=== PATIENT | female | born 1945 | race Caucasian/White ===

== ENCOUNTER 2025-05-06 12:52 | Inpatient (IN) | payer OTHER, SELFPAY ==
--- OUTSIDE RECORDS SUMMARY | 2003-12-10 04:15 | XMS_ITS | Continuity of Care Document ---
Author Organization [facility] Address [id number] [place] [address] [place] [address] Phone Care Team Providers Care Sap Sd Analyst Name Role Phone Solis OD, Daren Unavailable Unavailable Advance Directives Directive Yes / No Effective Date File Name No Information Encounters Encounter Description Practice Location Reason(s) For Visit Diagnoses Date Provider Providers Copied on Encounter [facility], [address], [place], [place], [id number], [place] tel:[phone] SEC [facility] No Information Puma-0 9-200 4 Solis OD Daren. [address] [facility] , [address], [place], [address], [place]. tel:[phone] Referring Provider: Hema Zavala, [address], [place], [address]. tel:[phone] Family History Family Member Type Diagnosis Age At Onset No Information Payers Payer name Insurance type Covered libertarian ID Authoriza tion(s) Medicaid [facility] [id number] Social History Type Description Quantity Date Captured Comments Sex Female Smoking Status No Information Chief Complaint And Reason For Visit No Information Reason For Referral Reason For Referral No Information History Of Present Illness Encounter Date Complaint History Of Prese nt Illness No Information Functional Status Date Functional Assessmen t No Information Instructions Date Instruction Additional Infor mation No Information Assessments Type Assessment Date No Information Patient Care Teams Name Effective Dates (start - stop) Status Members No Information
--- OUTSIDE RECORDS SUMMARY | 2025-03-29 18:00 | XMS_ITS | Continuity of Care Document ---
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 Share Billing SUBSEQUENT HOSPITAL CARE Advance Directives Directive Yes / No Effective Date File Name No Information Encounters Encounter Description Practice Location Reason(s) For Visit Diagnoses Date Provider Providers Copied on Encounter SUBSEQUENT HOSPITAL CARE [facility], [address] [place], [place], [id number] , tel: [phone] [facility] Inpt Obstructive sleep apnea (adult) (pediatric)Other chest painBradycardia, unspecifiedObesity, unspecifiedLocalized edemaAcute respiratory failure with hypoxiaEssential (primary) hypertensionAbnormal electrocardiogram [ECG] [EKG]Shortness of breathOther forms of dyspnea 5 Lory Rodríguez. [address] , [address], [place], [place], [id number], [place]. tel:[phone] Referring Provider: Rob Dozier, [address] [place] [address], [address]. tel:[phone] SUBSEQUENT HOSPITAL CARE [facility], [address] [place] [address], [id number] , tel: [phone] [facility] Inpt Obstructive sleep apnea (adult) (pediatric)Acute respiratory failure with hypoxiaEssential (primary) hypertensionShortnes s of breathLocalized edemaBradycardia, unspecifiedObesity, unspecified Sep-2 5 Kalvaitis Saulius. [address] [place], [place], [id number], . tel:[phone] Referring Provider: [place], [address]. tel:[phone] SUBSEQUENT [facility]PITAL CARE [facility] , [address] [place] [address], [id number] , tel: [phone] [facility] Inpt Obstructive sleep apnea (adult) (pediatric)Other chest painBradycardia, unspecifiedObesity, unspecifiedLocalized edemaAcute respiratory failure with hypoxiaEssential (primary) hypertensionAbnormal electrocardiogram [ECG] [EKG]Shortness of breathOther forms of dyspnea Sep-2 5 Ramadan Joao. [address] [place], [place], [id number], . tel:[phone] Referring Provider: [place], [address]. tel:[phone] SUBSEQU[facility]PITAL CARE [facility] , [address] [place] [address], [id number] , tel: [phone] [facility] Inpt Bradycardia, unspecifiedObesity, unspecifiedAcute respiratory failure with hypoxiaEssential (primary) hypertensionShortnes s of breathObstructive sleep apnea (adult) (pediatric) Sep-2 5 Ildefonso Ramos. [address] [place], [place], [id number], . tel:[phone] Referring Provider: [place], [address]. tel:[phone] INITIAL INPATIENT CONSULT [facility], [address] [place] [address], [id number] , tel: [phone] [facility] Inpt Essential (primary) hypertensionAbnormal electrocardiogram [ECG] [EKG]Shortness of breathBradycardia, unspecifiedOther forms of dyspnea Sep-2 5 Zaman Toniya. [address] [place], [place], [id number], . tel:[phone] Referring Provider: [place], [address]. tel:[phone] [facility] , [address] [place] [address], [id number] , tel:[phone] [facility] Inpt Obstructive sleep apnea (adult) (pediatric)Other chest painBradycardia, unspecifiedObesity, unspecifiedLocalized edemaAcute respiratory failure with hypoxia Sep-2 5 Paul Okeefe. [facility] [address] [place], [place], [id number], . tel:[phone] Referring Provider: [place], [address]. tel:[phone] [facility]ARE [facility] , [address] [place] [address], [id number] , tel:[phone] [facility] Inpt Obstructive sleep apnea (adult) (pediatric)Other chest painBradycardia, unspecifiedObesity, unspecifiedLocalized edemaAcute respiratory failure with hypoxiaEssential (primary) hypertensionAbnormal electrocardiogram [ECG] [EKG]Shortness of breathOther forms of dyspnea Sep-2 5 Saheta Sanjaya. [facility] [place], [place], [id number], . tel:[phone] Referring Provider: [place], [address]. tel:[phone] Family History Family Member Type Diagnosis Age At Onset No Information Payers Payer name Insurance type Covered constitution party ID Romelia lezama(s) [employer] [id number] Social History Type Description Quantity Date Captured [...]
--- OUTSIDE RECORDS SUMMARY | 2025-05-05 11:30 | XMS_ITS | Encounter Summary ---
Author Organization [facility] Address [address] [place] [address] Phone Care Team Providers Care Refractory Specialist Name Role Phone Rob Dozier MD Primary Care Provider [phone] Reason for Referral * Cardiology (Routine) - Authorized Specialty Diagnoses / Procedures Referred By Contac t Referred To Contact Diagnoses Abnormal ECG Procedures MCT Mobile Cardiac Telemetry Event Monitor Marie Blanchard MD [address] [facility] [address] [place] [address] Phone: tel: fax: [facility] Referral ID Status Reason Start Date Expiration Date V isits Requested Visits Authorized [id number] Authorized 05/05/2025 06/04/2026 1 1 S ACCOUNT COORDINATOR * Cardiology (Routine) - Pending Review Specialty Diagnoses / Procedures Referred By Contac t Referred To Contact Diagnoses Heart failure, unspecified HF chronicity, unspecified heart failure type (HCC) Procedures Transthoracic Echo (TTE) Complete W Doppler/CF Marie Blanchard MD [address] [facility] [address] [place] [address] Phone: tel: fax: [facility] Referral ID Status Reason Start Date Expiration Date V isits Requested Visits Authorized [id number] Pending Review 05/05/2025 06/04/2026 1 1 S ACCOUNT COORDINATOR Encounter Details Date Type Department Care Team (Late st Contact Info) Description 05/05/2025 11:30 AM SALES ACCOUNT COORDINATOR Office Visit [facility] Medicine Cardiology [address] [facility] Medical [address] Building [address] [place] [address] Marie Blanchard MD [address] [facility] [address] [place] [address] Heart failure, unspecified HF chronicity, unspecified heart failure type (HCC) (Primary Dx); Chronic hypoxic respiratory failure (HCC); Essential (primary) hypertension; 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 Never 04/18/2024 Q2: How many drinks containi ng alcohol do you have on a typical day when you are drinking? Patient does not drink Q3: How often do you have si x or more drinks on one occasion? Never 04/18/2024 Comments Unknown Sex and Gender Information Value Date Recorded Sex Assigned at Not on file Legal Sex Female 10:47 AM SALES ACCOUNT COORDINATOR Gender Identity Not on file Sexual Orientation Not on file documented as of this encounter Last Filed Vital Signs Vital Sign Reading Time Taken Comments Blood Pressure 108/56 05/05/2025 11:58 AM SALES ACCOUNT COORDINATOR Pulse 45 05/05/2025 11:58 AM SALES ACCOUNT COORDINATOR Temperature - - Respiratory Rate - - Oxygen Saturation 93% 05/05/2025 11:58 AM SALES ACCOUNT COORDINATOR Inhaled Oxygen Concentration - - Weight - - Height 160 cm (5' 3) 05/05/2025 11:58 AM SALES ACCOUNT COORDINATOR Body Mass Index - - documented in this encounter Patient Instructions * Patient Instructions* Marie Blanchard MD - 05/05/2025 11:30 AM SALES ACCOUNT COORDINATOR It was a pleasure seeing you in clinic today! Please contact us via [email or web address] or by phone with any questions or concerns. If imaging has been ordered and not yet scheduled, please call [facility] Cardiac Diagnostic Lab at [phone] to schedule your appointment. CONTACT: Clinic Clinic Clinic Visit Summary: You were seen for establishing care due to history of heart failure. We will: - Increase your furosemide to 40mg daily.. Make sure you eat foods rich in potassium because furosemide lowers your potassium level - Get labs - Please maintain a LOW SALT diet - Get a heart monitor for 2 WEEKS, then send this back with the mailing label - After your heart monitor comes off, you'll return for an echocardiogram S ACCOUNT COORDINATOR S ACCOUNT COORDINATOR S ACCOUNT COORDINATOR documented in this encounter Ordered Prescriptions Prescription Sig Dispense Quantity Refills Last Filled Start Date End Date furosemide (LASIX) 40 mg tablet Take 1 tablet (40 mg total) by mouth daily 90 tablet 3 05/05/2025 05/05/2026 documented in this encounter Plan of Treatment Pending Results Name Type Priority Associated Diagnoses Date /Time Lipoprotein a (LPa) Lab Routine Primary hypertension 05/05/2025 1:08 PM SALES ACCOUNT COORDINATOR Scheduled Orders Name Type Priority Associated Diagnoses Orde r Schedule Transthoracic Echo (TTE) Complete W Doppler/CF Echocardiography Routine Heart failure, unspecified HF chronicity, unspecified heart failure type (HCC) Expected: 05/05/2025, Expires: 08/05/2026 MCT Mobile Cardiac Telemetry Event Monitor Cardiac Services Routine Abnormal ECG Expected: 05/05/2025, Expires: 05/05/2026 Lipoprotein a (LPa) Lab Routine Primary hypertension Expected: 05/05/2025, Expires: 05/05/2026 documented as of this encounter Procedures Procedure Name Priority Date/Time Associated Diagnosis Comments ECG 12-LEAD Routine 05/05/2025 12:00 PM SALES ACCOUNT COORDINATOR Heart failure, unspecified HF chronicity, unspecified heart failure type (HCC) documented in this encounter Results * (ABNORMAL) Iron profile w/ IBC (05/05/2025 1:08 PM SALES ACCOUNT COORDINATOR) Iron 21(L) 35 - 145 mcg/dL Comment:Testing performed by : [facility], [address] [place] [address] [place]., [address] TIBC 305 250 - 400 mcg/dL TONY MOOREERIN Comment:Testing performed by : [facility], [address] [place] [address]., [id number] Transferrin saturation 7(L) 20 - 50 % TONY JENSEN Comment:Testing performed by : [facility], [address] [place] [address]., [id number] Blood 05/05/2025 1:08 PM SALES ACCOUNT COORDINATOR 05/05/2025 6:29 PM SALES ACCOUNT COORDINATOR Marie Blanchard MD LAB BLOOD ORDERABLES Final Result Performing Organization Address City/[facility]/ZIP Co de Phone Number [facility] [address] [facility]. [facility] [place] [address] * Ferritin (05/05/2025 1:08 PM SALES ACCOUNT COORDINATOR) Pathologist [facility] Ferritin 42 13 - 150 ng/mL Comment:Testing performed by : [facility], [address] [place] [address]., [id number] Blood 05/05/2025 1:08 PM SALES ACCOUNT COORDINATOR 05/05/2025 6:29 PM SALES ACCOUNT COORDINATOR us Marie Blanchard MD LAB BLOOD ORDERABLES Final Result Performing Organization Address City/[facility]/ZIP Co de Phone Number [facility] [address] [facility]. [facility] [place] [address] * (ABNORMAL) CBC with auto differential (05/05/2025 1:08 PM SALES ACCOUNT COORDINATOR) WBC 4.99 3.80 - 9.90 K/cumm Hgb 10.4(L) 11.9 - 15.5 g/dL [facility] Hct 36.5 35.6 - 45.5 % TONY MOOREERIN Plt 232 150 - 400 K/cumm TONY [facility] MPV 9.3 9.1 - 12.3 fL TONY [facility] RBC 3.63(L) 3.90 - 5.20 M/cumm CERNER [facility] MCV 100.6(H) 81.3 - 96.4 fL [facility] MCH 28.7 27.1 - 33.3 pg CERNER [facility] MCHC 28.5(L) 32.3 - 35.7 g/dL CERNER [facility] RDW CV 17.6(H) 11.1 - 14.9 % [facility] RDW SD 65.2(H) 35.7 - 48.1 fL [facility] B[facility] NRBC abs 0.00 0.00 - 0.01 K/cumm [facility] BJ[facility] Blood 05/05/2025 1:08 PM SALES ACCOUNT COORDINATOR 05/05/2025 2:36 PM SALES ACCOUNT COORDINATOR Marie Blanchard MD LAB BLOOD ORDERABLES Final Result Performing Organization Address [facility] Co de Phone Number [facility] [address] [employer] [place], [place] [id number] * (ABNORMAL) Thyroid Function Sterling (05/05/2025 1:08 PM SALES ACCOUNT COORDINATOR) TSH 6.00(H) 0.30 - 4.20 mcIUnit/mL Blood 05/05/2025 1:08 PM SALES ACCOUNT COORDINATOR 05/05/2025 2:36 PM SALES ACCOUNT COORDINATOR Marie Blanchard MD LAB BLOOD ORDERABLES Edite d Result - Final Performing Organization Address [facility] Co de Phone Number [facility] [address] [employer] [place], [place] [phone] * (ABNORMAL) Pro B-type natriuretic peptide (05/05/2025 1:08 PM SALES ACCOUNT COORDINATOR) NT-proBNP 1,939(H) <=450 pg/mL Comment: Interpretive Comments: A. Dyspnea in Acute Care Setting All Ages: < 300 pg/ml, acute heart failure unlikely. < 50 yrs: 300 - 450 pg/ml, further investigation warranted. > 450 pg/ml, acute heart failure likely. 50 - 74 yrs: 300 - 900 pg/ml, further investigation warranted. > 900 pg/ml, acute heart failure likely . > or = 75 yrs: 450 - 1800 pg/ml, further investigation warranted. > 1800 pg/ml, acute heart failure likely. B. Non-acute Setting < 75 yrs < 125 pg/ml, rules out heart failure. > or = 125 pg/ml, further investigation warranted. > or = 75 yrs < 450 pg/ml, rules out heart failure. > or = 450 pg/ml, further investigation warranted. - Knowledge of each individual patient's NT-proBNP range may be more useful than using similar cut-points for every patient. Please note that marked elevations in NT-proBNP levels may be observed in state other than Left Ventricular Congestive Failure, including: acute coronary syndromes, right heart strain/failure (including pulmonary embolism and cor pulmonale), critical illness, renal failure, as well as advanced age. - References: 1. Emily RUBIN et.al. Eur Heart J. 2006:27:330-337. 2. Luigi RW, Ely BOLANOS. J. AM Tj Cardiol: Cardiovasc Imag. 2009;2: 216- 225. Interpretive Data Last Revised Date: 2018. Blood 05/05/2025 1:08 PM SALES ACCOUNT COORDINATOR 05/05/2025 2:36 PM SALES ACCOUNT COORDINATOR Marie Blanchard MD LAB BLOOD ORDERABLES Edite d Result - Final [facility] [address] [facility]. [place] [address] * Hemoglobin A1c (05/05/2025 1:08 PM SALES ACCOUNT COORDINATOR) Hgb A1C 5.2 4.0 - 5.6 % Estimated Average Glucose 103 mg/dL TONY JENSEN Comment: The ADA recommends reporting an estimated Average Glucose (eAG) with all Hemoglobin A1c results using the equation derived from a study of 507 normal and diabetic adults. Minority populations were underrepresented and children were not included. (Diabetes Care 31:6538-5188, 2008). The eAG is not equivalent to a fasting glucose. Blood 05/05/2025 1:08 PM SALES ACCOUNT COORDINATOR 05/05/2025 2:36 PM SALES ACCOUNT COORDINATOR Marie Blanchard MD LAB BLOOD ORDERABLES Final Result TONY JENSEN [address] [facility]. [place] [address] * (ABNORMAL) Basic metabolic panel (05/05/2025 1:08 PM SALES ACCOUNT COORDINATOR) [facility] Sodium 143 135 - 145 mmol/L Potassium, pl 4.9 3.3 - 4.9 mmol/L CERNER [facility] Chloride 103 97 - 110 mmol/L C[facility] CO2 36(H) 22 - 32 mmol/L [facility] Anion gap 4 2 - 15 mmol/L [facility] BUN 19 6 - 25 mg/dL C[facility] Creatinine 1.50(H) 0.60 - 1.10 mg/dL C[facility] Glucose 95 70 - 199 mg/dL [facility] Comment: Interpretive Data Fasting glucose >/= 126 mg/dl is diagnostic for diabetes. Fasting is defined as no caloric intake for at least 8 hours. Fasting glucose between 100 mg/dl to 125 mg/dl is diagnostic of prediabetes. In a patient with classic symptoms of hyperglycemia or hyperglycemic crisis, a random glucose >/= 200 mg/dl is diagnostic for diabetes. In the absence of unequivocal hyperglycemia, results should be confirmed by repeat testing. The classification and Diagnosis of Diabetes Diabetes Care 2021; 46: S19-S40. Current interpretive data was last revised 2022. Calcium 9.4 8.5 - 10.3 mg/dL CERNER W Blood 05/05/2025 1:08 PM SALES ACCOUNT COORDINATOR 05/05/2025 2:36 PM SALES ACCOUNT COORDINATOR Marie Blanchard MD LAB BLOOD ORDERABLES Edite d Result - Final Performing Organization Address [facility]/ZIP Co de Phone Number TONY GANDHICH [address] [facility] Department [place] [address] * (ABNORMAL) Apolipoprotein B, serum (05/05/2025 1:08 PM SALES ACCOUNT COORDINATOR) Apolipoprotein B 46(L) mg/dL [facility] Comment: REFERENCE VALUE Desirable: <90 Above Desirable: 90-99 Borderline high: 100-119 High: 120-139 Very high: > or = 140 Test Performed by: [facility] - [address] [address] Market Development Manager: Lissy Lees Ph.D.; CLIA# [id number] Blood 05/05/2025 1:08 PM SALES ACCOUNT COORDINATOR 05/05/2025 2:36 PM SALES ACCOUNT COORDINATOR us Marie Blanchard MD LAB BLOOD ORDERABLES Final Result Performing Organization Address City/State/ZIP Co mo Phone Number TONY JENSEN [address] [facility] Department [place] [address] [facility] * Lipid panel (05/05/2025 1:08 PM SALES ACCOUNT COORDINATOR) Cholesterol 102 30 - 199 mg/dL Comment: Interpretive Data Ages < or = 19 years Acceptable: <170 mg/dL Borderline high: 170-199 mg/dL High: >or= 200 mg/dL Ages > or = 20 years Desirable: <200 mg/dL Borderline high: 200-239 mg/dL High: >or= 240 mg/dL Literature References: 1. Expert Panel on Integrated Guidelines for Cardiovascular Health and Risk Reduction in Children and Adolescents. Pediatrics 2011;128:S213 2. NCEP Expert Panel. Circulation 2004;110:227 Current Interpretive Data was last revised on 2018. Triglycerides 46 <=149 mg/dL TONY JENSEN Comment: Interpretive Data Ages < or = 9 years Acceptable: <75 mg/dL Borderline high: 75-99 mg/dL High: >or= 100 mg/dL Ages 10 to 20 years Acceptable: <90 mg/dL Borderline high: 90-129 mg/dL High: >or= 130 mg/dL Ages > or = 20 years Desirable: <150 mg/dL Borderline high: 150-199 mg/dL High: 200-499 mg/dL Very high: >or= 499 mg/dL Literature References: 1. Expert Panel on Integrated Guidelines for Cardiovascular Health and Risk Reduction in Children and Adolescents. Pediatrics 2011;128:S213 2. NCEP Expert Panel. Circulation 2004;110:227 Current Interpretive Data was last revised on 2018. HDL 43 >=40 mg/dL TONY JENSEN Comment: Interpretive Data Ages < or = 19 years Acceptable: >45 mg/dL Borderline low: 40-45 mg/dL Low: <40 mg/dL Ages > or = 20 years Desirable: >or= 60 mg/dL Low: <40 mg/dL Literature References: 1. Expert Panel on Integrated Guidelines for Cardiovascular Health and Risk Reduction in Children and Adolescents. Pediatrics 2011;128:S213 2. NCEP Expert Panel. Circulation 2004;110:227 Current Interpretive Data was last revised on 2018. LDL, calculated 47 <=129 mg/dL TONY JENSEN Comment: Interpretive Data Ages < or = 19 years Acceptable: <110 mg/dL Borderline high: 110-129 mg/dL High: >or= 130 mg/dL Ages > or = 20 years Optimal: <100 mg/dL Near optimal: 100-129 mg/dL Borderline high: 130-159 mg/dL High: >160 mg/dL Calculated using the Aaron LDL-C estimating equation. This equation was implemented on 2024. Prior to this date LDL-C was estimated using the Friedewald equation. Literature References: 1. Expert Panel on Integrated Guidelines for Cardiovascular Health and Risk Reduction in Children and Adolescents. Pediatrics 2011;128:S213 2. NCEP Expert Panel. Circulation 2004;110:227 3. Aaron Booker al. LEYDI Cardiol. 2020 October 31;5(5):540-548. doi: 10.1001/jamacardio.2020.0013 Current Interpretive Data was last revised on 2024. Non-HDL Cholesterol 59 mg/dL TONY JENSEN Comment: Interpretive Data Ages < or = 19 years Acceptable: <120 mg/dL Borderline high: 120-144 mg/dL High: >145 mg/dL Ages > or = 20 years When triglycerides are >200 mg/dL, Non-HDL cholesterol is a secondary target of therapy with treatment goals that are 30 mg/dL greater than the LDL cholesterol target. Literature References: 1. Expert Panel on Integrated Guidelines for Cardiovascular Health and Risk Reduction in Children and Adolescents. Pediatrics 2011;128:S213 2. NCEP Expert Panel. Circulation 2004;110:227 Current Interpretive Data was last revised on 2018. Chol/HDL ratio 2 TONY MOOREWCH Blood 05/05/2025 1:08 PM SALES ACCOUNT COORDINATOR 05/05/2025 2:36 PM SALES ACCOUNT COORDINATOR Marie Blanchard MD LAB BLOOD ORDERABLES Edite d Result - Final TONY GANDHICH [address] [facility]. 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 doxycycline 100 mg tablet 01/13/2025 ferrous sulfate 325 mg (65 mg of elemental iron) tablet Take 1 tablet (325 mg total) by mouth daily 10/08/2024 psyllium, aspartame, SF (Daily Fiber, psyllium-aspart,) 3.4 gram packet Take 1 packet by mouth 2 (two) times a day 04/14/2025 traZODone (DESYREL) 150 mg tablet 05/02/2025 oxyBUTYnin (DITROPAN) 5 mg tablet 05/02/2025 busPIRone (BUSPAR) 10 mg tablet 05/02/2025 ALPRAZolam (XANAX) 0.5 mg tablet 04/07/2025 meloxicam (MOBIC) 7.5 mg tablet 03/28/2025 added in this encounter Care Teams Refractory Specialist Relationship Specialty Start Date End Date Rob Dozier MD [address] [place] [address] PCP - General Internal Medicine 08/07/23 documented as of this encounter
--- OUTSIDE RECORDS SUMMARY | 2025-05-05 13:15 | XMS_ITS | Encounter Summary ---
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) Social History Tobacco Use Types Packs/Day Years Used Date Smoking Tobacco: Former Cigarettes Comments:Quit in her 30s AUDIT-C Answer Date [...] on file Legal Sex Female 10:47 AM CONTROL ENGINEER Gender Identity Not on file Sexual Orientation Not on file documented as of this encounter Plan of Treatment Pending Results Name Type Priority Associated Diagnoses Date /Time Lipoprotein a (LPa) Lab Routine Primary hypertension 05/05/2025 1:08 PM CONTROL ENGINEER documented as of this encounter Procedures Procedure Name Priority Date/Time Associated Diagnosis Comments EGFR Routine 05/05/2025 1:08 PM CONTROL ENGINEER Primary hypertension DIFFERENTIAL AUTO Routine 05/05/2025 1:0 8 PM CONTROL ENGINEER Primary hypertension PRO B-TYPE NATRIURETIC PEPTIDE Routine 05/05/2025 1:08 PM CONTROL ENGINEER Heart failure, unspecified HF chronicity, unspecified heart failure type (HCC) Primary hypertension THYROID FUNCTION CASCADE Routine 05/05/2025 1:08 PM CONTROL ENGINEER Primary hypertension IRON PROFILE W/ IBC Routine 05/05/2025 1 :08 PM CONTROL ENGINEER Heart failure, unspecified HF chronicity, unspecified heart failure type (HCC) Chronic kidney disease, unspecified CKD stage APOLIPOPROTEIN B Routine 05/05/2025 1:08 PM CONTROL ENGINEER Primary hypertension CBC WITH AUTO DIFFERENTIAL Routine 05/05/2025 1:08 PM CONTROL ENGINEER Primary hypertension T4, FREE Routine 05/05/2025 1:08 PM CONTROL ENGINEER Primary hypertension HEMOGLOBIN A1C Routine 05/05/2025 1:08 PM CONTROL ENGINEER 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 73 m2 Comment: Interpretive Data Reference Interval Normal >/= 90 mL/min/1.73m2 Mildly decreased* 60 - 89 mL/min/1.73m2 Mildly to moderately decreased 45 - 59 mL/min/1.73m2 Moderately to severely decreased 30 - 44 mL/min/1.73m2 Severely decreased 15 - 29 mL/min/1.73m2 Kidney Failure < 15 mL/min/1.73m2 *Relative to young adult level Estimated glomerular filtration rate is determined by the 2020 CKD-EPI equation recommended by the National Kidney Foundation (A Unifying Approach to GFR Estimation: Recommendations of the NKF-ASK Task Force on Reassessing the Inclusion of Race in Diagnosing Kidney Disease, JASN 2020). The CKD-EPI equation should not be used for patients with unstable renal function and has not been validated in children and those over 70. Current interpretive data was last reviewed 2021. Blood 05/05/2025 1:08 PM CONTROL ENGINEER 05/05/2025 2:36 PM CONTROL ENGINEER Marie Blanchard MD LAB BLOOD ORDERABLES Final Result Performing Organization Address City/[facility]/ZIP Co de Phone Number [facility] [address] [employer] [place], [place] [phone] * T4, free (05/05/2025 1:08 PM CONTROL ENGINEER) Free T4 1.14 0.90 - 1.70 ng/dL Blood 05/05/2025 1:08 PM CONTROL ENGINEER 05/05/2025 2:36 PM CONTROL ENGINEER Narrative TONY JENSEN - 05/05/2025 7:05 PM CONTROL ENGINEER This test was reflexed from a TSH result. Marie Blanchard MD LAB BLOOD ORDERABLES Edite d Result - Final Performing Organization Address [facility] Co de Phone Number TONY MOORECH [address] [facility] [employer] [place] [address] * Differential, auto (05/05/2025 1:08 PM CONTROL ENGINEER) Neutrophil abs 2.37 1.50 - 6.50 K/cumm Imm gran abs 0.01 0.00 - 0.10 K/cumm TONY JENSEN Lymphocyte abs 1.69 0.80 - 3.30 K/cumm TONY JENSEN Monocyte abs 0.56 0.20 - 0.80 K/cumm TONY MOOREWCH Eosinophil abs 0.33 0.00 - 0.50 K/cumm TONY JENSEN Basophil abs 0.03 0.00 - 0.10 K/cumm TONY JENSEN Neutrophil pct 47.5 % TONY JENSEN Comment: Interpretive Data Percent cell count reference ranges are not reported, since discordance with absolute values may lead to misinterpretation of CBC data. Current Interpretive Data was last revised on 2017. Imm gran pct 0.2 % TONY JENSEN Comment: Interpretive Data Percent cell count reference ranges are not reported, since discordance with absolute values may lead to misinterpretation of CBC data. Current Interpretive Data was last revised on 2017. Lymphocyte pct 33.9 % TONY JENSEN Comment: Interpretive Data Percent cell count reference ranges are not reported, since discordance with absolute values may lead to misinterpretation of CBC data. Current Interpretive Data was last revised on 2017. Monocyte pct 11.2 % TONY JENSEN Comment: Interpretive Data Percent cell count reference ranges are not reported, since discordance with absolute values may lead to misinterpretation of CBC data. Current Interpretive Data was last revised on 2017. Eosinophil pct 6.6 % TONY JENSEN Comment: Interpretive Data Percent cell count reference ranges are not reported, since discordance with absolute values may lead to misinterpretation of CBC data. Current Interpretive Data was last revised on 2017. Basophil pct 0.6 % [facility] Comment: Interpretive Data Percent cell count reference ranges are not reported, since discordance with absolute values may lead to misinterpretation of CBC data. Current Interpretive Data was last revised on 2017. Blood 05/05/2025 1:08 PM CONTROL ENGINEER 05/05/2025 2:36 PM CONTROL ENGINEER us Marie Blanchard MD LAB BLOOD ORDERABLES Final Result TONY JENSEN [id number] [facility]. [place] [address] * Lipid panel (05/05/2025 1:08 PM CONTROL ENGINEER) Cholesterol 102 30 - 199 mg/dL Comment: [...] mg/dL High: >160 mg/dL Calculated using the Walker LDL-C estimating equation. This equation was implemented on 2024. Prior to this date LDL-C was estimated using the Friedewald equation. Literature References: 1. Expert Panel on Integrated Guidelines for Cardiovascular Health and Risk Reduction in Children and Adolescents. Pediatrics 2011;128:S213 2. NCEP Expert Panel. Circulation 2004;110:227 3. Aaron Moreland et al. LEYDI Cardiol. 2019October 31;5(5):540-548. doi: 10.1001/jamacardio.2020.0013 Current Interpretive Data was [...] revised on 2018. Chol/HDL ratio 2 TONY JENSEN Blood 05/05/2025 1:08 PM CONTROL ENGINEER 05/05/2025 2:36 PM CONTROL ENGINEER us Marie Blanchard MD LAB BLOOD ORDERABLES Edite d Result - Final TONY TERESACH [address] [facility]. [place] [address] * (ABNORMAL) Apolipoprotein B, serum (05/05/2025 1:08 PM CONTROL ENGINEER) [facility] Apolipoprotein B 46(L) mg/dL [place] [facility] Comment: REFERENCE VALUE Desirable: <90 Above Desirable: 90-99 Borderline high: 100-119 High: 120-139 Very high: > or = 140 Test Performed by: [facility] [place] [address] Film Rental Clerk: Lissy Lees Ph.D.; CLIA# [id number] Blood 05/05/2025 1:08 PM CONTROL ENGINEER 05/05/2025 2:36 PM CONTROL ENGINEER Marie Blanchard MD LAB BLOOD ORDERABLES Final Result [facility] [address] [facility]. [place] [address] [place] [facility] * (ABNORMAL) Basic metabolic panel (05/05/2025 1:08 PM CONTROL ENGINEER) Sodium 143 135 - 145 mmol/L Potassium, pl 4.9 3.3 - 4.9 mmol/L [facility] Chloride 103 97 - 110 mmol/L [facility] CO2 36(H) 22 - 32 mmol/L [facility] Anion gap 4 2 - 15 mmol/L [facility] BUN 19 6 - 25 mg/dL [facility] Creatinine 1.50(H) 0.60 - 1.10 mg/dL [facility] Glucose 95 70 - 199 mg/dL [facility] Comment: Interpretive Data Fasting glucose >/= 126 [...] Calcium 9.4 8.5 - 10.3 mg/dL [facility] Blood 05/05/2025 1:08 PM CONTROL ENGINEER 05/05/2025 2:36 PM CONTROL ENGINEER Marie Blanchard MD LAB BLOOD ORDERABLES Edite d Result - Final Performing Organization Address [facility] Co de Phone Number [facility] [address] [facility] [place] [address] * Hemoglobin A1c (05/05/2025 1:08 PM CONTROL ENGINEER) Hgb A1C 5.2 4.0 - 5.6 % Estimated Average Glucose 103 mg/dL TONY JENESN Comment: The ADA recommends reporting an estimated Average Glucose (eAG) with all Hemoglobin A1c results using the equation derived from a study of 507 normal and diabetic adults. Minority populations were underrepresented and children were not included. (Diabetes Care 31:2507-3417, 2008). The eAG is not equivalent to a fasting glucose. Blood 05/05/2025 1:08 PM CONTROL ENGINEER 05/05/2025 2:36 PM CONTROL ENGINEER Marie Blanchard MD LAB BLOOD ORDERABLES Final Result Performing Organization Address [facility] de Phone Number TONY MOORECH [address] [employer]. [facility] [employer] [place] [address] * (ABNORMAL) Pro B-type natriuretic peptide (05/05/2025 1:08 PM CONTROL ENGINEER) NT-proBNP 1,939(H) <=450 pg/mL Comment: Interpretive Comments: [...] et.al. Eur Heart J. 2006:27:330-337. 2. Luigi MARSH, Ely BOLANOS. J. AM Tj Cardiol: Cardiovasc Imag. 2009;2: 216- 225. Interpretive Data Last Revised Date: 2018. Blood 05/05/2025 1:08 PM CONTROL ENGINEER 05/05/2025 2:36 PM CONTROL ENGINEER Marie Blanchard MD LAB BLOOD ORDERABLES Edite d Result - Final Performing Organization Address [facility] Co de Phone Number [facility] [address] [employer] [place], [place] [phone] * (ABNORMAL) Thyroid Function [place] (05/05/2025 1:08 PM CONTROL ENGINEER) TSH 6.00(H) 0.30 - 4.20 mcIUnit/mL Blood 05/05/2025 1:08 PM CONTROL ENGINEER 05/05/2025 2:36 PM CONTROL ENGINEER Marie Blanchard MD LAB BLOOD ORDERABLES Edite d Result - Final Performing Organization Address [facility] Co de Phone Number TONY MOORECH [address] [address] [employer] [place], [place] [phone] * (ABNORMAL) CBC with auto differential (05/05/2025 1:08 PM CONTROL ENGINEER) WBC 4.99 3.80 - 9.90 K/cumm Hgb 10.4(L) 11.9 - 15.5 g/dL TONY GANDHI Hct 36.5 35.6 - 45.5 % [facility] Plt 232 150 - 400 K/cumm TONY MOOREW MPV 9.3 9.1 - 12.3 fL TONY MOOREW RBC 3.63(L) 3.90 - 5.20 M/cumm TONY MOOREW MCV 100.6(H) 81.3 - 96.4 fL TONY MOOERW MCH 28.7 27.1 - 33.3 pg TONY MOOREW MCHC 28.5(L) 32.3 - 35.7 g/dL TONY BJW RDW CV 17.6(H) 11.1 - 14.9 % TONY MOOREWCH RDW SD 65.2(H) 35.7 - 48.1 fL TONY MOOREW NRBC abs 0.00 0.00 - 0.01 K/cumm TONY MOOREW Blood 05/05/2025 1:08 PM CONTROL ENGINEER 05/05/2025 2:36 PM CONTROL ENGINEER Marie Blanchard MD LAB BLOOD ORDERABLES Final Result Performing Organization Address City/[facility]/ZIP Co de Phone Number [facility] [address] [place] [address] * Ferritin (05/05/2025 1:08 PM CONTROL ENGINEER) [facility] Ferritin 42 13 - 150 ng/mL Comment:Testing performed by : [facility], [facility] [facility], [place]., [address] Blood 05/05/2025 1:08 PM CONTROL ENGINEER 05/05/2025 6:29 PM CONTROL ENGINEER Marie Blanchard MD LAB BLOOD ORDERABLES Final Result [facility] [address] [facility] [employer] [place] [address] * (ABNORMAL) Iron profile w/ IBC (05/05/2025 1:08 PM CONTROL ENGINEER) [facility] Iron 21(L) 35 - 145 mcg/dL Comment:Testing performed by : [facility], [address] [place] [address]., [id number] TIBC 305 250 - 400 mcg/dL TONY JENSEN Comment:Testing performed by : [facility], [address] [place] [address]., [address] Transferrin saturation 7(L) 20 - 50 % TONY JENSEN Comment:Testing performed by : [facility], [address] [place] [address]., [id number] Blood 05/05/2025 1:08 PM CONTROL ENGINEER 05/05/2025 6:29 PM CONTROL ENGINEER Marie Blanchard MD LAB BLOOD ORDERABLES Final Result TONY GANDHICH [address] [facility] Department [place] [address] documented in this encounter Visit Diagnoses Diagnosis Heart failure, unspecified HF chronicity, unspecified heart failure type (HCC) Chronic kidney disease, unspecified CKD stage Primary hypertension Unspecified essential hypertension 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
[2025-05-06] VITALS (23 sets, daily range): BP systolic 111–176; BP diastolic 30–79; PULSE 40–66; RESP 15–31; TEMP 36.4–36.7; O2SAT 85–100; BMI 34.0
--- NOTE | ~2025-05-06 | XR_ITS ---
XR chest 1V portable 05/06/2025 13:46 Indication: Shortness of breath Procedure: AP portable chest Comparison: Comparison to multiple prior studies sequentially, with oldest reviewed study dated 06/11/2015. Findings: Cardiomegaly. Abnormal development of bilateral perihilar and basilar airspace disease. Small pleural effusions. No pneumothorax. No acute osseous abnormality. There is dextroscoliosis of the thoracic spine. Impression: 1: Interval development of bilateral perihilar and bibasilar airspace disease, most likely edema. Reviewed, dictated and finalized at location [facility] Impression: 1: Interval development of bilateral perihilar and bibasilar airspace disease, most likely edema.
--- NOTE | 2025-05-06 12:57 | ECG_ITS ---
Test Date: 2025-05-06 12:57:55 Measurements Intervals [place] Rate: 54 P: 42 MI: 190 QRS: 18 QRSD: 157 T: -30 QT: 464 QTc: 440 Interpretive Statements [address]US BRAD[address]ARD[address] ST DEPRESSION, CONSIDER ISCHEMIA, ANT-LAT LEADS INTRAVENTRICULAR CONDUCTION DELAY [130+ ms QRS DURATION] No previous ECG available for comparison Electronically Signed On 05-06-2025 21:22:29 SAND CUTTER OPERATOR by Cecil Gutiérrez M.D.
[2025-05-06] MEDS: IPRATROPIUM 0.5 MG/ALBUTEROL SULFATE 2.5 MG (BASE) AMPUL.NEB 3 ML INHALATION ×2 (13:12→20:27)
--- NOTE | 2025-05-06 13:12 | ED.SOB ---
HPI - SOB/Dyspnea General Chief Complaint: Shortness of Breath/Dyspnea Stated Complaint: low oxygen Time Seen by Provider: 05/06/25 12:56 Source: EMS Mode of arrival: EMS Limitations: altered mental status History of Present Illness HPI Narrative: This is a 79-year-old female with history of COPD, CHF, hypertension, anxiety who presents the ED for shortness of breath. Per EMS report, patient began to have shortness of breath at senior care and was found to be satting in the 60s on 4 L non-rebreather prompting EMS to be notified. Per senior care, patient is baseline A/O x3 but is only ALT is 1 for her today. History otherwise limited at this time due to patient's altered mental status. Related Data Home Medications ?Medication ?Instructions ?Recorded ?Confirmed ?Last Taken ?Type alprazolam 0.5 mg tablet 0.5 mg PO 09/25/24 10/28/24 Unknown History atorvastatin 40 mg tablet 40 mg PO 09/25/24 10/28/24 Unknown History buspirone 10 mg tablet 10 mg PO 09/25/24 10/28/24 Unknown History fluoxetine 20 mg tablet 20 mg PO 09/25/24 10/28/24 Unknown History fluticasone 250 mcg-salmeterol 50 1 inh inhalation 09/25/24 10/28/24 Unknown History mcg/dose blistr powdr for inhalation (Advair Diskus) levothyroxine 175 mcg tablet 175 mcg PO 09/25/24 10/28/24 Unknown History oxybutynin chloride 5 mg mg PO 09/25/24 10/28/24 Unknown History tablet,extended release 24 hr pantoprazole 40 mg tablet,delayed mg PO 09/25/24 10/28/24 Unknown History release prednisone 20 mg tablet 10 mg PO 09/25/24 10/28/24 Unknown History sumatriptan succinate 50 mg tablet 50 mg PO ONCE 09/25/24 10/28/24 Unknown History trazodone 50 mg tablet mg PO 09/25/24 10/28/24 Unknown History montelukast 10 mg tablet 10 mg PO DAILY 10/28/24 10/28/24 Unknown History (Singulair) oxycodone 5 mg/5 mL oral solution 5 mg PO Q6H PRN 10/28/24 10/28/24 Unknown History Allergies Allergy/AdvReac Type Severity Reaction Status Date / Time No Known Allergies Allergy Verified 05/06/25 17:58 Review of Systems Review of Systems: ROS unobtainable: Yes unobtainable due to mental status [facility] Past Medical History Medical History Hypertension COPD (chronic obstructive pulmonary disease) Diabetes Sleep apnea Insomnia Hyperlipidemia Anxiety Anemia Major depressive disorder Hypothyroid Heart failure GERD (gastroesophageal reflux disease) End stage renal disease Surgical History Surgical History History of carpal tunnel release Social History Social History Smoking packs per day: 0.5 Smoking cigarettes per day: 10.0 Smoking status: Former smoker Alcohol intake: never Substance use: never Substance use type: does not use Lack of Transportation: No Lack of Food: Never True Current Housing: I Have Housing Concerned About Future Housing: No Difficulty Paying Gas/Electric Bills: No Difficulty Paying for Meds: No Currently Unemployed: No Education: Grade School Difficulty w/ Childcare or Family Care: No Spiritual care concerns: No Exam Narrative: APPEARANCE: Mild distress, nontoxic, resting in bed EYES: EOMI HEENT: Normocephalic, atraumatic, OMM RESPIRATORY: No respiratory distress Clear to auscultation bilaterally with no rhonchi wheezing or rales. CARDIOVASCULAR: Bradycardic with regular rhythm without murmurs rubs or gallops. ABDOMINAL: Soft, nontender, nondistended, no rebound or guarding MUSCULOSKELETAl: Moves all extremities. No clubbing, cyanosis or edema. NEURO: Awake and alert and oriented x1. Following commands, speech normal, no focal deficits SKIN:: Warm, dry. No rashes lesions or abrasions PSYCHIATRIC: Tearful Course Vital Signs Vital signs: Vital Signs Temperature 97.6 F 05/06/25 12:52 Pulse Rate 49 L 05/06/25 12:52 Respiratory Rate 17 05/06/25 12:52 Blood Pressure 173/79 H 05/06/25 12:52 Pulse Oximetry 93 05/06/25 12:52 Oxygen Delivery Nasal Cannula 05/06/25 12:52 Oxygen Flow Rate 4 05/06/25 12:52 Temperature 97.6 F 05/06/25 12:52 Pulse Rate 43 L 05/06/25 18:00 Respiratory Rate 18 05/06/25 17:42 Blood Pressure 124/30 L 05/06/25 17:00 Pulse Oximetry 96 05/06/25 17:42 Oxygen Delivery BiPAP 05/06/25 17:42 Oxygen Flow Rate 6 05/06/25 15:35 Fraction of Inspired Oxygen 30 05/06/25 17:42 MDM - SOB/Dyspnea MDM Narrative Medical decision making narrative: 79-year-old female Presenting for altered mental status and shortness of breath. On initial evaluation patient was in no acute distress afebrile, hemodynamic stable. Differentials include but are not limited to: ACS, CHF Exacerbation, COPD exacerbation, PE, PNA, PTX, bronchitis, viral syndrome Notable exam findings: A/O x1. Diminished breath sounds throughout. No respiratory distress. Bradycardic in the 40s. Notable lab findings: Mildly anemic at 10.7. Creatinine elevated at 1.57. BNP elevated at 2190. UA not consistent with a UTI. COVID/flu/RSV negative. ABG possibly a mixed sample, pCO2 elevated at 68. Notable imaging findings: Chest x-ray showed pulmonary edema Patient was trialed on nasal cannula and a DuoNeb but had fluctuating O2 sats from the 80s to 90s. Repeat ABG continue to show pH of 7.28 with pCO2 now 72. Patient did have improvement of mental status but with the increasing pCO2, patient was placed on BiPAP. Suspect patient is a combination COPD exacerbation at with CHF exacerbation. She was started on Rocephin and doxycycline and given 125 mg Solu-Medrol. She was given 40 mg Lasix. Patient will require admission for acute hypercarbic and hypoxemic respiratory failure the case was discussed hospitalist who will admit the patient. CRITICAL CARE Indication: Acute hypercarbic and hypoxemic respiratory failure Time type: intermittent I provided a total of 35 minutes of critical care excluding separately billable procedures. This includes time w/ EMS, initial bedside evaluation, reviewing old records, review of testing done while under my care, discussion w/ the family, nurses, it infrastructure consultant and guiding the patient?s care while in the emergency department. Approximate time distribution: 10 minutes ? Initial evaluation, d/w involved parties, attempting to gather old records. 10 minutes ? Documenting medical record 5 minutes ? Review of results (EKGs, labs, imaging) 5 minutes ? Serial repeat bedside evaluation 5 minutes ? Discussing case with multiple providers Medical Records Attestation: I reviewed the patient's medical records. Lab Data Attestation: I reviewed the patient's lab results. 05/06/25 13:32 05/06/25 13:32 Labs: Lab Results 05/06/25 05/06/25 Range/Units 13:32 15:00 WBC 5.9 (4.5-10.0) K/mm3 RBC 3.75 L (4.2-5.4) M/mm3 Hgb 10.7 L (12.0-15.0) g/dL Hct 38.8 (37.0-47.0) % MCV 103.5 H (80-100) fl MCH 28.5 (26-34) pg MCHC 27.6 L (32-36) g/dl RDW 17.7 H (11.5-14.5) % Plt Count 249 (150-375) k/mm3 MPV 9.2 (7.4-10.4) fl Immature Gran % (Auto) 0.2 (0-0.5) % Neut % (Auto) 49.7 (45.5-73.1) % Lymph % (Auto) 33.4 (18.3-44.2) % [place] % (Auto) 9.2 H (2.6-8.5) % Eos % (Auto) 6.8 H (0-4.4) % Baso % (Auto) 0.7 (0.2-1.2) % Lymph # (Auto) 1.96 (0.9-3.2) K/mm3 [place] # (Auto) 0.5 (0.1-0.6) K/mm3 Eos # (Auto) 0.4 H (0-0.3) K/mm3 Baso # (Auto) 0.0 (0.0-0.1) K/mm3 Abs Immat Gran (auto) 0.01 (0.00-0.031) K/mm3 Absolute Neuts (auto) 2.9 (1.3-6.7) K/mm3 Absolute Nucleated RBC 0.000 (0.0-0.012) K/mm3 Band Neutrophils % Not Reportable Nucleated RBC % 0.0 (0.0-0.2) % Platelet Estimate Adequate (Adequate) Schistocytes None seen PT 13.8 (11.1-14.7) Seconds INR 1.0 Sodium 143 (137-145) mmol/L Potassium 4.7 (3.4-5.0) mmol/L Chloride 103 (98-107) mmol/L Carbon Dioxide 36 H (22-30) mmol/L Anion Gap 4 (4-12) mmol/L BUN 20 H (7-17) mg/dL Creatinine 1.57 H (0.7-1.0) mg/dL Estim Creat Clear Calc 28 ml/min Estimated GFR 32 L (59 - ) Glucose 78 (65-110) mg/dL Calcium 8.3 L (8.4-10.2) mg/dL Total Bilirubin 0.6 (0.2-1.3) mg/dL AST 36 (14-36) U/L ALT 14 (6-35) U/L Alkaline Phosphatase 137 H (38-126) U/L Troponin I 0.013 (0.000-0.034) ng/mL NT-Pro-B Natriuret Pep 2190 H (19.9-100) pg/mL Total Protein 7.2 (6.3-8.2) g/dL Albumin 3.6 (3.5-5.1) g/dL Urine Color Yellow (Yellow) Urine Appearance Clear (Clear) Urine pH 7.5 (5.0-9.0) Ur Specific [place] 1.018 (1.001-1.035) Urine Protein 1+ H (Negative) mg/dL Urine Glucose (UA) Negative (Negative) mg/dL Urine Ketones Negative (Negative) mg/dL Ur Blood (Man) Negative (Negative) Urine Nitrate Negative (Negative) Urine Bilirubin Negative (Negative) Urine Urobilinogen 1.0 (<2.0) mg/dL Add Ur Microanalysis Reviewed Leukocyte Esterase Rfl 1+ H (Negative) MARION/UL Urine RBC 0-2 (0-2) /hpf Urine WBC 6-10 H (0-3) /hpf Ur Squamous Epith Cells None seen (Few) /hpf Urine Bacteria None seen /hpf Urine Casts 3-5 Influenza A (RT-PCR) Negative (Negative) Influenza B (RT-PCR) Negative (Negative) RSV (RT-PCR) Negative (Negative) SARS-CoV-2 RNA (RT-PCR) Negative (Negative) ABG Data ABG results: 05/06/25 13:24 Puncture Site Right brachial ABG pH 7.296 L* ABG pCO2 68.6 H* ABG pO2 49.5 L* ABG PO2/FiO2 Ratio 1.13 ABG HCO3 32.7 H ABG O2 Saturation 79.5 L* ABG O2 Content 12.6 L ABG Base Excess 4.6 A-a Gradient 186.0 Oxyhemoglobin 80.8 L* Total Hemoglobin 11.1 L O2 Delivery Device Nasal cannula O2 Liters/Min 6.0 FiO2 44 Imaging Data Attestation: I personally reviewed and interpreted this imaging study as follows: My impression: Chest x-ray: Normal cardiac silhouette, no consolidations, pulmonary vascular congestion with left pleural effusion Radiologist's impression: Impressions Chest X-Ray 05/06/25 13:47 Impression: 1: Interval development of bilateral perihilar and bibasilar airspace disease, most likely edema. ECG Data EKG #1: Attestation: I personally reviewed and interpreted this ECG as follows: ECG completion date: 05/06/25 ECG completion time: 12:57 Interpretation: Sinus bradycardia, normal axis, intraventricular conduction delay, no acute ST or T-wave changes Discharge Plan Discharge Clinical Impression: Acute on chronic respiratory failure with hypoxia and hypercapnia CHF (congestive heart failure) Qualifiers: Heart failure type: unspecified Heart failure chronicity: acute on chronic Qualified Code(s): I50.9 - Heart failure, unspecified COPD (chronic obstructive pulmonary disease) Qualifiers: COPD type: COPD with acute exacerbation Qualified Code(s): J44.1 - Chronic obstructive pulmonary disease with (acute) exacerbation Patient Disposition: Still a Patient Condition: Guarded Prognosis
--- NOTE | 2025-05-06 13:13 | PCRCNOTE ---
Had to wait for R.N. to draw blood before attempting ABG
[2025-05-06 13:35] LABS: Alveolar/Arterial O2 Gradient 186.0 mmHg; Fractional Inspired Oxygen 44 %; HCO3 ABG 32.7 mEq/l (22.0-26.0); Oxygen Content ABG 12.6 %vol (16.0-22.0); PO2 FiO2 Ratio Arterial Blood 1.13 %
[2025-05-06 13:40] LABS: PCO2 ABG 68.6 mmHg (35.0-45.0)
[2025-05-06 13:41] LABS: PO2 ABG 49.5 mmHg (80.0-100.0)
[2025-05-06 13:42] LABS: Oxygen Saturation ABG 79.5 % (95.0-100.0)
[2025-05-06 13:43] LABS: Liters per Minute 6.0 LPM; Site Drawn RIGHT BRACHIAL
[2025-05-06 13:43] LABS: Hematocrit 38.8 % (37.0-47.0); Hemoglobin 10.7 g/dL (12.0-15.0); Immature Granulocyte Percent A 0.2 % (0-0.5); Lymphocytes Absolute Auto 1.96 K/mm3 (0.9-3.2); Mean Corpuscular HGB Conc 27.6 g/dl (32-36); Mean Corpuscular Hemoglobin 28.5 pg (26-34); Mean Corpuscular Volume 103.5 fl (80-100); Nucleated Red Blood Cells Absolute Auto 0.000 K/mm3 (0.0-0.012); Nucleated Red Blood Cells Perc 0.0 % (0.0-0.2); Platelet Count Result 249 k/mm3 (150-375); Red Blood Count 3.75 M/mm3 (4.2-5.4); White Blood Count 5.9 K/mm3 (4.5-10.0)
--- NOTE | 2025-05-06 13:50 | PCRTNOTE ---
DR. ALLEN DOES NOT WANT PT. ON BIPAP; DOING BETTER AFTER TX.
[2025-05-06 13:57] LABS: INR 1.0; Prothrombin Time 13.8 Seconds (11.1-14.7)
--- NOTE | 2025-05-06 14:06 | PCRCNOTE ---
0732 Dr. Olmedo does not want Bipap at this time; states Pt. is doing better after the breathing treatment.
[2025-05-06 14:08] LABS: Alanine Aminotransferase 14 U/L (6-35); Albumin Level 3.6 g/dL (3.5-5.1); Alkaline Phosphatase 137 U/L (38-126); Anion Gap 4 mmol/L (4-12); Aspartate Amino Transferase 36 U/L (14-36); Bilirubin,Total 0.6 mg/dL (0.2-1.3); Blood Urea Nitrogen 20 mg/dL (7-17); Calcium 8.3 mg/dL (8.4-10.2); Carbon Dioxide 36 mmol/L (22-30); Chloride 103 mmol/L (98-107); Estimated CRCL calculation 28 ml/min; Estimated Glomerular Filt Rate 32; Glucose 78 mg/dL (65-110); Potassium 4.7 mmol/L (3.4-5.0); Schistocytes None Seen; Sodium 143 mmol/L (137-145); Total Protein 7.2 g/dL (6.3-8.2)
[2025-05-06 14:17] LABS: Troponin I 0.013 ng/mL (0.000-0.034)
[2025-05-06 14:20] LABS: Influenza A QL RT-PCR Negative (Negative); Influenza B QL RT-PCR Negative (Negative); RSV RNA, RT-PCR Negative (Negative); SARS-CoV-2 RNA PCR Negative (Negative)
[2025-05-06] MEDS: cefTRIAXone 1 GM in SODIUM CHLORIDE 0.9% IV 50 ML 100 ML IVPB (15:02)
--- NOTE | 2025-05-06 15:04 | P.HP_ITS ---
H&P: HPI History of Present Illness Date/Time: 05/06/25 15:04 Chief Complaint: Hypoxia Narrative: 79 y/o F with PMH of COPD, CHF, hypertension, and anxiety presents here with hypoxia. The patient presented here on 05/06 from [facility] via EMS for further evaluation of hypoxia. HPI largely obtained through chart review, EMS report, and ED provider report as the patient is a poor historian and was initially altered. Per EMS, the facility reported the patient was noted to be hypoxic this morning. Upon their arrival the patient had an O2 saturation in the 90s on a non-rebreather going at 4L. She has a baseline O2 requirement of 2L. She arrived to the emergency department at 64% on 2L. At baseline the patient is A&O x3, arrived A&O x1. Shortly after arrival she received a DuoNeb and drastically improved in mentation, currently A&O x3. The patient denies any recent worsening shortness of breath. She does report she has had a dry intermittent cough which is chronic for her. Also reporting some mild rhinorrhea as secondary to the nasal cannula. She otherwise denies fever, chills, nausea, vomiting, or chest pain. She does report diarrhea, however this has been chronic for her and she is unsure how long this has been present. She also reports new bilateral lower extremity edema, but she is unsure of onset. Initial VS at presentation: 97.6? F, HR 49, RR 17, 173/79, and 93% on 4L NC. Now on BiPAP. ED workup showed: No leukocytosis, hemoglobin 10.7, initial ABG significant for a pH of 7.296 and a CO2 of 68.6 (felt to possibly be a mixed specimen as her O2 sat was 79.5%, however on the monitor was 100%) repeat ABG however was similar therefore she was started on BiPAP, creatinine 1.57 and GFR 32 (no previous available for comparison), calcium 8.3 with a normal albumin, initial troponin 0.013, BNP 2190. UA showed mild indicators of infection with 1+ leuk esterase and 6-10 WBC with no epithelial cells or bacteria. CXR showed interval development of bilateral perihilar and bibasilar airspace disease, most likely edema. EKG showed sinus bradycardia, rate 54, with IVC delay. Review of Systems Review of Systems: All systems reviewed & are unremarkable except as noted in HPI and below (Somewhat limited as the patient is a poor historian) [facility] Past Medical History Medical History Hypertension COPD (chronic obstructive pulmonary disease) Diabetes Sleep apnea Insomnia Hyperlipidemia Anxiety Anemia Major depressive disorder Hypothyroid Heart failure GERD (gastroesophageal reflux disease) End stage renal disease Surgical History Surgical History History of carpal tunnel release Social History Social History Smoking packs per day: 0.5 Smoking cigarettes per day: 10.0 Smoking status: Former smoker Alcohol intake: never Substance use: never Substance use type: does not use Lack of Transportation: No Lack of Food: Never True Current Housing: I Have Housing Concerned About Future Housing: No Difficulty Paying Gas/Electric Bills: No Difficulty Paying for Meds: No Currently Unemployed: No Education: Grade School Difficulty w/ Childcare or Family Care: No Spiritual care concerns: No Meds Home Medications and Allergies Home Medications ?Medication ?Instructions ?Recorded ?Confirmed ?Type alprazolam 0.5 mg tablet 0.5 mg PO 09/25/24 10/28/24 History atorvastatin 40 mg tablet 40 mg PO 09/25/24 10/28/24 H istory buspirone 10 mg tablet 10 mg PO 09/25/24 10/28/24 H istory clobetasol 0.05 % topical ointment 1 applic topical QH S #30 grams 09/25/24 10/28/24 Rx fluoxetine 20 mg tablet 20 mg PO 09/25/24 10/28/24 H istory fluticasone 250 mcg-salmeterol 50 1 inh inhalation 10/28/24 History mcg/dose blistr powdr for inhalation (Advair Diskus) levothyroxine 175 mcg tablet 175 mcg PO 09/25/2410/28 History oxybutynin chloride 5 mg mg PO 09/25/24 10/28/24 Hist ory tablet,extended release 24 hr pantoprazole 40 mg tablet,delayed mg PO 09/25/2410/28 History release prednisone 20 mg tablet 10 mg PO 09/25/24 10/28/24 H istory sumatriptan succinate 50 mg tablet 50 mg PO ONCE 09/2510/28/24 History trazodone 50 mg tablet mg PO 09/25/24 10/28/24 Hist ory montelukast 10 mg tablet 10 mg PO DAILY 10/28/2410/02 History (Singulair) oxycodone 5 mg/5 mL oral solution 5 mg PO Q6H PRN 10/0210/28/24 History Allergies Allergy/AdvReac Type Severity Reaction Status Date / Time No Known Allergies Allergy Verified 05/06/25 17:58 Vital Signs Vital Signs - 24 hr 05/06/25 12:52 05/06/25 13:28 05/06/25 13:37 Temperature 97.6 F Pulse Rate 49 L 52 L Respiratory Rate 17 20 Blood Pressure 173/79 H Pulse Oximetry 93 91 Oxygen Delivery Nasal Cannula Nasal Cannula Oxygen Flow Rate 4 4 05/06/25 13:38 05/06/25 13:39 05/06/25 13:39 Temperature Pulse Rate 56 L 56 L 59 L Respiratory Rate 18 17 Blood Pressure 170/66 H Pulse Oximetry 97 Oxygen Delivery Oxygen Flow Rate Exam Const: Other: Emotionally distressed, , female, nontoxic appearance, elderly HENMT: Face/Nose/Sinus: Normal nares present Mouth: Yes moist mucous membranes Eyes: General: appearance normal, both eyes and all related structures Sclera: sclerae normal Pupils: Equal, round and reactive pupils present EOM: EOMs intact bilaterally Resp: Effort & Inspection: normal respiratory effort Other: Diminished bilaterally in all lung malone, more significantly at the bases. Cardio: Rate: regular rate Rhythm: regular rhythm Other: + murmur GI: Other: Abdomen soft, nondistended, nontender. Normoactive bowel sounds in all quadrants. Skin: General skin exam: no rashes or lesions noted Other: Erythema, skin thickening, and woody appearance to the bilateral lower extremities consistent with chronic edema. Dressing to anterior light, CDI. Neuro: Speech: normal speech Motor exam (neuro): 5/5 motor strength present throughout Sensory Exam: normal sensation Other: A&O to self, place, situation. Unable to provide year. Extrem: Other: Bilateral lower extremities tight with skin thickening consistent with chronic edema, estimated to be 2+ and currently nonpitting it due to skin thickening. Tightness extends to mid thigh bilaterally. Bilateral lower extremity symmetric. Psych: Other: Labile H&P: Results Labs Labs: Short CBC 05/06/25 Range/Units 13:32 WBC 5.9 (4.5-10.0) K/mm3 Hgb 10.7 L (12.0-15.0) g/dL Hct 38.8 (37.0-47.0) % Plt Count 249 (150-375) k/mm3 BMP 05/06/25 13:32 Sodium 143 Potassium 4.7 Chloride 103 Carbon Dioxide 36 H BUN 20 H Creatinine 1.57 H Glucose 78 Calcium 8.3 L Cardiac Enzymes 05/06/25 Range/Units 13:32 Troponin I 0.013 (0.000-0.034) ng/mL Liver Function 05/06/25 Range/Units 13:32 Total Bilirubin 0.6 (0.2-1.3) mg/dL AST 36 (14-36) U/L ALT 14 (6-35) U/L Alkaline Phosphatase 137 H (38-126) U/L Albumin 3.6 (3.5-5.1) g/dL Assessment and Plan Assessment and plan (1) Acute on chronic respiratory failure with hypoxia and hypercapnia: Code(s): J96.21 - Acute and chronic respiratory failure with hypoxia; J96.22 - Acute and chronic respiratory failure with hypercapnia Status: Acute Assessment and Plan: Patient presented from a local nursing/rehab center for further evaluation of hypoxia on 05/06. Initial ABG significant for a pH of 7.296 and a CO2 of 60.6, repeat similar and subsequently started on BiPAP. ABG was significantly poorly tolerated, will repeat in 6 hours versus 1 hour due to poor toleration. Patient was also initially altered, A&O x1 with a baseline of A&O x3. Per niece she is mentally challenged at baseline but typically knows the year, month, president. Mentation improved with DuoNeb, back to baseline. CXR concerning for pulmonary edema. Will treat as mixed picture due to CHF exacerbation and COPD exacerbation, see respective sections. (2) CO2 narcosis: Code(s): R06.89 - Other abnormalities of breathing Status: Acute Assessment and Plan: Patient arrived A&O x1, at baseline A&O x3. CO2 elevated on ABG x2, 68.6 and 72. Subsequently started on BiPAP. Will recheck ABG in 6 hours due to poor toleration of initial ABGs. Per patient's niece, the patient is mentally challenged at baseline but typically knows the month, year, and president. Does have a soft signs of UTI on UA, see below. Started on broad-spectrum antibiotics however due to concern for COPD exacerbation. - monitor mentation (3) CHF (congestive heart failure): Qualifiers: Heart failure chronicity: acute on chronic Heart failure type: unspecified Qualified Code(s): I50.9 - Heart failure, unspecified Code(s): I50.9 - Heart failure, unspecified Status: Acute Assessment and Plan: Patient has reported history of CHF. Review chart, no previous echo on file. CXR concerning for pulmonary edema and patient additionally has peripheral edema on exam. - check echo - start Lasix 40 mg IVP daily - monitor I&Os and daily weights - trend renal function (4) COPD (chronic obstructive pulmonary disease): Qualifiers: COPD type: COPD with acute exacerbation Qualified Code(s): J44.1 - Chronic obstructive pulmonary disease with (acute) exacerbation Code(s): J44.9 - Chronic obstructive pulmonary disease, unspecified Status: Acute Assessment and Plan: Hypercapnia and hypoxia noted upon admission on 05/06. Initially altered and A&O x1 with a baseline of A&O x3 upon arrival. Back to baseline mentation with RojeliooNeflaco. Will treat as COPD exacerbation. - started on broad-spectrum antibiotics on 05/06, continued inpatient - prednisone 40 mg p.o. daily x5 days - [facility] - initial ABG showing hypercapnia, started on BiPAP with plan to repeat ABG in 6 hours due to poor toleration of ABG (5) Hypocalcemia: Code(s): E83.51 - Hypocalcemia Status: Acute Assessment and Plan: Initial calcium 8.3 in the setting of a normal albumin level. Given calcium gluconate 1G IVPB. Recheck in AM. (6) UTI (urinary tract infection): Qualifiers: Hematuria presence: without hematuria Urinary tract infection type: acute cystitis Qualified Code(s): N30.00 - Acute cystitis without hematuria Code(s): N39.0 - Urinary tract infection, site not specified Status: Suspected Assessment and Plan: UA showing soft markers for UTI including 1+ leuk esterase and 6-10 WBC with no epithelial cells. Patient did arrive altered, however this resolved with a DuoNeb. Was started on broad-spectrum antibiotics including ceftriaxone and azithromycin for COPD exacerbation, would cover for UTI. Follow urine culture. (7) Hypertension: Qualifiers: Hypertension type: primary hypertension Qualified Code(s): I10 - Essential (primary) hypertension Code(s): I10 - Essential (primary) hypertension Status: Acute Assessment and Plan: - chronic, currently 124/30, stable - continue home medications once obtained from NH - monitor Plan Unable to complete medication reconciliation as the patient does not know her medications. Nursing staff reached out to the patient's NH, they report they are doing paper charting and will be unable to send the medication list this evening, may be available tomorrow. Will review if made available this evening. Diet: Heart healthy GI Prophylaxis: N/a DVT Prophylaxis: Lovenox SQ IV fluids: None, diuresing Lines/Tubes: Peripheral IV Code Status: Full code Quality VTE Prophylaxis VTE prophylaxis: pharmacologic ordered Hospitalist [facility] Advance Care Plan I have confirmed that the patient's Advanced Care Plan is present, code status is documented, or surrogate decision maker is listed in patient medical record.: Yes Medication Reconciliation I have utilized all available resources to obtain, update and review the patients current medications (includes all prescriptions, OTC, herbals, cannabis, and nutritional supplements).: Yes
[2025-05-06 15:14] LABS: NT Pro B Type Natriuretic Pept 2190 pg/mL (19.9-100)
[2025-05-06 15:22] LABS: Alveolar/Arterial O2 Gradient 172.4 mmHg; Fractional Inspired Oxygen 44 %; HCO3 ABG 33.8 mEq/l (22.0-26.0); Oxygen Content ABG 13.4 %vol (16.0-22.0); PO2 ABG 59.2 mmHg (80.0-100.0); PO2 FiO2 Ratio Arterial Blood 1.35 %
[2025-05-06 15:25] LABS: Oxygen Saturation ABG 86.5 % (95.0-100.0); PCO2 ABG 72.0 mmHg (35.0-45.0)
[2025-05-06 15:26] LABS: Liters per Minute 6.0 LPM; Modified Allen's Test Pass; Site Drawn LEFT RADIAL
--- NOTE | 2025-05-06 15:26 | PC.NURSE ---
pt niece called at this time, she helps take care of her. niece reports pt is mentally challenged. pt normally knows what month/year/president Arianna Pollard
--- NOTE | 2025-05-06 15:36 | PC.NURSE ---
spoke to pt facility with an update at this time. spoke to Sary
[2025-05-06] MEDS: FUROSEMIDE INJ 40 MG/4 ML VIAL IV PUSH (15:43)
[2025-05-06] MEDS: DOXYCYCLINE IV 100 MG in SODIUM CHLORIDE 0.9% IV 100 ML IVPB (15:43)
[2025-05-06 15:48] LABS: Add Urine Microscopic? YES; Appearance Urine Clear (Clear); Glucose Urine UA Negative (Negative); Leukocyte Esterase Ur 1+ LEU/UL (Negative); Need Manual Microscopic Reviewed; Nitrate Urine Negative (Negative); Specific Grav Ur 1.018 (1.001-1.035)
--- OUTSIDE RECORDS SUMMARY | 2025-05-06 16:00 | XMS_ITS | Encounter Summary ---
Author Organization [facility] Address [address] [facility] [place] [address] Care Team Providers Care Hspt Tutor Name Role Phone Rob Dozier MD Primary Care Provider + [phone] Reason for Visit * Reason Onset Date Comments Appointment 12/13/2024 Encounter Details Date Type Department Care Team (Late st Contact Info) Description 12/13/2024 Telephone [facility] - Centralized Scheduling [address] [place] [address] Ana Luisa Frazier MD [address] [place] [address] Appointment Social History Tobacco Use Types Packs/Day Years Used Date Smoking Tobacco: Former Cigarettes Smokeless Tobacco: Never Alcohol Use Standard Drinks/Week Comments No 0 (1 standard drink = 0.6 oz pur e alcohol) AUDIT-C Answer Date Recorded Q1: How often do you have a drink containing alcohol? Never 07/11/2024 Q2: How many drinks containi ng alcohol do you have on a typical day when you are drinking? Patient does not drink Q3: How often do you have si x or more drinks on one occasion? Never 07/11/2024 Overall Financial Resource Strain (CARDIA) Answe r Date Recorded How hard is it for you to pa y for the very basics like food, housing, medical care, and heating? Not hard at all 07/11/2024 [facility] [place] of Occupat ional Health - Occupational Stress Questionnaire Answer Date Recorded Do you feel stress - tense, restless, nervous, or anxious, or unable to sleep at night because your mind is troubled all the time - these days? Not at all 07/11/2024 Hunger Vital Sign Answer Date Recorded Within the past 12 months, y ou worried that your food would run out before you got the money to buy more. Never true 07/11/19 25 Within the past 12 months, t he food you bought just didn't last and you didn't have money to get more. Never true 07/11/2024 PRAPARE - Transportation Answer Date Re corded In the past 12 months, has l ack of transportation kept you from medical appointments or from getting medications? No 03/2025 In the past 12 months, has l ack of transportation kept you from meetings, work, or from getting things needed for daily living? No 07/11/2024 Housing Stability Vital Sign Answer Abhinav e Recorded In the last 12 months, was t here a time when you were not able to pay the mortgage or rent on time? Yes 07/11/2024 In the past 12 months, how m any times have you moved where you were living? 0 07/11/2024 At any time in the past 12 m [facility], were you homeless or living in a senior care (including now)? No 07/11/2024 Comments Unknown Sex and Gender Information Value Date Recorded Sex Assigned at Not on file Legal Sex Female 6:00 PM STORE LEADER Gender Identity Not on file Sexual Orientation Not on file documented as of this encounter Functional Status * Is person deaf or have serious hearing difficulty? Answer Date of Assessment Author No 08/06/2024 4:10 PM Ginna Howard RN * Is person blind or have serious difficulty seeing? Answer Date of Assessment Author No 08/06/2024 4:10 PM Lawanda Howard RN * Does person have serious difficulty walking/climbing stairs? Answer Date of Assessment Author Yes 08/06/2024 4:10 PM Lawanda Howard RN * Does person have difficulty dressing/bathing? Answer Date of Assessment Author Yes 08/06/2024 4:10 PM Lawanda Howard RN * Does person have difficulty doing errands alone? Answer Date of Assessment Author Yes 08/06/2024 4:10 PM Lawanda Howard RN documented as of this encounter Mental Status * Does person have difficulty concentrating/remembering/making decisions? Answer Entry Date Author Yes 08/06/2024 4:10 PM STORE LEADER Lawanda Jacome, AMRIT documented in this encounter Miscellaneous Notes * Telephone Encounter - Freddy Aragon - 12/17/2024 2:27 PM CDT Spoke to katt nurse and she is relaying that she is having a flare up. She missed her appointment today and will be seen again on 12/26/2024. Freddy Aragon * Telephone Encounter - Galilea Beyer - 12/17/2024 1:03 PM CDT Sarthak, Nurse with nursing facility returning phone call from clinic and requesting a call back * Telephone Encounter - Angi Koehler - 12/13/2024 10:27 AM CDT Nursing Facility called about an appt that was given on Monday at 830, I don't see the 830 slot anymore. They were wanting to still come in that day n [phone] documented in this encounter Plan of Treatment Upcoming Encounters Date Type Department Care Team (Late st Contact Info) Description 05/20/2025 11:20 AM STORE LEADER Office Visit [facility] - Dermatology [address] [place] [phone] Rogelio Shaikh MD [address] [place] [phone] 06/24/2025 11:10 AM STORE LEADER Office Visit [facility] - Dermatology [address] [place] [phone] Rogelio Shaikh MD [address] [place] [phone] 07/29/2025 11:10 AM STORE LEADER Office Visit [facility] - Dermatology [address] [place] [address] [place] [address] Rogelio Shaikh MD [address] [facility] [place] [address] 10/13/2025 10:30 AM CDT Office Visit [facility] - GI [address] [facility] [place] [phone] Chapo Sagastume MD [address] [place] [address] documented as of this encounter Goals Goal Patient Goal Type Associated Problems Recent Progress Patient-Stated? Author Medication Management General On track( 025 9:44 AM CDT) Chano Schreiber, RN Note: Expected end date: ongoing Interventions: Take all medications as prescribed Let your doctor know right away about any changes in your medications Make sure to request a refill of your medication at least one week prior to your last dose documented as of this encounter Visit Diagnoses Not on filedocumented in this encounter Care Teams Hspt Tutor Relationship Specialty Start Date End Date Rob Dozier MD [address] [place] [phone] PCP - General Internal Medicine 11/26/24 documented as of this encounter
--- OUTSIDE RECORDS SUMMARY | 2025-05-06 16:00 | XMS_ITS | Encounter Summary ---
Author Organization [facility] Address [address] [facility] [place] [address] Care Team Providers Care Circular Clerk Name Role Phone Rob Dozier MD Primary Care Provider + [phone] Reason for Visit * Reason Onset Date Comments Returned Call 12/10/2024 Encounter Details Date Type Department Care Team (Late st Contact Info) Description 12/10/2024 Telephone [facility] Dermatology [address] [facility] [place] [address] Rogelio Shaikh MD [address] [facility] [place] [address] Returned Call Social History Tobacco Use Types Packs/Day Years [...] and heating? Not hard at all 07/11/2024 [facility] [place] of Occupat ional Health - Occupational Stress [...] any time in the past 12 m [facility], were you homeless or living in a nursing home (including now)? No 07/11/2024 Comments Unknown Sex and Gender Information Value Date Recorded Sex Assigned at Not on file Legal Sex Female 6:00 PM CHARTERED WEALTH MANAGER Gender Identity Not on file Sexual Orientation Not on file documented as of this encounter Functional Status * Is person deaf or have serious hearing difficulty? Answer Date of Assessment Author No 08/06/2024 4:10 PM Lawanda Howard RN * Is person blind or [...] Entry Date Author Yes 08/06/2024 4:10 PM CHARTERED WEALTH MANAGER Lawanda Jacome RN documented in this encounter Miscellaneous Notes * Telephone Encounter - Pili Garg - 12/10/2024 10:23 AM CDT Office is returning a missed call for the pt. documented in this encounter Plan of Treatment Upcoming Encounters Date Type Department Care Team (Late st Contact Info) Description 05/20/2025 11:20 AM CHARTERED WEALTH MANAGER Office Visit [facility] - Dermatology [address] [place] [phone] Rogelio Shaikh MD [address] [place] [phone] 06/24/2025 11:10 AM CHARTERED WEALTH MANAGER Office Visit [facility] - Dermatology [address] [place] [phone] Rogelio Shaikh MD [address] [place] [phone] 07/29/2025 11:10 AM CHARTERED WEALTH MANAGER Office Visit [facility] - Dermatology [address] [place] [phone] Rogelio Shaikh MD [address] [place] [phone] 10/13/2025 10:30 AM CDT Office Visit [facility] - GI [address] [place] [phone] Chapo Sagastume MD [address] [place] [phone] documented as of this encounter Goals Goal Patient Goal Type Associated Problems Recent Progress Patient-Stated? Author Medication Management General On track( 025 9:44 AM CDT) Chano Schreiber RN Note: Expected end date: ongoing Interventions: Take all medications as prescribed Let your doctor know right away about any changes in your medications Make sure to request a refill of your medication at least one week prior to your last dose documented as of this encounter Visit Diagnoses Not on filedocumented in this encounter Care Teams Circular Clerk Relationship Specialty Start Date End Date Rob Dozier MD [address] [place] [address] PCP - General Internal Medicine 11/26/24 documented as of this encounter
--- OUTSIDE RECORDS SUMMARY | 2025-05-06 16:00 | XMS_ITS | Encounter Summary ---
Author Organization [facility] Address [address] [facility] [place] [address] Care Team Providers Care Homeopathic Doctor Name Role Phone Jose Whaley DO Primary Care Provider Rob Dozier MD Primary Care Provider + [phone] Reason for Visit * Reason Onset Date Comments Nurse Only 07/19/2024 Encounter Details Date Type Department Care Team (Late st Contact Info) Description 07/19/2024 Telephone [facility] - Dermatology [address] [facility], [place] [address] Ana Luisa Muro MD [address] [facility] [place] [place] [address] Nurse Only Social History Tobacco Use Types Packs/Day Years [...] and heating? Not hard at all 07/11/2024 [facility] [place] of Occupat ional Health - Occupational Stress [...] any time in the past 12 m [facility], were you homeless or living in a fpc (including now)? No 07/11/2024 Comments Unknown Sex and Gender Information Value Date Recorded Sex Assigned at Not on file Legal Sex Female 6:00 PM JARAD Gender Identity Not on file Sexual Orientation Not on file documented as of this encounter Functional Status * Is person deaf or have serious hearing difficulty? Answer Date of Assessment Author No 07/11/2024 6:00 PM Herman Holland RN * Is person blind or have serious difficulty seeing? Answer Date of Assessment Author No 07/11/2024 6:00 PM Herman Holland, RN * Does person have serious difficulty walking/climbing stairs? Answer Date of Assessment Author Yes 07/11/2024 6:00 PM Herman Holland RN * Does person have difficulty dressing/bathing? Answer Date of Assessment Author Yes 07/11/2024 6:00 PM Herman Holland, RN * Does person have difficulty doing errands alone? Answer Date of Assessment Author Yes 07/11/2024 6:00 PM Herman Holland RN documented as of this encounter Mental Status * Does person have difficulty concentrating/remembering/making decisions? Answer Entry Date Author Yes 07/11/2024 6:00 PM PHP ARCHITECT Herman Marquez RN documented in this encounter Miscellaneous Notes * Telephone Encounter - Freddy Aragon - 07/22/2024 3:29 PM CST Spoke to nurse berumen pt was diagnosed with pyoderma gangrenosum. And needed clarification on howmuch time the ulcer should be in contact with air. ARCHITECT * Telephone Encounter - Steven Soto - 07/22/2024 1:48 PM CST Nurse Sary called this afternoon wanting to get a clarification for wound care instructions that she was receiving in the hospital that patient was to continue at the snf. Her direct phone number is [phone]. Please advise ARCHITECT * Telephone Encounter - Mario Suarez - 07/19/2024 11:42 AM CST Nurse berumen is calling to get a clarification for after wound care. She would like to speak to anurse over at [facility]. Her direct phone number is [phone]. ARCHITECT documented in this encounter Plan of Treatment Upcoming Encounters Date Type Department Care Team (Late st Contact Info) Description 05/20/2025 11:20 AM PHP ARCHITECT Office Visit [facility] - Dermatology [address] [place] [phone] Rogelio Shaikh MD [address] [place] [phone] 06/24/2025 11:10 AM PHP ARCHITECT Office Visit [facility] - Dermatology [address] [place] [phone] Rogelio Shaikh MD [address] [place] [phone] 07/29/2025 11:10 AM PHP ARCHITECT Office Visit [facility] - Dermatology [address] [place] [phone] Rogelio Shaikh MD [address] [place] [address] 10/13/2025 10:30 AM CDT Office Visit [facility] - GI [address] [place] [phone] Chapo Sagastume MD [address] [place] [phone] documented as of this encounter Visit Diagnoses Not on filedocumented in this encounter Additional Health Concerns Infection Onset Date Last Indicated Resolved Time CDIFF Under Investigation 08/12/2024 08/12/2024 3:49 PM PHP ARCHITECT documented as of this encounter Care Teams Homeopathic Doctor Relationship Specialty [place] [address] [facility] [address] [place] [phone] PCP - General 10/09/15 11/25/24 Rob Dozier MD [address] [place] [phone] PCP - General Internal Medicine 11/26/24 documented as of this encounter
--- OUTSIDE RECORDS SUMMARY | 2025-05-06 16:00 | XMS_ITS | Encounter Summary ---
Author Organization [facility] Address [address] [facility] [place] [address] Care Team Providers Care Concrete Rubber Name Role Phone Rob Dozier MD Primary Care Provider + [phone] Reason for Visit * Reason Onset Date Comments Question 12/06/2024 Encounter Details Date Type Department Care Team (Late st Contact Info) Description 12/06/2024 Telephone [facility] - Centralized Scheduling [address] [place] [address] Rogelio Shaikh MD [address] [place] [phone] Question Social History Tobacco Use Types Packs/Day Years [...] and heating? Not hard at all 07/11/2024 [facility] [place] of Occupat ional Health - Occupational Stress [...] any time in the past 12 m [facility], were you homeless or living in a half-way (including now)? No 07/11/2024 Comments Unknown Sex and Gender Information Value Date Recorded Sex Assigned at Not on file Legal Sex Female 6:00 PM NEUROLOGY TECHNOLOGIST Gender Identity Not on file Sexual Orientation [...] Assessment Author Yes 08/06/2024 4:10 PM Lawanda Howadr RN documented as of this encounter Mental Status * Does person have difficulty concentrating/remembering/making decisions? Answer Entry Date Author Yes 08/06/2024 4:10 PM NEUROLOGY TECHNOLOGIST Lawanda Jacome RN documented in this encounter Miscellaneous Notes * Telephone Encounter - Senait Sampson - 12/06/2024 12:42 PM CDT Patient is developing a lump on her leg at current ulcer site. The nurse at the facility is needingtreatment orders for the wound documented in this encounter Plan of Treatment Upcoming Encounters Date Type Department Care Team (Late st Contact Info) Description 05/20/2025 11:20 AM NEUROLOGY TECHNOLOGIST Office Visit [facility] - Dermatology [address] [place] [phone] Rogelio Shaikh MD [address] [place] [phone] 06/24/2025 11:10 AM NEUROLOGY TECHNOLOGIST Office Visit [facility] - Dermatology [address] [place] [phone] Rogelio Shaikh MD [address] [place] [phone] 07/29/2025 11:10 AM NEUROLOGY TECHNOLOGIST Office Visit [facility] - Dermatology [address] [place] [phone] Rogelio Shaikh MD [address] [place] [phone] 10/13/2025 10:30 AM CDT Office Visit [facility] - GI [address] [place] [phone] Chapo Sagastume MD [address] [place] [phone] documented as of this encounter Goals Goal Patient Goal Type Associated Problems Recent Progress Patient-Stated? Author Medication Management General On track( 025 9:44 AM CDT) Chano Schreiber, AMRIT Note: Expected end date: ongoing Interventions: Take all medications as prescribed Let your doctor know right away about any changes in your medications Make sure to request a refill of your medication at least one week prior to your last dose documented as of this encounter Visit Diagnoses Not on filedocumented in this encounter Care Teams Concrete Rubber Relationship Specialty Start Date End Date Rob Dozier MD [address] [place] [phone] PCP - General Internal Medicine 11/26/24 documented as of this encounter
--- OUTSIDE RECORDS SUMMARY | 2025-05-06 16:00 | XMS_ITS | Encounter Summary ---
Author Organization [facility] Address [address] [place] [address] Phone Care Team Providers Care Print And Pattern Designer Name Role Phone Rob Dozier MD Primary Care Provider [phone] Encounter Details Date Type Department Care Team (Late st Contact Info) Description 04/30/2025 Telephone [facility] Medicine Cardiology [address] [facility] Advanced Medicine 8th [place] [address] [place] [address] Neva Lima Social History Tobacco Use Types Packs/Day Years Used Date Smoking Tobacco: Never AUDIT-C Answer Date Recorded Q1: How often [...] on file Legal Sex Female 10:47 AM OUTBOUND SALES REPRESENTATIVE Gender Identity Not on file Sexual Orientation Not on file documented as of this encounter Miscellaneous Notes * Telephone Encounter - Alva Victoria - 04/30/2025 12:05 PM CDT Requested records from PCP/Referring MD and [facility] * Telephone Encounter - Neva Lima - 04/30/2025 10:22 AM CDT CARDIOLOGY NEW PATIENT RECORDS REVIEW Insurance Information Insurance Library Insurance Provider: Jay Member ID: Group number: Diagnosis and Referring Provider Information (Check for Referrals in Epic) Cardiac Diagnosis: CHF Exacerbation Referring Provider: dr. Rob de anda Referring Provider Specialty: Referring Provider Phone: Current/Former Director Of Staff Development (if different from referring provider): Current/Former Director Of Staff Development Phone: Questions to Determine Placement for Specialty Clinics Cardiology-Oncology (For new amyloidosis referrals, complete RRS and send to [facility] POOL and send an encounter to the [facility] to make them aware.) Are you actively undergoing cancer treatments including radiation, chemotherapy, or immunotherapy or is this planned in the future?: no When: Where: Congenital Is this a heart condition that has existed since : no Maternal- Cardiology (Females Only) Are you or had a baby in the past year: no Sports Medicine Do you regularly exercise or play sports: no Are the symptoms or concerns associated with acviity: no Hypertension (If yes, must be referred by MD) Are you a hemodialysis or peritoneal dialysis patient: no Referring provider: Cardiology History Questions Have you been hospitalized for cardiac issues: no When: Where: Have you had an echo: no When: Where: Have you had a stress test: no When: Where: Have you had an EKG: no When: Where: Have you had a holter monitor: no When: Where: Have you had cardiac imaging(CT or MRI): no Testing/imaging: When: Where: Have you had any procedures (cath, CABG, cardioversion, or ablation): no When: Where: Have you had a sleep study done: no When: Where: Do you have an implantable cardiac device: no Type: Pie Crimping Machine Operator: When: Where: Appointment Details Date:05/05/25 Time:11:30 am Location: [facility] Provider: SHAUN documented in this encounter Plan of Treatment Not on file documented as of this encounter Visit Diagnoses Not on filedocumented in this encounter Care Teams Print And Pattern Designer Relationship Specialty Start Date End Date Rob Dozier MD [address] [place] [address] PCP - General Internal Medicine 08/07/23 documented as of this encounter
--- OUTSIDE RECORDS SUMMARY | 2025-05-06 16:00 | XMS_ITS | Encounter Summary ---
Author Organization [facility] Address [address] [facility] [place] [address] Care Team Providers Care Aeronautical Products Sales Engineer Name Role Phone Rob Dozier MD Primary Care Provider + [phone] Reason for Visit * Reason Onset Date Comments Med Question 11/26/2024 Encounter Details Date Type Department Care Team (Late st Contact Info) Description 11/26/2024 Telephone [facility] Dermatology [address] [facility], [place] [address] Ana Luisa Muro MD [address] [facility] [place] [phone] Med Question Social History Tobacco Use Types Packs/Day [...] and heating? Not hard at all 07/11/2024 [facility] [place] of Occupat ional Health - Occupational Stress [...] any time in the past 12 m [facility], were you homeless or living in a residential (including now)? No 07/11/2024 Comments Unknown Sex and Gender Information Value Date Recorded Sex Assigned at Not on file Legal Sex Female 6:00 PM TOOLROOM CLERK Gender Identity Not on file Sexual Orientation [...] Entry Date Author Yes 08/06/2024 4:10 PM TOOLROOM CLERK Lawanda Jacome RN documented in this encounter Miscellaneous Notes * Telephone Encounter - Yung Sparks - 11/26/2024 1:16 PM CDT Alanna from living facility called in regards to a note that was sent in with pt for today 11/26/24 visit inquiring about notes and wound clinic requesting a call to discus and or update. Please assist and advise. documented in this encounter Plan of Treatment Upcoming Encounters Date Type Department Care Team (Late st Contact Info) Description 05/20/2025 11:20 AM TOOLROOM CLERK Office Visit [facility] - Dermatology [address] [place] [phone] Rogelio Shaikh MD [address] [place] [phone] 06/24/2025 11:10 AM TOOLROOM CLERK Office Visit [facility] - Dermatology [address] [place] [phone] Rogelio Shaikh MD [address] [place] [phone] 07/29/2025 11:10 AM TOOLROOM CLERK Office Visit [facility] - Dermatology [address] [place] [phone] Rogelio Shaikh MD [address] [place] [phone] 10/13/2025 10:30 AM CDT Office Visit [facility] - GI [address] [place] [phone] Chapo Sagastume MD [address] [place] [phone] documented as of this encounter Goals Goal Patient Goal Type Associated Problems Recent Progress Patient-Stated? Author Medication Management General On track(10/13/2 025 9:44 AM CDT) Chano Schreiber, RN Note: Expected end date: ongoing Interventions: Take all medications as prescribed Let your doctor know right away about any changes in your medications Make sure to request a refill of your medication at least one week prior to your last dose documented as of this encounter Visit Diagnoses Not on filedocumented in this encounter Care Teams Aeronautical Products Sales Engineer Relationship Specialty Start Date End Date Rob Dozier MD [address] [place] [phone] PCP - General Internal Medicine 11/26/24 documented as of this encounter
--- OUTSIDE RECORDS SUMMARY | 2025-05-06 16:00 | XMS_ITS | Clinical Summary ---
Author Organization [facility] Address [address] [place] [address] Care Team Providers Care Cytotechnologist Supervisor Name Role Phone Rob Dozier MD Primary Care Provider + [phone] Source Comments [facility],non-owned Affiliates and Associated Physician Practices is amultiple site organization consisting of ambulatory clinics and hospital sitesin [place], [place], [place] and [place]. This disclosure is being madepursuant to the Care Everywhere program and may not contain all information available regarding this patient. Last updated 18.[employer] [facility] Allergies No known active allergies Medications * Be aware that medications may not be up to date on this document. Alwaysverify current medications with the patient. levothyroxine (SYNTHROID) 175 MCG tablet Take 1 (one) tablet by mouth daily before breakfast Active furosemide (LASIX) 20 MG tabletIndications:H eart Failure Take 1 (one) tablet by mouth 2 times daily Reasons: Cardiac Failure Active atorvastatin (LIPITOR) 40 MG tablet Take 1 (one) tablet by mouth at bedtime Active montelukast (SINGULAIR) 10 MG tablet Take 1 (one) tablet by mouth at bedtime Active fluticasone-salmete rol (ADVAIR DISKUS) 250-50 MCG/DOSE inhaler Inhale 1 (one) puff by mouth 2 times daily Active aspirin EC (Ecotrin) 81 MG tablet Take 1 (one) tablet by mouth once daily 023 Active busPIRone (Buspar) 10 MG tabletIndications:A nxiety Disorder Take 1 (one) tablet by mouth 3 times daily Reasons: Anxiety Disorder 023 Active FLUoxetine (PROzac) 20 MG capsule Take 2 (two) capsules by mouth once daily 023 Active oxyBUTYnin (Ditropan) 5 MG tablet Take 1 (one) tablet by mouth once daily 023 Active topiramate (Topamax) 50 MG tablet Take 1 (one) tablet by mouth once daily 023 Active calcium carbonate (Tums) 500 MG chew tablet Take 2 (two) tablets by mouth daily with breakfast 025 Active pantoprazole EC (Protonix) 40 MG tablet Take 1 (one) tablet by mouth once daily 025 Active vitamin D3 (Cholecalciferol) 25 MCG (1000 UNITS) tablet Take 1 (one) tablet by mouth once daily 025 Active Pramoxine HCl (TUCKS HEMORRHOIDAL RE) Insert into the rectum as needed Active ALPRAZolam (Xanax) 0.5 MG tablet 025 Active silver sulfADIAZINE (Silvadene) 1 % creamIndications:Py oderma gangrenosa (HCC) Apply to affected area 2 times daily 400 g 11 025 Active ferrous sulfate EC 325 (65 Fe) MG tabletIndications:I jake Deficiency Anemia Take 1 (one) tablet by mouth once daily for 90 days Reasons: Anemia From Inadequate Iron in the Body 90 tablet 025 Active clobetasol (Temovate) 0.05 % cream Apply to affected area 2 times daily Active hydrOXYzine HCl (Atarax) 25 MG tablet Take 1 (one) tablet by mouth 4 times daily as needed for Itching Active risankizumab-rzaa (Skyrizi) 360 MG/2.4ML SOCTIndications:Hook Tender hn's disease with other complication, unspecified gastrointestinal tract location (HCC) Inject 2.4 mL subcutaneously Every 8 Weeks 2.4 mL 3 025 Active meloxicam (Mobic) 7.5 MG tablet Take 1 (one) tablet by mouth once daily Active FLUoxetine (PROzac) 40 MG capsule Take 1 (one) capsule by mouth once daily 025 Active vitamin D, ergocalciferol, (Drisdol) 1.25 MG (24630 UT) capsule Take 1 (one) capsule by mouth every 30 days Active albuterol-ipratropi um (Duo-Neb) 0.5-2.5 (3) MG/3ML nebulizer solution Inhale 3 mL by mouth every 6 hours as needed Active acetaminophen CR (Tylenol Arthritis Pain) 650 MG tablet Take 1 (one) tablet by mouth every 8 hours as needed for Pain Active naloxone HCl (Narcan) 4 MG/0.1ML nasal spray [place] 1 (one) spray into the nose as needed for Overdose Active insulin lispro (HumaLOG;ADMelog) 100 UNIT/ML pen Inject subcutaneously 3 times daily before meals Active Klayesta 381519 UNIT/GM powder Apply to affected area once daily Active NIFEdipine CR osmotic 24hr (Procardia-XL) 30 MG tablet Take 1 (one) tablet by mouth once daily Active traZODone (Desyrel) 150 MG tablet Take 1 (one) tablet by mouth at bedtime Active fluticasone propionate (Flonase) 50 MCG/ACT nasal spray [place] 2 (two) sprays into each nostril once daily Active AneCream 4 % cream Active psyllium (Metamucil) 58.6 % powder Take 1 (one) packet by mouth 2 times daily Active traZODone (Desyrel) 50 MG tablet Take 0.5 (one-half) tablet by mouth at bedtime 2024 Disconti nued(Lis t Clean-Up ) SUMAtriptan (Imitrex) 50 MG tablet Take 1 (one) tablet by mouth daily as needed - may repeat one time for Migraine Maximum daily dose: 200mg/24 hours 2024 Disconti nued(Tx Complete ) acetaminophen (Tylenol) 325 MG tablet Take 2 (two) tablets by mouth every 6 hours Maximum allowable Acetaminophen amount = 4 Grams (4000 mg) / 24 hours. 2024 Disconti nued(Tx Complete ) Magic Mouthwash Swish and spit 5 mL 4 times daily as needed for Mouth Pain or Sore Throat Combine: aluminum-magnesiu m(200-200/5ml):di phenhydramine(12. 5mg/5ml):viscous lidocaine in a 1:1:1 ratio 2024 Disconti nued(Tx Complete ) folic acid (Folvite) 1 MG tablet Take 1 (one) tablet by mouth once daily 2024 Disconti nued(Tx Complete ) loperamide (Imodium) 2 MG capsule Take 1 (one) capsule by mouth 4 times daily as needed for Diarrhea 2024 Disconti nued(Tx Complete ) Melatonin 10 MG Take 3 (three) mg by mouth nightly as needed 2024 Disconti nued(Tx Complete ) insulin aspart (NovoLOG) pen Inject 0 (zero) Units to 6 (six) Units subcutaneously 3 times daily before meals Low Dose: Correction Insulin Bedside glucose should be done within 30-60 minutes of correction insulin administration. BG (mg/dL) Corrective Action LESS than 70 follow Hypoglycemic guidelines, 70-180 NO Correction insulin, 181-220 GIVE 2 units of insulin, 221-260 GIVE 3 units of insulin, 261-300 GIVE 4 units of insulin, 301-350 GIVE 5 units of insulin, Greater than 350 GIVE 6 units of insulin and notify physician. 2024 Disconti nued(Lis t Clean-Up ) oxyCODONE, immediate release, (Roxicodone) 5 MG tabletIndications:P yoderma gangrenosa (HCC) Take 1 (one) tablet by mouth every 4 hours as needed 60 tablet 2024 Disconti nued(Tx Complete ) metroNIDAZOLE (Flagyl) 500 MG tablet Take 1 (one) tablet by mouth 2 times daily For 7 days 2024 Disconti nued(Tx Complete ) loratadine (Claritin) 10 MG tablet Take 1 (one) tablet by mouth once daily 2024 Disconti nued(Tx Complete ) dicyclomine (Bentyl) 10 MG capsuleIndications: Crohn's disease with other complication, unspecified gastrointestinal tract location (HCC),Lower abdominal pain Take 1 (one) capsule by mouth 4 times daily 120 capsule 04/14/ 2025 Disconti nued(Tx Complete ) lidocaine (Lidoderm) 5 % patch 025 2024 Disconti nued(Tx Complete ) Hospital, Clinic, or Other Facility Administered Medication Ordered Dose Route Frequency Start Date End Date Status triamcinolone acetonide (Kenalog) injection 10 mgIndications:Pyoder ma gangrenosa (HCC) 10 mg INTRA-LESION ONCE 04/22/2025 04/22/2025 End ed Active Problems Problem Noted Date Diagnosed Date Crohn's colitis, unspecified complication 2024 CKD (chronic kidney disease) stage 3, GFR 30-59 ml/min 08/06/2024 CHF (congestive heart failure) 08/06/2024 Hypothyroidism 08/06/2024 Dementia 08/06/2024 Ulcerative pancolitis 08/06/2024 Overview (08/08/2024): 08/06/24 colonoscopy for chronic diarrhea and recent diagnosis of pyoderma gangrenosum demonstrated jacobs-colitis and polyps, biopsies: jacobs-colitis with mild ileitis, rectal sparing Anemia 07/23/2024 Pyoderma gangrenosa 07/16/2024 Oral aphthous ulcer 07/11/2024 Wound infection 07/11/2024 Cellulitis of left lower extremity 07/11/2024 Rash and other nonspecific skin eruption 025 Intertrigo 03/21/2023 Other seborrheic dermatitis 03/21/2023 Venous stasis dermatitis of both lower extremiti es 03/21/2023 Skin tag 03/21/2023 Generalized osteoarthritis 10/21/2022 MDD (major depressive disord er), recurrent, in partial remission 10/21/2022 Overactive bladder 10/21/2022 Allergic rhinitis 10/21/2022 Overview (08/22/2024): Last Assessment & Plan: Condition: stable Follow up in: three months Patient reports seasonal allergies. Patient is unsure of what the triggers are but reports they well managed. Patient reports medication compliance and reports less symptoms with medications. Patient advised to keep all scheduled appointments. TRISHA (generalized anxiety disorder) 04/08/2022 Migraine without aura and wi thout status migrainosus, not intractable 04/08/2022 Sleep apnea 07/15/2015 Hyperlipidemia 06/09/2015 Essential (primary) hypertension 06/09/2015 Body mass index (BMI) of 40.0-44.9 in adult 01/2015 Overview (10/02/2017): BMI 43 Resolved Problems Problem Noted Date Diagnosed Date Resolved Date Anal fissure 07/11/2024 08/06/2024 Leukocytosis, unspecified type 07/11/2024 08/06/2024 Hypoglycemia 07/11/2024 08/06/2024 Hyperkalemia 02/04/2020 08/06/2024 Altered mental status 02/04/20202024 Umbilical hernia without obs truction or gangrene 07/20/2015 08/06/2024 Alkalosis 07/15/2015 08/06/2024 Infection and inflammatory r eaction due to other internal prosthetic devices, implants and grafts, subsequent encounter 06/23/2015 025 Calculus of gallbladder with acute cholecystitis without obstruction 06/09/20152024 Overview (10/02/2017): Patient [facility] to 05/19/[facility] to [facility]. Had significant leukocytosis 30,000. The patient had a cholecystostomy tube placed. Treatment with linazolid and ciprofloxacin. She is now referred for interval laparoscopic cholecystectomy with IOC. Encounters Date Type Department Care Team Description 04/22/2025 11:20 AM CDT Office Visit [facility] - Dermatology [address] [place] [phone] Rogelio Shaikh MD Pyoderma gangrenosa (HCC) (Primary Dx) 04/22/2025 Travel 04/14/2025 10:00 AM CDT Office Visit [facility] - GI [address] [place] [address] [phone] Chapo Sagastume MD Crohn's disease of small and large intestines with complication (HCC) (Primary Dx) 04/14/2025 Travel 03/31/2025 Telephone [facility] - GI [address] [place] [phone] Chano Yeung, AMRIT Appointment 02/18/2025 11:20 AM CDT Office Visit [facility] - Dermatology [address] [place] [phone] Rogelio Shaikh MD Pyoderma gangrenosa (HCC) (Primary Dx); Venous stasis dermatitis of both lower extremities 02/18/2025 Travel 02/06/2025 2:00 PM CDT Office Visit [facility] - Dermatology [address] [place] [phone] Darrion Meadows MD Pyoderma gangrenosa (HCC) (Primary Dx) from Last 3 Months Immunizations Immunization Administration Dates Next Due COVID PFIZER 12+YR 30MCG/0.3mL 05/11/2023 COVID PFIZER BIVALENT 12Y+ 30mcg/0.3ML Covid Pfizer primary monoval ent 12+ yr 0.3mL Purple cap 06/28/2021,07/21/2020,06/30/2020 INFLUENZA VACCINE, QUADR. (A FLURIA, FLUZONE QUADRIVALENT; 6MO+) (IIV4) 05/03/2013 PNEUMOCOCCAL PPV VACCINE 05/03/2013 Family History Medical History Relation Name Comments Heart Disease Father Cancer Mother of unknown abd cancer in her 60's Relation Name Status Comments Father Mother Social History Tobacco Use Types Packs/Day Years Used Date Smoking Tobacco: Former Cigarettes Smokeless Tobacco: Never Tobacco Cessation:Counseling Given: Not Answered Alcohol Use Standard Drinks/Week Comments No 0 [...] and heating? Not hard at all 07/11/2024 PHQ-2 Answer Date Recorded Patient Health Questionnaire-2 Score 0 02/18/2025 [facility] - Occupational Stress Questionnaire Answer Date Recorded [...] any time in the past 12 m [facility], were you homeless or living in a senior care (including now)? No 07/11/2024 Comments Unknown Sex and Gender Information Value Date Recorded Sex Assigned at Not on file Legal Sex Female 6:00 PM CORDWOOD CUTTER HELPER Gender Identity Not on file Sexual Orientation Not on file Last Filed Vital Signs Vital Sign Reading Time Taken Comments Blood Pressure 110/46 04/14/2025 9:51 AM CDT Pulse 48 04/14/2025 9:51 AM CDT Temperature 36.3 C (97.4 F) 04/14/2025 9:51 AM CDT Respiratory Rate 18 01/07/2025 12:0 0 PM CDT Oxygen Saturation 93% 04/14/2025 9:51 AM CDT 3 L 02 via NC Inhaled Oxygen Concentration - - Weight 79.8 kg (176 lb) 01/07/2025 12:0 0 PM CDT Height 160 cm (5' 3) 04/14/2025 9:51 AM CDT Body Mass Index 31.18 11/28/2024 12:30 PM CDT Plan of Treatment Upcoming Encounters Date Type Department Care Team (Late st Contact Info) Description 05/20/2025 11:20 AM CORDWOOD CUTTER HELPER Office Visit [facility] - Dermatology [address] [place] [phone] Rogelio Shaikh MD [address] [place] [phone] 06/24/2025 11:10 AM CORDWOOD CUTTER HELPER Office Visit [facility] - Dermatology [address] [place] [phone] Rogelio Shaikh MD [address] [place] [phone] 07/29/2025 11:10 AM CORDWOOD CUTTER HELPER Office Visit [facility] - Dermatology [address] [place] [phone] Rogelio Shaikh MD [address] [place] [phone] 10/13/2025 10:30 AM CDT Office Visit [facility] - GI [address] [place] [phone] Chapo Sagastume MD [address] [place] [phone] Health Maintenance Due Date Last Done Comments BONE DENSITY TESTING 1945 DTAP/TDAP/TD VACCINES (1 - Tdap) 1964 ZOSTER VACCINE (1 of 2) 1964 PNEUMOCOCCAL VACCINE 50+ (2 of 2 - PCV) 05/03/2014 05/03/2013 Respiratory Syncytial Virus (RSV) Vaccine Pt: or over 60 yrs (1 - 1-dose 75+ series) 2020 COVID-19 VACCINE ( season) 2025 05/11/2023, 06/30/2022, 06/28/2021, Additional history exists INFLUENZA VACCINE (#1) 2025 05/03/2013 DEPRESSION SCREENING Completed 02/18/2025 HEPATITIS B VACCINE Aged Out No longe r eligible based on patient's age to complete this topic HIB VACCINE Aged Out No longer eligi ble based on patient's age to complete this topic HPV VACCINE Aged Out No longer eligi ble based on patient's age to complete this topic MENINGOCOCCAL (Group B) VACCINE SHARED DECISION-MAKING Aged Out No longer eligible based on patient's age to complete this topic MENINGOCOCCAL GROUPS A/C/Y/W VACCINE Aged Out No longer eligible based on patient's age to complete this topic Goals Goal Patient Goal Type Associated Problems [...] one week prior to your last dose Procedures Procedure Name Priority Date/Time Associated Diagnosis Comments AL INTRALESIONAL INJECTION(S) 7 OR LESS Routine 04/22/2025 11:44 AM CDT Pyoderma gangrenosa (HCC) AL INTRALESIONAL INJECTION(S) 7 OR LESS Routine 02/18/2025 11:58 AM CDT Pyoderma gangrenosa (HCC) AL INTRALESIONAL INJECTION(S) 7 OR LESS Routine 02/06/2025 3:29 PM CDT Pyoderma gangrenosa (HCC) from Last 3 Months Results * AL INTRALESIONAL INJECTION(S) 7 OR LESS (04/22/2025 11:44 AM CDT) Narrative Vasquez Osorio MD - 04/22/2025 11:44 AM CDT Vasquez Osorio MD 04/22/2025 1:11 PM The side effects of intralesional triamcinolone were discussed with patient, including petechiae and purpura, local lipoatrophy, striae and pigment change. 0.8 mL of Triamcinolone 10 mg/mL was injected in to 2 PG lesions with a 1 cc syringe and a 30 gauge needle. Rogelio Shaikh MD 04/22/2025 PGY-4 Dermatology Resident Vasquez Osorio MD PROCEDURE/MINOR SURGICAL ORDERA BLES Final Result * AL INTRALESIONAL INJECTION(S) 7 OR LESS (02/18/2025 11:58 AM CDT) Narrative Vasquez Osorio MD - 02/18/2025 11:58 AM CDT Vasquez Osorio MD 02/18/2025 12:04 PM The side effects of intralesional triamcinolone were discussed with patient, including petechiae and purpura, local lipoatrophy, striae and pigment change. 0.8 mL of Triamcinolone 10 mg/mL was injected in to 2 erosions/ulcers with a 1 cc syringe and a 30 gauge needle. Rogelio Shaikh MD 02/18/2025 PGY-4 Dermatology Resident Vasquez Osorio MD PROCEDURE/MINOR SURGICAL ORDERA BLES Final Result * AL INTRALESIONAL INJECTION(S) 7 OR LESS (02/06/2025 3:29 PM CDT) Narrative Vasquez Osorio MD - 02/06/2025 3:29 PM CDT Vasquez Osorio MD 02/06/2025 4:15 PM Side effects of intralesional steroid injection were reviewed with the patient, including petechiae and purpura, local lipoatrophy, striae and pigment change. Verbal consent obtained to proceed. Using a 30G needle, a total of 1 cc of Kenalog 10 mg/cc was administered along edge of pyoderma gangrenosum ulcer. Patient tolerated the procedure well without complications. Triamcinolone 10 mg/ml [facility] [id number] used. Darrion Meadows MD PGY-2 Dermatology Vasquez Osorio MD PROCEDURE/MINOR SURGICAL ORDERA BLES Final Result from Last 3 Months Insurance [facility] Advance Directives * Full Code (Latest Code Status on File) Date Activated Date Inactivated Comments 07/11/2024 3:24 AM 07/18/2024 7:51 PM * Full Code Date Activated Date Inactivated Comments 02/04/2020 6:50 AM 02/06/2020 9:24 PM Care Teams Cytotechnologist Supervisor Relationship Specialty Start Date End Date Rob Dozier MD [address] [place] [phone] PCP - General Internal Medicine 11/26/24
--- OUTSIDE RECORDS SUMMARY | 2025-05-06 16:00 | XMS_ITS | Encounter Summary ---
Author Organization [facility] Health Address [address] [place] [address] Care Team Providers Care Supervisor Keymodule Assembly Name Role Phone Jose Whaley DO Primary Care Provider Rob Dozier MD Primary Care Provider + [phone] Encounter Details Date Type Department Care Team (Late st Contact Info) Description 08/21/2024 Telephone [facility] - Dermatology [address] [place] [phone] Vasquez Lewis MD [address] [phone] Social History Tobacco Use Types Packs/Day Years [...] and heating? Not hard at all 07/11/2024 [facility] - Occupational Stress [...] were you homeless or living in a alf (including now)? No 07/11/2024 Comments Unknown Sex and Gender Information Value Date Recorded Sex Assigned at Not on file Legal Sex Female 6:00 PM SPIN TABLE OPERATOR Gender Identity Not on file Sexual Orientation [...] Entry Date Author Yes 08/06/2024 4:10 PM SPIN TABLE OPERATOR Lawanda Jacome RN documented in this encounter Miscellaneous Notes * Telephone Encounter - Eliseo Quach - 08/21/2024 10:39 AM CST error TABLE OPERATOR documented in this encounter Plan of Treatment Upcoming Encounters Date Type Department Care Team (Late st Contact Info) Description 05/20/2025 11:20 AM SPIN TABLE OPERATOR Office Visit [facility] - Dermatology [address] [place] [phone] Rogelio Shaikh MD [address] [place] [phone] 06/24/2025 11:10 AM SPIN TABLE OPERATOR Office Visit [facility] - Dermatology [address] [place] [phone] Rogelio Shakih MD [address] [place] [phone] 07/29/2025 11:10 AM SPIN TABLE OPERATOR Office Visit [facility] - Dermatology [address] [place] [phone] Rogelio Shaikh MD [address] [place] [phone] 10/13/2025 10:30 AM CDT Office Visit [facility] GI [address] [place] [phone] Chapo Sagastume MD [address] [place] [phone] documented as of this encounter Goals Goal [...] on filedocumented in this encounter Care Teams Supervisor Keymodule Assembly Relationship Specialty [place] [id number] [address] [phone] PCP - General 10/09/15 11/25/24 Rob Dozier MD [address] [place] [phone] PCP - General Internal Medicine 11/26/24 documented as of this encounter
--- OUTSIDE RECORDS SUMMARY | 2025-05-06 16:00 | XMS_ITS | Clinical Summary ---
Author Organization [facility] Address [address] [facility] Medical Office [facility] [address] [place] [address] Care Team Providers [employer] Name Role Phone Rob Dozier MD Primary Care Provider [phone]- [phone] Allergies No known active allergies Medications aspirin 81 mg enteric coated tablet Take 1 tablet (81 mg total) by mouth daily 3 Active atorvastatin (LIPITOR) 40 mg tablet Take 1 tablet (40 mg total) by mouth nightly 3 Active busPIRone (BUSPAR) 5 mg tablet 4 Active fluticasone propion-salmeter oL (ADVAIR DISKUS) 250-50 mcg/dose diskus inhaler Inhale 1 puff 2 (two) times a day Active oxyBUTYnin XL (DITROPAN-XL) 5 mg 24 hr tablet 4 Active traMADoL (ULTRAM) 50 mg tablet Take 1 tablet (50 mg total) by mouth 2 (two) times a day 3 Active fluticasone propionate (FLONASE) 50 mcg/actuation nasal spray Administer 1 spray into each nostril daily 1 each 3 4 Active levothyroxine (SYNTHROID) 175 mcg tablet 4 Active montelukast (SINGULAIR) 10 mg tablet 4 Active topiramate (TOPAMAX) 50 mg tablet 1 tablet (50 mg total) [address] (PROTONIX) 40 mg EC tablet Take 1 tablet (40 mg total) by mouth daily 5 Active folic acid (FOLVITE) 1 mg tablet Take 1 tablet (1 mg total) by mouth daily 5 Active predniSONE (DELTASONE) 20 mg tablet Take 4 tablets (80 mg) by mouth daily 5 Active FLUoxetine (PROzac) 20 mg capsule Take 1 capsule (20 mg total) by mouth daily 5 Active traZODone (DESYREL) 50 mg tablet Take 1 tablet (50 mg total) by mouth nightly Take 25 mg nightly 5 Active betamethasone dipropionate (DIPROSONE) 0.05 % ointment Apply topically 2 (two) times a day 5 Active cholecalciferol 25 mcg (1,000 unit) tablet Take 1 tablet (1,000 Units total) by mouth daily 5 Active silver sulfadiazine (SILVADENE, SSD) 1 % cream Apply topically 2 (two) times a day 5 Active SUMAtriptan (IMITREX) 50 mg tablet Take 1 tablet (50 mg total) by mouth as needed 5 Active meloxicam (MOBIC) 7.5 mg tablet 5 Active ALPRAZolam (XANAX) 0.5 mg tablet 5 Active busPIRone (BUSPAR) 10 mg tablet 5 Active oxyBUTYnin (DITROPAN) 5 mg tablet 5 Active traZODone (DESYREL) 150 mg tablet 5 Active psyllium, aspartame, SF (Daily Fiber, psyllium-aspart, ) 3.4 gram packet Take 1 packet by mouth 2 (two) times a day 5 Active ferrous sulfate 325 mg (65 mg of elemental iron) tablet Take 1 tablet (325 mg total) by mouth daily 5 Active doxycycline 100 mg tablet 5 Active furosemide (LASIX) 40 mg tablet Take 1 tablet (40 mg total) by mouth daily 90 tablet 3 5 026 Active furosemide (LASIX) 20 mg tablet Take 1 tablet (20 mg total) by mouth daily 025 Discontin ued(Reord er) Active Problems Problem Noted Date Diagnosed Date Diarrhea 07/23/2024 Assessment & Plan (07/24/2024 1:59 PM INSURANCE FOLLOW UP REPRESENTATIVE): Chronic, intermittent diarrhea. Up to 3 loose BM per day. Ongoing for the last 8-9 months. Patient has not obtained stool studies as ordered last visit. Reports colonoscopy 2 years ago, report is unavailable to review. Recent admission admission at [facility] for oral ulcers and LLE wound. Leg wound biopsy consistent with pyoderma gangrenosum. Per discharge summary, she has outpatient dermatology follow up arranged at [facility] in August, for which they will assess TNF inhibitor therapy. She is also to follow up with rheumatology for vasculitis work up in the setting of PG. Concern for possible IBD, given PG diagnosis. She does have a 17 lb weight loss since her last visit here in April, however she attributes this to decreased oral intake due to her oral ulcers. Plan: - Patient to obtain stool studies as ordered last visit- C diff, stool culture, GI PCR. Will also obtain fecal calprotectin- note that ESR and CRP are elevated on recent labs. - Patient will benefit from Colonoscopy to assess for IBD/further work up her diarrhea. Discussed with collaborating MD, Dr. Lockhart. As patient has follow up at [facility] for further management of PG/initiation of TNF therapy, feel it is best for her to follow up with [facility] for further care. Our office will send an urgent referral for her to be seen as soon as possible. Patient's niece was made aware. Will also attempt to obtain prior Colonoscopy report from [facility] - In the meantime, recommend trial of Align Probiotic and Metamucil BID. - Called patient's niece and discussed above recommendations and plan. Niece again states she is not the patient's POA, and patient does not have a POA currently. - Patient advised to keep her follow ups with Dermatology and Rheumatology Anemia 07/23/2024 Assessment & Plan (07/23/2024 4:55 PM INSURANCE FOLLOW UP REPRESENTATIVE): Review of recent admission labs show Hgb 8-9s. Unclear what her baseline Hgb is, not able to see any past labs. Recent iron panel obtained during her admission consistent with anemia of chronic disease (normal serum iron, low TIBC, normal ferritin). B12 not low, folate only very mildly low. She denies any s/sx of GI bleeding. Patient will benefit from endoscopic procedure to further assess for IBD, as above. Pyoderma gangrenosa 07/16/2024 Hyperlipidemia associated with type 2 diabetes m zheng 10/21/2022 Overview (07/30/2024): Last Assessment & Plan: Condition: asymptomatic Discussed glucose control targets. Member advised on life styles changes aimed to decrease cholesterol levels, including diet, exercise, medication compliance. Educated on: Lifestyle changes, Nutrition, Foot care, Medication compliance and Smoking cessation Follow up in: three months with PCP Heart failure 10/21/2022 Overview (07/30/2024): Last Assessment & Plan: Condition: asymptomatic Follow up in: three months Hypertensive heart disease with heart failure Overview (07/30/2024): Last Assessment & Plan: Condition: stable Education: Regular follow up with PCP, target blood pressure, monitoring blood pressure twice a day, taking medications as prescibed and lifestyle modification: DASH diet, Reduce stress/anxiety, Weight management, Activity as tolerated or advised by PCP and Avoid alcohol and nicotine Pharmacy and Therapeutics: Member has filled prescribed medications: Yes: Taking as prescribed Member has working BP cuff: Member's BP is monitored daily at her facility. Follow up in: three months Hypothyroidism 10/21/2022 Overview (07/30/2024): Last Assessment & Plan: Condition: asymptomatic Follow up in: three months Continue with thyroid medication as prescribed Take medication at the same time every day Do not stop taking medication abruptly MDD (major depressive disord er), recurrent, in partial remission 10/21/2022 Overview (07/30/2024): Last Assessment & Plan: Condition: stable Last mental health visit 08/23/2022 Medications: Taking medications as prescribed If taking medications, do not stop treatment without consulting healthcare provider. If symptoms worsen or do not improve/stabilize, notify health care provider right away. If thoughts of harming self or others notify health care provider immediately &/or seek urgent/emergent care including calling Suicide Hotline (290 or ) or 491. Follow up in one month with Psychologist/Counselor/SupportGroup/Psychiatrist TRISHA (generalized anxiety disorder) 04/08/2022 Overview (07/30/2024): Last Assessment & Plan: Condition: stable Follow up in: if symptoms worsen or fail to improve Essential (primary) hypertension 06/09/2015 Encounters Date Type Department Care Team Description 05/05/2025 1:15 PM INSURANCE FOLLOW UP REPRESENTATIVE Lab [facility] [address] [place] [address] Heart failure, unspecified HF chronicity, unspecified heart failure type (HCC); Chronic kidney disease, unspecified CKD stage; Primary hypertension; 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) 05/05/2025 11:30 AM INSURANCE FOLLOW UP REPRESENTATIVE Office Visit [facility] [address] [place] [address] Marie Blanchard MD Heart failure, unspecified HF chronicity, unspecified heart failure type (HCC) (Primary Dx); Chronic hypoxic respiratory failure (HCC); Essential (primary) hypertension; 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); Chronic kidney disease, unspecified CKD stage; Lymphedema; Abnormal ECG; Primary hypertension 05/01/2025 Documentation [facility] Medicine Scheduling [address] [place] [address] Rayna Vega IM DOC 04/30/2025 Telephone [facility] [address] [facility] 8[address] [place] [address] [place] [id number] Neva Lima from Last 3 Months Surgical History Surgery Date Site/Laterality Comments GALLBLADDER DRAINAGE 05/20/2015 N/A Medical History Medical History Date Comments Hyperlipidemia Anemia GERD (gastroesophageal reflux disease) Depression Anxiety Diarrhea Family History Medical History Relation Name Comments Heart attack Father Cancer Mother Relation Name Status Comments Brother 1 Alive Brother 2 Father Mother Social History Tobacco Use Types [...] on file Legal Sex Female 10:47 AM INSURANCE FOLLOW UP REPRESENTATIVE Gender Identity Not on file Sexual Orientation Not on file Last Filed Vital Signs Vital Sign Reading Time Taken Comments Blood Pressure 108/56 05/05/2025 11:58 AM INSURANCE FOLLOW UP REPRESENTATIVE Pulse 45 05/05/2025 11:58 AM INSURANCE FOLLOW UP REPRESENTATIVE Temperature 36.2 C (97.2 F) 01/15/2024 10:08 AM CDT Respiratory Rate - - Oxygen Saturation 93% 05/05/2025 11:58 AM INSURANCE FOLLOW UP REPRESENTATIVE Inhaled Oxygen Concentration - - Weight 75.3 kg (166 lb) 10/03/2024 3:27 PM CDT Height 160 cm (5' 3) 05/05/2025 11:58 AM INSURANCE FOLLOW UP REPRESENTATIVE Body Mass Index 29.41 10/03/2024 3:27 PM CDT Plan of Treatment Health Maintenance Due Date Last Done Comments Albumin Creatinine Ratio, Urine 1945 Depression Screening 1945 Fall Risk Assessment 1945 Hepatitis C Screening 1945 Osteoporosis Screening-Bone Density Scan 1945 Dilated Eye Exam 1945 Foot Exam 1945 DTaP/Tdap/Td Vaccine (1 - Tdap) 1956 Hepatitis B Screening 12/01/1963 Pneumococcal vaccine 65+ (1 of 2 - PCV) 1964 05/03/2013 Zoster Vaccine (1 of 2) 1964 Well Visit 65+ 2010 Covid-19 Vaccine (6 - 2024-2 6 season) 2025 05/11/2023, 06/30/2022, 06/28/2021, Additional history exists Influenza Vaccine (#1) 2025 05/21/2015, 2012 Hemoglobin A1C 11/02/2025 05/05/2025, 07/12/2024 Lipid Panel 05/05/2026 05/05/2025 eGFR 05/05/2026 05/05/2025 Procedures Procedure Name Priority Date/Time Associated Diagnosis Comments EGFR Routine 05/05/2025 1:08 PM INSURANCE FOLLOW UP REPRESENTATIVE Primary hypertension T4, FREE Routine 05/05/2025 1:08 PM INSURANCE FOLLOW UP REPRESENTATIVE Primary hypertension DIFFERENTIAL AUTO Routine 05/05/2025 1:0 8 PM INSURANCE FOLLOW UP REPRESENTATIVE Primary hypertension LIPID PANEL Routine 05/05/2025 1:08 PM INSURANCE FOLLOW UP REPRESENTATIVE Primary hypertension APOLIPOPROTEIN B Routine 05/05/2025 1:08 PM INSURANCE FOLLOW UP REPRESENTATIVE Primary hypertension BASIC METABOLIC PANEL Routine 05/05/2025 1:08 PM INSURANCE FOLLOW UP REPRESENTATIVE Primary hypertension HEMOGLOBIN A1C Routine 05/05/2025 1:08 PM INSURANCE FOLLOW UP REPRESENTATIVE 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) PRO B-TYPE NATRIURETIC PEPTIDE Routine 05/05/2025 1:08 PM INSURANCE FOLLOW UP REPRESENTATIVE Heart failure, unspecified HF chronicity, unspecified heart failure type (HCC) Primary hypertension THYROID FUNCTION CASCADE Routine 05/05/2025 1:08 PM INSURANCE FOLLOW UP REPRESENTATIVE Primary hypertension CBC WITH AUTO DIFFERENTIAL Routine 05/05/2025 1:08 PM INSURANCE FOLLOW UP REPRESENTATIVE Primary hypertension FERRITIN Routine 05/05/2025 1:08 PM INSURANCE FOLLOW UP REPRESENTATIVE Heart failure, unspecified HF chronicity, unspecified heart failure type (HCC) Chronic kidney disease, unspecified CKD stage IRON PROFILE W/ IBC Routine 05/05/2025 1 :08 PM INSURANCE FOLLOW UP REPRESENTATIVE Heart failure, unspecified HF chronicity, unspecified heart failure type (HCC) Chronic kidney disease, unspecified CKD stage ECG 12-LEAD Routine 05/05/2025 12:00 PM INSURANCE FOLLOW UP REPRESENTATIVE Heart failure, unspecified HF chronicity, unspecified heart failure type (HCC) from Last 3 Months Results * (ABNORMAL) eGFR (05/05/2025 1:08 PM INSURANCE FOLLOW UP REPRESENTATIVE) eGFR 35(L) >=60 mL/min/1. 73 m2 Comment: [...] of Race in Diagnosing Kidney Disease, JASN 202). The CKD-EPI equation should not be used for patients with unstable renal function and has not been validated in children and those over 70. Current interpretive data was last reviewed 2021. Blood 05/05/2025 1:08 PM INSURANCE FOLLOW UP REPRESENTATIVE 05/05/2025 2:36 PM INSURANCE FOLLOW UP REPRESENTATIVE us Marie Blanchard MD LAB BLOOD ORDERABLES Final Result [facility] [address] [facility]. Department [place] [address] * Differential, auto (05/05/2025 1:08 PM INSURANCE FOLLOW UP REPRESENTATIVE) Pathologist [facility] Neutrophil abs 2.37 1.50 - 6.50 K/cumm Imm gran abs 0.01 0.00 - 0.10 K/cumm [facility] Lymphocyte abs 1.69 0.80 - 3.30 K/cumm [facility] Monocyte abs 0.56 0.20 - 0.80 K/cumm [facility] Eosinophil abs 0.33 0.00 - 0.50 K/cumm [facility] Basophil abs 0.03 0.00 - 0.10 K/cumm [facility] Neutrophil pct 47.5 % [facility] Comment: Interpretive Data Percent cell count reference [...] on 2017. Basophil pct 0.6 % [facility] Comment: Interpretive Data Percent cell count reference ranges are not reported, since discordance with absolute values may lead to misinterpretation of CBC data. Current Interpretive Data was last revised on 2017. Blood 05/05/2025 1:08 PM INSURANCE FOLLOW UP REPRESENTATIVE 05/05/2025 2:36 PM INSURANCE FOLLOW UP REPRESENTATIVE us Marie Blanchard MD LAB BLOOD ORDERABLES Final Result [facility] [address] [facility] Department [place] [address] * (ABNORMAL) Pro B-type natriuretic peptide (05/05/2025 1:08 PM INSURANCE FOLLOW UP REPRESENTATIVE) NT-proBNP 1,939(H) <=450 pg/mL Comment: Interpretive Comments: [...] Revised Date: 2018. Blood 05/05/2025 1:08 PM INSURANCE FOLLOW UP REPRESENTATIVE 05/05/2025 2:36 PM INSURANCE FOLLOW UP REPRESENTATIVE Marie Blanchard MD LAB BLOOD ORDERABLES Edite d Result - Final Performing Organization Address [facility] Co de Phone Number [facility] [address] [employer] [address] [place], [place] [id number] * (ABNORMAL) Thyroid Function [place] (05/05/2025 1:08 PM INSURANCE FOLLOW UP REPRESENTATIVE) TSH 6.00(H) 0.30 - 4.20 mcIUnit/mL Blood 05/05/2025 1:08 PM INSURANCE FOLLOW UP REPRESENTATIVE 05/05/2025 2:36 PM INSURANCE FOLLOW UP REPRESENTATIVE Marie Blanchard MD LAB BLOOD ORDERABLES Edite d Result - Final Performing Organization Address [facility]/ZIP Co de Phone Number [facility] [phone] [employer] [place] [address] * (ABNORMAL) Iron profile w/ IBC (05/05/2025 1:08 PM INSURANCE FOLLOW UP REPRESENTATIVE) Pathologist [facility] Iron 21(L) 35 - 145 mcg/dL Comment:Testing performed by : [facility], [address] [place] [address]., [address] TIBC 305 250 - 400 mcg/dL [facility] Comment:Testing performed by : [facility], [address] [place] [address]., [address] Transferrin saturation 7(L) 20 - 50 % [facility] Comment:Testing performed by : [facility], [address] [place] [address]., [id number] Blood 05/05/2025 1:08 PM INSURANCE FOLLOW UP REPRESENTATIVE 05/05/2025 6:29 PM INSURANCE FOLLOW UP REPRESENTATIVE Marie Blanchard MD LAB BLOOD ORDERABLES Final Result Performing Organization Address [facility] de Phone Number [facility] [address] [facility] Department [place] [address] * (ABNORMAL) Apolipoprotein B, serum (05/05/2025 1:08 PM INSURANCE FOLLOW UP REPRESENTATIVE) [facility] Apolipoprotein B 46(L) mg/dL [facility] Comment: REFERENCE VALUE Desirable: <90 Above Desirable: 90-99 Borderline high: 100-119 High: 120-139 Very high: > or = 140 Test Performed by: [address] [address] [employer] Developer: Lissy Lees Ph.D.; CLIA# [id number] Blood 05/05/2025 1:08 PM INSURANCE FOLLOW UP REPRESENTATIVE 05/05/2025 2:36 PM INSURANCE FOLLOW UP REPRESENTATIVE Marie Blanchard MD LAB BLOOD ORDERABLES Final Result [facility] [address] [facility] Department [place] [address] [facility] * (ABNORMAL) CBC with auto differential (05/05/2025 1:08 PM INSURANCE FOLLOW UP REPRESENTATIVE) [facility] WBC 4.99 3.80 - 9.90 K/cumm Hgb 10.4(L) 11.9 - 15.5 g/dL [facility] Hct 36.5 35.6 - 45.5 % [facility] Plt 232 150 - 400 K/cumm [facility] MPV 9.3 9.1 - 12.3 fL [facility] RBC 3.63(L) 3.90 - 5.20 M/cumm [facility] MCV 100.6(H) 81.3 - 96.4 fL [facility] MCH 28.7 27.1 - 33.3 pg [facility] MCHC 28.5(L) 32.3 - 35.7 g/dL [facility] RDW CV 17.6(H) 11.1 - 14.9 % [facility] RDW SD 65.2(H) 35.7 - 48.1 fL [facility] NRBC abs 0.00 0.00 - 0.01 K/cumm [facility] Blood 05/05/2025 1:08 PM INSURANCE FOLLOW UP REPRESENTATIVE 05/05/2025 2:36 PM INSURANCE FOLLOW UP REPRESENTATIVE Marie Blanchard MD LAB BLOOD ORDERABLES Final Result [facility] [address] [address] [facility]. Department [place] [address] * T4, free (05/05/2025 1:08 PM INSURANCE FOLLOW UP REPRESENTATIVE) Pathologist [facility] Free T4 1.14 0.90 - 1.70 ng/dL Blood 05/05/2025 1:08 PM INSURANCE FOLLOW UP REPRESENTATIVE 05/05/2025 2:36 PM INSURANCE FOLLOW UP REPRESENTATIVE Narrative [facility] - 05/05/2025 7:05 PM INSURANCE FOLLOW UP REPRESENTATIVE This test was reflexed from a TSH result. Marie Blanchard MD LAB BLOOD ORDERABLES Edite d Result - Final Performing Organization Address [facility] Co de Phone Number [facility] [address] [facility]. [facility] [place] [address] * Hemoglobin A1c (05/05/2025 1:08 PM INSURANCE FOLLOW UP REPRESENTATIVE) [facility] Hgb A1C 5.2 4.0 - 5.6 % Estimated Average Glucose 103 mg/dL [facility] Comment: The ADA recommends reporting an estimated Average Glucose (eAG) with all Hemoglobin A1c results using the equation derived from a study of 507 normal and diabetic adults. Minority populations were underrepresented and children were not included. (Diabetes Care 31:2051-2349, 2008). The eAG is not equivalent to a fasting glucose. Blood 05/05/2025 1:08 PM INSURANCE FOLLOW UP REPRESENTATIVE 05/05/2025 2:36 PM INSURANCE FOLLOW UP REPRESENTATIVE Marie Blanchard MD LAB BLOOD ORDERABLES Final Result Performing Organization Address [facility] Co de Phone Number [facility] [address] [facility]. [facility] [place] [address] * Ferritin (05/05/2025 1:08 PM INSURANCE FOLLOW UP REPRESENTATIVE) [facility] Ferritin 42 13 - 150 ng/mL Comment:Testing performed by : [facility], [facility] [facility], [place]., [address] Blood 05/05/2025 1:08 PM INSURANCE FOLLOW UP REPRESENTATIVE 05/05/2025 6:29 PM INSURANCE FOLLOW UP REPRESENTATIVE Marie Blanchard MD LAB BLOOD ORDERABLES Final Result Performing Organization Address [facility] Co de Phone Number [facility] [address] [facility]. [facility] [place] [address] * Lipid panel (05/05/2025 1:08 PM INSURANCE FOLLOW UP REPRESENTATIVE) Cholesterol 102 30 - 199 mg/dL Comment: [...] 3. Aaron Moreland et al. LEYDI Cardiol. 2020 October 31;5(5):540-548. doi: [...] 2 [facility] Blood 05/05/2025 1:08 PM INSURANCE FOLLOW UP REPRESENTATIVE 05/05/2025 2:36 PM INSURANCE FOLLOW UP REPRESENTATIVE Marie Blanchard MD LAB BLOOD ORDERABLES Edite d Result - Final [facility] [address] [facility]. Department [place] [address] * (ABNORMAL) Basic metabolic panel (05/05/2025 1:08 PM INSURANCE FOLLOW UP REPRESENTATIVE) Sodium 143 135 - 145 mmol/L Potassium, pl 4.9 3.3 - 4.9 mmol/L [facility] Chloride 103 97 - 110 mmol/L [facility] CO2 36(H) 22 - 32 mmol/L [facility] Anion gap 4 2 - 15 mmol/L [facility] BUN 19 6 - 25 mg/dL [facility] Creatinine 1.50(H) 0.60 - 1.10 mg/dL [facility] Glucose 95 70 - 199 mg/dL [facility] Comment: Interpretive Data Fasting glucose >/= 126 [...] classification and Diagnosis of Diabetes Diabetes Care 202; 46: S19-S40. Current interpretive data was last revised 2022. Calcium 9.4 8.5 - 10.3 mg/dL [facility] Blood 05/05/2025 1:08 PM INSURANCE FOLLOW UP REPRESENTATIVE 05/05/2025 2:36 PM INSURANCE FOLLOW UP REPRESENTATIVE us Marie Blanchard MD LAB BLOOD ORDERABLES Edite d Result - Final [facility] [address] [facility] Department [place] [address] * ECG 12 lead (05/05/2025 12:00 PM INSURANCE FOLLOW UP REPRESENTATIVE) Marie Blanchard MD ECG ORDERABLES Final Resu lt from Last 3 Months Insurance [facility] Care Teams Guard [employer] Relationship Specialty Start Date End Date Rob Dozier MD [address] [place] [address] PCP - General Internal Medicine 08/07/23
--- OUTSIDE RECORDS SUMMARY | 2025-05-06 16:00 | XMS_ITS | Encounter Summary ---
Author Organization [facility] Address [address] [place] [address] Care Team Providers Care Medical Payment Poster Name Role Phone Rob Dozier MD Primary Care Provider + [phone] Reason for Visit * Reason Onset Date Comments Question 12/10/2024 Encounter Details Date Type Department Care Team (Late st Contact Info) Description 12/10/2024 Telephone [facility] - Centralized Scheduling [address] [place] [address] Rogelio Shaikh MD [address] [place] [address] Question Social History Tobacco Use Types Packs/Day [...] and heating? Not hard at all 07/11/2024 [facility] [place] [facility] - Occupational Stress [...] were you homeless or living in a mcc (including now)? No 07/11/2024 Comments Unknown Sex and Gender Information Value Date Recorded Sex Assigned at Not on file Legal Sex Female 6:00 PM API ARCHITECT Gender Identity Not on file Sexual Orientation [...] Entry Date Author Yes 08/06/2024 4:10 PM API ARCHITECT Lawanda Jacome RN documented in this encounter Miscellaneous Notes * Telephone Encounter - Mena Garcia - 01/22/2025 8:16 AM CDT Nurse from [facility] is requesting to speak with a nurse regarding pt appointment being canceled. CB# [phone] * Telephone Encounter - Senait Sampson - 12/10/2024 2:15 PM CDT Patient is having an outbreak of blisters on her lower extremities. Left calve is red and swollen, please call with instructions. documented in this encounter Plan of Treatment Upcoming Encounters Date Type Department Care Team (Late st Contact Info) Description 05/20/2025 11:20 AM API ARCHITECT Office Visit [facility] - Dermatology [address] [place] [phone] Rogelio Shaikh MD [address] [place] [phone] 06/24/2025 11:10 AM API ARCHITECT Office Visit [facility] - Dermatology [address] [place] [phone] Rogelio Shaikh MD [address] [place] [phone] 07/29/2025 11:10 AM API ARCHITECT Office Visit [facility] - Dermatology [address] [place] [phone] Rogelio Shaikh MD [address] [place] [phone] 10/13/2025 10:30 AM CDT Office Visit [facility] - GI [address] [place] [phone] Chapo Sagastume MD [address] [place] [phone] documented as of this encounter Goals Goal [...] on filedocumented in this encounter Care Teams Medical Payment Poster Relationship Specialty Start Date End Date Rob Dozier MD [address] [place] [phone] PCP - General Internal Medicine 11/26/24 documented as of this encounter
--- NOTE | 2025-05-06 17:56 | ADMGEN ---
This patient, Katt Garg, was admitted to IMU Room 202-01. Patient/family oriented to hospital policies and general routines including ID bracelet, bed and alarms, visiting hours, pain management, procedures, bathroom and other care routines, personal items, smoking policy, room service/diet, and visiting hours. Information on how to activate the Rapid Response Team has been discussed. Patient/Family are encouraged to report perceived risks to care and to ask questions if they do not understand what they are told or what they should do.
[2025-05-06] MEDS: CALCIUM GLUC 1,000 MG/NS 50 ML 1,000 MG/50 ML BAG 100 MG IVPB (18:10)
[2025-05-06 21:58] LABS: Alveolar/Arterial O2 Gradient 94.7 mmHg; Fractional Inspired Oxygen 30 %; HCO3 ABG 36.3 mEq/l (22.0-26.0); Oxygen Content ABG 7.9 %vol (16.0-22.0); PO2 FiO2 Ratio Arterial Blood 1.12 %
[2025-05-06 22:15] LABS: PCO2 ABG 72.9 mmHg (35.0-45.0)
[2025-05-06 22:16] LABS: PO2 ABG 33.5 mmHg (80.0-100.0)
[2025-05-06 22:17] LABS: Oxygen Saturation ABG 56.7 % (95.0-100.0)
[2025-05-06 22:18] LABS: Modified Allen's Test Pass; Site Drawn LEFT RADIAL
[2025-05-07] VITALS (26 sets, daily range): BP systolic 117–143; BP diastolic 46–53; PULSE 45–72; RESP 18–35; TEMP 36.6–37.3; O2SAT 94–100
--- NOTE | 2025-05-07 00:39 | PC.NURSE ---
Called skilled nursing to request med req. Received chart and put meds into chart based on skilled nursing MAR. Provider notified.
[2025-05-07] MEDS: IPRATROPIUM 0.5 MG/ALBUTEROL SULFATE 2.5 MG (BASE) AMPUL.NEB 3 ML INHALATION ×4 (01:45→20:09)
[2025-05-07 04:43] LABS: Hematocrit 34.1 % (37.0-47.0); Hemoglobin 9.6 g/dL (12.0-15.0); Immature Granulocyte Percent A 0.6 % (0-0.5); Lymphocytes Absolute Auto 0.94 K/mm3 (0.9-3.2); Mean Corpuscular HGB Conc 28.2 g/dl (32-36); Mean Corpuscular Hemoglobin 28.7 pg (26-34); Mean Corpuscular Volume 102.1 fl (80-100); Nucleated Red Blood Cells Absolute Auto 0.000 K/mm3 (0.0-0.012); Nucleated Red Blood Cells Perc 0.0 % (0.0-0.2); Platelet Count Result 215 k/mm3 (150-375); Red Blood Count 3.34 M/mm3 (4.2-5.4); White Blood Count 3.4 K/mm3 (4.5-10.0)
[2025-05-07 05:04] LABS: Alanine Aminotransferase 14 U/L (6-35); Albumin Level 3.3 g/dL (3.5-5.1); Alkaline Phosphatase 125 U/L (38-126); Anion Gap 5 mmol/L (4-12); Aspartate Amino Transferase 29 U/L (14-36); Bilirubin,Total 0.4 mg/dL (0.2-1.3); Blood Urea Nitrogen 21 mg/dL (7-17); Calcium 8.4 mg/dL (8.4-10.2); Carbon Dioxide 33 mmol/L (22-30); Chloride 102 mmol/L (98-107); Estimated CRCL calculation 28 ml/min; Estimated Glomerular Filt Rate 33; Glucose 101 mg/dL (65-110); Potassium 4.7 mmol/L (3.4-5.0); Sodium 140 mmol/L (137-145); Total Protein 6.7 g/dL (6.3-8.2)
[2025-05-07 05:30] LABS: Alveolar/Arterial O2 Gradient 84.3 mmHg; Fractional Inspired Oxygen 30 %; HCO3 ABG 34.4 mEq/l (22.0-26.0); Oxygen Content ABG 13.9 %vol (16.0-22.0); Oxygen Saturation ABG 90.9 % (95.0-100.0); PCO2 ABG 57.8 mmHg (35.0-45.0); PO2 ABG 61.7 mmHg (80.0-100.0); PO2 FiO2 Ratio Arterial Blood 2.06 %
[2025-05-07 05:32] LABS: Anisocytosis Occasional; Schistocytes None Seen
[2025-05-07 05:49] LABS: Modified Allen's Test Pass; Site Drawn RIGHT RADIAL
--- NOTE | 2025-05-07 08:11 | P.PNIM_ITS ---
Progress Note: A&P Assessment and Plan (1) CO2 narcosis: Code(s): R06.89 - Other abnormalities of breathing Status: Acute (2) COPD (chronic obstructive pulmonary disease): Qualifiers: COPD type: COPD with acute exacerbation Qualified Code(s): J44.1 - Chronic obstructive pulmonary disease with (acute) exacerbation Code(s): J44.9 - Chronic obstructive pulmonary disease, unspecified Status: Acute (3) Acute on chronic respiratory failure with hypoxia and hypercapnia: Code(s): J96.21 - Acute and chronic respiratory failure with hypoxia; J96.22 - Acute and chronic respiratory failure with hypercapnia Status: Acute (4) UTI (urinary tract infection): Qualifiers: Urinary tract infection type: acute cystitis Hematuria presence: without hematuria Qualified Code(s): N30.00 - Acute cystitis without hematuria Code(s): N39.0 - Urinary tract infection, site not specified Status: Suspected (5) Hypocalcemia: Code(s): E83.51 - Hypocalcemia Status: Acute (6) CHF (congestive heart failure): Qualifiers: Heart failure type: unspecified Heart failure chronicity: acute on chronic Qualified Code(s): I50.9 - Heart failure, unspecified Code(s): I50.9 - Heart failure, unspecified Status: Acute (7) Hypertension: Qualifiers: Hypertension type: primary hypertension Qualified Code(s): I10 - Essential (primary) hypertension Code(s): I10 - Essential (primary) hypertension Status: Acute Plan H&P per Shanti Cuba APRN on 05/06/2025 79 y/o F with PMH of COPD, CHF, hypertension, and anxiety presents here with hypoxia. (also has diabetes with current long-term use of insulin, hypothyroidism, seizure disorder, insomnia, GERD, intellectual disability) The patient presented here on 05/06 from [facility] via EMS for further evaluation of hypoxia. HPI largely obtained through chart review, EMS report, and ED provider report as the patient is a poor historian and was initially altered. Per EMS, the facility reported the patient was noted to be hypoxic this morning. Upon their arrival the patient had an O2 saturation in the 90s on a non-rebreather going at 4L. She has a baseline O2 requirement of 2L. She arrived to the emergency department at 64% on 2L. At baseline the patient is A&O x3, arrived A&O x1. Shortly after arrival she received a DuoNeb and drastically improved in mentation, currently A&O x3. The patient denies any recent worsening shortness of breath. She does report she has had a dry intermittent cough which is chronic for her. Also reporting some mild rhinorrhea as secondary to the nasal cannula. She otherwise denies fever, chills, nausea, vomiting, or chest pain. She does report diarrhea, however this has been chronic for her and she is unsure how long this has been present. She also reports new bilateral lower extremity edema, but she is unsure of onset. Initial VS at presentation: 97.6? F, HR 49, RR 17, 173/79, and 93% on 4L NC. Now on BiPAP. ED workup showed: No leukocytosis, hemoglobin 10.7, initial ABG significant for a pH of 7.296 and a CO2 of 68.6 (felt to possibly be a mixed specimen as her O2 sat was 79.5%, however on the monitor was 100%) repeat ABG however was similar therefore she was started on BiPAP, creatinine 1.57 and GFR 32 (no previous available for comparison), calcium 8.3 with a normal albumin, initial troponin 0.013, BNP 2190. UA showed mild indicators of infection with 1+ leuk esterase and 6-10 WBC with no epithelial cells or bacteria. CXR showed interval development of bilateral perihilar and bibasilar airspace disease, most likely edema. EKG showed sinus bradycardia, rate 54, with IVC delay. ----- Acute on chronic respiratory failure with hypoxia and hypercapnia -baseline requires 2 L nasal cannula -on 05/07/2025 ABG demonstrating pH 7.392, pCO2 57.8. With this improvement, will trial on nasal cannula. Continue telemetry with continuous pulse oximetry -BiPAP p.r.n. COPD exacerbation -continue prednisone 40 mg p.o. daily, azithromycin 500 mg IV q.day. Continue scheduled DuoNebs q.6 hours Acute CHF exacerbation -continue furosemide 40 mg IV q.day CKD -as reported per care home charting. Unknown baseline. Serum creatinine stable, continue to monitor Abnormal urinalysis -urinalysis on admission demonstrating leukocyte esterase 1+, WBC 6-10, no bacteria. Patient not complaining of symptoms. Currently on ceftriaxone and azithromycin. Follow-up urine culture and blood cultures Diabetes with current long-term use of insulin -blood sugars reviewed on 05/07/2025, currently low normal, will continue with low-dose insulin sliding scale and hold off on NEWS ANCHOR insulin. Continue Accu-Cheks a.c. HS Hypocalcemia -8.3 on admission, received calcium gluconate. Hypertension -at goal. Hold NEWS ANCHOR nifedipine ----- Presents from [facility]. Patient wishes to be full code Lovenox prophylaxis Continue NEWS ANCHOR Protonix Diabetic diet, heart healthy diet. Ambulate with assistance Saline lock IV Daily weights, intake/output according Stable in IMU Robins catheter in place Greater than 50 minutes spent on [id number] time, care coordination, chart review and medical decision making Subjective Date/time seen: 05/07/25 08:11 Interval history: This morning patient is adamantly requesting to take the BiPAP off. She has no complaints including shortness of breath or chest pain. Review of Systems Review of Systems: All systems reviewed & are unremarkable except as noted in HPI and below (Subjective) Exam Const: General: comfortable and no acute distress Other: A&O x3 Eyes: Pupils: Equal, round and reactive pupils present Neck: Neck: supple Resp: Effort & Inspection: normal respiratory effort Auscultation: clear to auscultation bilaterally Cardio: Rate: regular rate Rhythm: regular rhythm Heart sounds: Murmur heart sound present GI: Inspection: non-distended GI Palp: Yes Soft to palpation and No Tenderness to palpation present (GI) Auscultation: normal bowel sounds Neuro: Motor exam (neuro): 5/5 motor strength present throughout Extrem: Other: Erythema and lipodermatosclerosis of chronic venous stasis. No purulence. Wrinkled skin folds, no edema. Objective Data Vital Signs Vital Signs: Vital Signs - 24 hr 05/06/25 12:52 05/06/25 13:28 05/06/25 13:37 Temperature 97.6 F Pulse Rate 49 L 52 L Respiratory Rate 17 20 Blood Pressure 173/79 H Pulse Oximetry 93 91 Oxygen Delivery Nasal Cannula Nasal Cannula Oxygen Flow Rate 4 4 Fraction of Inspired Oxygen 05/06/25 13:37 05/06/25 13:38 05/06/25 13:39 Temperature Pulse Rate 56 L 56 L Respiratory Rate 18 Blood Pressure 170/66 H Pulse Oximetry 91 97 Oxygen Delivery Nasal Cannula Oxygen Flow Rate 4 Fraction of Inspired Oxygen 05/06/25 13:39 05/06/25 13:47 05/06/25 14:52 Temperature Pulse Rate 59 L 66 59 L Respiratory Rate 17 19 21 H Blood Pressure 176/65 H 115/76 Pulse Oximetry 98 85 L Oxygen Delivery Oxygen Flow Rate Fraction of Inspired Oxygen 05/06/25 15:01 05/06/25 15:35 05/06/25 15:44 Temperature Pulse Rate 57 L 48 L Respiratory Rate 19 17 Blood Pressure 123/34 L Pulse Oximetry 91 94 94 Oxygen Delivery Nasal Cannula BiPAP Oxygen Flow Rate 6 Fraction of Inspired Oxygen 05/06/25 15:48 05/06/25 16:15 05/06/25 16:30 Temperature Pulse Rate 54 L 47 L Respiratory Rate 18 15 Blood Pressure 111/35 L 124/39 L Pulse Oximetry 98 94 Oxygen Delivery BiPAP Oxygen Flow Rate Fraction of Inspired Oxygen 05/06/25 16:45 05/06/25 17:00 05/06/25 17:30 Temperature Pulse Rate 51 L 52 L 55 L Respiratory Rate 17 17 31 H Blood Pressure 117/32 L 124/30 L Pulse Oximetry 95 98 99 Oxygen Delivery BiPAP Oxygen Flow Rate Fraction of Inspired Oxygen 05/06/25 17:42 05/06/25 18:00 05/06/25 20:00 Temperature 98.1 F Pulse Rate 40 L 43 L 43 L Respiratory Rate 18 25 H Blood Pressure 138/60 Pulse Oximetry 96 96 Oxygen Delivery BiPAP Oxygen Flow Rate Fraction of Inspired Oxygen 30 05/06/25 20:00 05/06/25 20:28 05/06/25 20:28 Temperature Pulse Rate 40 L 42 L 42 L Respiratory Rate 16 18 Blood Pressure Pulse Oximetry 95 95 Oxygen Delivery BiPAP BiPAP Oxygen Flow Rate Fraction of Inspired Oxygen 30 05/06/25 20:28 05/06/25 22:00 05/06/25 23:41 Temperature 97.9 F Pulse Rate 42 L 59 L 50 L Respiratory Rate 18 25 H Blood Pressure 130/33 L Pulse Oximetry 100 Oxygen Delivery Oxygen Flow Rate Fraction of Inspired Oxygen 05/06/25 23:55 05/07/25 00:00 05/07/25 01:52 Temperature Pulse Rate 56 L 45 L 52 L Respiratory Rate 23 H 18 Blood Pressure Pulse Oximetry 99 98 Oxygen Delivery BiPAP BiPAP Oxygen Flow Rate Fraction of Inspired Oxygen 05/07/25 01:52 05/07/25 01:52 05/07/25 02:00 Temperature Pulse Rate 52 L 52 L 46 L Respiratory Rate 18 18 Blood Pressure Pulse Oximetry 98 Oxygen Delivery BiPAP Oxygen Flow Rate Fraction of Inspired Oxygen 40 05/07/25 03:35 05/07/25 04:00 05/07/25 04:00 Temperature 98.0 F Pulse Rate 50 L 60 57 L Respiratory Rate 23 H 25 H Blood Pressure 143/47 H Pulse Oximetry 100 98 Oxygen Delivery BiPAP Oxygen Flow Rate Fraction of Inspired Oxygen 05/07/25 06:00 05/07/25 07:47 05/07/25 07:49 Temperature Pulse Rate 55 L 53 L 51 L Respiratory Rate 19 Blood Pressure Pulse Oximetry 99 Oxygen Delivery BiPAP Oxygen Flow Rate Fraction of Inspired Oxygen 40 05/07/25 07:50 05/07/25 07:58 05/07/25 08:00 Temperature Pulse Rate 51 L 60 52 L Respiratory Rate 26 H 19 Blood Pressure Pulse Oximetry 100 94 Oxygen Delivery BiPAP Nasal Cannula Oxygen Flow Rate 5 Fraction of Inspired Oxygen 40 05/07/25 08:09 Temperature 98 F Pulse Rate 51 L Respiratory Rate 35 H Blood Pressure 117/48 L Pulse Oximetry 100 Oxygen Delivery Oxygen Flow Rate Fraction of Inspired Oxygen Intake/Output Intake/Output: Intake & Output 05/04/25 05/05/25 05/06/25 05/07/25 22:59 23:59 23:59 23:59 Intake Total 200 480 Output Total 850 550 Balance -650 -70 Meds/Results Medications: Active Medications Generic Name Dose Route Start Last Admin Trade Name Freq PRN Reason Stop Dose Admin Albuterol/Ipratropium 3 ml 05/06/25 20:00 05/07/25 07:47 Ipratropium 0.5 Mg/Albuterol Sulfate 2.5 Mg (Base) Ampul.Neb 3 Ml INHALATION 3 ml Q6HRT MARK Administration Artificial Tears 1 drop 05/07/25 08:08 Artificial Tears Ophth Soln 15 Ml Bottle EACH EYE QID PRN Dry Eye(s) Enoxaparin Sodium 40 mg 05/07/25 09:00 Enoxaparin 40 Mg/0.4 Ml Syringe SUB-Q DAILY MARK Furosemide 40 mg 05/07/25 09:00 Furosemide Inj 40 Mg/4 Ml Vial IV PUSH DAILY [facility] Ceftriaxone Sodium 1 gm/ 50 mls @ 100 mls/hr 05/07/25 15:00 Sodium Chloride IVPB Q24H [facility] Azithromycin 500 mg/ Sodium 250 mls @ 250 mls/hr 05/07/25 18:00 Chloride IVPB 05/11/25 18:59 Q24H [facility] Perflutren Lipid Microsphere 0 ml 05/06/25 17:21 Perflutren Lipid Microspheres 1.5 Ml Vial Diluted To 10 Ml Total Volume IV PUSH 05/09/25 17:22 ONCE PRN adequate visualization Protocol Prednisone 40 mg 05/07/25 08:00 Prednisone 20 Mg Tablet PO 05/11/25 08:01 DAILY@0800 [facility] Radiology Results: ITS Impressions Chest X-Ray 05/06/25 13:47 Impression: 1: Interval development of bilateral perihilar and bibasilar airspace disease, most likely edema. Labs Labs: Laboratory Results - last 24 hr 05/06/25 05/06/25 05/06/25 13:24 13:32 15:00 WBC 5.9 RBC 3.75 L Hgb 10.7 L Hct 38.8 MCV 103.5 H MCH 28.5 MCHC 27.6 L RDW 17.7 H Plt Count 249 MPV 9.2 Immature Gran % (Auto) 0.2 Neut % (Auto) 49.7 Lymph % (Auto) 33.4 [place] % (Auto) 9.2 H Eos % (Auto) 6.8 H Baso % (Auto) 0.7 Lymph # (Auto) 1.96 [place] # (Auto) 0.5 Eos # (Auto) 0.4 H Baso # (Auto) 0.0 Abs Immat Gran (auto) 0.01 Absolute Neuts (auto) 2.9 Absolute Nucleated RBC 0.000 Band Neutrophils % Not Reportable Nucleated RBC % 0.0 Platelet Estimate Adequate Anisocytosis Schistocytes None seen PT 13.8 INR 1.0 Puncture Site Right brachial ABG pH 7.296 L* ABG pCO2 68.6 H* ABG pO2 49.5 L* ABG PO2/FiO2 Ratio 1.13 ABG HCO3 32.7 H ABG O2 Saturation 79.5 L* ABG O2 Content 12.6 L ABG Base Excess 4.6 A-a Gradient 186.0 Oxyhemoglobin 80.8 L* Total Hemoglobin 11.1 L O2 Delivery Device Nasal cannula O2 Liters/Min 6.0 FiO2 44 Expiratory Pressure Inspiratory Pressure Sodium 143 Potassium 4.7 Chloride 103 Carbon Dioxide 36 H Anion Gap 4 BUN 20 H Creatinine 1.57 H Estim Creat Clear Calc 28 Estimated GFR 32 L Glucose 78 Calcium 8.3 L Total Bilirubin 0.6 AST 36 ALT 14 Alkaline Phosphatase 137 H Troponin I 0.013 NT-Pro-B Natriuret Pep 2190 H Total Protein 7.2 Albumin 3.6 Urine Color Yellow Urine Appearance Clear Urine pH 7.5 Ur Specific [place] 1.018 Urine Protein 1+ H Urine Glucose (UA) Negative Urine Ketones Negative Ur Blood (Man) Negative Urine Nitrate Negative Urine Bilirubin Negative Urine Urobilinogen 1.0 Add Ur Microanalysis Reviewed Leukocyte Esterase Rfl 1+ H Urine RBC 0-2 Urine WBC 6-10 H Ur Squamous Epith Cells None seen Urine Bacteria None seen Urine Casts 3-5 Influenza A (RT-PCR) Negative Influenza B (RT-PCR) Negative RSV (RT-PCR) Negative SARS-CoV-2 RNA (RT-PCR) Negative 05/06/25 05/06/25 05/07/25 15:19 21:35 03:59 WBC 3.4 L RBC 3.34 L Hgb 9.6 L Hct 34.1 L MCV 102.1 H MCH 28.7 MCHC 28.2 L RDW 17.4 H Plt Count 215 MPV 9.2 Immature Gran % (Auto) 0.6 H Neut % (Auto) 64.0 Lymph % (Auto) 27.3 [place] % (Auto) 7.8 Eos % (Auto) 0.0 Baso % (Auto) 0.3 Lymph # (Auto) 0.94 [place] # (Auto) 0.3 Eos # (Auto) 0.0 Baso # (Auto) 0.0 Abs Immat Gran (auto) 0.02 Absolute Neuts (auto) 2.2 Absolute Nucleated RBC 0.000 Band Neutrophils % Not Reportable Nucleated RBC % 0.0 Platelet Estimate Adequate Anisocytosis Occasional Schistocytes None seen PT INR Puncture Site Left radial Left radial ABG pH 7.289 L* 7.315 L ABG pCO2 72.0 H* 72.9 H* ABG pO2 59.2 L 33.5 L* ABG PO2/FiO2 Ratio 1.35 1.12 ABG HCO3 33.8 H 36.3 H ABG O2 Saturation 86.5 L* 56.7 L* ABG O2 Content 13.4 L 7.9 L ABG Base Excess 5.4 7.9 A-a Gradient 172.4 94.7 Oxyhemoglobin 86.7 L* 49.2 L* Total Hemoglobin 11.0 L 11.4 L O2 Delivery Device Nasal cannula Bipap O2 Liters/Min 6.0 Not Reportable FiO2 44 30 Expiratory Pressure 8 Inspiratory Pressure 14 Sodium 140 Potassium 4.7 Chloride 102 Carbon Dioxide 33 H Anion Gap 5 BUN 21 H Creatinine 1.53 H Estim Creat Clear Calc 28 Estimated GFR 33 L Glucose 101 Calcium 8.4 Total Bilirubin 0.4 AST 29 ALT 14 Alkaline Phosphatase 125 Troponin I NT-Pro-B Natriuret Pep Total Protein 6.7 Albumin 3.3 L Urine Color Urine Appearance Urine pH Ur Specific [place] Urine Protein Urine Glucose (UA) Urine Ketones Ur Blood (Man) Urine Nitrate Urine Bilirubin Urine Urobilinogen Add Ur Microanalysis Leukocyte Esterase Rfl Urine RBC Urine WBC Ur Squamous Epith Cells Urine Bacteria Urine Casts Influenza A (RT-PCR) Influenza B (RT-PCR) RSV (RT-PCR) SARS-CoV-2 RNA (RT-PCR) 05/07/25 05:13 WBC RBC Hgb Hct MCV MCH MCHC RDW Plt Count MPV Immature Gran % (Auto) Neut % (Auto) Lymph % (Auto) [place] % (Auto) Eos % (Auto) Baso % (Auto) Lymph # (Auto) [place] # (Auto) Eos # (Auto) Baso # (Auto) Abs Immat Gran (auto) Absolute Neuts (auto) Absolute Nucleated RBC Band Neutrophils % Nucleated RBC % Platelet Estimate Anisocytosis Schistocytes PT INR Puncture Site Right radial ABG pH 7.392 ABG pCO2 57.8 H ABG pO2 61.7 L ABG PO2/FiO2 Ratio 2.06 ABG HCO3 34.4 H ABG O2 Saturation 90.9 L ABG O2 Content 13.9 L ABG Base Excess 7.9 A-a Gradient 84.3 Oxyhemoglobin 90.3 Total Hemoglobin 10.9 L O2 Delivery Device Bipap O2 Liters/Min Not Reportable FiO2 30 Expiratory Pressure 8 Inspiratory Pressure 16 Sodium Potassium Chloride Carbon Dioxide Anion Gap BUN Creatinine Estim Creat Clear Calc Estimated GFR Glucose Calcium Total Bilirubin AST ALT Alkaline Phosphatase Troponin I NT-Pro-B Natriuret Pep Total Protein Albumin Urine Color Urine Appearance Urine pH Ur Specific [place] Urine Protein Urine Glucose (UA) Urine Ketones Ur Blood (Man) Urine Nitrate Urine Bilirubin Urine Urobilinogen Add Ur Microanalysis Leukocyte Esterase Rfl Urine RBC Urine WBC Ur Squamous Epith Cells Urine Bacteria Urine Casts Influenza A (RT-PCR) Influenza B (RT-PCR) RSV (RT-PCR) SARS-CoV-2 RNA (RT-PCR) Hospitalist MIPS Advance Care Plan I have confirmed that the patient's Advanced Care Plan is present, code status is documented, or surrogate decision maker is listed in patient medical record.: Yes Medication Reconciliation I have utilized all available resources to obtain, update and review the patients current medications (includes all prescriptions, OTC, herbals, cannabis, and nutritional supplements).: Yes
[2025-05-07] MEDS: FLUTICASONE PROPIONATE 0.05% NA SPR 16 GM BTL (*BKC) 1 SPRAY NASAL (09:28)
[2025-05-07] MEDS: ASPIRIN 81 MG CHEWABLE TABLET PO (09:29)
[2025-05-07] MEDS: TOPIRAMATE 25 MG TABLET 50 MG PO (09:29)
[2025-05-07] MEDS: ENOXAPARIN 40 MG/0.4 ML SYRINGE SUB-Q (09:30)
[2025-05-07] MEDS: FUROSEMIDE INJ 40 MG/4 ML VIAL IV PUSH (09:31)
[2025-05-07] MEDS: CALCIUM CARBONATE (TUMS) 500 MG (200 MG ELEMENTAL) 400 MG PO (09:31)
[2025-05-07] MEDS: ALPRAZolam (*CRX) 0.5 MG TABLET PO ×2 (09:32→17:02)
[2025-05-07] MEDS: PANTOPRAZOLE 40 MG TABLET PO ×2 (09:32→20:53)
[2025-05-07] MEDS: CHOLECALCIFEROL (VITAMIN D3) 25 MCG (1,000 UNITS) TABLET PO (09:32)
[2025-05-07] MEDS: ARTIFICIAL TEARS OPHTH SOLN 15 ML BOTTLE 1 DROP EACH EYE ×2 (09:33→16:05)
[2025-05-07] MEDS: FERROUS SULFATE 325 MG TABLET PO (09:33)
[2025-05-07] MEDS: MONTELUKAST SODIUM 10 MG TABLET PO (17:02)
[2025-05-07] MEDS: cefTRIAXone 1 GM in SODIUM CHLORIDE 0.9% IV 50 ML 100 ML IVPB (17:04)
[2025-05-07] MEDS: AZITHROMYCIN IV 500 MG in SODIUM CHLORIDE 0.9% IV 250 ML IVPB (17:34)
--- NOTE | 2025-05-07 18:26 | PC.NURSE ---
On 05/07/25, the student, [Kevin avendano ], provided care and completed [facility] documentation on this patient. I have reviewed the student's documentation and agree with the findings.
--- NOTE | 2025-05-07 18:35 | PC.NURSE ---
On 05/07/25, the student, [ Kevin Menard], provided care and completed [facility] documentation on this patient. I have reviewed the student's documentation and agree with the findings.
[2025-05-07] MEDS: ATORVASTATIN 40 MG TABLET PO (20:53)
[2025-05-08] VITALS (20 sets, daily range): BP systolic 117–151; BP diastolic 53–94; PULSE 46–76; RESP 16–25; TEMP 36.5–37.2; O2SAT 94–99
[2025-05-08] MEDS: IPRATROPIUM 0.5 MG/ALBUTEROL SULFATE 2.5 MG (BASE) AMPUL.NEB 3 ML INHALATION ×2 (02:08→08:41)
[2025-05-08 04:16] LABS: Hematocrit 31.3 % (37.0-47.0); Hemoglobin 9.0 g/dL (12.0-15.0); Immature Granulocyte Percent A 0.2 % (0-0.5); Lymphocytes Absolute Auto 2.00 K/mm3 (0.9-3.2); Mean Corpuscular HGB Conc 28.8 g/dl (32-36); Mean Corpuscular Hemoglobin 28.8 pg (26-34); Mean Corpuscular Volume 100.0 fl (80-100); Nucleated Red Blood Cells Absolute Auto 0.000 K/mm3 (0.0-0.012); Nucleated Red Blood Cells Perc 0.0 % (0.0-0.2); Platelet Count Result 212 k/mm3 (150-375); Red Blood Count 3.13 M/mm3 (4.2-5.4); White Blood Count 4.9 K/mm3 (4.5-10.0)
[2025-05-08 04:35] LABS: Anion Gap 3 mmol/L (4-12); Blood Urea Nitrogen 26 mg/dL (7-17); Calcium 8.1 mg/dL (8.4-10.2); Carbon Dioxide 35 mmol/L (22-30); Chloride 101 mmol/L (98-107); Estimated CRCL calculation 29 ml/min; Estimated Glomerular Filt Rate 33; Glucose 79 mg/dL (65-110); Magnesium 2.4 mg/dL (1.6-2.3); Potassium 4.0 mmol/L (3.4-5.0); Sodium 139 mmol/L (137-145)
[2025-05-08 04:39] LABS: Hypochromasia 2+; Schistocytes None Seen
[2025-05-08] MEDS: LEVOTHYROXINE SODIUM 100 MCG, LEVOTHYROXINE SODIUM 75 MCG 175 MCG PO (06:16)
[2025-05-08] MEDS: TOPIRAMATE 25 MG TABLET 50 MG PO (08:26)
[2025-05-08] MEDS: ASPIRIN 81 MG CHEWABLE TABLET PO (08:26)
[2025-05-08] MEDS: CALCIUM CARBONATE (TUMS) 500 MG (200 MG ELEMENTAL) 400 MG PO (08:27)
[2025-05-08] MEDS: ENOXAPARIN 40 MG/0.4 ML SYRINGE SUB-Q (08:27)
[2025-05-08] MEDS: FUROSEMIDE INJ 40 MG/4 ML VIAL IV PUSH (08:27)
[2025-05-08] MEDS: CHOLECALCIFEROL (VITAMIN D3) 25 MCG (1,000 UNITS) TABLET PO (08:28)
[2025-05-08] MEDS: ALPRAZolam (*CRX) 0.5 MG TABLET PO ×2 (08:28→16:38)
[2025-05-08] MEDS: PANTOPRAZOLE 40 MG TABLET PO ×2 (08:28→20:42)
[2025-05-08] MEDS: FLUTICASONE PROPIONATE 0.05% NA SPR 16 GM BTL (*BKC) 1 SPRAY NASAL (08:29)
[2025-05-08] MEDS: FERROUS SULFATE 325 MG TABLET PO (08:29)
[2025-05-08] MEDS: ARTIFICIAL TEARS OPHTH SOLN 15 ML BOTTLE 1 DROP EACH EYE (08:30)
--- NOTE | 2025-05-08 09:36 | P.PNIM_ITS ---
Progress Note: A&P Assessment and Plan (1) CO2 narcosis: Code(s): R06.89 - Other abnormalities of breathing Status: Acute (2) COPD (chronic obstructive pulmonary disease): Qualifiers: COPD type: COPD with acute exacerbation Qualified Code(s): J44.1 - Chronic obstructive pulmonary disease with (acute) exacerbation Code(s): J44.9 - Chronic obstructive pulmonary disease, unspecified Status: Acute (3) Acute on chronic respiratory failure with hypoxia and hypercapnia: Code(s): J96.21 - Acute and chronic respiratory failure with hypoxia; J96.22 - Acute and chronic respiratory failure with hypercapnia Status: Acute (4) UTI (urinary tract infection): Qualifiers: Urinary tract infection type: acute cystitis Hematuria presence: without hematuria Qualified Code(s): N30.00 - Acute cystitis without hematuria Code(s): N39.0 - Urinary tract infection, site not specified Status: Suspected (5) Hypocalcemia: Code(s): E83.51 - Hypocalcemia Status: Acute (6) CHF (congestive heart failure): Qualifiers: Heart failure type: unspecified Heart failure chronicity: acute on chronic Qualified Code(s): I50.9 - Heart failure, unspecified Code(s): I50.9 - Heart failure, unspecified Status: Acute (7) Hypertension: Qualifiers: Hypertension type: primary hypertension Qualified Code(s): I10 - Essential (primary) hypertension Code(s): I10 - Essential (primary) hypertension Status: Acute Plan H&P per Shanti Cuba APRN on 05/06/2025 79 y/o F with PMH of COPD, CHF, hypertension, and anxiety presents here with hypoxia. (also has diabetes with current long-term use of insulin, hypothyroidism, seizure disorder, insomnia, GERD, intellectual disability) The patient presented here on 05/06 from [facility] via EMS for further evaluation of hypoxia. HPI largely obtained through chart review, EMS report, and ED provider report as the patient is a poor historian and was initially altered. Per EMS, the facility reported the patient was noted to be hypoxic this morning. Upon their arrival the patient had an O2 saturation in the 90s on a non-rebreather going at 4L. She has a baseline O2 requirement of 2L. She arrived to the emergency department at 64% on 2L. At baseline the patient is A&O x3, arrived A&O x1. Shortly after arrival she received a DuoNeb and drastically improved in mentation, currently A&O x3. The patient denies any recent worsening shortness of breath. She does report she has had a dry intermittent cough which is chronic for her. Also reporting some mild rhinorrhea as secondary to the nasal cannula. She otherwise denies fever, chills, nausea, vomiting, or chest pain. She does report diarrhea, however this has been chronic for her and she is unsure how long this has been present. She also reports new bilateral lower extremity edema, but she is unsure of onset. Initial VS at presentation: 97.6? F, HR 49, RR 17, 173/79, and 93% on 4L NC. Now on BiPAP. ED workup showed: No leukocytosis, hemoglobin 10.7, initial ABG significant for a pH of 7.296 and a CO2 of 68.6 (felt to possibly be a mixed specimen as her O2 sat was 79.5%, however on the monitor was 100%) repeat ABG however was similar therefore she was started on BiPAP, creatinine 1.57 and GFR 32 (no previous available for comparison), calcium 8.3 with a normal albumin, initial troponin 0.013, BNP 2190. UA showed mild indicators of infection with 1+ leuk esterase and 6-10 WBC with no epithelial cells or bacteria. CXR showed interval development of bilateral perihilar and bibasilar airspace disease, most likely edema. EKG showed sinus bradycardia, rate 54, with IVC delay. ----- Acute on chronic respiratory failure with hypoxia and hypercapnia -baseline requires 2 L nasal cannula -on 05/07/2025 ABG demonstrating pH 7.392, pCO2 57.8. With this improvement, she was transition to nasal cannula. Doing well on her usual 2 L. -BiPAP p.r.n. COPD exacerbation -continue prednisone 40 mg p.o. daily, azithromycin 500 mg IV q.day. resume home controller inhaler Advair. Resume [employer] fluticasone intranasal spray, montelukast. Change DuoNebs from q.6 hours scheduled to p.r.n.. Acute CHF exacerbation -resolved. Change furosemide from 40 mg IV q.day to 20 mg p.o. b.i.d.\ -pending echocardiogram. Adjust heart failure meds based on results. CKD -as reported per [facility] charting. Unknown baseline. Serum creatinine stable, continue to monitor Abnormal urinalysis -urinalysis on admission demonstrating leukocyte esterase 1+, WBC 6-10, no bacteria. Patient not complaining of symptoms. Currently on ceftriaxone and azithromycin. Pending urine and blood cultures. Diabetes with current long-term use of insulin -blood sugars reviewed on 05/07/2025, currently low normal, will continue with low-dose insulin sliding scale and hold off on [employer] insulin. Continue Accu-Cheks a.c. HS Hypocalcemia -8.3 on admission, received calcium gluconate. Hypertension -at goal. Hold [employer] nifedipine ----- Presents from [facility]. Patient wishes to be full code Lovenox prophylaxis Continue [employer] Protonix Diabetic diet, heart healthy diet. Ambulate with assistance Saline lock IV Daily weights, intake/output according Transfer to medical floor. Remove Robins catheter on 05/08/2025. Restart PT oxybutynin chloride 5 mg p.o. q.day. Time Spent With Patient Time with patient: Greater than 35 minutes Subjective Date/time seen: 05/08/25 09:36 Interval history: No major acute overnight events. Patient has no complaints, she believes her cough is improved then she no longer has sputum production. She is just concerned that her lower extremities look dry/white. Review of Systems Review of Systems: All systems reviewed & are unremarkable except as noted in HPI and below (Subjective) Exam Const: General: comfortable and no acute distress Other: A&O x3 Eyes: Pupils: Equal, round and reactive pupils present Neck: Neck: supple Resp: Effort & Inspection: normal respiratory effort Other: Scant bibasilar crackles Cardio: Rate: regular rate Rhythm: regular rhythm Heart sounds: Murmur heart sound present GI: Inspection: non-distended GI Palp: Yes Soft to palpation and No Tenderness to palpation present (GI) Auscultation: normal bowel sounds Neuro: Motor exam (neuro): 5/5 motor strength present throughout Extrem: Other: Erythema and lipodermatosclerosis of chronic venous stasis. No purulence. Wrinkled skin folds, no edema. Objective Data Vital Signs Vital Signs: Vital Signs - 24 hr 05/07/25 10:00 05/07/25 11:05 05/07/25 12:00 Temperature Pulse Rate 71 61 58 L Respiratory Rate 25 H 28 H Blood Pressure Pulse Oximetry 95 97 Oxygen Delivery BiPAP High Flow Nasal Cannula Oxygen Flow Rate 5 Fraction of Inspired Oxygen 05/07/25 12:00 05/07/25 12:00 05/07/25 13:00 Temperature 98.9 F Pulse Rate 58 L 71 65 Respiratory Rate 28 H 28 H Blood Pressure 123/47 L Pulse Oximetry 97 98 Oxygen Delivery BiPAP Oxygen Flow Rate Fraction of Inspired Oxygen 05/07/25 14:00 05/07/25 14:08 05/07/25 16:00 Temperature 98.7 F Pulse Rate 66 62 60 Respiratory Rate 23 H 24 H Blood Pressure 131/46 L Pulse Oximetry 99 Oxygen Delivery Oxygen Flow Rate Fraction of Inspired Oxygen 05/07/25 16:00 05/07/25 16:00 05/07/25 18:00 Temperature Pulse Rate 60 72 71 Respiratory Rate 24 H Blood Pressure Pulse Oximetry 99 Oxygen Delivery High Flow Nasal Cannula Oxygen Flow Rate 5 Fraction of Inspired Oxygen 05/07/25 20:00 05/07/25 20:00 05/07/25 20:10 Temperature 99.1 F Pulse Rate 61 59 L 55 L Respiratory Rate 20 20 Blood Pressure 139/52 L Pulse Oximetry 96 94 Oxygen Delivery BiPAP Oxygen Flow Rate Fraction of Inspired Oxygen 05/07/25 20:10 05/07/25 20:15 05/07/25 20:17 Temperature Pulse Rate 55 L 55 L 52 L Respiratory Rate 20 20 23 H Blood Pressure Pulse Oximetry 94 Oxygen Delivery BiPAP Oxygen Flow Rate Fraction of Inspired Oxygen 30 05/07/25 22:00 05/07/25 23:44 05/08/25 00:00 Temperature 99.1 F Pulse Rate 53 L 49 L 47 L Respiratory Rate 24 H Blood Pressure 136/53 L Pulse Oximetry 98 Oxygen Delivery Oxygen Flow Rate Fraction of Inspired Oxygen 05/08/25 00:45 05/08/25 02:00 05/08/25 02:08 Temperature Pulse Rate 47 L 46 L 52 L Respiratory Rate 16 25 H Blood Pressure Pulse Oximetry 97 Oxygen Delivery BiPAP Oxygen Flow Rate Fraction of Inspired Oxygen 05/08/25 02:12 05/08/25 03:49 05/08/25 04:00 Temperature 98.9 F Pulse Rate 48 L 57 L 47 L Respiratory Rate 19 22 H Blood Pressure 151/61 H Pulse Oximetry 99 Oxygen Delivery Oxygen Flow Rate Fraction of Inspired Oxygen 05/08/25 06:00 05/08/25 06:11 05/08/25 06:13 Temperature Pulse Rate 47 L 49 L Respiratory Rate 25 H Blood Pressure Pulse Oximetry 97 97 Oxygen Delivery BiPAP BiPAP Oxygen Flow Rate Fraction of Inspired Oxygen 30 05/08/25 07:50 05/08/25 08:42 05/08/25 08:53 Temperature 98.4 F Pulse Rate 59 L 59 L Respiratory Rate 20 20 Blood Pressure 117/94 H Pulse Oximetry 98 94 Oxygen Delivery Nasal Cannula Oxygen Flow Rate 3 Fraction of Inspired Oxygen 05/08/25 08:54 Temperature Pulse Rate 56 L Respiratory Rate 20 Blood Pressure Pulse Oximetry Oxygen Delivery Oxygen Flow Rate Fraction of Inspired Oxygen Intake/Output Intake/Output: Intake & Output 05/05/25 05/06/25 05/07/25 05/08/25 23:59 23:59 23:59 23:59 Intake Total 200 1930 390 Output Total 850 1900 350 Balance -650 30 40 Meds/Results Medications: Active Medications Generic Name Dose Route Start Last Admin Trade Name Freq PRN Reason Stop Dose Admin Albuterol/Ipratropium 3 ml 05/06/25 20:00 05/08/25 08:41 Ipratropium 0.5 Mg/Albuterol Sulfate 2.5 Mg (Base) Ampul.Neb 3 Ml INHALATION 3 ml Q6HRT MARK Administration Alprazolam 0.5 mg 05/07/25 09:00 05/08/25 08:28 Alprazolam (*Crx) 0.5 Mg Tablet PO 0.5 mg BID MARK Administration Artificial Tears 1 drop 05/07/25 08:08 05/08/25 08:30 Artificial Tears Ophth Soln 15 Ml Bottle EACH EYE 1 drop QID PRN Administration Dry Eye(s) Aspirin 81 mg 05/07/25 09:00 05/08/25 08:26 Aspirin 81 Mg Chewable Tablet PO 81 mg DAILY MARK Administration Atorvastatin Calcium 40 mg 05/07/25 21:00 05/07/25 20:53 Atorvastatin 40 Mg Tablet PO 40 mg HS MARK Administration Buspirone HCl 10 mg 05/07/25 09:00 05/08/25 08:29 Buspirone Hcl 10 Mg Tablet PO 10 mg TID MARK Administration Calcium Carbonate 400 mg 05/07/25 09:00 05/08/25 08:27 Calcium Carbonate (Tums) 500 Mg (200 Mg Elemental) PO 400 mg DAILY MARK Administration Clobetasol Propionate 1 applic 05/07/25 21:00 05/07/25 20:54 Clobetasol Propionate 0.05% Cream 15 Gm TOPICAL Not Given QHS MARK Clobetasol Propionate 1 applic 05/08/25 21:00 Clobetasol Propionate 0.05% Cream 15 Gm TOPICAL HS AMRK Dextrose 12.5 gm 05/07/25 08:26 Dextrose 50% 25 Gm/50 Ml Syringe IV PUSH PRN PRN Hypoglycemia Protocol Enoxaparin Sodium 40 mg 05/07/25 09:00 05/08/25 08:27 Enoxaparin 40 Mg/0.4 Ml Syringe SUB-Q 40 mg DAILY MARK Administration Ferrous Sulfate 325 mg 05/07/25 09:00 05/08/25 08:29 Ferrous Sulfate 325 Mg Tablet PO 325 mg DAILY MARK Administration Fluoxetine HCl 40 mg 05/07/25 09:00 05/08/25 08:28 Fluoxetine Hcl 20 Mg Capsule PO 40 mg DAILY MARK Administration Fluticasone Propionate 1 spray 05/07/25 09:00 05/08/25 08:29 Fluticasone Propionate 0.05% Na Spr 16 Gm Btl (*Bkc) NASAL 1 spray DAILY MARK Administration Furosemide 20 mg 05/09/25 09:00 Furosemide 20 Mg Tablet PO BID MAKR Glucose 15 gm 05/07/25 08:26 Glucose Oral Gel 15 Gm Of Glucse In 37.5 Gm Tube PO PRN PRN Hypoglycemia Protocol Ceftriaxone Sodium 1 gm/ 50 mls @ 100 mls/hr 05/07/25 15:00 05/07/25 17:47 Sodium Chloride IVPB Infused Q24H MARK Infusion Azithromycin 500 mg/ Sodium 250 mls @ 250 mls/hr 05/07/25 18:00 05/07/25 18:51 Chloride IVPB 05/11/25 18:59 Infused Q24H MARK Infusion Dextrose 1,000 mls @ 100 mls/hr 05/07/25 08:26 Dextrose 5% 1,000 Ml IVPB PRN PRN Hypoglycemia Protocol Insulin Aspart 2 - 5 units 05/07/25 08:00 05/08/25 08:26 Insulin Aspart (*Bkc) 100 Units/Ml SUB-Q Not Given TIDWM [facility] Protocol Insulin Aspart 1 - 2 units 05/07/25 21:00 05/07/25 20:51 Insulin Aspart (*Bkc) 100 Units/Ml SUB-Q Not Given HS [facility] Protocol Levothyroxine Sodium 100 mcg/ 175 mcg 05/08/25 06:30 05/08/25 06:16 Levothyroxine Sodium 75 mcg PO 175 mcg DAILY@0630 MARK Administration Montelukast Sodium 10 mg 05/07/25 17:00 05/07/25 17:02 Montelukast Sodium 10 Mg Tablet PO 10 mg DAILY@1700 [facility] Administration Non-Formulary Medication 1 inhalation 05/09/25 09:00 Fluticasone Propion-Salmeterol [Advair Diskus] INHALATION 06/08/25 08:59 DAILY [facility] Oxybutynin Chloride 5 mg 05/09/25 09:00 Oxybutynin Chloride Xl 5 Mg Tab.Er.24 PO DAILY [facility] Pantoprazole Sodium 40 mg 05/07/25 09:00 05/08/25 08:28 Pantoprazole 40 Mg Tablet PO 40 mg Q12H MARK Administration Perflutren Lipid Microsphere 0 ml 05/06/25 17:21 Perflutren Lipid Microspheres 1.5 Ml Vial Diluted To 10 Ml Total Volume IV PUSH 05/09/25 17:22 ONCE PRN adequate visualization Protocol Prednisone 40 mg 05/07/25 08:00 05/08/25 08:28 Prednisone 20 Mg Tablet PO 05/11/25 08:01 40 mg DAILY@0800 MARK Administration Topiramate 50 mg 05/07/25 09:00 05/08/25 08:26 Topiramate 25 Mg Tablet PO 50 mg DAILY MARK Administration Vitamin D 25 mcg 05/07/25 09:00 05/08/25 08:28 Cholecalciferol (Vitamin D3) 25 Mcg (1,000 Units) Tablet PO 25 mcg DAILY MARK Administration Radiology Results: ITS Impressions Chest X-Ray 05/06/25 13:47 Impression: 1: Interval development of bilateral perihilar and bibasilar airspace disease, most likely edema. Labs Labs: Laboratory Results - last 24 hr 05/07/25 05/07/25 05/07/25 11:14 17:03 19:52 WBC RBC Hgb Hct MCV MCH MCHC RDW Plt Count MPV Immature Gran % (Auto) Neut % (Auto) Lymph % (Auto) [place] % (Auto) Eos % (Auto) Baso % (Auto) Lymph # (Auto) [place] # (Auto) Eos # (Auto) Baso # (Auto) Abs Immat Gran (auto) Absolute Neuts (auto) Absolute Nucleated RBC Band Neutrophils % Nucleated RBC % Platelet Estimate Hypochromasia Schistocytes Sodium Potassium Chloride Carbon Dioxide Anion Gap BUN Creatinine Estim Creat Clear Calc Estimated GFR Glucose POC Capillary Glucose 94 178 H 194 H Calcium Magnesium 05/08/25 05/08/25 03:57 07:27 WBC 4.9 RBC 3.13 L Hgb 9.0 L Hct 31.3 L MCV 100.0 MCH 28.8 MCHC 28.8 L RDW 17.6 H Plt Count 212 MPV 9.3 Immature Gran % (Auto) 0.2 Neut % (Auto) 45.0 L Lymph % (Auto) 41.1 [place] % (Auto) 13.1 H Eos % (Auto) 0.2 Baso % (Auto) 0.4 Lymph # (Auto) 2.00 [place] # (Auto) 0.6 Eos # (Auto) 0.0 Baso # (Auto) 0.0 Abs Immat Gran (auto) 0.01 Absolute Neuts (auto) 2.2 Absolute Nucleated RBC 0.000 Band Neutrophils % Not Reportable Nucleated RBC % 0.0 Platelet Estimate Adequate Hypochromasia 2+ Schistocytes None seen Sodium 139 Potassium 4.0 Chloride 101 Carbon Dioxide 35 H Anion Gap 3 L BUN 26 H Creatinine 1.51 H Estim Creat Clear Calc 29 Estimated GFR 33 L Glucose 79 POC Capillary Glucose 83 Calcium 8.1 L Magnesium 2.4 H Hospitalist MIPS Advance Care Plan I have confirmed that the patient's Advanced Care Plan is present, code status is documented, or surrogate decision maker is listed in patient medical record.: Yes Medication Reconciliation I have utilized all available resources to obtain, update and review the patients current medications (includes all prescriptions, OTC, herbals, cannabis, and nutritional supplements).: Yes
--- NOTE | 2025-05-08 11:08 | PC.NURSE ---
On 05/08/25, the student, [Kevin Menard ], provided care and completed [facility] documentation on this patient. I have reviewed the student's documentation and agree with the findings.
[2025-05-08] MEDS: oxyBUTYnin CHLORIDE XL 5 MG TAB.ER.24 PO (11:39)
[2025-05-08] MEDS: EUCERIN CREAM 120 GM JAR 1 APPLIC TOPICAL (11:40)
--- NOTE | 2025-05-08 11:48 | PC.NURSE ---
This patient, Katt Garg, was transferred to [[facility] ] on 05/08/25 at 1148. Personal belongings sent with patient. Report given to [AMRIT Parks @ [id number] ]. Appropriate documentation sent with patient.
--- NOTE | 2025-05-08 15:00 | PCRCNOTE ---
Past scheduled time for patients BID inhaler. See next scheduled tx at 1999.
[2025-05-08] MEDS: cefTRIAXone 1 GM in SODIUM CHLORIDE 0.9% IV 50 ML 100 ML IVPB (16:54)
[2025-05-08] MEDS: INSULIN ASPART (*BKC) 100 UNITS/ML SUB-Q (16:57)
[2025-05-08] MEDS: MONTELUKAST SODIUM 10 MG TABLET PO (18:17)
[2025-05-08] MEDS: AZITHROMYCIN IV 500 MG in SODIUM CHLORIDE 0.9% IV 250 ML IVPB (18:18)
[2025-05-08] MEDS: FLUTICASONE/SALMETEROL 115-21 MCG INHALER 1 PUFF 2 PUFF INHALATION (20:27)
[2025-05-08] MEDS: CLOBETASOL PROPIONATE 0.05% CREAM 15 GM 1 APPLIC TOPICAL (20:42)
[2025-05-08] MEDS: ATORVASTATIN 40 MG TABLET PO (20:42)
[2025-05-09] VITALS (8 sets, daily range): BP systolic 139–172; BP diastolic 60–75; PULSE 53–58; RESP 16–26; TEMP 36.3–37.3; O2SAT 94–100
[2025-05-09] MEDS: LEVOTHYROXINE SODIUM 100 MCG, LEVOTHYROXINE SODIUM 75 MCG 175 MCG PO (06:30)
[2025-05-09 06:35] LABS: Hematocrit 33.8 % (37.0-47.0); Hemoglobin 9.7 g/dL (12.0-15.0); Immature Granulocyte Percent A 0.2 % (0-0.5); Lymphocytes Absolute Auto 2.29 K/mm3 (0.9-3.2); Mean Corpuscular HGB Conc 28.7 g/dl (32-36); Mean Corpuscular Hemoglobin 28.7 pg (26-34); Mean Corpuscular Volume 100.0 fl (80-100); Nucleated Red Blood Cells Absolute Auto 0.000 K/mm3 (0.0-0.012); Nucleated Red Blood Cells Perc 0.0 % (0.0-0.2); Platelet Count Result 225 k/mm3 (150-375); Red Blood Count 3.38 M/mm3 (4.2-5.4); White Blood Count 6.3 K/mm3 (4.5-10.0)
[2025-05-09 06:58] LABS: Anion Gap 0 mmol/L (4-12); Blood Urea Nitrogen 23 mg/dL (7-17); Calcium 8.3 mg/dL (8.4-10.2); Carbon Dioxide 37 mmol/L (22-30); Chloride 101 mmol/L (98-107); Estimated CRCL calculation 33 ml/min; Estimated Glomerular Filt Rate 40; Glucose 81 mg/dL (65-110); Magnesium 2.4 mg/dL (1.6-2.3); Potassium 4.2 mmol/L (3.4-5.0); Sodium 138 mmol/L (137-145)
[2025-05-09 07:20] LABS: Anisocytosis 1+
[2025-05-09 07:22] LABS: Hypochromasia 1+; Schistocytes None Seen
[2025-05-09] MEDS: FLUTICASONE/SALMETEROL 115-21 MCG INHALER 1 PUFF 2 PUFF INHALATION ×2 (08:22→20:57)
[2025-05-09] MEDS: EUCERIN CREAM 120 GM JAR 1 APPLIC TOPICAL (08:45)
[2025-05-09] MEDS: ASPIRIN 81 MG CHEWABLE TABLET PO (09:13)
[2025-05-09] MEDS: ALPRAZolam (*CRX) 0.5 MG TABLET PO ×2 (09:14→16:35)
[2025-05-09] MEDS: TOPIRAMATE 25 MG TABLET 50 MG PO (09:14)
[2025-05-09] MEDS: oxyBUTYnin CHLORIDE XL 5 MG TAB.ER.24 PO (09:14)
[2025-05-09] MEDS: FERROUS SULFATE 325 MG TABLET PO (09:14)
[2025-05-09] MEDS: CALCIUM CARBONATE (TUMS) 500 MG (200 MG ELEMENTAL) 400 MG PO (09:14)
[2025-05-09] MEDS: FLUTICASONE PROPIONATE 0.05% NA SPR 16 GM BTL (*BKC) 1 SPRAY NASAL (09:15)
[2025-05-09] MEDS: ENOXAPARIN 40 MG/0.4 ML SYRINGE SUB-Q (09:15)
[2025-05-09] MEDS: CHOLECALCIFEROL (VITAMIN D3) 25 MCG (1,000 UNITS) TABLET PO (09:15)
[2025-05-09] MEDS: ARTIFICIAL TEARS OPHTH SOLN 15 ML BOTTLE 1 DROP EACH EYE (09:15)
[2025-05-09] MEDS: FUROSEMIDE 20 MG TABLET PO ×2 (09:15→16:35)
[2025-05-09] MEDS: PANTOPRAZOLE 40 MG TABLET PO ×2 (09:15→21:24)
--- NOTE | 2025-05-09 14:20 | P.PNIM_ITS ---
Progress Note: A&P Assessment and Plan (1) CO2 narcosis: Code(s): R06.89 - Other abnormalities of breathing Status: Acute (2) COPD (chronic obstructive pulmonary disease): Qualifiers: COPD type: COPD with acute exacerbation Qualified Code(s): J44.1 - Chronic obstructive pulmonary disease with (acute) exacerbation Code(s): J44.9 - Chronic obstructive pulmonary disease, unspecified Status: Acute (3) Acute on chronic respiratory failure with hypoxia and hypercapnia: Code(s): J96.21 - Acute and chronic respiratory failure with hypoxia; J96.22 - Acute and chronic respiratory failure with hypercapnia Status: Acute (4) UTI (urinary tract infection): Qualifiers: Urinary tract infection type: acute cystitis Hematuria presence: without hematuria Qualified Code(s): N30.00 - Acute cystitis without hematuria Code(s): N39.0 - Urinary tract infection, site not specified Status: Suspected (5) Hypocalcemia: Code(s): E83.51 - Hypocalcemia Status: Acute (6) CHF (congestive heart failure): Qualifiers: Heart failure type: unspecified Heart failure chronicity: acute on chronic Qualified Code(s): I50.9 - Heart failure, unspecified Code(s): I50.9 - Heart failure, unspecified Status: Acute (7) Hypertension: Qualifiers: Hypertension type: primary hypertension Qualified Code(s): I10 - Essential (primary) hypertension Code(s): I10 - Essential (primary) hypertension Status: Acute Plan H&P per Shanti Cuba APRN on 05/06/2025 79 y/o F with PMH of COPD, CHF, hypertension, and anxiety presents here with hypoxia. (also has diabetes with current long-term use of insulin, hypothyroidism, seizure disorder, insomnia, GERD, intellectual disability) The patient presented here on 05/[address] [facility] via EMS for further evaluation of hypoxia. HPI largely obtained through chart review, EMS report, and ED provider report as the patient is a poor historian and was initially altered. Per EMS, the facility reported the patient was noted to be hypoxic this morning. Upon their arrival the patient had an O2 saturation in the 90s on a non-rebreather going at 4L. She has a baseline O2 requirement of 2L. She arrived to the emergency department at 64% on 2L. At baseline the patient is A&O x3, arrived A&O x1. Shortly after arrival she received a DuoNeb and drastically improved in mentation, currently A&O x3. The patient denies any recent worsening shortness of breath. She does report she has had a dry intermittent cough which is chronic for her. Also reporting some mild rhinorrhea as secondary to the nasal cannula. She otherwise denies fever, chills, nausea, vomiting, or chest pain. She does report diarrhea, however this has been chronic for her and she is unsure how long this has been present. She also reports new bilateral lower extremity edema, but she is unsure of onset. Initial VS at presentation: 97.6? F, HR 49, RR 17, 173/79, and 93% on 4L NC. Now on BiPAP. ED workup showed: No leukocytosis, hemoglobin 10.7, initial ABG significant for a pH of 7.296 and a CO2 of 68.6 (felt to possibly be a mixed specimen as her O2 sat was 79.5%, however on the monitor was 100%) repeat ABG however was similar therefore she was started on BiPAP, creatinine 1.57 and GFR 32 (no previous available for comparison), calcium 8.3 with a normal albumin, initial troponin 0.013, BNP 2190. UA showed mild indicators of infection with 1+ leuk esterase and 6-10 WBC with no epithelial cells or bacteria. CXR showed interval development of bilateral perihilar and bibasilar airspace disease, most likely edema. EKG showed sinus bradycardia, rate 54, with IVC delay. ----- Acute on chronic respiratory failure with hypoxia and hypercapnia -baseline requires 2 L nasal cannula -on 05/07/2025 ABG demonstrating pH 7.392, pCO2 57.8. With this improvement, she was transition to nasal cannula. Doing well on her usual 2 L. -BiPAP p.r.n. COPD exacerbation -continue prednisone 40 mg p.o. daily, azithromycin 500 mg IV q.day. resume home controller inhaler Advair. Resume AGRONOMY ADVISOR fluticasone intranasal spray, montelukast. DuoNebs changed from q.6 hours scheduled to p.r.n.. Acute CHF exacerbation -resolved. Changed furosemide from 40 mg IV q.day to 20 mg p.o. b.i.d. -pending echocardiogram. Adjust heart failure meds based on results. CKD -as reported per intermediate charting. Unknown baseline. Serum creatinine stable, continue to monitor Abnormal urinalysis -urinalysis on admission demonstrating leukocyte esterase 1+, WBC 6-10, no bacteria. Patient not complaining of symptoms. Currently on ceftriaxone and azithromycin. Pending urine and blood cultures. Diabetes with current long-term use of insulin -blood sugars reviewed on 05/09/2025, currently low normal, will continue with low-dose insulin sliding scale and hold off on AGRONOMY ADVISOR insulin. Continue Accu-Cheks a.c. HS Hypocalcemia -8.3 on admission, received calcium gluconate. Hypertension -elevated on 05/09/2025, resume AGRONOMY ADVISOR nifedipine ----- Presents from [facility]. Patient wishes to be full code Lovenox prophylaxis Continue AGRONOMY ADVISOR Protonix Diabetic diet, heart healthy diet. Ambulate with assistance Saline lock IV Daily weights, intake/output according Stable on medical floor AGRONOMY ADVISOR oxybutynin chloride 5 mg p.o. q.day resumed Time Spent With Patient Time with patient: Greater than 35 minutes Subjective Date/time seen: 05/09/25 14:20 Interval history: No major acute overnight events. Patient denies shortness of breath, chest pain, fever. Review of Systems Review of Systems: All systems reviewed & are unremarkable except as noted in HPI and below (Subjective) Exam Const: General: comfortable and no acute distress Other: A&O x3 Eyes: Pupils: Equal, round and reactive pupils present Neck: Neck: supple Resp: Effort & Inspection: normal respiratory effort Other: Scant bibasilar crackles Cardio: Rate: regular rate Rhythm: regular rhythm Heart sounds: Murmur heart sound present GI: Inspection: non-distended GI Palp: Yes Soft to palpation and No Tenderness to palpation present (GI) Auscultation: normal bowel sounds Neuro: Motor exam (neuro): 5/5 motor strength present throughout Extrem: Other: Erythema and lipodermatosclerosis of chronic venous stasis. No purulence. Wrinkled skin folds, no edema. Objective Data Vital Signs Vital Signs: Vital Signs - 24 hr 05/08/25 18:15 05/08/25 20:00 05/08/25 21:30 Temperature 98.5 F 97.7 F Pulse Rate 76 58 L Respiratory Rate 18 20 Blood Pressure 130/63 137/53 L Pulse Oximetry 94 95 97 Oxygen Delivery Nasal Cannula Oxygen Flow Rate 3 05/08/25 22:18 05/09/25 00:00 05/09/25 04:17 Temperature 97.5 F L Pulse Rate 51 L 57 L 58 L Respiratory Rate 19 20 26 H Blood Pressure 162/63 H Pulse Oximetry 98 97 96 Oxygen Delivery BiPAP BiPAP Oxygen Flow Rate 05/09/25 06:07 05/09/25 08:22 Temperature 97.3 F L Pulse Rate 57 L Respiratory Rate 20 Blood Pressure 172/60 H Pulse Oximetry 100 94 Oxygen Delivery Nasal Cannula Oxygen Flow Rate 3 Intake/Output Intake/Output: Intake & Output 05/06/25 05/07/25 05/08/25 05/09/25 23:59 23:59 23:59 23:59 Intake Total 200 1930 1160 468 Output Total 850 1900 1650 100 Balance -650 30 -490 368 Meds/Results Medications: Active Medications Generic Name Dose Route Start Last Admin Trade Name Freq PRN Reason Stop Dose Admin Albuterol/Ipratropium 3 ml 05/08/25 09:39 Ipratropium 0.5 Mg/Albuterol Sulfate 2.5 Mg (Base) Ampul.Neb 3 Ml INHALATION Q6HRT PRN shortness of breath Alprazolam 0.5 mg 05/07/25 09:00 05/09/25 09:14 Alprazolam (*Crx) 0.5 Mg Tablet PO 0.5 mg BID MARK Administration Artificial Tears 1 drop 05/07/25 08:08 05/09/25 09:15 Artificial Tears Ophth Soln 15 Ml Bottle EACH EYE 1 drop QID PRN Administration Dry Eye(s) Aspirin 81 mg 05/07/25 09:00 05/09/25 09:13 Aspirin 81 Mg Chewable Tablet PO 81 mg DAILY MARK Administration Atorvastatin Calcium 40 mg 05/07/25 21:00 05/08/25 20:42 Atorvastatin 40 Mg Tablet PO 40 mg HS MARK Administration Buspirone HCl 10 mg 05/07/25 09:00 05/09/25 12:23 Buspirone Hcl 10 Mg Tablet PO 10 mg TID MARK Administration Calcium Carbonate 400 mg 05/07/25 09:00 05/09/25 09:14 Calcium Carbonate (Tums) 500 Mg (200 Mg Elemental) PO 400 mg DAILY MARK Administration Clobetasol Propionate 1 applic 05/07/25 21:00 05/08/25 20:42 Clobetasol Propionate 0.05% Cream 15 Gm TOPICAL 1 applic QHS MARK Administration Dextrose 12.5 gm 05/07/25 08:26 Dextrose 50% 25 Gm/50 Ml Syringe IV PUSH PRN PRN Hypoglycemia Protocol Enoxaparin Sodium 40 mg 05/07/25 09:00 05/09/25 09:15 Enoxaparin 40 Mg/0.4 Ml Syringe SUB-Q 40 mg DAILY MARK Administration Ferrous Sulfate 325 mg 05/07/25 09:00 05/09/25 09:14 Ferrous Sulfate 325 Mg Tablet PO 325 mg DAILY MARK Administration Fluoxetine HCl 40 mg 05/07/25 09:00 05/09/25 09:14 Fluoxetine Hcl 20 Mg Capsule PO 40 mg DAILY MARK Administration Fluticasone Propionate 1 spray 05/07/25 09:00 05/09/25 09:15 Fluticasone Propionate 0.05% Na Spr 16 Gm Btl (*Bkc) NASAL 1 spray DAILY MARK Administration Furosemide 20 mg 05/09/25 09:00 05/09/25 09:15 Furosemide 20 Mg Tablet PO 20 mg BID MARK Administration Glucose 15 gm 05/07/25 08:26 Glucose Oral Gel 15 Gm Of Glucse In 37.5 Gm Tube PO PRN PRN Hypoglycemia Protocol Ceftriaxone Sodium 1 gm/ 50 mls @ 100 mls/hr 05/07/25 15:00 05/08/25 17:24 Sodium Chloride IVPB Infused Q24H MARK Infusion Azithromycin 500 mg/ Sodium 250 mls @ 250 mls/hr 05/07/25 18:00 05/08/25 18:18 Chloride IVPB 05/11/25 18:59 250 mls/hr Q24H MARK Administration Dextrose 1,000 mls @ 100 mls/hr 05/07/25 08:26 Dextrose 5% 1,000 Ml IVPB PRN PRN Hypoglycemia Protocol Insulin Aspart 2 - 5 units 05/07/25 08:00 05/08/25 16:57 Insulin Aspart (*Bkc) 100 Units/Ml SUB-Q 2 units TIDWM MARK Administration Protocol Insulin Aspart 1 - 2 units 05/07/25 21:00 05/08/25 21:57 Insulin Aspart (*Bkc) 100 Units/Ml SUB-Q Not Given HS MARK Protocol Levothyroxine Sodium 100 mcg/ 175 mcg 05/08/25 06:30 05/09/25 06:30 Levothyroxine Sodium 75 mcg PO 175 mcg DAILY@0630 MARK Administration Montelukast Sodium 10 mg 05/07/25 17:00 05/08/25 18:17 Montelukast Sodium 10 Mg Tablet PO 10 mg DAILY@1700 MARK Administration Multi-Ingred Cream/Lotion/Oil/Oint 1 applic 05/08/25 09:40 05/08/25 11:40 Eucerin Cream 120 Gm Jar TOPICAL 1 applic DAILY MARK Administration Oxybutynin Chloride 5 mg 05/08/25 09:40 05/09/25 09:14 Oxybutynin Chloride Xl 5 Mg Tab.Er.24 PO 5 mg DAILY MARK Administration Pantoprazole Sodium 40 mg 05/07/25 09:00 05/09/25 09:15 Pantoprazole 40 Mg Tablet PO 40 mg Q12H MARK Administration Perflutren Lipid Microsphere 0 ml 05/06/25 17:21 Perflutren Lipid Microspheres 1.5 Ml Vial Diluted To 10 Ml Total Volume IV PUSH 05/09/25 17:22 ONCE PRN adequate visualization Protocol Prednisone 40 mg 05/07/25 08:00 05/09/25 09:13 Prednisone 20 Mg Tablet PO 05/11/25 08:01 40 mg DAILY@0800 MARK Administration Fluticasone/Salmeterol 2 puff 05/08/25 09:40 05/09/25 08:22 Fluticasone/Salmeterol 115-21 Mcg Inhaler 1 Puff INHALATION 2 puff Q12HRT MARK Administration Topiramate 50 mg 05/07/25 09:00 05/09/25 09:14 Topiramate 25 Mg Tablet PO 50 mg DAILY MARK Administration Vitamin D 25 mcg 05/07/25 09:00 05/09/25 09:15 Cholecalciferol (Vitamin D3) 25 Mcg (1,000 Units) Tablet PO 25 mcg DAILY MARK Administration Radiology Results: ITS Impressions Chest X-Ray 05/06/25 13:47 Impression: 1: Interval development of bilateral perihilar and bibasilar airspace disease, most likely edema. Labs Labs: Laboratory Results - last 24 hr 05/08/25 05/08/25 05/09/25 16:28 21:05 06:17 WBC 6.3 RBC 3.38 L Hgb 9.7 L Hct 33.8 L MCV 100.0 MCH 28.7 MCHC 28.7 L RDW 17.2 H Plt Count 225 MPV 9.0 Immature Gran % (Auto) 0.2 Neut % (Auto) 50.0 Lymph % (Auto) 36.3 [place] % (Auto) 12.9 H Eos % (Auto) 0.3 Baso % (Auto) 0.3 Lymph # (Auto) 2.29 [place] # (Auto) 0.8 H Eos # (Auto) 0.0 Baso # (Auto) 0.0 Abs Immat Gran (auto) 0.01 Absolute Neuts (auto) 3.2 Absolute Nucleated RBC 0.000 Band Neutrophils % Not Reportable Nucleated RBC % 0.0 Platelet Estimate Adequate Hypochromasia 1+ Anisocytosis 1+ Schistocytes None seen Sodium 138 Potassium 4.2 Chloride 101 Carbon Dioxide 37 H Anion Gap 0 L BUN 23 H Creatinine 1.30 H Estim Creat Clear Calc 33 Estimated GFR 40 L Glucose 81 POC Capillary Glucose 221 H 127 H Calcium 8.3 L Magnesium 2.4 H 05/09/25 05/09/25 07:43 11:36 WBC RBC Hgb Hct MCV MCH MCHC RDW Plt Count MPV Immature Gran % (Auto) Neut % (Auto) Lymph % (Auto) [place] % (Auto) Eos % (Auto) Baso % (Auto) Lymph # (Auto) [place] # (Auto) Eos # (Auto) Baso # (Auto) Abs Immat Gran (auto) Absolute Neuts (auto) Absolute Nucleated RBC Band Neutrophils % Nucleated RBC % Platelet Estimate Hypochromasia Anisocytosis Schistocytes Sodium Potassium Chloride Carbon Dioxide Anion Gap BUN Creatinine Estim Creat Clear Calc Estimated GFR Glucose POC Capillary Glucose 86 146 H Calcium Magnesium
[2025-05-09] MEDS: cefTRIAXone 1 GM in SODIUM CHLORIDE 0.9% IV 50 ML 100 ML IVPB (15:17)
[2025-05-09] MEDS: MONTELUKAST SODIUM 10 MG TABLET PO (16:35)
[2025-05-09] MEDS: AZITHROMYCIN IV 500 MG in SODIUM CHLORIDE 0.9% IV 250 ML IVPB (16:36)
[2025-05-09] MEDS: ATORVASTATIN 40 MG TABLET PO (21:24)
[2025-05-09] MEDS: CLOBETASOL PROPIONATE 0.05% CREAM 15 GM 1 APPLIC TOPICAL (21:24)
[2025-05-10] VITALS (8 sets, daily range): BP systolic 161–165; BP diastolic 56–68; PULSE 56–62; RESP 14–20; TEMP 36.4–36.9; O2SAT 93–98
[2025-05-10] MEDS: LEVOTHYROXINE SODIUM 100 MCG, LEVOTHYROXINE SODIUM 75 MCG 175 MCG PO (05:36)
--- NOTE | 2025-05-10 06:44 | PC.NURSE ---
Pt complains of upper bilateral leg pain, MD made aware, order given.
[2025-05-10] MEDS: ACETAMINOPHEN 325 MG TABLET 650 MG PO ×2 (07:05→12:08)
[2025-05-10] MEDS: FLUTICASONE/SALMETEROL 115-21 MCG INHALER 1 PUFF 2 PUFF INHALATION ×2 (07:22→20:01)
[2025-05-10] MEDS: TOPIRAMATE 25 MG TABLET 50 MG PO (08:34)
[2025-05-10] MEDS: FERROUS SULFATE 325 MG TABLET PO (08:35)
[2025-05-10] MEDS: CHOLECALCIFEROL (VITAMIN D3) 25 MCG (1,000 UNITS) TABLET PO (08:35)
[2025-05-10] MEDS: CALCIUM CARBONATE (TUMS) 500 MG (200 MG ELEMENTAL) 400 MG PO (08:35)
[2025-05-10] MEDS: FUROSEMIDE 20 MG TABLET PO ×2 (08:35→17:14)
[2025-05-10] MEDS: ASPIRIN 81 MG CHEWABLE TABLET PO (08:35)
[2025-05-10] MEDS: PANTOPRAZOLE 40 MG TABLET PO ×2 (08:36→20:49)
[2025-05-10] MEDS: ALPRAZolam (*CRX) 0.5 MG TABLET PO ×2 (08:36→17:14)
[2025-05-10] MEDS: oxyBUTYnin CHLORIDE XL 5 MG TAB.ER.24 PO (08:36)
[2025-05-10] MEDS: ENOXAPARIN 40 MG/0.4 ML SYRINGE SUB-Q (08:36)
[2025-05-10] MEDS: FLUTICASONE PROPIONATE 0.05% NA SPR 16 GM BTL (*BKC) 1 SPRAY NASAL (08:38)
[2025-05-10] MEDS: EUCERIN CREAM 120 GM JAR 1 APPLIC TOPICAL (09:02)
[2025-05-10] MEDS: cefTRIAXone 1 GM in SODIUM CHLORIDE 0.9% IV 50 ML 100 ML IVPB (15:18)
--- NOTE | 2025-05-10 17:08 | P.PNIM_ITS ---
Progress Note: A&P Assessment and Plan (1) CO2 narcosis: Code(s): R06.89 - Other abnormalities of breathing Status: Acute (2) COPD (chronic obstructive pulmonary disease): Qualifiers: COPD type: COPD with acute exacerbation Qualified Code(s): J44.1 - Chronic obstructive pulmonary disease with (acute) exacerbation Code(s): J44.9 - Chronic obstructive pulmonary disease, unspecified Status: Acute (3) Acute on chronic respiratory failure with hypoxia and hypercapnia: Code(s): J96.21 - Acute and chronic respiratory failure with hypoxia; J96.22 - Acute and chronic respiratory failure with hypercapnia Status: Acute (4) UTI (urinary tract infection): Qualifiers: Urinary tract infection type: acute cystitis Hematuria presence: without hematuria Qualified Code(s): N30.00 - Acute cystitis without hematuria Code(s): N39.0 - Urinary tract infection, site not specified Status: Suspected (5) Hypocalcemia: Code(s): E83.51 - Hypocalcemia Status: Acute (6) CHF (congestive heart failure): Qualifiers: Heart failure type: unspecified Heart failure chronicity: acute on chronic Qualified Code(s): I50.9 - Heart failure, unspecified Code(s): I50.9 - Heart failure, unspecified Status: Acute (7) Hypertension: Qualifiers: Hypertension type: primary hypertension Qualified Code(s): I10 - Essential (primary) hypertension Code(s): I10 - Essential (primary) hypertension Status: Acute Plan H&P per Shanti Cuba APRN on 05/06/2025 79 y/o F with PMH of COPD, CHF, hypertension, and anxiety presents here with hypoxia. (also has diabetes with current long-term use of insulin, hypothyroidism, seizure disorder, insomnia, GERD, intellectual disability) The patient presented here on 05/06 from [facility] via EMS for further evaluation of hypoxia. HPI largely obtained through chart review, EMS report, and ED provider report as the patient is a poor historian and was initially altered. Per EMS, the facility reported the patient was noted to be hypoxic this morning. Upon their arrival the patient had an O2 saturation in the 90s on a non-rebreather going at 4L. She has a baseline O2 requirement of 2L. She arrived to the emergency department at 64% on 2L. At baseline the patient is A&O x3, arrived A&O x1. Shortly after arrival she received a DuoNeb and drastically improved in mentation, currently A&O x3. The patient denies any recent worsening shortness of breath. She does report she has had a dry intermittent cough which is chronic for her. Also reporting some mild rhinorrhea as secondary to the nasal cannula. She otherwise denies fever, chills, nausea, vomiting, or chest pain. She does report diarrhea, however this has been chronic for her and she is unsure how long this has been present. She also reports new bilateral lower extremity edema, but she is unsure of onset. Initial VS at presentation: 97.6? F, HR 49, RR 17, 173/79, and 93% on 4L NC. Now on BiPAP. ED workup showed: No leukocytosis, hemoglobin 10.7, initial ABG significant for a pH of 7.296 and a CO2 of 68.6 (felt to possibly be a mixed specimen as her O2 sat was 79.5%, however on the monitor was 100%) repeat ABG however was similar therefore she was started on BiPAP, creatinine 1.57 and GFR 32 (no previous available for comparison), calcium 8.3 with a normal albumin, initial troponin 0.013, BNP 2190. UA showed mild indicators of infection with 1+ leuk esterase and 6-10 WBC with no epithelial cells or bacteria. CXR showed interval development of bilateral perihilar and bibasilar airspace disease, most likely edema. EKG showed sinus bradycardia, rate 54, with IVC delay. ----- Acute on chronic respiratory failure with hypoxia and hypercapnia -baseline requires 2 L nasal cannula -on 05/07/2025 ABG demonstrating pH 7.392, pCO2 57.8. With this improvement, she was transition to nasal cannula. Doing well on her usual 2 L. -BiPAP p.r.n. COPD exacerbation -continue prednisone 40 mg p.o. daily, azithromycin 500 mg IV q.day. resume home controller inhaler Advair. 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 DuoNebs changed from q.6 hours scheduled to p.r.n.. Acute CHF exacerbation -resolved. Changed furosemide from 40 mg IV q.day to 20 mg p.o. b.i.d. -pending echocardiogram. Adjust heart failure meds based on results. CKD -as reported per intermediate charting. Unknown baseline. Serum creatinine stable, continue to monitor Abnormal urinalysis -urinalysis on admission demonstrating leukocyte esterase 1+, WBC 6-10, no bacteria. Patient not complaining of symptoms. Currently on ceftriaxone and azithromycin. Pending urine and blood cultures. Diabetes with current long-term use of insulin -blood sugars reviewed on 05/09/2025, currently low normal, will continue with low-dose insulin sliding scale and hold off on UI DEVELOPER [employer] insulin. Continue Accu-Cheks a.c. HS Hypocalcemia -8.3 on admission, received calcium gluconate. Hypertension -elevated on 05/09/2025, resume UI DEVELOPER [employer] JS nifedipine Update: Unclear status of echocardiogram, will order again. ----- Presents from [facility]. Patient wishes to be full code Lovenox prophylaxis Continue UI DEVELOPER [employer] JS Protonix Diabetic diet, heart healthy diet. Ambulate with assistance Saline lock IV Daily weights, intake/output according Stable on medical floor UI DEVELOPER [employer] JS oxybutynin chloride 5 mg p.o. q.day resumed Subjective Date/time seen: 05/10/25 17:08 Interval history: No major acute overnight events. Patient denies shortness of breath, chest pain, fever. Review of Systems Review of Systems: All systems reviewed & are unremarkable except as noted in HPI and below (Subjective) Exam Const: General: comfortable and no acute distress Other: A&O x3 Eyes: Pupils: Equal, round and reactive pupils present Neck: Neck: supple Resp: Effort & Inspection: normal respiratory effort Other: Scant bibasilar crackles Cardio: Rate: regular rate Rhythm: regular rhythm Heart sounds: Murmur heart sound present GI: Inspection: non-distended GI Palp: Yes Soft to palpation and No Tenderness to palpation present (GI) Auscultation: normal bowel sounds Neuro: Motor exam (neuro): 5/5 motor strength present throughout Extrem: Other: Erythema and lipodermatosclerosis of chronic venous stasis. No purulence. Wrinkled skin folds Objective Data Vital Signs Vital Signs: Vital Signs - 24 hr 05/09/25 20:00 05/09/25 20:57 05/09/25 22:00 Temperature 97.9 F Pulse Rate 53 L Respiratory Rate 20 Blood Pressure 157/68 H Pulse Oximetry 98 94 98 Oxygen Delivery Nasal Cannula Nasal Cannula Oxygen Flow Rate 2 2 Fraction of Inspired Oxygen 05/10/25 06:00 05/10/25 07:23 05/10/25 07:23 Temperature 98.1 F Pulse Rate 62 57 L Respiratory Rate 20 20 Blood Pressure 165/68 H Pulse Oximetry 95 93 Oxygen Delivery Nasal Cannula Oxygen Flow Rate 2 Fraction of Inspired Oxygen 05/10/25 08:00 05/10/25 14:00 Temperature 97.5 F L Pulse Rate 59 L Respiratory Rate 14 Blood Pressure 161/56 H Pulse Oximetry 93 95 Oxygen Delivery Nasal Cannula Oxygen Flow Rate 3 Fraction of Inspired Oxygen 30 Intake/Output Intake/Output: Intake & Output 05/07/25 05/08/25 05/09/25 05/10/25 23:59 23:59 23:59 23:59 Intake Total 1930 1410 1258 508 Output Total 1900 6740 320 1899 Balance 30 -240 308 -532 Meds/Results Medications: Active Medications Generic Name Dose Route Start Last Admin Trade Name Freq PRN Reason Stop Dose Admin Acetaminophen 650 mg 05/10/25 11:49 05/10/25 12:08 Acetaminophen 325 Mg Tablet PO 650 mg Q4H PRN Administration Headache Albuterol/Ipratropium 3 ml 05/08/25 09:39 Ipratropium 0.5 Mg/Albuterol Sulfate 2.5 Mg (Base) Ampul.Neb 3 Ml INHALATION Q6HRT PRN shortness of breath Alprazolam 0.5 mg 05/07/25 09:00 05/10/25 08:36 Alprazolam (*Crx) 0.5 Mg Tablet PO 0.5 mg BID MARK Administration Artificial Tears 1 drop 05/07/25 08:08 05/09/25 09:15 Artificial Tears Ophth Soln 15 Ml Bottle EACH EYE 1 drop QID PRN Administration Dry Eye(s) Aspirin 81 mg 05/07/25 09:00 05/10/25 08:35 Aspirin 81 Mg Chewable Tablet PO 81 mg DAILY MARK Administration Atorvastatin Calcium 40 mg 05/07/25 21:00 05/09/25 21:24 Atorvastatin 40 Mg Tablet PO 40 mg HS MARK Administration Buspirone HCl 10 mg 05/07/25 09:00 05/10/25 12:08 Buspirone Hcl 10 Mg Tablet PO 10 mg TID MARK Administration Calcium Carbonate 400 mg 05/07/25 09:00 05/10/25 08:35 Calcium Carbonate (Tums) 500 Mg (200 Mg Elemental) PO 400 mg DAILY MARK Administration Clobetasol Propionate 1 applic 05/07/25 21:00 05/09/25 21:24 Clobetasol Propionate 0.05% Cream 15 Gm TOPICAL 1 applic QHS MARK Administration Dextrose 12.5 gm 05/07/25 08:26 Dextrose 50% 25 Gm/50 Ml Syringe IV PUSH PRN PRN Hypoglycemia Protocol Enoxaparin Sodium 40 mg 05/07/25 09:00 05/10/25 08:36 Enoxaparin 40 Mg/0.4 Ml Syringe SUB-Q 40 mg DAILY MARK Administration Ferrous Sulfate 325 mg 05/07/25 09:00 05/10/25 08:35 Ferrous Sulfate 325 Mg Tablet PO 325 mg DAILY MARK Administration Fluoxetine HCl 40 mg 05/07/25 09:00 05/10/25 08:34 Fluoxetine Hcl 20 Mg Capsule PO 40 mg DAILY MARK Administration Fluticasone Propionate 1 spray 05/07/25 09:00 05/10/25 08:38 Fluticasone Propionate 0.05% Na Spr 16 Gm Btl (*Bkc) NASAL 1 spray DAILY MARK Administration Furosemide 20 mg 05/09/25 09:00 05/10/25 08:35 Furosemide 20 Mg Tablet PO 20 mg BID MARK Administration Glucose 15 gm 05/07/25 08:26 Glucose Oral Gel 15 Gm Of Glucse In 37.5 Gm Tube PO PRN PRN Hypoglycemia Protocol Ceftriaxone Sodium 1 gm/ 50 mls @ 100 mls/hr 05/07/25 15:00 05/10/25 15:18 Sodium Chloride IVPB 100 mls/hr Q24H MARK Administration Azithromycin 500 mg/ Sodium 250 mls @ 250 mls/hr 05/07/25 18:00 05/09/25 17:36 Chloride IVPB 05/11/25 18:59 Infused Q24H MARK Infusion Dextrose 1,000 mls @ 100 mls/hr 05/07/25 08:26 Dextrose 5% 1,000 Ml IVPB PRN PRN Hypoglycemia Protocol Insulin Aspart 2 - 5 units 05/07/25 08:00 05/10/25 11:48 Insulin Aspart (*Bkc) 100 Units/Ml SUB-Q Not Given TIDWM MARK Protocol Insulin Aspart 1 - 2 units 05/07/25 21:00 05/09/25 21:25 Insulin Aspart (*Bkc) 100 Units/Ml SUB-Q Not Given HS [facility] Protocol Levothyroxine Sodium 100 mcg/ 175 mcg 05/08/25 06:30 05/10/25 05:36 Levothyroxine Sodium 75 mcg PO 175 mcg DAILY@0630 MARK Administration Montelukast Sodium 10 mg 05/07/25 17:00 05/09/25 16:35 Montelukast Sodium 10 Mg Tablet PO 10 mg DAILY@1700 MARK Administration Multi-Ingred Cream/Lotion/Oil/Oint 1 applic 05/08/25 09:40 05/10/25 09:02 Eucerin Cream 120 Gm Jar TOPICAL 1 applic DAILY [facility] Administration Nifedipine 30 mg 05/09/25 14:30 05/10/25 08:36 Nifedipine 30 Mg Tab.Er.24 PO 30 mg DAILY MARK Administration Oxybutynin Chloride 5 mg 05/08/25 09:40 05/10/25 08:36 Oxybutynin Chloride Xl 5 Mg Tab.Er.24 PO 5 mg DAILY MARK Administration Pantoprazole Sodium 40 mg 05/07/25 09:00 05/10/25 08:36 Pantoprazole 40 Mg Tablet PO 40 mg Q12H MARK Administration Prednisone 40 mg 05/07/25 08:00 05/10/25 08:36 Prednisone 20 Mg Tablet PO 05/11/25 08:01 40 mg DAILY@0800 MARK Administration Fluticasone/Salmeterol 2 puff 05/08/25 09:40 05/10/25 07:22 Fluticasone/Salmeterol 115-21 Mcg Inhaler 1 Puff INHALATION 2 puff Q12HRT MARK Administration Topiramate 50 mg 05/07/25 09:00 05/10/25 08:34 Topiramate 25 Mg Tablet PO 50 mg DAILY MARK Administration Vitamin D 25 mcg 05/07/25 09:00 05/10/25 08:35 Cholecalciferol (Vitamin D3) 25 Mcg (1,000 Units) Tablet PO 25 mcg DAILY MARK Administration Radiology Results: ITS Impressions Chest X-Ray 05/06/25 13:47 Impression: 1: Interval development of bilateral perihilar and bibasilar airspace disease, most likely edema. Labs Labs: Laboratory Results - last 24 hr 05/09/25 05/09/25 05/09/25 16:55 19:21 21:04 POC Capillary Glucose 135 H 224 H 180 H 05/10/25 05/10/25 05/10/25 08:04 11:14 16:57 POC Capillary Glucose 81 93 133 H
[2025-05-10] MEDS: MONTELUKAST SODIUM 10 MG TABLET PO (17:14)
[2025-05-10] MEDS: AZITHROMYCIN IV 500 MG in SODIUM CHLORIDE 0.9% IV 250 ML IVPB (17:15)
[2025-05-10] MEDS: CLOBETASOL PROPIONATE 0.05% CREAM 15 GM 1 APPLIC TOPICAL (20:49)
[2025-05-10] MEDS: ATORVASTATIN 40 MG TABLET PO (20:49)
[2025-05-10] MEDS: INSULIN ASPART (*BKC) 100 UNITS/ML SUB-Q (22:18)
[2025-05-11] VITALS (7 sets, daily range): BP systolic 131–188; BP diastolic 48–63; PULSE 52–67; RESP 16–18; TEMP 36.4–37; O2SAT 90–100
[2025-05-11] MEDS: LEVOTHYROXINE SODIUM 100 MCG, LEVOTHYROXINE SODIUM 75 MCG 175 MCG PO (05:45)
[2025-05-11] MEDS: FLUTICASONE/SALMETEROL 115-21 MCG INHALER 1 PUFF 2 PUFF INHALATION ×2 (07:49→20:32)
[2025-05-11] MEDS: TOPIRAMATE 25 MG TABLET 50 MG PO (08:51)
[2025-05-11] MEDS: oxyBUTYnin CHLORIDE XL 5 MG TAB.ER.24 PO (08:51)
[2025-05-11] MEDS: ASPIRIN 81 MG CHEWABLE TABLET PO (08:51)
[2025-05-11] MEDS: CHOLECALCIFEROL (VITAMIN D3) 25 MCG (1,000 UNITS) TABLET PO (08:51)
[2025-05-11] MEDS: FUROSEMIDE 20 MG TABLET PO ×2 (08:51→16:41)
[2025-05-11] MEDS: ALPRAZolam (*CRX) 0.5 MG TABLET PO ×2 (08:51→16:41)
[2025-05-11] MEDS: CALCIUM CARBONATE (TUMS) 500 MG (200 MG ELEMENTAL) 400 MG PO (08:51)
[2025-05-11] MEDS: PANTOPRAZOLE 40 MG TABLET PO ×2 (08:51→21:09)
[2025-05-11] MEDS: ENOXAPARIN 40 MG/0.4 ML SYRINGE SUB-Q (08:52)
[2025-05-11] MEDS: EUCERIN CREAM 120 GM JAR 1 APPLIC TOPICAL (08:52)
[2025-05-11] MEDS: FLUTICASONE PROPIONATE 0.05% NA SPR 16 GM BTL (*BKC) 1 SPRAY NASAL (08:52)
[2025-05-11] MEDS: FERROUS SULFATE 325 MG TABLET PO (08:52)
--- NOTE | 2025-05-11 15:48 | P.PNIM_ITS ---
Progress Note: A&P Assessment and Plan (1) CO2 narcosis: Code(s): R06.89 - Other abnormalities of breathing Status: Acute (2) COPD (chronic obstructive pulmonary disease): Qualifiers: COPD type: COPD with acute exacerbation Qualified Code(s): J44.1 - Chronic obstructive pulmonary disease with (acute) exacerbation Code(s): J44.9 - Chronic obstructive pulmonary disease, unspecified Status: Acute (3) Acute on chronic respiratory failure with hypoxia and hypercapnia: Code(s): J96.21 - Acute and chronic respiratory failure with hypoxia; J96.22 - Acute and chronic respiratory failure with hypercapnia Status: Acute (4) UTI (urinary tract infection): Qualifiers: Urinary tract infection type: acute cystitis Hematuria presence: without hematuria Qualified Code(s): N30.00 - Acute cystitis without hematuria Code(s): N39.0 - Urinary tract infection, site not specified Status: Suspected (5) Hypocalcemia: Code(s): E83.51 - Hypocalcemia Status: Acute (6) CHF (congestive heart failure): Qualifiers: Heart failure type: unspecified Heart failure chronicity: acute on chronic Qualified Code(s): I50.9 - Heart failure, unspecified Code(s): I50.9 - Heart failure, unspecified Status: Acute (7) Hypertension: Qualifiers: Hypertension type: primary hypertension Qualified Code(s): I10 - Essential (primary) hypertension Code(s): I10 - Essential (primary) hypertension Status: Acute Plan H&P per Shanti Cuba APRN on 05/06/2025 79 y/o F with PMH of COPD, CHF, hypertension, and anxiety presents here with hypoxia. (also has diabetes with current long-term use of insulin, hypothyroidism, seizure disorder, insomnia, GERD, intellectual disability) The patient presented here on 05/[address] [facility] via EMS for further evaluation of hypoxia. HPI largely obtained through chart review, EMS report, and ED provider report as the patient is a poor historian and was initially altered. Per EMS, the facility reported the patient was noted to be hypoxic this morning. Upon their arrival the patient had an O2 saturation in the 90s on a non-rebreather going at 4L. She has a baseline O2 requirement of 2L. She arrived to the emergency department at 64% on 2L. At baseline the patient is A&O x3, arrived A&O x1. Shortly after arrival she received a DuoNeb and drastically improved in mentation, currently A&O x3. The patient denies any recent worsening shortness of breath. She does report she has had a dry intermittent cough which is chronic for her. Also reporting some mild rhinorrhea as secondary to the nasal cannula. She otherwise denies fever, chills, nausea, vomiting, or chest pain. She does report diarrhea, however this has been chronic for her and she is unsure how long this has been present. She also reports new bilateral lower extremity edema, but she is unsure of onset. Initial VS at presentation: 97.6? F, HR 49, RR 17, 173/79, and 93% on 4L NC. Now on BiPAP. ED workup showed: No leukocytosis, hemoglobin 10.7, initial ABG significant for a pH of 7.296 and a CO2 of 68.6 (felt to possibly be a mixed specimen as her O2 sat was 79.5%, however on the monitor was 100%) repeat ABG however was similar therefore she was started on BiPAP, creatinine 1.57 and GFR 32 (no previous available for comparison), calcium 8.3 with a normal albumin, initial troponin 0.013, BNP 2190. UA showed mild indicators of infection with 1+ leuk esterase and 6-10 WBC with no epithelial cells or bacteria. CXR showed interval development of bilateral perihilar and bibasilar airspace disease, most likely edema. EKG showed sinus bradycardia, rate 54, with IVC delay. ----- Acute on chronic respiratory failure with hypoxia and hypercapnia -baseline requires 2 L nasal cannula -on 05/07/2025 ABG demonstrating pH 7.392, pCO2 57.8. With this improvement, she was transition to nasal cannula. Doing well on her usual 2 L. -BiPAP p.r.n. COPD exacerbation -continue prednisone 40 mg p.o. daily, azithromycin 500 mg IV q.day. resume home controller inhaler Advair. 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 DuoNebs changed from q.6 hours scheduled to p.r.n.. Acute CHF exacerbation -resolved. Changed furosemide from 40 mg IV q.day to 20 mg p.o. b.i.d. -pending echocardiogram. Adjust heart failure meds based on results. CKD -as reported per senior care charting. Unknown baseline. Serum creatinine stable, continue to monitor Abnormal urinalysis -urinalysis on admission demonstrating leukocyte esterase 1+, WBC 6-10, no bacteria. Patient not complaining of symptoms. Currently on ceftriaxone and azithromycin. Pending urine and blood cultures. Diabetes with current long-term use of insulin -blood sugars reviewed on 05/09/2025, currently low normal, will continue with low-dose insulin sliding scale and hold off on ELECTRONIC COMMUNICATIONS TECHNICIAN insulin. Continue Accu-Cheks a.c. HS Hypocalcemia -8.3 on admission, received calcium gluconate. Hypertension -elevated on 05/09/2025, resume ELECTRONIC COMMUNICATIONS TECHNICIAN nifedipine Update: Unclear status of echocardiogram, ordered again ----- Presents from [facility]. Patient wishes to be full code Lovenox prophylaxis Continue ELECTRONIC COMMUNICATIONS TECHNICIAN Protonix Diabetic diet, heart healthy diet. Ambulate with assistance Saline lock IV Daily weights, intake/output according Stable on medical floor ELECTRONIC COMMUNICATION[employer] TECHNICIAN oxybutynin chloride 5 mg p.o. q.day resumed Subjective Date/time seen: 05/11/25 15:48 Interval history: No major acute overnight events. Patient denies shortness of breath, chest pain, fever. Review of Systems Review of Systems: All systems reviewed & are unremarkable except as noted in HPI and below (Subjective) Exam Const: General: comfortable and no acute distress Other: A&O x3 Eyes: Pupils: Equal, round and reactive pupils present Neck: Neck: supple Resp: Effort & Inspection: normal respiratory effort Other: Scant bibasilar crackles Cardio: Rate: regular rate Rhythm: regular rhythm Heart sounds: Murmur heart sound present GI: Inspection: non-distended GI Palp: Yes Soft to palpation and No Tenderness to palpation present (GI) Auscultation: normal bowel sounds Neuro: Motor exam (neuro): 5/5 motor strength present throughout Extrem: Other: Erythema and lipodermatosclerosis of chronic venous stasis. No purulence. Minimal edema Objective Data Vital Signs Vital Signs: Vital Signs - 24 hr 05/10/25 20:00 05/10/25 20:02 05/10/25 20:09 Temperature Pulse Rate 60 Respiratory Rate 18 Blood Pressure Pulse Oximetry 95 95 Oxygen Delivery Nasal Cannula Nasal Cannula Oxygen Flow Rate 2 2 05/10/25 22:00 05/11/25 06:00 05/11/25 07:49 Temperature 98.5 F 98.6 F Pulse Rate 56 L 66 Respiratory Rate 18 18 Blood Pressure 163/59 H 188/63 H Pulse Oximetry 98 100 90 Oxygen Delivery Nasal Cannula Oxygen Flow Rate 3 05/11/25 07:49 05/11/25 14:00 Temperature 97.6 F Pulse Rate 67 63 Respiratory Rate 18 18 Blood Pressure 131/48 L Pulse Oximetry 96 Oxygen Delivery Oxygen Flow Rate Intake/Output Intake/Output: Intake & Output 05/08/25 05/09/25 05/10/25 05/11/25 23:59 23:59 23:59 23:59 Intake Total 1410 1258 1048 480 Output Total 3242 512 3579 800 Balance -240 308 48 -320 Meds/Results Medications: Active Medications Generic Name Dose Route Start Last Admin Trade Name Freq PRN Reason Stop Dose Admin Acetaminophen 650 mg 05/10/25 11:49 05/10/25 12:08 Acetaminophen 325 Mg Tablet PO 650 mg Q4H PRN Administration Headache Albuterol/Ipratropium 3 ml 05/08/25 09:39 Ipratropium 0.5 Mg/Albuterol Sulfate 2.5 Mg (Base) Ampul.Neb 3 Ml INHALATION Q6HRT PRN shortness of breath Alprazolam 0.5 mg 05/07/25 09:00 05/11/25 08:51 Alprazolam (*Crx) 0.5 Mg Tablet PO 0.5 mg BID MARK Administration Artificial Tears 1 drop 05/07/25 08:08 05/09/25 09:15 Artificial Tears Ophth Soln 15 Ml Bottle EACH EYE 1 drop QID PRN Administration Dry Eye(s) Aspirin 81 mg 05/07/25 09:00 05/11/25 08:51 Aspirin 81 Mg Chewable Tablet PO 81 mg DAILY MARK Administration Atorvastatin Calcium 40 mg 05/07/25 21:00 05/10/25 20:49 Atorvastatin 40 Mg Tablet PO 40 mg HS MARK Administration Buspirone HCl 10 mg 05/07/25 09:00 05/11/25 12:32 Buspirone Hcl 10 Mg Tablet PO 10 mg TID MARK Administration Calcium Carbonate 400 mg 05/07/25 09:00 05/11/25 08:51 Calcium Carbonate (Tums) 500 Mg (200 Mg Elemental) PO 400 mg DAILY MARK Administration Clobetasol Propionate 1 applic 05/07/25 21:00 05/10/25 20:49 Clobetasol Propionate 0.05% Cream 15 Gm TOPICAL 1 applic QHS MARK Administration Dextrose 12.5 gm 05/07/25 08:26 Dextrose 50% 25 Gm/50 Ml Syringe IV PUSH PRN PRN Hypoglycemia Protocol Enoxaparin Sodium 40 mg 05/07/25 09:00 05/11/25 08:52 Enoxaparin 40 Mg/0.4 Ml Syringe SUB-Q 40 mg DAILY MARK Administration Ferrous Sulfate 325 mg 05/07/25 09:00 05/11/25 08:52 Ferrous Sulfate 325 Mg Tablet PO 325 mg DAILY MARK Administration Fluoxetine HCl 40 mg 05/07/25 09:00 05/11/25 08:51 Fluoxetine Hcl 20 Mg Capsule PO 40 mg DAILY MARK Administration Fluticasone Propionate 1 spray 05/07/25 09:00 05/11/25 08:52 Fluticasone Propionate 0.05% Na Spr 16 Gm Btl (*Bkc) NASAL 1 spray DAILY MARK Administration Furosemide 20 mg 05/09/25 09:00 05/11/25 08:51 Furosemide 20 Mg Tablet PO 20 mg BID MARK Administration Glucose 15 gm 05/07/25 08:26 Glucose Oral Gel 15 Gm Of Glucse In 37.5 Gm Tube PO PRN PRN Hypoglycemia Protocol Ceftriaxone Sodium 1 gm/ 50 mls @ 100 mls/hr 05/07/25 15:00 05/10/25 15:48 Sodium Chloride IVPB Infused Q24H MARK Infusion Azithromycin 500 mg/ Sodium 250 mls @ 250 mls/hr 05/07/25 18:00 05/10/25 18:15 Chloride IVPB 05/11/25 18:59 Infused Q24H MARK Infusion Dextrose 1,000 mls @ 100 mls/hr 05/07/25 08:26 Dextrose 5% 1,000 Ml IVPB PRN PRN Hypoglycemia Protocol Insulin Aspart 2 - 5 units 05/07/25 08:00 05/11/25 08:52 Insulin Aspart (*Bkc) 100 Units/Ml SUB-Q Not Given TIDWM MARK Protocol Insulin Aspart 1 - 2 units 05/07/25 21:00 05/10/25 22:18 Insulin Aspart (*Bkc) 100 Units/Ml SUB-Q 1 units HS MARK Administration Protocol Levothyroxine Sodium 100 mcg/ 175 mcg 05/08/25 06:30 05/11/25 05:45 Levothyroxine Sodium 75 mcg PO 175 mcg DAILY@0630 MARK Administration Montelukast Sodium 10 mg 05/07/25 17:00 05/10/25 17:14 Montelukast Sodium 10 Mg Tablet PO 10 mg DAILY@1700 MARK Administration Multi-Ingred Cream/Lotion/Oil/Oint 1 applic 05/08/25 09:40 05/11/25 08:52 Eucerin Cream 120 Gm Jar TOPICAL 1 applic DAILY MARK Administration Nifedipine 30 mg 05/09/25 14:30 05/11/25 08:52 Nifedipine 30 Mg Tab.Er.24 PO 30 mg DAILY MARK Administration Oxybutynin Chloride 5 mg 05/08/25 09:40 05/11/25 08:51 Oxybutynin Chloride Xl 5 Mg Tab.Er.24 PO 5 mg DAILY MARK Administration Pantoprazole Sodium 40 mg 05/07/25 09:00 05/11/25 08:51 Pantoprazole 40 Mg Tablet PO 40 mg Q12H MARK Administration Perflutren Lipid Microsphere 0 ml 05/11/25 15:47 Perflutren Lipid Microspheres 1.5 Ml Vial Diluted To 10 Ml Total Volume IV PUSH 05/14/25 15:47 ONCE PRN adequate visualization Protocol Fluticasone/Salmeterol 2 puff 05/08/25 09:40 05/11/25 07:49 Fluticasone/Salmeterol 115-21 Mcg Inhaler 1 Puff INHALATION 2 puff Q12HRT MARK Administration Topiramate 50 mg 05/07/25 09:00 05/11/25 08:51 Topiramate 25 Mg Tablet PO 50 mg DAILY MARK Administration Vitamin D 25 mcg 05/07/25 09:00 05/11/25 08:51 Cholecalciferol (Vitamin D3) 25 Mcg (1,000 Units) Tablet PO 25 mcg DAILY MARK Administration Radiology Results: ITS Impressions Chest X-Ray 05/06/25 13:47 Impression: 1: Interval development of bilateral perihilar and bibasilar airspace disease, most likely edema. Labs Labs: Laboratory Results - last 24 hr 05/10/25 05/10/25 05/11/25 16:57 19:35 08:04 POC Capillary Glucose 133 H 211 H 81 05/11/25 11:27 POC Capillary Glucose 106 H
[2025-05-11] MEDS: cefTRIAXone 1 GM in SODIUM CHLORIDE 0.9% IV 50 ML 100 ML IVPB (16:40)
[2025-05-11] MEDS: MONTELUKAST SODIUM 10 MG TABLET PO (16:41)
[2025-05-11] MEDS: AZITHROMYCIN IV 500 MG in SODIUM CHLORIDE 0.9% IV 250 ML IVPB (18:07)
[2025-05-11] MEDS: ATORVASTATIN 40 MG TABLET PO (21:09)
[2025-05-11] MEDS: CLOBETASOL PROPIONATE 0.05% CREAM 15 GM 1 APPLIC TOPICAL (21:10)
[2025-05-12] VITALS (7 sets, daily range): BP systolic 114–143; BP diastolic 44–80; PULSE 54–80; RESP 18–20; TEMP 36.2–37; O2SAT 92–99
--- NOTE | 2025-05-12 | ECHO_ITS ---
Patient Info Name: Katt Garg Age: 79 years : 1945 Gender: Female Ht: 63 in Wt: 187 lbs BSA: 1.98 m2 HR: 54 bpm BP: 159 / 54 mmHg Technical Quality: Good Exam Date: 05/12/2025 1:26 PM Patient Status: I Admit Date: 05/06/2025 Exam Type: CA echo doppler color flow Complete two-dimensional, color flow and Doppler transthoracic echocardiogram is performed. Staff Referring Physician: [place] [employer] Setter: Pelon Pennington III Attending Provider: Roel Nino Oca Summary 1. Complete two-dimensional, color flow and Doppler transthoracic echocardiogram is performed. Left Ventricle The left ventricle is normal in size and systolic function. There is mild concentric left ventricular hypertrophy. The left ventricular ejection fraction is visually estimated to be 65-70%. There is grade 2 diastolic dysfunction. Right Ventricle The right ventricle is normal in size and systolic function. Left Atria The left atrium is mildly dilated. Right Atria The right atrium is normal size. Atrial Septum The atrial septum is not well visualized. Aortic Valve The aortic valve is trileaflet and opens well. There is no aortic regurgitation. Pulmonic Valve The pulmonic valve is not well visualized. Mitral Valve The mitral valve is normal. There is trace mitral regurgitation. Tricuspid Valve The tricuspid valve is normal. There is trace tricuspid regurgitation. Pericardium/Pleural There is trace pericardial effusion. Inferior Vena Cava Inferior vena cava is not well visualized. Aorta The aortic root at the level of the sinus of Valsalva measures 3.1 cm in diameter. Left Ventricular Outflow Tract Name Value Normal LVOT 2D LVOT Diameter 2.1 cm LVOT Doppler LVOT Peak Velocity 147 cm/s LVOT Peak Gradient 9 mmHg LVOT Mean Gradient 5 mmHg LVOT VTI 40 cm LVOT VTI/AV VTI Ratio 0.9 LVOT Stroke Volume 131 ml LVOT CO 7.4 l/min LVOT CI 3.9 l/min/m2 Pulmonic Valve Name Value Normal PV Doppler PV Peak Velocity 171 cm/s PV Peak Gradient 12 mmHg PV Mean Gradient 5 mmHg Mitral Valve Name Value Normal MV Doppler MV Peak Gradient 9 mmHg MV Mean Gradient 4 mmHg MV Area (Cont Eq VTI) 2.3 cm2 MV Diastolic Function MV E Peak Velocity 113 cm/s MV A Peak Velocity 138 cm/s MV E/A 0.8 MV Decel Time (PW) 376 ms MV Annular TDI MV E/e' (Septal) 19.2 MV E/e' (Lateral) 12.0 MV E/e' (Average) 15.6 Tricuspid Valve Name Value Normal TV Regurgitation Doppler TR Peak Velocity 307 cm/s TR Peak Gradient 38 mmHg Estimated PAP/RSVP RA Pressure 10 mmHg <=5 PA Systolic Pressure 48 mmHg <36 RV Systolic Pressure 48 mmHg <36 TV Annular TDI TV Lateral Julieta s' Velocity 15.4 cm/s >=9.5 Aortic Valve Name Value Normal AV Doppler AV Peak Velocity 204 cm/s AV Peak Gradient 17 mmHg AV Mean Gradient 8 mmHg AV VTI 46 cm AV Area (Cont Eq VTI) 2.8 cm2 >=3.0 AV Area (Cont Eq Herbert) 2.4 cm2 AV DI (Herbert) 0.72 AV Regurgitation 2D LVOT Area 3.3 cm2 Ventricles Name Value Normal LV Dimensions 2D/MM IVS Diastolic Thickness (2D) 1.4 cm 0.6-1.0 LVID Diastole (2D) 4.4 cm 3.8-5.2 LVIW Diastolic Thickness (2D) 1.2 cm 0.6-0.9 LVID Systole (2D) 2.9 cm 2.2-3.5 LVOT Diameter 2.1 cm LV Mass (2D Cubed) 204.97 g 67.00-162.00 LV Mass Index (2D Cubed) 104 g/m2 43-95 Relative Wall Thickness (2D) 0.52 <=0.42 LV Fractional Shortening/Ejection Fraction 2D/MM LV Fractional Shortening (2D) 34 % 27-45 LV EF (2D Teichholz) 63 % LV Diastolic Volume (4C MOD) 103 ml LV EF (4C MOD) 66 % LV Diastolic Volume (2C MOD) 89 ml LV EF (2C MOD) 73 % LV Diastolic Volume (BP MOD) 96 ml 46-106 LV Diastolic Volume Index (BP MOD) 49 ml/m2 29-61 LV Systolic Volume (BP MOD) 31 ml 14-42 LV Systolic Volume Index (BP MOD) 16 ml/m2 8-24 LV EF (BP MOD) 67 % 54-74 LV Diastolic Length (4C) 8.2 cm LV Systolic Length (4C) 6.6 cm LV Stroke Volume (4C MOD) 68 ml Atria Name Value Normal LA Dimensions LA Volume (4C A-L) 63 ml LA Volume (BP A-L) 78 ml RA Dimensions RA Systolic Major Bridgman Length (4C) 6.6 cm 2.2-2.8 RA Area (4C) 22.6 cm2 <=18.0 Report Signatures
[2025-05-12] MEDS: LEVOTHYROXINE SODIUM 100 MCG, LEVOTHYROXINE SODIUM 75 MCG 175 MCG PO (05:52)
[2025-05-12 06:42] LABS: Hematocrit 35.7 % (37.0-47.0); Hemoglobin 10.3 g/dL (12.0-15.0); Immature Granulocyte Percent A 0.1 % (0-0.5); Lymphocytes Absolute Auto 2.68 K/mm3 (0.9-3.2); Mean Corpuscular HGB Conc 28.9 g/dl (32-36); Mean Corpuscular Hemoglobin 28.5 pg (26-34); Mean Corpuscular Volume 98.9 fl (80-100); Nucleated Red Blood Cells Absolute Auto 0.000 K/mm3 (0.0-0.012); Nucleated Red Blood Cells Perc 0.0 % (0.0-0.2); Platelet Count Result 248 k/mm3 (150-375); Red Blood Count 3.61 M/mm3 (4.2-5.4); White Blood Count 6.8 K/mm3 (4.5-10.0)
[2025-05-12 07:00] LABS: Alanine Aminotransferase 12 U/L (6-35); Albumin Level 3.3 g/dL (3.5-5.1); Alkaline Phosphatase 100 U/L (38-126); Anion Gap 2 mmol/L (4-12); Aspartate Amino Transferase 25 U/L (14-36); Bilirubin,Total 0.4 mg/dL (0.2-1.3); Blood Urea Nitrogen 19 mg/dL (7-17); Calcium 8.6 mg/dL (8.4-10.2); Carbon Dioxide 36 mmol/L (22-30); Chloride 99 mmol/L (98-107); Estimated CRCL calculation 34 ml/min; Estimated Glomerular Filt Rate 42; Glucose 80 mg/dL (65-110); Magnesium 2.3 mg/dL (1.6-2.3); Potassium 3.7 mmol/L (3.4-5.0); Sodium 137 mmol/L (137-145); Total Protein 6.3 g/dL (6.3-8.2)
[2025-05-12 07:15] LABS: Anisocytosis 1+; Hypochromasia Occasional; Schistocytes None Seen
[2025-05-12] MEDS: FLUTICASONE/SALMETEROL 115-21 MCG INHALER 1 PUFF 2 PUFF INHALATION ×2 (08:12→21:17)
[2025-05-12] MEDS: TOPIRAMATE 25 MG TABLET 50 MG PO (09:03)
[2025-05-12] MEDS: ENOXAPARIN 40 MG/0.4 ML SYRINGE SUB-Q (09:04)
[2025-05-12] MEDS: FERROUS SULFATE 325 MG TABLET PO (09:04)
[2025-05-12] MEDS: CHOLECALCIFEROL (VITAMIN D3) 25 MCG (1,000 UNITS) TABLET PO (09:04)
[2025-05-12] MEDS: ALPRAZolam (*CRX) 0.5 MG TABLET PO ×2 (09:04→17:41)
[2025-05-12] MEDS: PANTOPRAZOLE 40 MG TABLET PO ×2 (09:04→20:51)
[2025-05-12] MEDS: ASPIRIN 81 MG CHEWABLE TABLET PO (09:04)
[2025-05-12] MEDS: FUROSEMIDE 20 MG TABLET PO ×2 (09:04→17:41)
[2025-05-12] MEDS: oxyBUTYnin CHLORIDE XL 5 MG TAB.ER.24 PO (09:04)
[2025-05-12] MEDS: CALCIUM CARBONATE (TUMS) 500 MG (200 MG ELEMENTAL) 400 MG PO (09:05)
[2025-05-12] MEDS: FLUTICASONE PROPIONATE 0.05% NA SPR 16 GM BTL (*BKC) 1 SPRAY NASAL (09:14)
[2025-05-12] MEDS: EUCERIN CREAM 120 GM JAR 1 APPLIC TOPICAL (09:16)
--- NOTE | 2025-05-12 16:51 | P.PNIM_ITS ---
Progress Note: A&P Assessment and Plan (1) CO2 narcosis: Code(s): R06.89 - Other abnormalities of breathing Status: Acute (2) COPD (chronic obstructive pulmonary disease): Qualifiers: COPD type: COPD with acute exacerbation Qualified Code(s): J44.1 - Chronic obstructive pulmonary disease with (acute) exacerbation Code(s): J44.9 - Chronic obstructive pulmonary disease, unspecified Status: Acute (3) Acute on chronic respiratory failure with hypoxia and hypercapnia: Code(s): J96.21 - Acute and chronic respiratory failure with hypoxia; J96.22 - Acute and chronic respiratory failure with hypercapnia Status: Acute (4) UTI (urinary tract infection): Qualifiers: Urinary tract infection type: acute cystitis Hematuria presence: without hematuria Qualified Code(s): N30.00 - Acute cystitis without hematuria Code(s): N39.0 - Urinary tract infection, site not specified Status: Suspected (5) Hypocalcemia: Code(s): E83.51 - Hypocalcemia Status: Acute (6) CHF (congestive heart failure): Qualifiers: Heart failure type: unspecified Heart failure chronicity: acute on chronic Qualified Code(s): I50.9 - Heart failure, unspecified Code(s): I50.9 - Heart failure, unspecified Status: Acute (7) Hypertension: Qualifiers: Hypertension type: primary hypertension Qualified Code(s): I10 - Essential (primary) hypertension Code(s): I10 - Essential (primary) hypertension Status: Acute Plan H&P per Shanti Cuba APRN on 05/06/2025 79 y/o F with PMH of COPD, CHF, hypertension, and anxiety presents here with hypoxia. (also has diabetes with current long-term use of insulin, hypothyroidism, seizure disorder, insomnia, GERD, intellectual disability) The patient presented here on 05/[address] [facility] via EMS for further evaluation of hypoxia. HPI largely obtained through chart review, EMS report, and ED provider report as the patient is a poor historian and was initially altered. Per EMS, the facility reported the patient was noted to be hypoxic this morning. Upon their arrival the patient had an O2 saturation in the 90s on a non-rebreather going at 4L. She has a baseline O2 requirement of 2L. She arrived to the emergency department at 64% on 2L. At baseline the patient is A&O x3, arrived A&O x1. Shortly after arrival she received a DuoNeb and drastically improved in mentation, currently A&O x3. The patient denies any recent worsening shortness of breath. She does report she has had a dry intermittent cough which is chronic for her. Also reporting some mild rhinorrhea as secondary to the nasal cannula. She otherwise denies fever, chills, nausea, vomiting, or chest pain. She does report diarrhea, however this has been chronic for her and she is unsure how long this has been present. She also reports new bilateral lower extremity edema, but she is unsure of onset. Initial VS at presentation: 97.6? F, HR 49, RR 17, 173/79, and 93% on 4L NC. Now on BiPAP. ED workup showed: No leukocytosis, hemoglobin 10.7, initial ABG significant for a pH of 7.296 and a CO2 of 68.6 (felt to possibly be a mixed specimen as her O2 sat was 79.5%, however on the monitor was 100%) repeat ABG however was similar therefore she was started on BiPAP, creatinine 1.57 and GFR 32 (no previous available for comparison), calcium 8.3 with a normal albumin, initial troponin 0.013, BNP 2190. UA showed mild indicators of infection with 1+ leuk esterase and 6-10 WBC with no epithelial cells or bacteria. CXR showed interval development of bilateral perihilar and bibasilar airspace disease, most likely edema. EKG showed sinus bradycardia, rate 54, with IVC delay. ----- Acute on chronic respiratory failure with hypoxia and hypercapnia -baseline requires 2 L nasal cannula -on 05/07/2025 ABG demonstrating pH 7.392, pCO2 57.8. With this improvement, she was transition to nasal cannula. Doing well on her usual 2 L. -BiPAP p.r.n. COPD exacerbation -resolved. Received prednisone, azithromycin, ceftriaxone. Continue SENIOR MECHANICAL ESTIMATOR controller medications. DuoNebs p.r.n.. Acute CHF exacerbation -resolved. Changed furosemide from 40 mg IV q.day to 20 mg p.o. b.i.d. -echocardiogram with diastolic dysfunction. Start Jardiance 10 mg p.o. q.day on 05/12/2025. Blood pressure sometimes on the low normal side so we will have to monitor for another day for this. CKD -as reported per [facility] charting. Unknown baseline. However improved since admission. Abnormal urinalysis -urinalysis on admission demonstrating leukocyte esterase 1+, WBC 6-10, no bacteria. Patient not complaining of symptoms. Blood cultures negative, final. Received ceftriaxone for 5 days. Diabetes with current long-term use of insulin -blood sugars reviewed on 05/12/2025. Jardiance started. -continue a.c. HS monitoring with low-dose insulin sliding scale. Hypocalcemia -8.3 on admission, received calcium gluconate. Hypertension -elevated on 05/09/2025, resumed SENIOR MECHANICAL ESTIMATOR nifedipine ----- Presents from [facility]. Patient wishes to be full code Lovenox prophylaxis Continue SENIOR MECHANICAL ESTIMATOR Protonix Diabetic diet, heart healthy diet. Ambulate with assistance Saline lock IV Daily weights, intake/output according Stable on medical floor SENIOR MECHANICAL ESTIMATOR oxybutynin chloride 5 mg p.o. q.day resumed Subjective Date/time seen: 05/12/25 16:51 Interval history: No major acute overnight events. Patient denies any new complaints. Review of Systems Review of Systems: All systems reviewed & are unremarkable except as noted in HPI and below (Subjective) Exam Const: General: comfortable and no acute distress Other: A&O x3 Eyes: Pupils: Equal, round and reactive pupils present Neck: Neck: supple Resp: Effort & Inspection: normal respiratory effort Other: Scant bibasilar crackles Cardio: Rate: regular rate Rhythm: regular rhythm Heart sounds: Murmur heart sound present GI: Inspection: non-distended GI Palp: Yes Soft to palpation and No Tenderness to palpation present (GI) Auscultation: normal bowel sounds Neuro: Motor exam (neuro): 5/5 motor strength present throughout Extrem: Other: Erythema and lipodermatosclerosis of chronic venous stasis. No purulence. Minimal edema Objective Data Vital Signs Vital Signs: Vital Signs - 24 hr 05/11/25 20:00 05/11/25 20:32 05/11/25 20:37 Temperature Pulse Rate 52 L 52 L Respiratory Rate 16 16 Blood Pressure Pulse Oximetry 96 97 Oxygen Delivery Nasal Cannula High Flow Nasal Cannula Oxygen Flow Rate 3 2 05/11/25 21:55 05/12/25 06:00 05/12/25 08:18 Temperature 98.0 F 97.1 F L Pulse Rate 54 L 54 L Respiratory Rate 18 19 Blood Pressure 159/54 H 126/44 L Pulse Oximetry 95 99 92 Oxygen Delivery Nasal Cannula Oxygen Flow Rate 2 05/12/25 14:00 Temperature 97.8 F Pulse Rate 80 Respiratory Rate 18 Blood Pressure 114/80 Pulse Oximetry 97 Oxygen Delivery Oxygen Flow Rate Intake/Output Intake/Output: Intake & Output 05/09/25 05/10/25 05/11/25 05/12/25 23:59 23:59 23:59 23:59 Intake Total 1258 1048 930 480 Output Total 950 1000 800 Balance 308 48 130 480 Meds/Results Medications: Active Medications Generic Name Dose Route Start Last Admin Trade Name Freq PRN Reason Stop Dose Admin Acetaminophen 650 mg 05/10/25 11:49 05/10/25 12:08 Acetaminophen 325 Mg Tablet PO 650 mg Q4H PRN Administration Headache Albuterol/Ipratropium 3 ml 05/08/25 09:39 Ipratropium 0.5 Mg/Albuterol Sulfate 2.5 Mg (Base) Ampul.Neb 3 Ml INHALATION Q6HRT PRN shortness of breath Alprazolam 0.5 mg 05/07/25 09:00 05/12/25 09:04 Alprazolam (*Crx) 0.5 Mg Tablet PO 0.5 mg BID MARK Administration Artificial Tears 1 drop 05/07/25 08:08 05/09/25 09:15 Artificial Tears Ophth Soln 15 Ml Bottle EACH EYE 1 drop QID PRN Administration Dry Eye(s) Aspirin 81 mg 05/07/25 09:00 05/12/25 09:04 Aspirin 81 Mg Chewable Tablet PO 81 mg DAILY MARK Administration Atorvastatin Calcium 40 mg 05/07/25 21:00 05/11/25 21:09 Atorvastatin 40 Mg Tablet PO 40 mg HS MARK Administration Buspirone HCl 10 mg 05/07/25 09:00 05/12/25 12:23 Buspirone Hcl 10 Mg Tablet PO 10 mg TID MARK Administration Calcium Carbonate 400 mg 05/07/25 09:00 05/12/25 09:05 Calcium Carbonate (Tums) 500 Mg (200 Mg Elemental) PO 400 mg DAILY MARK Administration Clobetasol Propionate 1 applic 05/07/25 21:00 05/11/25 21:10 Clobetasol Propionate 0.05% Cream 15 Gm TOPICAL 1 applic QHS MARK Administration Dextrose 12.5 gm 05/07/25 08:26 Dextrose 50% 25 Gm/50 Ml Syringe IV PUSH PRN PRN Hypoglycemia Protocol Empagliflozin 10 mg 05/12/25 16:50 Empagliflozin 10 Mg Tablet PO DAILY MARK Enoxaparin Sodium 40 mg 05/07/25 09:00 05/12/25 09:04 Enoxaparin 40 Mg/0.4 Ml Syringe SUB-Q 40 mg DAILY MARK Administration Ferrous Sulfate 325 mg 05/07/25 09:00 05/12/25 09:04 Ferrous Sulfate 325 Mg Tablet PO 325 mg DAILY MARK Administration Fluoxetine HCl 40 mg 05/07/25 09:00 05/12/25 09:04 Fluoxetine Hcl 20 Mg Capsule PO 40 mg DAILY MARK Administration Fluticasone Propionate 1 spray 05/07/25 09:00 05/12/25 09:14 Fluticasone Propionate 0.05% Na Spr 16 Gm Btl (*Bkc) NASAL 1 spray DAILY MARK Administration Furosemide 20 mg 05/09/25 09:00 05/12/25 09:04 Furosemide 20 Mg Tablet PO 20 mg BID MARK Administration Glucose 15 gm 05/07/25 08:26 Glucose Oral Gel 15 Gm Of Glucse In 37.5 Gm Tube PO PRN PRN Hypoglycemia Protocol Dextrose 1,000 mls @ 100 mls/hr 05/07/25 08:26 Dextrose 5% 1,000 Ml IVPB PRN PRN Hypoglycemia Protocol Insulin Aspart 2 - 5 units 05/07/25 08:00 05/12/25 12:06 Insulin Aspart (*Bkc) 100 Units/Ml SUB-Q Not Given TIDWM MARK Protocol Insulin Aspart 1 - 2 units 05/07/25 21:00 05/11/25 21:00 Insulin Aspart (*Bkc) 100 Units/Ml SUB-Q Not Given HS [facility] Protocol Levothyroxine Sodium 100 mcg/ 175 mcg 05/08/25 06:30 05/12/25 05:52 Levothyroxine Sodium 75 mcg PO 175 mcg DAILY@0630 MARK Administration Montelukast Sodium 10 mg 05/07/25 17:00 05/11/25 16:41 Montelukast Sodium 10 Mg Tablet PO 10 mg DAILY@1700 MARK Administration Multi-Ingred Cream/Lotion/Oil/Oint 1 applic 05/08/25 09:40 05/12/25 09:16 Eucerin Cream 120 Gm Jar TOPICAL 1 applic DAILY MARK Administration Nifedipine 30 mg 05/09/25 14:30 05/12/25 09:04 Nifedipine 30 Mg Tab.Er.24 PO 30 mg DAILY MARK Administration Oxybutynin Chloride 5 mg 05/08/25 09:40 05/12/25 09:04 Oxybutynin Chloride Xl 5 Mg Tab.Er.24 PO 5 mg DAILY MARK Administration Pantoprazole Sodium 40 mg 05/07/25 09:00 05/12/25 09:04 Pantoprazole 40 Mg Tablet PO 40 mg Q12H MARK Administration Perflutren Lipid Microsphere 0 ml 05/11/25 15:47 Perflutren Lipid Microspheres 1.5 Ml Vial Diluted To 10 Ml Total Volume IV PUSH 05/14/25 15:47 ONCE PRN adequate visualization Protocol Fluticasone/Salmeterol 2 puff 05/08/25 09:40 05/12/25 08:12 Fluticasone/Salmeterol 115-21 Mcg Inhaler 1 Puff INHALATION 2 puff Q12HRT MARK Administration Topiramate 50 mg 05/07/25 09:00 05/12/25 09:03 Topiramate 25 Mg Tablet PO 50 mg DAILY MARK Administration Vitamin D 25 mcg 05/07/25 09:00 05/12/25 09:04 Cholecalciferol (Vitamin D3) 25 Mcg (1,000 Units) Tablet PO 25 mcg DAILY MARK Administration Radiology Results: ITS Impressions Chest X-Ray 05/06/25 13:47 Impression: 1: Interval development of bilateral perihilar and bibasilar airspace disease, most likely edema. Labs Labs: Laboratory Results - last 24 hr 05/11/25 05/12/25 05/12/25 22:01 06:13 07:38 WBC 6.8 RBC 3.61 L Hgb 10.3 L Hct 35.7 L MCV 98.9 MCH 28.5 MCHC 28.9 L RDW 17.0 H Plt Count 248 MPV 8.9 Immature Gran % (Auto) 0.1 Neut % (Auto) 49.0 Lymph % (Auto) 39.2 Dubois % (Auto) 10.5 H Eos % (Auto) 0.9 Baso % (Auto) 0.3 Lymph # (Auto) 2.68 Dubois # (Auto) 0.7 H Eos # (Auto) 0.1 Baso # (Auto) 0.0 Abs Immat Gran (auto) 0.01 Absolute Neuts (auto) 3.3 Absolute Nucleated RBC 0.000 Band Neutrophils % Not Reportable Nucleated RBC % 0.0 Platelet Estimate Adequate Hypochromasia Occasional Anisocytosis 1+ Schistocytes None seen Sodium 137 Potassium 3.7 Chloride 99 Carbon Dioxide 36 H Anion Gap 2 L BUN 19 H Creatinine 1.24 H Estim Creat Clear Calc 34 Estimated GFR 42 L Glucose 80 POC Capillary Glucose 103 87 Calcium 8.6 Magnesium 2.3 Total Bilirubin 0.4 AST 25 ALT 12 Alkaline Phosphatase 100 Total Protein 6.3 Albumin 3.3 L 05/12/25 05/12/25 11:46 16:34 WBC RBC Hgb Hct MCV MCH MCHC RDW Plt Count MPV Immature Gran % (Auto) Neut % (Auto) Lymph % (Auto) Dubois % (Auto) Eos % (Auto) Baso % (Auto) Lymph # (Auto) Dubois # (Auto) Eos # (Auto) Baso # (Auto) Abs Immat Gran (auto) Absolute Neuts (auto) Absolute Nucleated RBC Band Neutrophils % Nucleated RBC % Platelet Estimate Hypochromasia Anisocytosis Schistocytes Sodium Potassium Chloride Carbon Dioxide Anion Gap BUN Creatinine Estim Creat Clear Calc Estimated GFR Glucose POC Capillary Glucose 97 79 Calcium Magnesium Total Bilirubin AST ALT Alkaline Phosphatase Total Protein Albumin
[2025-05-12] MEDS: MONTELUKAST SODIUM 10 MG TABLET PO (17:41)
[2025-05-12] MEDS: EMPAGLIFLOZIN 10 MG TABLET PO (17:41)
[2025-05-12] MEDS: ATORVASTATIN 40 MG TABLET PO (20:51)
[2025-05-12] MEDS: CLOBETASOL PROPIONATE 0.05% CREAM 15 GM 1 APPLIC TOPICAL (21:14)
[2025-05-13 06:00] VITALS: BP 175/69; PULSE 51; RESP 18; TEMP 36.7; O2SAT 94
[2025-05-13] MEDS: LEVOTHYROXINE SODIUM 100 MCG, LEVOTHYROXINE SODIUM 75 MCG 175 MCG PO (06:08)
[2025-05-13] MEDS: FLUTICASONE/SALMETEROL 115-21 MCG INHALER 1 PUFF 2 PUFF INHALATION (07:41)
[2025-05-13 08:00] VITALS: O2SAT 96
[2025-05-13 08:02] VITALS: PULSE 65; RESP 18
[2025-05-13 08:03] VITALS: PULSE 65; RESP 16; O2SAT 96
--- NOTE | 2025-05-13 08:51 | P.DS_ITS ---
DS: Admitting Diagnosis Discharge Date 05/13/2025 Admitting Diagnosis Hypoxia DS: Discharge Diagnosis Discharge Diagnosis (1) Acute on chronic respiratory failure with hypoxia and hypercapnia: Code(s): J96.21 - Acute and chronic respiratory failure with hypoxia; J96.22 - Acute and chronic respiratory failure with hypercapnia Status: Acute (2) CHF (congestive heart failure): Qualifiers: Heart failure type: unspecified Heart failure chronicity: acute on chronic Qualified Code(s): I50.9 - Heart failure, unspecified Code(s): I50.9 - Heart failure, unspecified Status: Acute (3) Hypertension: Qualifiers: Hypertension type: primary hypertension Qualified Code(s): I10 - Essential (primary) hypertension Code(s): I10 - Essential (primary) hypertension Status: Acute (4) Hypocalcemia: Code(s): E83.51 - Hypocalcemia Status: Acute (5) UTI (urinary tract infection): Qualifiers: Urinary tract infection type: acute cystitis Hematuria presence: without hematuria Qualified Code(s): N30.00 - Acute cystitis without hematuria Code(s): N39.0 - Urinary tract infection, site not specified Status: Suspected (6) CO2 narcosis: Code(s): R06.89 - Other abnormalities of breathing Status: Acute DS: Summary Hospital Course Hospital Course: H&P per Shanti Cuba APRN on 05/06/2025 79 y/o F with PMH of COPD, CHF, hypertension, and anxiety presents here with hypoxia. (also has diabetes with current long-term use of insulin, hypothyroidism, seizure disorder, insomnia, GERD, intellectual disability) The patient presented here on 05/06 from [facility] via EMS for further evaluation of hypoxia. HPI largely obtained through chart review, EMS report, and ED provider report as the patient is a poor historian and was initially altered. Per EMS, the facility reported the patient was noted to be hypoxic this morning. Upon their arrival the patient had an O2 saturation in the 90s on a non-rebreather going at 4L. She has a baseline O2 requirement of 2L. She arrived to the emergency department at 64% on 2L. At baseline the wendi ent is A&O x3, arrived A&O x1. Shortly after arrival she received a DuoNeb and drastically improved in mentation, currently A&O x3. The patient denies any recent worsening shortness of breath. She does report she has had a dry intermittent cough which is chronic for her. Also reporting some mild rhinorrhea as secondary to the nasal cannula. She otherwise denies fever, chills, nausea, vomiting, or chest pain. She does report diarrhea, however this has been chronic for her and she is unsure how long this has been present. She also reports new bilateral lower extremity edema, but she is unsure of onset. Initial VS at presentation: 97.6? F, HR 49, RR 17, 173/79, and 93% on 4L NC. Now on BiPAP. ED workup showed: No leukocytosis, hemoglobin 10.7, initial ABG significant for a pH of 7.296 and a CO2 of 68.6 (felt to possibly be a mixed specimen as her O2 sat was 79.5%, however on the monitor was 100%) repeat ABG however was similar therefore she was started on BiPAP, creatinine 1.57 and GFR 32 (no previous available for comparison), calcium 8.3 with a normal albumin, initial troponin 0.013, BNP 2190. UA showed mild indicators of infection with 1+ leuk esterase and 6-10 WBC with no epithelial cells or bacteria. CXR showed interval development of bilateral perihilar and bibasilar airspace disease, most likely edema. EKG showed sinus bradycardia, rate 54, with IVC delay. ----- She is discharged in stable condition on 05/13/2025 back to nursing facility as a nursing home resident. All her questions and concerns were answered to satisfaction, adverse effects, risk and benefits of medication discussed. She was full code. See below for inpatient hospital issues addressed. Acute on chronic respiratory failure with hypoxia and hypercapnia -baseline requires 2 L nasal cannula -on 05/07/2025 ABG demonstrating pH 7.392, pCO2 57.8. With this improvement, she was transitioned to nasal cannula. Doing well on her usual 2 L. COPD exacerbation -resolved. Received prednisone, azithromycin, ceftriaxone. 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 DuoNebs p.r.n.. Acute CHF exacerbation -resolved. Changed furosemide from 40 mg IV q.day to 20 mg p.o. b.i.d. -echocardiogram with diastolic dysfunction. Start Jardiance 10 mg p.o. q.day on 05/12/2025. Blood pressure tolerated CKD -as reported per retirement charting. Unknown baseline. However improved since admission. Abnormal urinalysis/UTI -urinalysis on admission demonstrating leukocyte esterase 1+, WBC 6-10, no bacteria. Urine culture demonstrates greater than 100,000 colony-forming units, mixed urogenital ynuior. Patient not complaining of symptoms however she was confused on admission. Treated for UTI Blood cultures negative, final. Received ceftriaxone for 5 days. Diabetes with current long-term use of insulin -Jardiance started for heart failure diastolic dysfunction Hypocalcemia -8.3 on admission, received calcium gluconate. Hypertension -elevated on 05/09/2025, resumed RESOURCE PROTECTION SPECIALIST nifedipine Time Spent with Patient Time attestation: Total time spent providing and/or coordinating discharge services: Time spent: Greater than 30 minutes Exam Const: General: comfortable and no acute distress Other: A&O x3 Eyes: Pupils: Equal, round and reactive pupils present Neck: Neck: supple Resp: Effort & Inspection: normal respiratory effort Auscultation: clear to auscultation bilaterally Cardio: Rate: regular rate Rhythm: regular rhythm Heart sounds: Murmur heart sound present GI: Inspection: non-distended GI Palp: Yes Soft to palpation and No Tenderness to palpation present (GI) Auscultation: normal bowel sounds Neuro: Motor exam (neuro): 5/5 motor strength present throughout Extrem: Other: Erythema and lipodermatosclerosis of chronic venous stasis. No purulence. Minimal edema DS: Data Data Completed and Pending Labs on day of discharge: Labs from last 24 hours 05/13/25 05/12/25 05/12/25 07:08 20:56 16:34 POC Capillary Glucose 83 116 H 79 05/12/25 11:46 POC Capillary Glucose 97 Discharge Plan Discharge Attending physician on discharge: Silvia Saeed Discharging Clinician: Silvia Saeed Patient Disposition: [facility] Activity: october shower Diet: heart healthy Patient Instructions: Antibiotic Form Patient Language: Citizen Of [place] Stand Alone Forms: General Discharge Information Follow-up/Referrals: UNKNOWN,DOCTOR [Primary Care Provider] Referral Note: Follow-up with retirement clinician within 7 days, Cardiology, Nephrology. Discharge Medications: New Jardiance 10 mg Tablet 10 mg PO DAILY Qty: 30 0RF Continued montelukast [Singulair] 10 mg tablet 10 mg PO DAILY alprazolam 0.5 mg tablet 0.5 mg PO BID atorvastatin 40 mg tablet 40 mg PO HS levothyroxine 175 mcg tablet 175 mcg PO DAILY pantoprazole 40 mg tablet,delayed release (DR/EC) 40 mg PO Q12H buspirone 10 mg tablet 10 mg PO TID oxybutynin chloride 5 mg tablet extended release 24hr 5 mg PO DAILY trazodone 50 mg tablet 75 mg PO HS fluticasone propion-salmeterol [Advair Diskus] 250-50 mcg/dose blister with device 1 inh inhalation DAILY aspirin 81 mg tablet,chewable 81 mg PO DAILY calcium carbonate [Antacid Ultra Strength] 400 mg calcium (1,000 mg) tablet,chewable 1,000 mg PO DAILY ergocalciferol (vitamin D2) 1,250 mcg (50,000 unit) capsule 50,000 unit PO WEEKLY ferrous sulfate [FeroSul] 325 mg (65 mg iron) tablet 325 mg PO DAILY fluoxetine 40 mg capsule 40 mg PO DAILY nifedipine 30 mg tablet extended release 24hr 30 mg PO DAILY Skyrizi 360 mg/2.4 mL (150 mg/mL) wearable injector 360 mg subcut .Every 56 Days topiramate 50 mg tablet 50 mg PO DAILY cholecalciferol (vitamin D3) [Vitamin D3] 25 mcg (1,000 unit) capsule 25 mcg PO DAILY furosemide 20 mg tablet 20 mg PO BID fluticasone propionate 50 mcg/actuation spray,suspension 1 spray INTRANASAL DAILY insulin lispro [Humalog U-100 Insulin] 100 unit/mL solution 1 sliding scale dose subcut USEASDIRECTD psyllium Packet 1 packet PO DAILY Rx Instructions: mix into at least 8 oz of water or juice before administering clobetasol 0.05 % cream 1 applic TOPICAL HS Patient Comments: Apply topically to affected area every night for hemorrhoids Discontinued meloxicam 7.5 mg tablet 7.5 mg PO DAILY Date of admission: 05/06/25 15:04 Primary Care Provider: UNKNOWN,DOCTOR Admitting Provider: Roel Mosqueda Oca Attending physician on admission: Roel Mosqueda Oca Condition: Stable Hospitalist MIPS Heart Failure (Exclusion) Patient has history of Heart Transplant or Left Ventricular Assistive Device?: No IF YES, STOP HERE Heart Failure (Qualifier) Patient has current or prior documentation of LVEF less than or equal to 40%, or mod/servere depressed LVSF?: No IF NO, STOP HERE
[2025-05-13] MEDS: FERROUS SULFATE 325 MG TABLET PO (09:31)
[2025-05-13] MEDS: ASPIRIN 81 MG CHEWABLE TABLET PO (09:31)
[2025-05-13] MEDS: CALCIUM CARBONATE (TUMS) 500 MG (200 MG ELEMENTAL) 400 MG PO (09:31)
[2025-05-13] MEDS: ALPRAZolam (*CRX) 0.5 MG TABLET PO (09:31)
[2025-05-13] MEDS: PANTOPRAZOLE 40 MG TABLET PO (09:31)
[2025-05-13] MEDS: oxyBUTYnin CHLORIDE XL 5 MG TAB.ER.24 PO (09:31)
[2025-05-13] MEDS: EMPAGLIFLOZIN 10 MG TABLET PO (09:31)
[2025-05-13] MEDS: TOPIRAMATE 25 MG TABLET 50 MG PO (09:31)
[2025-05-13] MEDS: FUROSEMIDE 20 MG TABLET PO (09:31)
[2025-05-13] MEDS: CHOLECALCIFEROL (VITAMIN D3) 25 MCG (1,000 UNITS) TABLET PO (09:31)
[2025-05-13] MEDS: FLUTICASONE PROPIONATE 0.05% NA SPR 16 GM BTL (*BKC) 1 SPRAY NASAL (09:32)
[2025-05-13] MEDS: EUCERIN CREAM 120 GM JAR 1 APPLIC TOPICAL (09:32)
[2025-05-13] MEDS: ENOXAPARIN 40 MG/0.4 ML SYRINGE SUB-Q (09:36)
[2025-05-13 12:15] LABS: Influenza A QL RT-PCR Negative (Negative); Influenza B QL RT-PCR Negative (Negative); RSV RNA, RT-PCR Negative (Negative); SARS-CoV-2 RNA PCR Negative (Negative)
== END 2025-05-13 13:30 | DRG 140 ==
LOC: ANHED 14:28 → ANH3MEDSUR 15:59 → ANHIMU 17:30 → ANH3MEDSUR 05-12 13:24 → ANHIMU 05-14 11:46
PROVIDERS: Student in an Organized Health Care Education/Training Program; Admitting Provider Student in an Organized Health Care Education/Training Program; Emergency Provider Student in an Organized Health Care Education/Training Program; Visit Provider General Practice
DX: J44.1 Chronic obstructive pulmonary disease with (acute) exacerbation (principal); J96.21 Acute and chronic respiratory failure with hypoxia; J96.22 Acute and chronic respiratory failure with hypercapnia; E83.51 Hypocalcemia; N39.0 Urinary tract infection, site not specified; I13.2 Hypertensive heart and chronic kidney disease with heart failure and with stage 5 chronic kidney disease, or end stage renal disease; N18.6 End stage renal disease; I50.31 Acute diastolic (congestive) heart failure; G40.909 Epilepsy, unspecified, not intractable, without status epilepticus; E11.22 Type 2 diabetes mellitus with diabetic chronic kidney disease; E03.9 Hypothyroidism, unspecified; K21.9 Gastro-esophageal reflux disease without esophagitis; F79 Unspecified intellectual disabilities; D64.9 Anemia, unspecified; F32.9 Major depressive disorder, single episode, unspecified; R82.90 Unspecified abnormal findings in urine; F41.9 Anxiety disorder, unspecified; Z79.4 Long term (current) use of insulin
CPT/HCPCS: 36415; 36600; 71045; 80048; 80053; 81001; 82805; 82948; 83735; 83880; 84484; 85018; 85025; 85610; 87040; 87086; 87637; 93005; 93306; 94002; 94003; 94640; 96374; 99285; A9270; J0456; J0612; J0696; J1650; J1815; J1938; J2919; J7050; J7512

== ENCOUNTER 2025-06-03 15:09 | Inpatient (IN) | payer OTHER, SELFPAY ==
--- OUTSIDE RECORDS SUMMARY | 2025-06-02 09:28 | XMS_ITS | Encounter Summary ---
Author Organization [facility] Healthcare Address [facility] [place] [address] Care Team Providers Care Automotive Artist Name Role Phone Aniyah Mayorga MD Primary Care Provider [phone] Reason for Referral * Cardiology (Routine) - Closed Specialty Diagnoses / Procedures Referred By Dyllan negron Referred To Contact Diagnoses Heart failure, unspecified HF chronicity, unspecified heart failure type (HCC) Procedures Transthoracic Echo (TTE) Complete W Doppler/CF Sakshi Dunn MD [address] [address] Phone: tel: fax: [facility] Referral ID Status Reason Start Date Expiration Date Visits Re quested Visits Authorized [id number] Closed 06/02/2025 08/31/2025 1 1 NSTITCH ELASTIC ATTACHER Reason for Visit * Cardiology (Routine) - Closed Specialty Diagnoses / Procedures Referred By Dyllan negron Referred To Contact Diagnoses Heart failure, unspecified HF chronicity, unspecified heart failure type (HCC) Procedures Transthoracic Echo (TTE) Complete W Doppler/CF Sakshi Dunn MD [address] [address] Phone: tel: fax: [facility] Referral ID Status Reason Start Date Expiration Date Visits Re quested Visits Authorized [id number] Closed 06/02/2025 08/31/2025 1 1 Encounter Details Date Type Department Care Team (Latest Contact Info) Description 06/02/2025 9:28 AM CHAINSTITCH ELASTIC ATTACHER - 06/02/2025 11:59 PM CHAINSTITCH ELASTIC ATTACHER Hospital Encounter [facility] Radiology Echo Lab [address] [address] Chronic diastolic heart failure (HCC) Discharge Disposition: Discharge to home or self care Social History Tobacco Use Types Packs/Day Years [...] on file Legal Sex Female 10:47 AM CHAINSTITCH ELASTIC ATTACHER Gender Identity Not on file Sexual Orientation Not on file documented as of this encounter Medications at Time of Discharge ALPRAZolam (XANAX) 0.5 mg tablet 04/07/2025 aspirin 81 mg enteric coated tablet Take 1 tablet (81 mg total) by mouth daily 10/21/2022 atorvastatin (LIPITOR) 40 mg tablet Take 1 tablet (40 mg total) by mouth nightly 10/21/2022 betamethasone dipropionate (DIPROSONE) 0.05 % ointment Apply topically 2 (two) times a day 07/18/2024 busPIRone (BUSPAR) 10 mg tablet 05/02/2025 busPIRone (BUSPAR) 5 mg tablet 01/12/2024 cholecalciferol 25 mcg (1,000 unit) tablet Take 1 tablet (1,000 Units total) by mouth daily 07/19/2024 doxycycline 100 mg tablet 01/13/2025 ferrous sulfate 325 mg (65 mg of elemental iron) tablet Take 1 tablet (325 mg total) by mouth daily 10/08/2024 FLUoxetine (PROzac) 20 mg capsule Take 1 capsule (20 mg total) by mouth daily 07/12/2024 fluticasone propion-salmeteroL (ADVAIR DISKUS) 250-50 mcg/dose diskus inhaler Inhale 1 puff 2 (two) times a day fluticasone propionate (FLONASE) 50 mcg/actuation nasal spray Administer 1 spray into each nostril daily 1 each 3 01/15/2024 folic acid (FOLVITE) 1 mg tablet Take 1 tablet (1 mg total) by mouth daily 07/19/2024 furosemide (LASIX) 40 mg tablet Take 1 tablet (40 mg total) by mouth daily 90 tablet 3 05/05/2025 levothyroxine (SYNTHROID) 175 mcg tablet 04/12/2024 meloxicam (MOBIC) 7.5 mg tablet 03/28/2025 montelukast (SINGULAIR) 10 mg tablet 04/12/2024 oxyBUTYnin (DITROPAN) 5 mg tablet 05/02/2025 oxyBUTYnin XL (DITROPAN-XL) 5 mg 24 hr tablet 01/12/[address] (PROTONIX) 40 mg EC tablet Take 1 tablet (40 mg total) by mouth daily 07/19/2024 predniSONE (DELTASONE) 20 mg tablet Take 4 tablets (80 mg) by mouth daily 07/19/2024 psyllium, aspartame, SF (Daily Fiber, psyllium-aspart,) 3.4 gram packet Take 1 packet by mouth 2 (two) times a day 04/14/2025 silver sulfadiazine (SILVADENE, SSD) 1 % cream Apply topically 2 (two) times a day 07/18/2024 SUMAtriptan (IMITREX) 50 mg tablet Take 1 tablet (50 mg total) by mouth as needed 07/19/2024 topiramate (TOPAMAX) 50 mg tablet 1 tablet (50 mg total) 04/12/2024 traMADoL (ULTRAM) 50 mg tablet Take 1 tablet (50 mg total) by mouth 2 (two) times a day 10/21/2022 traZODone (DESYREL) 150 mg tablet 05/02/2025 traZODone (DESYREL) 50 mg tablet Take 1 tablet (50 mg total) by mouth nightly Take 25 mg nightly 07/19/2024 documented as of this encounter Discharge Disposition Disposition Code Departure Means Destination Discharge to home or self care documented in this encounter Plan of Treatment Not on file documented as of this encounter Procedures Procedure Name Priority Date/Time Associated Diagnosis Comments TRANSTHORACIC ECHO (TTE) COMPLETE W DOPPLER/CF WO CONTRAST Routine 06/02/2025 10:30 AM CHAINSTITCH ELASTIC ATTACHER Chronic diastolic heart failure (HCC) documented in this encounter Results * TRANSTHORACIC ECHO (TTE) COMPLETE W DOPPLER/CF WO CONTRAST (06/02/2025 10:30 AM CHAINSTITCH ELASTIC ATTACHER) EF Mod BP 66 % CONS SCIMAGE Anatomical Region Laterality Modality Ultrasound 06/02/2025 9:34 AM CHAINSTITCH ELASTIC ATTACHER Narrative 06/02/2025 11:21 AM CHAINSTITCH ELASTIC ATTACHER [facility] [place] [address] Transthoracic Echocardiographic Report Patient Name: DANYELL GARG M : 1945 (79y 6m) Sex: F Study Date: 06/02/2025 09:34:48 AM Ht(Inch): 63 Wt(Lb): 166.01 BSA: 1.79 Date Night Caregiver: Location: [facility] Order Provider: SAKSHI DUNN Heart Rate: 59 BMI: 29.4 BP: 156 / 62 Ref Provider: SAKSHI DUNN PROCEDURES: Echocardiographic Report: Transthoracic complete echo with strain imaging, 2D, spectral and tissue Doppler, color flow Doppler, M-mode. INDICATIONS: I50.32 Chronic diastolic (congestive) heart failure. CONCLUSIONS: 1. Normal left ventricular size based on volume index. Normal LV wall thickness. Normal left ventricular systolic function. The Ejection Fraction (Fletcher's) is measured at 66 %. Grade II diastolic dysfunction (elevated mean LA pressure). The average global longitudinal strain is borderline. 2. Right ventricular dilatation. Normal right ventricular systolic function. 3. Right atrial dilatation. 4. There is no significant valvular heart disease. COMPARISONS: No previous study available for comparison. ATTESTATION: I have personally reviewed and interpreted this study without fellow or resident. DISCLAIMER: The study images and the final report will be retained in the patient chart by the Echo Laboratory for the legally required time period. This chart constitutes the legal record of any testing performed. FINDINGS: Study Quality: Study quality poor with limited visualization of cardiac structures (unable to place IV for ultrasound enhancement agent). Left Ventricle: Normal left ventricular size based on volume index. Normal LV wall thickness. Normal left ventricular systolic function. The Ejection Fraction (Fletcher's) is measured at 66 %. Grade II diastolic dysfunction (elevated mean LA pressure). The average global longitudinal strain is borderline. The LV global strain is: -16.3 %. The ventricular septum is flattened or `D-shaped` in diastole, consistent with right ventricular volume overload. Right Ventricle: Right ventricular dilatation. Normal right ventricular systolic function. Left Atrium: The left atrium is normal in size. Right Atrium: Right atrial dilatation. Mitral Valve: Normal mitral valve structure. No mitral regurgitation. No stenosis present. Aortic Valve: Normal trileaflet aortic valve. No aortic regurgitation. No aortic valve stenosis. Tricuspid Valve: Trace thickened tricuspid valve. Trace tricuspid regurgitation. No tricuspid valve stenosis. Pulmonic Valve: Normal pulmonic valve structure. No pulmonic regurgitation. No pulmonic valve stenosis present. Pericardium: Normal pericardium without pericardial effusion. Aorta: Normal aortic root size at sinuses of Valsalva. IVC: The IVC was <2.1 cm and collapsibility >50%. (est. RA pressure 0-5 mmHg). The estimated RA pressure is 3 mmHg. PASP: Unable to determine PASP due to inadequate TR jet. Rhythm: Normal Sinus rhythm was seen during the study. MEASUREMENTS: 2D/MM Value Range Doppler Value Range LVIDd 2D 4.6 cm [ 3.8 - 5.2 ] AV Peak Herbert 1.7 m/s [ 1.0 - 1.7 ] LVIDs 2D 2.9 cm [ 2.2 - 3.5 ] AV Peak PG 12 mmHg IVSd 2D 0.9 cm [ 0.6 - 0.9 ] AV Mean PG 7 mmHg LVPWd 2D 0.9 cm [ 0.6 - 0.9 ] AV VTI 42 cm LV Thickness Ratio 1.0 LVOT Peak Herbert 1.2 m/s [ 0.7 - 1.1 ] LV FS 2D 37.76 % [ 27.00 - 45.00 ] LVOT VTI 27 cm RWT 0.39 LVOT Diam 1.8 cm EDV Mod BP 100 ml [ 46 - 106 ] BLANCA VTI 1.6 cm2 LV EDV Index 56 ml/m2 LVOT/AV VTI 0.64 - Dimensionless index (DVI) ESV Mod BP 34 ml [ 14 - 42 ] MV E Peak Herbert 1.03 m/s [ 0.60 - 1.30 ] EF Mod BP 66 % [ 54 - 74 ] MV A Peak Herbert 1.14 m/s [ 1.00 - 1.20 ] LV GLS -16.3 % [ -25.0 - -18.0 ] MV E/A 0.9 ratio [ 0.8 - 1.5 ] LA Volume BP 53 ml MV Decel [place] 297 LA Volume Index 30 ml/m2 [ 16 - 34 ] MV Decel Time 346 msec [ 104 - 258 ] RV Base Dimen 2D 4.4 cm [ 2.5 - 4.2 ] Med E` Herbert 4.1 cm/sec [ 8.0 - 25.0 ] RV Mid Dimen 2D 3.0 cm Lat E` Herbert 5.8 cm/sec [ 10.0 - 25.0 ] RV ED Area 20 cm2 [ 8 - 20 ] Average E/E` 21 RV ES Area 12 cm2 [ 3 - 11 ] RV S` 13.6 cm/sec RV FAC 39 % [ 35 - 63 ] RA Pressure 3 mmHg TAPSE 2.4 cm [ 1.7 - 5.0 ] PV Peak Herbert 1.2 m/s [ 0.4 - 0.8 ] RA Volume 51 ml PV Peak PG 6 mmHg RA Volume Index 29 ml/m2 IVC Diam 1.9 cm IVC Collapse 63.6 % AoR Diam 2D 2.9 cm [ 2.7 - 3.3 ] Ao Root Index 1.6 cm/m2 [ 1.0 - 2.0 ] Electronically Signed By: Sharon Clarke MD 06/02/2025 11:20:58 AM CHAINSTITCH ELASTIC ATTACHER CC: Sakshi Dunn MD Procedure Note De Sharon Fajardo MD - 06/02/2025 [facility] [place] [address] Transthoracic Echocardiographic Report Patient Name: DANYELL GARG M : 1945 (79y 6m) Sex: F Study Date: 06/02/2025 09:34:48 AM Ht(Inch): 63 Wt(Lb): 166.01 BSA: 1.79 Date Night Caregiver: MAYCOL Location: [facility] Order Provider: SAKSHI DUNN Heart Rate: 59 BMI: 29.4 BP: 156 / 62 Ref Provider: SAKSHI DUNN PROCEDURES: Echocardiographic Report: Transthoracic complete echo with strain imaging,2D, spectral and tissue Doppler, color flow Doppler, M-mode. INDICATIONS: I50.32 Chronic diastolic (congestive) heart failure. CONCLUSIONS: 1. Normal left ventricular size based on volume index. Normal LV wallthickness. Normal left ventricular systolic function. The Ejection Fraction (Fletcher's) ismeasured at 66 %. Grade II diastolic dysfunction (elevated mean LA pressure). The averageglobal longitudinal strain is borderline. 2. Right ventricular dilatation. Normal right ventricular systolicfunction. 3. Right atrial dilatation. 4. There is no significant valvular heart disease. COMPARISONS: No previous study available for comparison. ATTESTATION: I have personally reviewed and interpreted this study without fellow orresident. DISCLAIMER: The study images and the final report will be retained in the patientchart by the Echo Laboratory for the legally required time period. This chart constitutesthe legal record of any testing performed. FINDINGS: Study Quality: Study quality poor with limited visualization of cardiacstructures (unable to place IV for ultrasound enhancement agent). Left Ventricle: Normal left ventricular size based on volume index. NormalLV wall thickness. Normal left ventricular systolic function. The EjectionFraction (Fletcher's) is measured at 66 %. Grade II diastolic dysfunction (elevated mean LApressure). The average global longitudinal strain is borderline. The LV global strain is:-16.3 %. The ventricular septum is flattened or `D-shaped` in diastole, consistent withright ventricular volume overload. Right Ventricle: Right ventricular dilatation. Normal right ventricularsystolic function. Left Atrium: The left atrium is normal in size. Right Atrium: Right atrial dilatation. Mitral Valve: Normal mitral valve structure. No mitral regurgitation. Nostenosis present. Aortic Valve: Normal trileaflet aortic valve. No aortic regurgitation. Noaortic valve stenosis. Tricuspid Valve: Trace thickened tricuspid valve. Trace tricuspidregurgitation. No tricuspid valve stenosis. Pulmonic Valve: Normal pulmonic valve structure. No pulmonicregurgitation. No pulmonic valve stenosis present. Pericardium: Normal pericardium without pericardial effusion. Aorta: Normal aortic root size at sinuses of Valsalva. IVC: The IVC was <2.1 cm and collapsibility >50%. (est. RA pressure 0-5mmHg). The estimated RA pressure is 3 mmHg. PASP: Unable to determine PASP due to inadequate TR jet. Rhythm: Normal Sinus rhythm was seen during the study. MEASUREMENTS: 2D/MM Value Range DopplerValue Range LVIDd 2D 4.6 cm [ 3.8 - 5.2 ] AV Peak Vel1.7 m/s [ 1.0 - 1.7 ] LVIDs 2D 2.9 cm [ 2.2 - 3.5 ] AV Peak PG12 mmHg IVSd 2D 0.9 cm [ 0.6 - 0.9 ] AV Mean PG7 mmHg LVPWd 2D 0.9 cm [ 0.6 - 0.9 ] AV VTI42 cm LV Thickness Ratio 1.0 LVOT Peak Vel1.2 m/s [ 0.7 - 1.1 ] LV FS 2D 37.76 % [ 27.00 - 45.00 ] LVOT VTI27 cm RWT 0.39 LVOT Diam1.8 cm EDV Mod BP 100 ml [ 46 - 106 ] BLANCA VTI1.6 cm2 LV EDV Index 56 ml/m2 LVOT/AV VTI0.64 - Dimensionless index (DVI) ESV Mod BP 34 ml [ 14 - 42 ] MV E Peak Vel1.03 m/s [ 0.60 - 1.30 ] EF Mod BP 66 % [ 54 - 74 ] MV A Peak Vel1.14 m/s [ 1.00 - 1.20 ] LV GLS -16.3 % [ -25.0 - -18.0 ] MV E/A0.9 ratio [ 0.8 - 1.5 ] LA Volume BP 53 ml MV Decel [id number] LA Volume Index 30 ml/m2 [ 16 - 34 ] MV Decel [id number] msec [ 104 - 258 ] RV Base Dimen 2D 4.4 cm [ 2.5 - 4.2 ] Med E` Vel4.1 cm/sec [ 8.0 - 25.0 ] RV Mid Dimen 2D 3.0 cm Lat E` Vel5.8 cm/sec [ 10.0 - 25.0 ] RV ED Area 20 cm2 [ 8 - 20 ] Average E/E`21 RV ES Area 12 cm2 [ 3 - 11 ] RV S`13.6 cm/sec RV FAC 39 % [ 35 - 63 ] RA Pressure3 mmHg TAPSE 2.4 cm [ 1.7 - 5.0 ] PV Peak Vel1.2 m/s [ 0.4 - 0.8 ] RA Volume 51 ml PV Peak PG6 mmHg RA Volume Index29 ml/m2 IVC Diam1.9 cm IVC Collapse 63.6 % AoR Diam 2D 2.9 cm [ 2.7 - 3.3 ] Ao Root Index 1.6 cm/m2 [ 1.0 - 2.0 ] Electronically Signed By: Sharon Clarke MD 06/02/2025 11:20:58 AM CHAINSTITCH ELASTIC ATTACHER CC: Sakshi Dunn MD Skashi Dunn MD CV ECHO PROCEDURES Final R esult documented in this encounter Visit Diagnoses Diagnosis Chronic diastolic heart failure (HCC) Chronic diastolic heart failure documented in this encounter Orders Medications Ordered That Christiano ht Not Have Been Administered Count Last Ordered Date First Ordered Date perflutren lipid (DEFINITY) 1.5 mL in sodium chloride 0.9% 10 mL syringe 1 06/02/2025 documented in this encounter Care Teams Automotive Artist Relationship Specialty Start Date End Date Aniyah Mayorga MD [address] [place] [address] PCP - General Internal Medicine 06/02/25 documented as of this encounter
[2025-06-03] VITALS (14 sets, daily range): BP systolic 103–186; BP diastolic 67–106; PULSE 50–76; RESP 12–30; TEMP 36.6–36.9; O2SAT 90–98; BMI 34.6
--- NOTE | ~2025-06-03 | CT_ITS ---
CT cervical spine wo con HISTORY: fall COMPARISON: None TECHNIQUE: Axial images of the cervical spine were obtained. Multiplanar reconstruction in the coronal, sagittal and axial reformats to evaluate for cervical fracture. FINDINGS: The images demonstrate no acute fracture or paravertebral soft tissue swelling. Multilevel degenerative changes with disc bulging, endplate sclerotic changes and facet joint arthropathy most significant at C3-C4, C5-C6 and C6-C7. There is resulting moderate neural foraminal narrowing and central canal narrowing. Right pleural effusion is noted. IMPRESSION: No acute fracture or subluxation. All CT scans at this facility are performed using low dose modulation techniques as appropriate to perform exam including the following: automated exposure control; adjustment of the mA and/or kV according to patient size (this includes techniques or standardized protocols for targeted exams where does is matched to indication/reason for exam; i.e. extremities or head); use of iterative reconstruction technique). Reviewed, dictated and finalized at location [facility]
--- NOTE | ~2025-06-03 | XR_ITS ---
EXAMINATION: XR chest 1V portable COMPARISON: No comparisons available. HISTORY: hypoxic FINDINGS: Bilateral infiltrates superimposed on chronic lung disease. Small effusions. Moderate pulmonary venous congestion. No pneumothorax. Mild cardiomegaly. Mediastinal and hilar contours are within normal limits. Bony thorax no acute abnormality. Miscellaneous: None Impression: Bilateral pneumonia superimposed on chronic lung disease with probable underlying CHF. These findings appear minimally progressed compared to the previous study Reviewed, dictated and finalized at location [facility] Impression: Bilateral pneumonia superimposed on chronic lung disease with probable underlyi ng CHF. These findings appear minimally progressed compared to the previous kelvin dy
--- NOTE | ~2025-06-03 | CT_ITS ---
EXAMINATION: CT brain wo con, 06/03/2025 16:20 [facility] HISTORY: witnessed fall, L eyebrow hematoma COMPARISON: No comparisons available. Technique: Axial images obtained of the brain without contrast. One or more of the following dose reduction techniques were used: automated exposure control, adjustment of the mA and/or kV according to patient size, use of iterative reconstruction technique. Findings: No acute infarct or parenchymal hemorrhage. No abnormal mass or mass effect. No midline shift. No extra-axial fluid collections. No hydrocephalus. Mastoid air cells unremarkable. Sinuses and orbits unremarkable. No acute fracture. No significant facial or scalp soft tissue swelling evident. No radiopaque foreign body is seen. Impression: 1.No acute intracranial abnormality. Reviewed, dictated and finalized at location [facility]. [facility] Impression: 1.No acute intracranial abnormality.
--- NOTE | 2025-06-03 15:33 | PC.NURSE ---
This RN attempted to call [facility] to speak with pt. nurse with no success.
--- NOTE | 2025-06-03 16:36 | ED.HEATRA ---
HPI - Head Injury General Chief complaint: Head Injury Stated complaint: eye swelling Time Seen by Provider: 06/03/25 15:52 History of Present Illness HPI Narrative: Patient was sitting in a wheelchair at her longterm when her foot got tangled and she slipped forward, hitting her head on a CT by, she did not actually fall out of wheelchair. She is denying any complaints, though according to the/longterm, she seems to require more oxygen than usual. Related Data Home Medications ?Medication ?Instructions ?Recorded ?Confirmed ?Last Taken ?Type alprazolam 0.5 mg tablet 0.5 mg PO BID Anxiety 09/25/24 05/07/25 05/06/25 History atorvastatin 40 mg tablet 40 mg PO HS Hyperlipidemia 09/25/24 05/07/25 05/06/25 History buspirone 10 mg tablet 10 mg PO TID 09/25/24 05/07/25 05/05/25 History fluticasone 250 mcg-salmeterol 50 1 inh inhalation DAILY 50 mcg in 09/25/24 05/07/25 05/06/25 History mcg/dose blistr powdr for each nostril one time daily inhalation (Advair Diskus) levothyroxine 175 mcg tablet 175 mcg PO DAILY 09/25/24 05/07/25 05/06/25 History oxybutynin chloride 5 mg 5 mg PO DAILY 09/25/24 05/07/25 05/06/25 History tablet,extended release 24 hr pantoprazole 40 mg tablet,delayed 40 mg PO Q12H 09/25/24 05/07/25 05/06/25 History release trazodone 50 mg tablet 75 mg PO HS Insomnia 09/25/24 05/07/25 05/05/25 History montelukast 10 mg tablet 10 mg PO DAILY 10/28/24 05/07/25 05/06/25 History (Singulair) aspirin 81 mg chewable tablet 81 mg PO DAILY Heart Failure 05/07/25 05/07/25 05/06/25 History calcium carbonate (Antacid Ultra 1,000 mg PO DAILY GERD 05/07/25 05/07/25 05/06/25 History Strength) cholecalciferol (vitamin D3) 25 25 mcg PO DAILY 05/07/25 05/07/25 05/06/25 History mcg (1,000 unit) capsule (Vitamin D3) clobetasol 0.05 % topical cream 1 applic topical HS 05/07/25 05/07/25 05/05/25 History ergocalciferol (vitamin D2) 1,250 50,000 unit PO WEEKLY Take Every 05/07/25 05/07/25 Unknown History mcg (50,000 unit) capsule Monday Morning ferrous sulfate 325 mg (65 mg 325 mg PO DAILY Anemia 05/07/25 05/07/25 05/06/25 History iron) tablet (FeroSul) fluoxetine 40 mg capsule 40 mg PO DAILY 05/07/25 05/07/25 05/06/25 History fluticasone propionate 50 1 spray intranasal DAILY 05/07/25 05/07/25 Unknown History mcg/actuation nasal spray,suspension furosemide 20 mg tablet 20 mg PO BID 05/07/25 05/07/25 05/06/25 History insulin lispro 100 unit/mL 1 sliding scale dose subcut 05/07/25 05/07/25 Unknown History subcutaneous solution (Humalog USEASDIRECTD U-100 Insulin) nifedipine 30 mg tablet,extended 30 mg PO DAILY 05/07/25 05/07/25 05/06/25 History release 24 hr psyllium 1 packet PO DAILY 05/07/25 05/07/25 05/05/25 History risankizumab-rzaa 360 mg/2.4 mL 360 mg subcut .Every 56 Days 05/07/25 05/07/25 Unknown History (150 mg/mL) subcut wearable injector (Skyrizi) topiramate 50 mg tablet 50 mg PO DAILY Seizures 05/07/25 05/07/25 05/06/25 History Allergies Allergy/AdvReac Type Severity Reaction Status Date / Time No Known Allergies Allergy Verified 06/03/25 15:34 Review of Systems Review of Systems: All systems reviewed & are unremarkable except as noted in HPI and below PMFSH Past Medical History Medical History Hypertension COPD (chronic obstructive pulmonary disease) Diabetes Sleep apnea Insomnia Hyperlipidemia Anxiety Anemia Major depressive disorder Hypothyroid Heart failure GERD (gastroesophageal reflux disease) End stage renal disease Surgical History Surgical History History of carpal tunnel release Social History Social History Smoking packs per day: 0.5 Smoking cigarettes per day: 10.0 Smoking status: Never smoker Alcohol intake: never Substance use: never Substance use type: does not use Lack of Transportation: No Lack of Food: Never True Current Housing: I Have Housing Concerned About Future Housing: No Difficulty Paying Gas/Electric Bills: No Difficulty Paying for Meds: No Currently Unemployed: No Education: Grade School Difficulty w/ Childcare or Family Care: No Spiritual care concerns: No Exam Narrative: EXAMINATION OF ORGAN SYSTEMS/BODY AREAS: Constitutional: Vital signs per nursing GENERAL:No acute distress, non-toxic appearing. HEAD: Small contusion forehead EYES: EOMI, conjunctiva normal ENT: Hearing grossly intact LUNGS: Coarse lung sounds HEART: Regular rate and rhythm ABD: Soft, nontender to palpation EXT: Bilateral lower extremity pitting edema SKIN: No rashes or lesions. NEURO: Alert. No gross focal sensory or strength deficits. PSYCH: Normal affect Course Vital Signs Vital signs: Vital Signs Temperature 97.8 F 06/03/25 15:38 Pulse Rate 57 L 06/03/25 15:38 Respiratory Rate 20 06/03/25 15:38 Blood Pressure 161/91 H 06/03/25 15:38 Pulse Oximetry 92 06/03/25 15:38 Oxygen Delivery Nasal Cannula 06/03/25 15:38 Oxygen Flow Rate 3 06/03/25 15:38 Temperature 97.8 F 06/03/25 15:38 Pulse Rate 65 06/03/25 16:45 Respiratory Rate 19 06/03/25 16:45 Blood Pressure 177/72 H 06/03/25 16:17 Pulse Oximetry 91 06/03/25 16:45 Oxygen Delivery Nasal Cannula 06/03/25 15:38 Oxygen Flow Rate 3 06/03/25 15:38 MDM MDM Narrative Medical decision making narrative: 79-year-old female presenting to the emergency department after she got tangled and hit her head while sitting in her wheelchair, hitting her head. Also reportedly had lower oxygen than usual per longterm. On exam she has coarse lung sound bilateral lower extremity edema, higher oxygen requirement at 3 L oxygen. When nursing attempted to help patient to bathroom, she immediately desaturated and turned purple, and they had to increase her oxygen. Chest x-ray obtained with bilateral patchy opacities, likely volume overload, per radiologist's possible pneumonia though I feel this is much less likely without elevated white count, cough, fevers. CT head and C-spine negative for acute abnormality other than signs of pleural effusion At this point do feel she would benefit from admission for diuresis. Discussed with hospitalist. Differential Diagnosis Differential Diagnosis: CHF exacerbation, COPD exacerbation, very unlikely pneumonia without cough, fevers or chills. Fractures, contusions, intracranial hemorrhage Imaging Data Radiologist's impression: ITS Impressions Head CT 06/03/25 16:37 Impression: 1.No acute intracranial abnormality. Discharge Plan Discharge Clinical Impression: Acute exacerbation of CHF (congestive heart failure) Patient Disposition: Still a Patient Condition: Stable Patient Language: Hungarian Prescriptions: No Action montelukast [Singulair] 10 mg tablet 10 mg PO DAILY alprazolam 0.5 mg tablet 0.5 mg PO BID atorvastatin 40 mg tablet 40 mg PO HS levothyroxine 175 mcg tablet 175 mcg PO DAILY pantoprazole 40 mg tablet,delayed release (DR/EC) 40 mg PO Q12H buspirone 10 mg tablet 10 mg PO TID oxybutynin chloride 5 mg tablet extended release 24hr 5 mg PO DAILY trazodone 50 mg tablet 75 mg PO HS fluticasone propion-salmeterol [Advair Diskus] 250-50 mcg/dose blister with device 1 inh inhalation DAILY aspirin 81 mg tablet,chewable 81 mg PO DAILY calcium carbonate [Antacid Ultra Strength] 400 mg calcium (1,000 mg) tablet,chewable 1,000 mg PO DAILY ergocalciferol (vitamin D2) 1,250 mcg (50,000 unit) capsule 50,000 unit PO WEEKLY ferrous sulfate [FeroSul] 325 mg (65 mg iron) tablet 325 mg PO DAILY fluoxetine 40 mg capsule 40 mg PO DAILY nifedipine 30 mg tablet extended release 24hr 30 mg PO DAILY Skyrizi 360 mg/2.4 mL (150 mg/mL) wearable injector 360 mg subcut .Every 56 Days topiramate 50 mg tablet 50 mg PO DAILY cholecalciferol (vitamin D3) [Vitamin D3] 25 mcg (1,000 unit) capsule 25 mcg PO DAILY furosemide 20 mg tablet 20 mg PO BID fluticasone propionate 50 mcg/actuation spray,suspension 1 spray INTRANASAL DAILY insulin lispro [Humalog U-100 Insulin] 100 unit/mL solution 1 sliding scale dose subcut USEASDIRECTD psyllium Packet 1 packet PO DAILY Rx Instructions: mix into at least 8 oz of water or juice before administering clobetasol 0.05 % cream 1 applic TOPICAL HS Patient Comments: Apply topically to affected area every night for hemorrhoids Jardiance 10 mg Tablet 10 mg PO DAILY Qty: 30 0RF Follow-up/Referrals: UNKNOWN,DOCTOR [Primary Care Provider]
--- OUTSIDE RECORDS SUMMARY | 2025-06-03 17:00 | XMS_ITS | Encounter Summary ---
Author Organization [facility] Health Address [address] [facility] [place] [address] Care Team Providers Care Engraver Machine Name Role Phone Jose Whaley DO Primary Care Provider Rob Dozier MD Primary Care Provider [phone] Encounter Details Date Type Department Care Team (Late st Contact Info) Description 08/21/2024 Telephone [facility] D[facility] [place] [phone] Vasquez Lewis MD [address] [address] Social History Tobacco Use Types Packs/Day Years [...] and heating? Not hard at all 07/11/2024 [facility] [place] of Occupat ional Health - Occupational Stress [...] any time in the past 12 m [facility], were you homeless or living in a retirement (including now)? No 07/11/2024 Comments Unknown Sex and Gender Information Value Date Recorded Sex Assigned at Not on file Legal Sex Female 6:00 PM GASOLINE TRUCK OPERATOR Gender Identity Not on file Sexual [...] of Assessment Author Yes 08/06/2024 4:10 PM GASOLINE TRUCK OPERATOR Lawanda Jacome RN documented as of this encounter Mental Status * Does person have difficulty concentrating/remembering/making decisions? Answer Entry Date Author Yes 08/06/2024 4:10 PM GASOLINE TRUCK OPERATOR Lawanda Jacome RN documented in this encounter Miscellaneous Notes * Telephone Encounter - Eliseo Quach - 08/21/2024 10:39 AM CST error LINE TRUCK OPERATOR documented in this encounter Plan of Treatment Upcoming Encounters Date Type Department Care Team (Late st Contact Info) Description 06/24/2025 11:10 AM GASOLINE TRUCK OPERATOR Office Visit [facility] - Dermatology [address] [place] [phone] Rogelio Shaikh MD [address] [place] [phone] 07/29/2025 11:10 AM GASOLINE TRUCK OPERATOR Office Visit [facility] - Dermatology [address] [place] [phone] Rogelio Shaikh MD [address] [place] [phone] 10/13/2025 10:30 AM CDT Office Visit [facility] - GI [address] [place] [phone] Chapo Sagastume MD [address] [place] [phone] documented as of this encounter Goals Goal [...] on filedocumented in this encounter Care Teams Engraver Machine Relationship Specialty [place] [address] [address] [address] PCP - General 10/09/15 11/25/24 Rob Dozier MD [address] [place] [address] PCP - General Internal Medicine 11/26/24 documented as of this encounter
--- OUTSIDE RECORDS SUMMARY | 2025-06-03 17:01 | XMS_ITS | Encounter Summary ---
Author Organization [facility] Address [address] [facility] [place] [address] Care Team Providers Care Revenue Enforcement Collection Agent Name Role Phone Rob Dozier MD Primary Care Provider + [phone] Reason for Visit * Reason Onset Date Comments Appointment 12/13/2024 Encounter Details Date Type Department Care Team (Late st Contact Info) Description 12/13/2024 Telephone [facility] - Centralized Scheduling [address] [place] [phone] Ana Luisa Frazier MD [address] [place] [address] Appointment Social History Tobacco Use Types Packs/Day [...] Never 07/11/2024 Overall Financial Resource Strain (CARDIA) Hayle[place] r Date Recorded How hard is it for you to pa y for the very basics like food, housing, medical care, and heating? Not hard at all 07/11/2024 [facility] [place] of Occupat ional Health - Occupational Stress [...] any time in the past 12 m [facility], were you homeless or living in a halfway (including now)? No 07/11/2024 Comments Unknown Sex and Gender Information Value Date Recorded Sex Assigned at Not on file Legal Sex Female 6:00 PM DIRECTOR DATA ARCHITECTURE Gender Identity Not on file Sexual Orientation [...] Entry Date Author Yes 08/06/2024 4:10 PM DIRECTOR DATA ARCHITECTURE Lawanda Jacome RN documented in this encounter [...] to still come in that day n [phone] documented in this encounter Plan of Treatment Upcoming Encounters Date Type Department Care Team (Late st Contact Info) Description 06/24/2025 11:10 AM DIRECTOR DATA ARCHITECTURE Office Visit [facility] - Dermatology [address] [place] [address], [place] [address] Rogelio Shaikh MD [address] [place] [phone] 07/29/2025 11:10 AM DIRECTOR DATA ARCHITECTURE Office Visit [facility] - Dermatology [address] [place] [phone] Rogelio Shaikh MD [address] [place] [phone] 10/13/2025 10:30 AM CDT Office Visit [facility] - GI [address] [facility], [place] [address] Chapo Sagastume MD [address] [place] [address] documented as of this encounter Goals Goal [...] on filedocumented in this encounter Care Teams Revenue Enforcement Collection Agent Relationship Specialty Start Date End Date Rob Dozier MD [address] [place] [phone] PCP - General Internal Medicine 11/26/24 documented as of this encounter
--- OUTSIDE RECORDS SUMMARY | 2025-06-03 17:01 | XMS_ITS | Encounter Summary ---
Author Organization [facility] Health Address [address] [facility] [place] [address] Care Team Providers Care Mutuel Clerk Name Role Phone Jose Whaley DO Primary Care Provider Rob Dozier MD Primary Care Provider [phone] Reason for Visit * Reason Onset Date Comments Nurse Only 07/19/2024 Encounter Details Date Type Department Care Team (Late st Contact Info) Description 07/19/2024 Telephone [facility] Dermatology [address] [facility], [place] [address] Ana Luisa Muro MD [address] [facility] [place] [place] [address] Nurse Only Social History Tobacco [...] and heating? Not hard at all 07/11/2024 [facility] [place] of Occupat ional Health - Occupational Stress [...] any time in the past 12 m [facility], were you homeless or living in a long-term (including now)? No 07/11/2024 Comments Unknown Sex [...] Herman Holland RN * Does person have serious difficulty walking/climbing stairs? Answer Date of Assessment Author Yes 07/11/2024 6:00 PM Herman Holland, RN * Does person have difficulty dressing/bathing? Answer Date of Assessment Author Yes 07/11/2024 6:00 PM Herman Holland RN * Does person have difficulty doing errands alone? Answer Date of Assessment Author Yes 07/11/2024 6:00 PM Herman Holland ie, RN documented as of this encounter Mental Status * Does person have difficulty concentrating/remembering/making decisions? Answer Entry Date Author Yes 07/11/2024 6:00 PM PIG MACHINE CRANE OPERATOR Herman Marquez, RN documented in this encounter Miscellaneous Notes * Telephone Encounter - Freddy Aragon - 07/22/2024 3:29 PM CST Spoke to nurse berumen pt was diagnosed with pyoderma gangrenosum. And needed clarification on howmuch time the ulcer should be in contact with air. MACHINE CRANE OPERATOR * Telephone Encounter - Steven Soto - 07/22/2024 1:48 PM CST Nurse Sary called this afternoon wanting to get a clarification for wound care instructions that she was receiving in the hospital that patient was to continue at the skilled nursing. Her direct phone number is [phone]. Please advise MACHINE CRANE OPERATOR * Telephone Encounter - Mario Suarez - 07/19/2024 11:42 AM CST Nurse berumen is calling to get a clarification for after wound care. She would like to speak to anurse over at derm. Her direct phone number is [phone]. MACHINE CRANE OPERATOR documented in this encounter Plan of Treatment Upcoming Encounters Date Type Department Care Team (Late st Contact Info) Description 06/24/2025 11:10 AM PIG MACHINE CRANE OPERATOR Office Visit [facility] - Dermatology [address] [place] [address], [facility] [place] [address] Rogeloi Shaikh MD [address] [place] [phone] 07/29/2025 11:10 AM PIG MACHINE CRANE OPERATOR Office Visit [facility] - Dermatology [address] [place] [address], [facility] [place] [address] Rogelio Shaikh MD [address] [place] [address], [place] [address] 10/13/2025 10:30 AM CDT Office Visit [facility] - GI [address] [facility] [place] [address] Chapo Sagastume MD [address] [place] [address] documented as of this encounter Visit Diagnoses Not on filedocumented in this encounter Additional Health Concerns Infection Onset Date Last Indicated Resolved Time CDIFF Under Investigation 08/12/2024 08/12/2024 3:49 PM PIG MACHINE CRANE OPERATOR documented as of this encounter Care Teams Mutuel Clerk Relationship Specialty [place] [address] [facility] [address] [place] [phone] PCP - General 10/09/15 11/25/24 Rob Dozier MD [address] [place] [address] PCP - General Internal Medicine 11/26/24 documented as of this encounter
--- OUTSIDE RECORDS SUMMARY | 2025-06-03 17:01 | XMS_ITS | Encounter Summary ---
Author Organization [facility] Address [address] [place] [address] Phone Care Team Providers Care Manager Agriculture Name Role Phone Aniyah Mayorga MD Primary Care Provider [phone] Encounter Details Date Type Department Care Team (Late st Contact Info) Description 06/03/2025 Telephone [facility] Medicine Cardiology [address] [facility] Advanced Medicine 8th [place] [address] [place] [address] Marie Blanchard MD [address] [facility] [address] [place] [address] Social History Tobacco Use Types Packs/Day Years [...] on file Legal Sex Female 10:47 AM INK GRINDER Gender Identity Not on file Sexual Orientation Not on file documented as of this encounter Miscellaneous Notes * Telephone Encounter - Jayna De La Vega RN - 06/03/2025 2:19 PM CST [facility] to call us to confirm that monitor was received, to call number on box for assistance on how to apply.Call back number provided. GRINDER documented in this encounter Plan of Treatment Not on file documented as of this encounter Visit Diagnoses Not on filedocumented in this encounter Care Teams Manager Agriculture Relationship Specialty Start Date End Date Aniyah Mayorga MD [address] [place] [address] PCP - General Internal Medicine 06/02/25 documented as of this encounter
--- OUTSIDE RECORDS SUMMARY | 2025-06-03 17:01 | XMS_ITS | Encounter Summary ---
Author Organization [facility] Address [address] [facility] [place] [address] Care Team Providers Care Network Support Engineer Name Role Phone Rob Dozier MD Primary Care Provider + [phone] Reason for Visit * Reason Onset Date Comments Question 12/10/2024 Encounter Details Date Type Department Care Team (Late st Contact Info) Description 12/10/2024 Telephone [facility] - Centralized Scheduling [address] [place] [address] Rogelio Shaikh MD [address] [place] [address] Question Social History Tobacco Use [...] and heating? Not hard at all 07/11/2024 [facility] [place] of Occupat ional Health - Occupational Stress [...] in the past 12 m [facility], were you homeless or living in a care home (including now)? No 07/11/2024 Comments Unknown Sex and Gender Information Value Date Recorded Sex Assigned at Not on file Legal Sex Female 6:00 PM AGING BOX HAND Gender Identity Not on file Sexual Orientation [...] of Assessment Author Yes 08/06/2024 4:10 PM AGING BOX HAND Muren, Wi lliam, RN documented as of this encounter Mental Status * Does person have difficulty concentrating/remembering/making decisions? Answer Entry Date Author Yes 08/06/2024 4:10 PM AGING BOX HAND Lawanda Jacome RN documented in this encounter Miscellaneous Notes * Telephone Encounter - Mena Garcia - 01/22/2025 8:16 AM CDT Nurse from [facility] is requesting to speak with a nurse regarding pt appointment being canceled. CB# [phone] * Telephone Encounter - Senait Sampson - 12/10/2024 2:15 PM CDT Patient is having an outbreak of blisters on her lower extremities. Left calve is red and swollen, please call with instructions. documented in this encounter Plan of Treatment Upcoming Encounters Date Type Department Care Team (Late st Contact Info) Description 06/24/2025 11:10 AM AGING BOX HAND Office Visit [facility] - Dermatology [address] [place] [phone] Rogelio Shaikh MD [address] [place] [phone] 07/29/2025 11:10 AM AGING BOX HAND Office Visit [facility] - Dermatology [address] [place] [phone] Rogelio Shaikh MD [address] [place] [phone] 10/13/2025 10:30 AM CDT Office Visit [facility] - GI [address] [place] [phone] Chapo Sagastume MD [address] [place] [phone] documented as of this encounter Goals Goal [...] on filedocumented in this encounter Care Teams Network Support Engineer Relationship Specialty Start Date End Date Rob Dozier MD [address] [place] [address] PCP - General Internal Medicine 11/26/24 documented as of this encounter
--- OUTSIDE RECORDS SUMMARY | 2025-06-03 17:01 | XMS_ITS | Encounter Summary ---
Author Organization [facility] Address [address] [place] [address] Care Team Providers Care Manager Business Operations Name Role Phone Rob Dozier MD Primary Care Provider + [phone] Reason for Visit * Reason Onset Date Comments Med Question 11/26/2024 Encounter Details Date Type Department Care Team (Late st Contact Info) Description 11/26/2024 Telephone [facility] - Dermatology [address] [facility], [place] [address] Ana Luisa Muro MD [address] [facility] [place] [place] [address] Med Question Social History Tobacco Use Types [...] and heating? Not hard at all 07/11/2024 [facility] [place] of Occupat ional Health - Occupational Stress [...] any time in the past 12 m [facility], were you homeless or living in a detention (including now)? No 07/11/2024 Comments Unknown Sex and Gender Information Value Date Recorded Sex Assigned at Not on file Legal Sex Female 6:00 PM APPLICATION DBA Gender Identity Not on file Sexual Orientation [...] Entry Date Author Yes 08/06/2024 4:10 PM APPLICATION DBA Lawanda Jacome RN documented in this encounter Miscellaneous Notes * Telephone Encounter - Yung Sparks - 11/26/2024 1:16 PM CDT Alanna from [facility] facility called in regards to a note that was sent in with pt for today 11/26/24 visit inquiring about notes and wound clinic requesting a call to discus and or update. Please assist and advise. documented in this encounter Plan of Treatment Upcoming Encounters Date Type Department Care Team (Late st Contact Info) Description 06/24/2025 11:10 AM APPLICATION DBA Office Visit [facility] - Dermatology [address] [place] [phone] Rogelio Shaikh MD [address] [place] [place] [phone] 07/29/2025 11:10 AM APPLICATION DBA Office Visit [facility] - Dermatology [address] [place] [phone] Rogelio Shaikh MD [address] [place] [place] [phone] 10/13/2025 10:30 AM CDT Office Visit [facility] - GI [address] [place] [phone] Chapo Sagastume MD [address] [place] [phone] documented as of this encounter Goals Goal [...] filedocumented in this encounter Care Teams Manager Business Operations Relationship Specialty Start Date End Date Rob Dozier MD [address] [place] [phone] PCP - General Internal Medicine 11/26/24 documented as of this encounter
--- OUTSIDE RECORDS SUMMARY | 2025-06-03 17:01 | XMS_ITS | Encounter Summary ---
Author Organization [facility] Address [address] [facility] [place] [address] Care Team Providers Care Pesticide Applicator Name Role Phone Rob Dozier MD Primary Care Provider + [phone] Reason for Visit * Reason Onset Date Comments Question 12/06/2024 Encounter Details Date Type Department Care Team (Late st Contact Info) Description 12/06/2024 Telephone [facility] - Centralized Scheduling [address] [place] [address] Rogelio Shaikh MD [address] [place] [address] Question Social History Tobacco Use [...] and heating? Not hard at all 07/11/2024 [facility] [place] of Occupat ional Health - Occupational Stress [...] time in the past 12 m [facility], were you homeless or living in a custodial (including now)? No 07/11/2024 Comments Unknown Sex and Gender Information Value Date Recorded Sex Assigned at Not on file Legal Sex Female 6:00 PM TRANSACTION PROCESSOR Gender Identity Not on file Sexual Orientation Not on file documented as of this encounter Functional Status * Is person deaf or have serious hearing difficulty? Answer Date of Assessment Author No 08/06/2024 4:10 PM Lawanda Howard RN * Is person blind or have serious difficulty seeing? Answer Date of Assessment Author No 08/06/2024 4:10 PM Lawadna Howard RN * Does person have serious [...] Entry Date Author Yes 08/06/2024 4:10 PM TRANSACTION PROCESSOR Lawanda Jacome RN documented in this encounter [...] st Contact Info) Description 06/24/2025 11:10 AM TRANSACTION PROCESSOR Office Visit [facility] - Dermatology [address] [place] [phone] Rogelio Shaikh MD [address] [place] [phone] 07/29/2025 11:10 AM TRANSACTION PROCESSOR Office Visit [facility] Dermatology [address] [place] [phone] Rogelio Shaikh MD [address] [place] [phone] 10/13/2025 10:30 AM CDT Office Visit [facility] - GI [address] [place] [phone] Chapo Sagastume MD [address] [place] [phone] documented as of this encounter Goals Goal [...] on filedocumented in this encounter Care Teams Pesticide Applicator Relationship Specialty Start Date End Date Rob Dozier MD [address] [place] [phone] PCP - General Internal Medicine 11/26/24 documented as of this encounter
--- OUTSIDE RECORDS SUMMARY | 2025-06-03 17:01 | XMS_ITS | Encounter Summary ---
Author Organization [facility] Address [address] [facility] [place] [address] Care Team Providers Care Kettle Room Helper Name Role Phone Rob Dozier MD Primary Care Provider + [phone] Reason for Visit * Reason Onset Date Comments Returned Call 12/10/2024 Encounter Details Date Type Department Care Team (Late st Contact Info) Description 12/10/2024 Telephone [facility] Dermatology [address] [facility] [place] [address] Rogelio Shaikh MD [address] [facility] [place] [address] Returned Call Social History Tobacco [...] and heating? Not hard at all 07/11/2024 [facility] [place] of Occupat ional Health - Occupational Stress [...] any time in the past 12 m [facility], were you homeless or living in a [place] [facility] facility (including now)? No 07/11/2024 Comments Unknown Sex and Gender Information Value Date Recorded Sex Assigned at Not on file Legal Sex Female 6:00 PM ERRAND RUNNER Gender Identity Not on file Sexual Orientation [...] Entry Date Author Yes 08/06/2024 4:10 PM ERRAND RUNNER Lawanda Jacome RN documented in this encounter Miscellaneous Notes * Telephone Encounter - Pili Garg - 12/10/2024 10:23 AM CDT Office is returning a missed call for the pt. documented in this encounter Plan of Treatment Upcoming Encounters Date Type Department Care Team (Late st Contact Info) Description 06/24/2025 11:10 AM ERRAND RUNNER Office Visit [facility] - Dermatology [address] [place] [phone] Rogelio Shaikh MD [address] [place] [phone] 07/29/2025 11:10 AM ERRAND RUNNER Office Visit [facility] Dermatology [address] [place] [phone] Rogelio Shaikh MD [address] [place] [phone] 10/13/2025 10:30 AM CDT Office Visit [facility] GI [address] [place] [phone] Chapo Sagastume MD [address] [place] [phone] documented as of this encounter Goals Goal [...] on filedocumented in this encounter Care Teams Kettle Room Helper Relationship Specialty Start Date End Date Rob Dozier MD [address] [place] [phone] PCP - General Internal Medicine 11/26/24 documented as of this encounter
--- OUTSIDE RECORDS SUMMARY | 2025-06-03 17:01 | XMS_ITS | Clinical Summary ---
Author Organization [facility] Address [address] [facility] Medical Office [facility] [address] [place] [address] Care Team Providers Care Loan Collector Name Role Phone Aniyah Mayorga MD Primary Care Provider Allergies No known active allergies Medications aspirin [...] 07/23/2024 Assessment & Plan (07/24/2024 1:59 PM FAMILY DAY CARER): Chronic, intermittent diarrhea. Up to 3 loose BM per day. Ongoing for the last 8-9 months. Patient has not obtained stool studies as ordered last visit. Reports colonoscopy 2 years ago, report is unavailable to review. Recent admission admission at [facility] for oral ulcers and LLE wound. Leg wound biopsy consistent with pyoderma gangrenosum. Per discharge summary, she has outpatient dermatology follow up arranged at [facility] in August, for which they will assess [...] Lockhart. As patient has follow up at [facility] for further management of PG/initiation of TNF therapy, feel it is best for her to follow up with [facility] GI for further care. Our office will send an urgent referral for her to be seen as soon as possible. Patient's niece was made aware. Will also attempt to obtain prior Colonoscopy report from [facility] - In the meantime, recommend trial of Align Probiotic and Metamucil BID. - Called patient's niece and discussed above recommendations and plan. Niece again states she is not the patient's POA, and patient does not have a POA currently. - Patient advised to keep her follow ups with Dermatology and Rheumatology Anemia 07/23/2024 Assessment & Plan (07/23/2024 4:55 PM FAMILY DAY CARER): Review of recent admission labs show Hgb [...] 07/16/2024 Hyperlipidemia associated with type 2 diabetes reyna calzada 10/21/2022 Overview (07/30/2024): Last Assessment & Plan: [...] seek urgent/emergent care including calling Suicide Hotline (949 or ) or 911. Follow up in one month with Psychologist/Counselor/SupportGroup/Psychiatrist TRISHA (generalized anxiety disorder) 04/08/2022 Overview (07/30/2024): Last Assessment & Plan: Condition: stable Follow up in: if symptoms worsen or fail to improve Essential (primary) hypertension 06/09/2015 Encounters Date Type Department Care Team Description 06/03/2025 Telephone [facility] Cardiology [address] [place] [address] 8th [place] [address] [place] [address] Sakshi Blanchard MD 06/02/2025 9:28 AM FAMILY DAY CARER - 06/02/2025 11:59 PM FAMILY DAY CARER Hospital Encounter [facility] Radiology Echo Lab [address] [place] [address] Chronic diastolic heart failure (HCC) Discharge Disposition: Discharge to home or self care 05/23/2025 Telephone [facility] Cardiology [address] [place] [address] 8th [place] [address] [place] [address] Sakshi Blanchard MD 05/19/2025 12:15 PM FAMILY DAY CARER Ancillary Procedure [facility] Cardiology [address] [place] [address] [place] [address] Abnormal ECG 05/13/2025 Telephone [facility] Cardiology [address] [place] [address] [place] [address] [place] [address] Sakshi Blanchard MD 05/09/2025 Telephone [facility] Cardiology [address] [place] [address] 8th [place] [address] [place] [address] Sakshi Blanchard MD 05/06/2025 Results Follow-Up [facility] Cardiology [address] [place] [address] [place] [address] [place] [address] Sakshi Blanchard MD ECG 12 lead, Iron profile w/ IBC, Ferritin, Additional followed-up results: 11 05/05/2025 1:15 PM FAMILY DAY CARER Lab [facility] [address] [place] [address] Heart failure, unspecified HF chronicity, unspecified heart failure type (HCC); Chronic kidney disease, unspecified CKD stage; Primary hypertension; 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) 05/05/2025 11:30 AM FAMILY DAY CARER Office Visit [facility] Medicine Cardiology [address] [facility] Medical Office Building [address] [place] [address] Sakshi Blanchard MD Chronic diastolic heart failure (HCC) (Primary Dx); Chronic hypoxic respiratory failure (HCC); 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); Chronic kidney disease, unspecified CKD stage; Lymphedema; Abnormal ECG; Primary hypertension 05/01/2025 Documentation [facility] Medicine Scheduling [address] [place] [address] Rayna Vega IM DOC 04/30/2025 Telephone [facility] Cardiology [address] [facility] 8th [place] [address] [place] [id number] Neva Lima from Last 3 Months Surgical [...] on file Legal Sex Female 10:47 AM FAMILY DAY CARER Gender Identity Not on file Sexual Orientation Not on file Last Filed Vital Signs Vital Sign Reading Time Taken Comments Blood Pressure 108/56 05/05/2025 11:58 AM FAMILY DAY CARER Pulse 45 05/05/2025 11:58 AM FAMILY DAY CARER Temperature 36.2 C (97.2 F) 01/15/2024 10:08 AM CDT Respiratory Rate - - Oxygen Saturation 93% 05/05/2025 11:58 AM FAMILY DAY CARER Inhaled Oxygen Concentration - - Weight 75.3 kg (166 lb) 10/03/2024 3:27 PM CDT Height 160 cm (5' 3) 05/05/2025 11:58 AM FAMILY DAY CARER Body Mass Index 29.41 10/03/2024 3:27 PM [...] DOPPLER/CF WO CONTRAST Routine 06/02/2025 10:30 AM FAMILY DAY CARER Chronic diastolic heart failure (HCC) EGFR Routine 05/05/2025 1:08 PM FAMILY DAY CARER Primary hypertension T4, FREE Routine 05/05/2025 1:08 PM FAMILY DAY CARER Primary hypertension DIFFERENTIAL AUTO Routine 05/05/2025 1:0 8 PM FAMILY DAY CARER Primary hypertension LIPOPROTEIN A (LPA) Routine 05/05/2025 1 :08 PM FAMILY DAY CARER Primary hypertension LIPID PANEL Routine 05/05/2025 1:08 PM FAMILY DAY CARER Primary hypertension APOLIPOPROTEIN B Routine 05/05/2025 1:08 PM FAMILY DAY CARER Primary hypertension BASIC METABOLIC PANEL Routine 05/05/2025 1:08 PM FAMILY DAY CARER Primary hypertension HEMOGLOBIN A1C Routine 05/05/2025 1:08 PM FAMILY DAY CARER 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) PRO B-TYPE NATRIURETIC PEPTIDE Routine 05/05/2025 1:08 PM FAMILY DAY CARER Heart failure, unspecified HF chronicity, unspecified heart failure type (HCC) Primary hypertension THYROID FUNCTION CASCADE Routine 05/05/2025 1:08 PM FAMILY DAY CARER Primary hypertension CBC WITH AUTO DIFFERENTIAL Routine 05/05/2025 1:08 PM FAMILY DAY CARER Primary hypertension FERRITIN Routine 05/05/2025 1:08 PM FAMILY DAY CARER Heart failure, unspecified HF chronicity, unspecified heart failure type (HCC) Chronic kidney disease, unspecified CKD stage IRON PROFILE W/ IBC Routine 05/05/2025 1 :08 PM FAMILY DAY CARER Heart failure, unspecified HF chronicity, unspecified heart failure type (HCC) Chronic kidney disease, unspecified CKD stage ECG 12-LEAD Routine 05/05/2025 12:00 PM FAMILY DAY CARER Chronic diastolic heart failure (HCC) from Last 3 Months Results * TRANSTHORACIC ECHO (TTE) COMPLETE W DOPPLER/CF WO CONTRAST (06/02/2025 10:30 AM FAMILY DAY CARER) EF Mod BP 66 % CONS SCIMAGE Anatomical Region Laterality Modality Ultrasound 06/02/2025 9:34 AM FAMILY DAY CARER Narrative 06/02/2025 11:21 AM FAMILY DAY CARER [facility] Cardiac [place] [address] Transthoracic Echocardiographic Report Patient Name: DANYELL GARG M : 1945 (79y 6m) Sex: F Study Date: 06/02/2025 09:34:48 AM Ht(Inch): 63 Wt(Lb): 166.01 BSA: 1.79 Animal Sticker: MAYCOL Location: [facility] Order Provider: SAKSHI BLANCHARD Heart Rate: 59 BMI: 29.4 BP: 156 / 62 Ref Provider: SAKSHI BLANCHARD PROCEDURES: Echocardiographic Report: Transthoracic complete echo with [...] LA Volume BP 53 ml MV Decel Sutton 297 LA Volume Index 30 ml/m2 [ [...] By: Sharon Clarke MD 06/02/2025 11:20:58 AM FAMILY DAY CARER CC: Saksih Blanchard MD Procedure Note De Sharon Fajardo MD - 06/02/2025 [facility] [place] [address] Transthoracic Echocardiographic Report Patient Name: DANYELL GARGReyna : 1945 (79y 6m) Sex: F Study Date: 06/02/2025 09:34:48 AM Ht(Inch): 63 Wt(Lb): 166.01 BSA: 1.79 Animal Sticker: MAYCOL Location: [facility] Order Provider: SAKSHI BLANCHARD Heart Rate: 59 BMI: 29.4 BP: 156 / 62 Ref Provider: SAKSHI BLANCHARD PROCEDURES: Echocardiographic Report: Transthoracic complete echo with [...] LA Volume BP 53 ml MV Decel [id number] LA Volume Index 30 ml/m2 [ 16 - 34 ] MV Decel [id number] msec [ 104 - 258 ] RV [...] By: Sharon Clarke MD 06/02/2025 11:20:58 AM FAMILY DAY CARER CC: Sakshi Blanchard MD us Sakshi Blanchard MD CV ECHO PROCEDURES Final R esult * (ABNORMAL) eGFR (05/05/2025 1:08 PM FAMILY DAY CARER) eGFR 35(L) >=60 mL/min/1. 73 m2 Comment: [...] last reviewed 2021. Blood 05/05/2025 1:08 PM FAMILY DAY CARER 05/05/2025 2:36 PM FAMILY DAY CARER Sakshi Blanchard MD LAB BLOOD ORDERABLES Final Result [facility] [address] [facility] [place] [address] * Differential, auto (05/05/2025 1:08 PM FAMILY DAY CARER) Neutrophil abs 2.37 1.50 - 6.50 K/cumm Imm gran abs 0.01 0.00 - 0.10 K/cumm [facility] Lymphocyte abs 1.69 0.80 - 3.30 K/cumm [facility] Monocyte abs 0.56 0.20 - 0.80 K/cumm [facility] Eosinophil abs 0.33 0.00 - 0.50 K/cumm [facility] Basophil abs 0.03 0.00 - 0.10 K/cumm [facility] Neutrophil pct 47.5 % [facility] Comment: Interpretive Data Percent cell count reference ranges are not reported, since discordance with absolute values may lead to misinterpretation of CBC data. Current Interpretive Data was last revised on 2017. Imm gran pct 0.2 % [facility] Comment: Interpretive Data Percent cell count reference ranges are not reported, since discordance with absolute values may lead to misinterpretation of CBC data. Current Interpretive Data was last revised on 2017. Lymphocyte pct 33.9 % [facility] Comment: Interpretive Data Percent cell count reference ranges are not reported, since discordance with absolute values may lead to misinterpretation of CBC data. Current Interpretive Data was last revised on 2017. Monocyte pct 11.2 % TONY GANDHI Comment: Interpretive Data Percent cell count reference [...] on 2017. Basophil pct 0.6 % TONY GANDHI Comment: Interpretive Data Percent cell count reference ranges are not reported, since discordance with absolute values may lead to misinterpretation of CBC data. Current Interpretive Data was last revised on 2017. Blood 05/05/2025 1:08 PM FAMILY DAY CARER 05/05/2025 2:36 PM FAMILY DAY CARER us Sakshi Blanchard MD LAB BLOOD ORDERABLES Final Result [facility] [address] [facility] [place] [address] * (ABNORMAL) Pro B-type natriuretic peptide (05/05/2025 1:08 PM FAMILY DAY CARER) NT-proBNP 1,939(H) <=450 pg/mL Comment: Interpretive Comments: [...] Heart J. 2006:27:330-337. 2. Luigi RW, Ely AM. J. AM Tj Cardiol: Cardiovasc Imag. 2009;2: 216- 225. Interpretive Data Last Revised Date: 2018. Blood 05/05/2025 1:08 PM FAMILY DAY CARER 05/05/2025 2:36 PM FAMILY DAY CARER Sakshi Blanchard MD LAB BLOOD ORDERABLES Edite d Result - Final Performing Organization Address [facility] Co de Phone Number TONY [facility] [address] [employer] [place] [address] * (ABNORMAL) Thyroid Function [place] (05/05/2025 1:08 PM FAMILY DAY CARER) TSH 6.00(H) 0.30 - 4.20 mcIUnit/mL Blood 05/05/2025 1:08 PM FAMILY DAY CARER 05/05/2025 2:36 PM FAMILY DAY CARER Sakshi Blanchard MD LAB BLOOD ORDERABLES Edite d Result - Final Performing Organization Address [facility] [address]/ZIP Co de Phone Number TONY [facility] [address] [employer] Diagnostic [employer] [place], [place] [id number] * (ABNORMAL) Iron profile w/ IBC (05/05/2025 1:08 PM FAMILY DAY CARER) Iron 21(L) 35 - 145 mcg/dL Comment:Testing performed by : [facility], [address] [place] [address]., [address] TIBC 305 250 - 400 mcg/dL TONY JENSEN Comment:Testing performed by : [facility], [address] [place] [address]., [address] Transferrin saturation 7(L) 20 - 50 % TONY JENSEN Comment:Testing performed by : [facility], [address] [place] [address]., [address] Blood 05/05/2025 1:08 PM FAMILY DAY CARER 05/05/2025 6:29 PM FAMILY DAY CARER Sakshi Blanchard MD LAB BLOOD ORDERABLES Final Result Performing Organization Address [facility] [address]/[facility] de Phone Number [facility] [address] [facility] [place] [address] * (ABNORMAL) Apolipoprotein B, serum (05/05/2025 1:08 PM FAMILY DAY CARER) [facility] Apolipoprotein B 46(L) mg/dL [place] ref [facility] Comment: REFERENCE VALUE Desirable: <90 Above Desirable: 90-99 Borderline high: 100-119 High: 120-139 Very high: > or = 140 Test Performed by: [place] [address] Software Quality Test Engineer: Lissy Lees Ph.D.; CLIA# [id number] Blood 05/05/2025 1:08 PM FAMILY DAY CARER 05/05/2025 2:36 PM FAMILY DAY CARER Sakshi Blanchard MD LAB BLOOD ORDERABLES Final Result Performing Organization Address [facility] [address]/[facility] de Phone Number TONY [facility] [address] [facility] [place] [address] [place] ref [facility] * (ABNORMAL) CBC with auto differential (05/05/2025 1:08 PM FAMILY DAY CARER) Pathologist [facility] WBC 4.99 3.80 - 9.90 K/cumm Hgb 10.4(L) 11.9 - 15.5 g/dL [facility] Hct 36.5 35.6 - 45.5 % [facility] Plt 232 150 - 400 K/cumm [facility] MPV 9.3 9.1 - 12.3 fL [facility] RBC 3.63(L) 3.90 - 5.20 M/cumm [facility] MCV 100.6(H) 81.3 - 96.4 fL [facility] MCH 28.7 27.1 - 33.3 pg [facility] MCHC 28.5(L) 32.3 - 35.7 g/dL [facility] RDW CV 17.6(H) 11.1 - 14.9 % [facility] RDW SD 65.2(H) 35.7 - 48.1 fL [facility] NRBC abs 0.00 0.00 - 0.01 K/cumm [facility] Blood 05/05/2025 1:08 PM FAMILY DAY CARER 05/05/2025 2:36 PM FAMILY DAY CARER Sakshi Blanchard MD LAB BLOOD ORDERABLES Final Result [facility] [address] [facility] [place] [address] * Lipoprotein a (LPa) (05/05/2025 1:08 PM FAMILY DAY CARER) [facility] Lipoprotein A 46 <75 nmol/L [place] [facility] Comment: ADDITIONAL INFORMATION Please notice that Lp(a) values are reported in molar units (nmol/L). These units are recommended by professional society guidelines and expert opinion statements. Measured results and risk thresholds are higher than those generated using mass units (mg/dL). Cardiovascular risk increases starting at 75 nmol/L. Lp(a) >=125 nmol/L is considered a risk enhancing factor by the [employer]. This test has been modified from the acupressurist's instructions. Its performance characteristics were determined by [facility] in a manner consistent with CLIA requirements. This test has not been cleared or approved by the U.S. Food and Drug Administration. Test Performed by: [address] [address] Software Quality Test Engineer: Lissy Lese Ph.D.; CLIA# [id number] Blood 05/05/2025 1:08 PM FAMILY DAY CARER 05/05/2025 2:36 PM FAMILY DAY CARER Sakshi Blanchard MD LAB BLOOD ORDERABLES Final Result Performing Organization Address City/[facility] [address]/ZIP Co de Phone Number TONY [facility] [address] [facility] [employer] [place], [place] [id number] [place] ref [facility] * T4, free (05/05/2025 1:08 PM FAMILY DAY CARER) Free T4 1.14 0.90 - 1.70 ng/dL Blood 05/05/2025 1:08 PM FAMILY DAY CARER 05/05/2025 2:36 PM FAMILY DAY CARER Narrative TONY JENSEN - 05/05/2025 7:05 PM FAMILY DAY CARER This test was reflexed from a TSH result. Sakshi Blanchard MD LAB BLOOD ORDERABLES Edite d Result - Final Performing Organization Address [facility] [address]/[facility] Co de Phone Number TONY [facility] [address] [facility] [place] [address] * Hemoglobin A1c (05/05/2025 1:08 PM FAMILY DAY CARER) Hgb A1C 5.2 4.0 - 5.6 % Estimated Average Glucose 103 mg/dL TONY JENSEN Comment: The ADA recommends reporting an estimated Average Glucose (eAG) with all Hemoglobin A1c results using the equation derived from a study of 507 normal and diabetic adults. Minority populations were underrepresented and children were not included. (Diabetes Care 31:1410-2253, 2008). The eAG is not equivalent to a fasting glucose. Blood 05/05/2025 1:08 PM FAMILY DAY CARER 05/05/2025 2:36 PM FAMILY DAY CARER Sakshi Blanchard MD LAB BLOOD ORDERABLES Final Result Performing Organization Address [facility] [address]/[facility] Co de Phone Number [facility] [address] [facility] [facility] [employer] [place], [place] [id number] * Ferritin (05/05/2025 1:08 PM FAMILY DAY CARER) Ferritin 42 13 - 150 ng/mL Comment:Testing performed by : [facility], [facility], [place]., [address] Blood 05/05/2025 1:08 PM FAMILY DAY CARER 05/05/2025 6:29 PM FAMILY DAY CARER Sakshi Blanchard MD LAB BLOOD ORDERABLES Final Result Performing Organization Address [facility] [address]/[facility] de Phone Number TONY [facility] [address] [facility] [place] [address] * Lipid panel (05/05/2025 1:08 PM FAMILY DAY CARER) Cholesterol 102 30 - 199 mg/dL Comment: [...] on 2018. Triglycerides 46 <=149 mg/dL TONY GANDHICH Comment: Interpretive Data Ages < or = [...] last revised on 2018. Chol/HDL ratio 2 [facility] Blood 05/05/2025 1:08 PM FAMILY DAY CARER 05/05/2025 2:36 PM FAMILY DAY CARER us Sakshi Blanchard MD LAB BLOOD ORDERABLES Edite d Result - Final [facility] [address] [facility] [place] [address] * (ABNORMAL) Basic metabolic panel (05/05/2025 1:08 PM FAMILY DAY CARER) Sodium 143 135 - 145 mmol/L Potassium, pl 4.9 3.3 - 4.9 mmol/L [facility] Chloride 103 97 - 110 mmol/L CERNER W CO2 36(H) 22 - 32 mmol/L [facility] Anion gap 4 2 - 15 mmol/L [facility] BUN 19 6 - 25 mg/dL [facility] Creatinine 1.50(H) 0.60 - 1.10 mg/dL [facility] Glucose 95 70 - 199 mg/dL [facility] Comment: Interpretive Data Fasting glucose >/= 126 [...] Calcium 9.4 8.5 - 10.3 mg/dL CERNER [facility] Blood 05/05/2025 1:08 PM FAMILY DAY CARER 05/05/2025 2:36 PM FAMILY DAY CARER Sakshi Blanchard MD LAB BLOOD ORDERABLES Edite d Result - Final [facility] [address] [facility] [place] [address] * ECG 12 lead (05/05/2025 12:00 PM FAMILY DAY CARER) Sakshi Blanchard MD ECG ORDERABLES Edited Res ult - Final from Last 3 Months Insurance [facility] Care Teams Loan Collector Relationship Specialty Start Date End Date Aniyah Mayorga MD [address] [place] [address] [place] [address] PCP - General Internal Medicine 06/02/25
--- OUTSIDE RECORDS SUMMARY | 2025-06-03 17:01 | XMS_ITS | Clinical Summary ---
Author Organization [facility] Address [address] [place] [address] Care Team Providers Care Wood Bucker Name Role Phone Rob Dozier MD Primary Care Provider + [phone] Source Comments [facility],non-owned Affiliates and Associated Physician Practices is amultiple site organization consisting of ambulatory clinics and hospital sitesin [place], [place], [place] and [place]. This disclosure is being madepursuant to the Care Everywhere program and may not contain all information available regarding this patient. Last updated 18.[facility] Allergies No known active allergies Medications * [...] 1 (one) tablet by mouth once daily 10/22/19 23 Active busPIRone (Buspar) 10 MG tabletIndications:A nxiety Disorder Take 1 (one) tablet by mouth 3 times daily Reasons: Anxiety Disorder 03/10/20 23 Active FLUoxetine (PROzac) 20 MG capsule Take 2 (two) capsules by mouth once daily 03/10/20 23 Active oxyBUTYnin (Ditropan) 5 MG tablet Take 1 (one) tablet by mouth once daily 07/29/19 23 Active topiramate (Topamax) 50 MG tablet Take 1 (one) tablet by mouth once daily 03/10/20 23 Active calcium carbonate (Tums) 500 MG chew tablet Take 2 (two) tablets by mouth daily with breakfast 07/19/19 25 Active pantoprazole EC (Protonix) 40 MG tablet Take 1 (one) tablet by mouth once daily 07/19/19 25 Active vitamin D3 (Cholecalciferol) 25 MCG (1000 UNITS) tablet Take 1 (one) tablet by mouth once daily 07/19/19 25 Active Pramoxine HCl (TUCKS HEMORRHOIDAL RE) Insert into the rectum as needed Active ALPRAZolam (Xanax) 0.5 MG tablet 08/14/19 25 Active silver sulfADIAZINE (Silvadene) 1 % creamIndications:Py oderma gangrenosa (HCC) Apply to affected area 2 times daily 400 g 11 08/20/19 25 Active ferrous sulfate EC 325 (65 Fe) MG tabletIndications:I jake Deficiency Anemia Take 1 (one) tablet by mouth once daily for 90 days Reasons: Anemia From Inadequate Iron in the Body 90 tablet 10/09/19 25 Active clobetasol (Temovate) 0.05 % cream Apply to affected area 2 times daily Active hydrOXYzine HCl (Atarax) 25 MG tablet Take 1 (one) tablet by mouth 4 times daily as needed for Itching Active risankizumab-rzaa (Skyrizi) 360 MG/2.4ML SOCTIndications:Squaring Shear Operator hn's disease with other complication, unspecified gastrointestinal tract location (HCC) Inject 2.4 mL subcutaneously Every 8 Weeks 2.4 mL 3 01/01/20 25 Active meloxicam (Mobic) 7.5 MG tablet Take 1 (one) tablet by mouth once daily Active FLUoxetine (PROzac) 40 MG capsule Take 1 (one) capsule by mouth once daily 04/11/20 25 Active vitamin D, ergocalciferol, (Drisdol) 1.25 MG (71198 UT) capsule Take 1 (one) capsule by mouth every 30 days Active albuterol-ipratropi um (Duo-Neb) 0.5-2.5 (3) MG/3ML nebulizer solution Inhale 3 mL by mouth every 6 hours as needed 04/07/20 Active acetaminophen CR (Tylenol Arthritis Pain) 650 MG tablet Take 1 (one) tablet by mouth every 8 hours as needed for Pain Active naloxone HCl (Narcan) 4 MG/0.1ML nasal spray [place] 1 (one) spray into the nose as needed for Overdose Active insulin lispro (HumaLOG;ADMelog) 100 UNIT/ML pen Inject subcutaneously 3 times daily before meals 04/07/20 Active Klayesta 155649 UNIT/GM powder Apply to affected area once daily 04/07/20 25 Active NIFEdipine CR osmotic 24hr (Procardia-XL) 30 MG tablet Take 1 (one) tablet by mouth once daily 04/11/20 25 Active traZODone (Desyrel) 150 MG tablet Take 1 (one) tablet by mouth at bedtime 04/11/20 Active fluticasone propionate (Flonase) 50 MCG/ACT nasal spray [place] 2 (two) sprays into each nostril once daily 04/07/20 25 Active AneCream 4 % cream 03/19/20 25 Active psyllium (Metamucil) 58.6 % powder Take 1 (one) packet by mouth 2 times daily 04/14/20 Active Easy Touch Safety Pen [place] 30G X 8 MM needle 04/07/20 Active Hospital, Clinic, or Other Facility Administered Medication Ordered Dose Route Frequency Start Date End Date Status triamcinolone acetonide (Kenalog) injection 10 mgIndications:Pyoder ma gangrenosa (HCC) 10 mg INTRA-LESION ONCE 05/20/2025 05/20/2025 End ed Active Problems Problem Noted Date Diagnosed Date Crohn's colitis, unspecified complication 2024 CKD (chronic kidney disease) stage 3, GFR 30-59 ml/min 08/06/2024 CHF (congestive heart failure) 08/06/2024 Hypothyroidism 08/06/2024 Dementia 08/06/2024 Ulcerative pancolitis 08/06/2024 Overview (08/08/2024): 2/4/25 colonoscopy for chronic diarrhea and recent diagnosis [...] Overview (10/02/2017): Patient presented to 05/19/2015 to [facility]. Had significant leukocytosis 30,000. The patient had a cholecystostomy tube placed. Treatment with linazolid and ciprofloxacin. She is now referred for interval laparoscopic cholecystectomy with IOC. Encounters Date Type Department Care Team Description 05/20/2025 11:20 AM INTERNATIONAL MARKETING INTERN Office Visit [facility] - Dermatology [address] [place] [phone] Rogelio Shaikh MD Pyoderma gangrenosa (HCC) (Primary Dx) 05/20/2025 Travel 04/22/2025 11:20 AM CDT Office Visit [facility] - Dermatology [address] [place] [phone] Rogelio Shaikh MD Pyoderma gangrenosa (HCC) (Primary Dx) 04/22/2025 Travel 04/14/2025 10:00 AM CDT Office Visit [facility] - GI [address] [place] [phone] Chapo Sagastume MD Crohn's disease of small and large intestines with complication (HCC) (Primary Dx) 04/14/2025 Travel 03/31/2025 Telephone [facility] - GI [address] [place] [phone] Chano Yeung, RN Appointment from Last 3 Months Immunizations Immunization Administration [...] Recorded Patient Health Questionnaire-2 Score 0 02/18/2025 [facility] - Occupational Stress [...] any time in the past 12 m [facility], were you homeless or living in a snf (including now)? No 07/11/2024 Comments Unknown Sex and Gender Information Value Date Recorded Sex Assigned at Not on file Legal Sex Female 6:00 PM INTERNATIONAL MARKETING INTERN Gender Identity Not on file Sexual Orientation [...] st Contact Info) Description 06/24/2025 11:10 AM INTERNATIONAL MARKETING INTERN Office Visit [facility] - Dermatology [address] [place] [phone] Rogelio Shaikh MD [address] [place] [phone] 07/29/2025 11:10 AM INTERNATIONAL MARKETING INTERN Office Visit [facility] - Dermatology [address] [place] [phone] Rogelio Shaikh MD [address] [place] [phone] 10/13/2025 10:30 AM CDT Office Visit [facility] - GI [address] [place] [phone] Chapo Sagastume MD [address] [place] [phone] Health Maintenance Due Date Last Done Comments BONE DENSITY TESTING 1945 DTAP/TDAP/TD VACCINES (1 - Tdap) 1964 ZOSTER VACCINE (1 of 2) 1964 PNEUMOCOCCAL VACCINE 50+ (2 of 2 - PCV) 05/03/2014 05/03/2013 Respiratory Syncytial Virus (RSV) Vaccine Pt: or over 60 yrs (1 - 1-dose 75+ series) 2020 COVID-19 VACCINE (6 - season) 2025 05/11/2023, 06/30/2022, 06/28/2021, Additional history [...] Procedure Name Priority Date/Time Associated Diagnosis Comments MA INTRALESIONAL INJECTION(S) 7 OR LESS Routine 05/20/2025 11:40 AM INTERNATIONAL MARKETING INTERN Pyoderma gangrenosa (HCC) MA INTRALESIONAL INJECTION(S) 7 OR LESS Routine 04/22/2025 11:44 AM CDT Pyoderma gangrenosa (HCC) from Last 3 Months Results * MA INTRALESIONAL INJECTION(S) 7 OR LESS (05/20/2025 11:40 AM INTERNATIONAL MARKETING INTERN) Vasquez Reeder MD - 05/20/2025 11:40 AM INTERNATIONAL MARKETING INTERN Vasquez Osorio MD 05/20/2025 12:17 PM The side effects of intralesional triamcinolone were discussed with patient, including petechiae and purpura, local lipoatrophy, striae and pigment change. 0. 7 mL of Triamcinolone 10 mg/mL was injected in to 2 PG lesions with a 1 cc syringe and a 30 gauge needle. Rogelio Shaikh MD 05/20/2025 PGY-4 Dermatology Resident us Vasquez Osorio MD PROCEDURE/MINOR SURGICAL ORDERA BLES Final Result * MA INTRALESIONAL INJECTION(S) 7 OR LESS (04/22/2025 11:44 AM CDT) Vasquez Reeder MD - 04/22/2025 11:44 AM CDT Vasquez Osorio MD 04/22/2025 1:11 PM The side effects of intralesional triamcinolone were discussed with patient, including petechiae and purpura, local lipoatrophy, striae and pigment change. 0.8 mL of Triamcinolone 10 mg/mL was injected in to 2 PG lesions with a 1 cc syringe and a 30 gauge needle. Rogelio Shaikh MD 04/22/2025 PGY-4 Dermatology Resident us Vasquez Osorio MD PROCEDURE/MINOR SURGICAL ORDERA BLES Final Result from Last 3 [place] [phone] [facility] Advance Directives * Full Code (Latest Code Status on File) Date Activated Date Inactivated Comments 07/11/2024 3:24 AM 07/18/2024 7:51 PM * Full Code Date Activated Date Inactivated Comments 02/04/2020 6:50 AM 02/06/2020 9:24 PM Care Teams Wood Bucker Relationship Specialty Start Date End Date Rob Dozier MD [address] [place] [phone] PCP - General Internal Medicine 11/26/24
--- NOTE | 2025-06-03 17:20 | PC.NURSE ---
Pt. stood with help x2 to get to bedside commode. Upon returning to bed, nasal canula removed briefly to get pt. into bed. Pt. became hypoxic, oxygen reading 72%. NC returned to nose. Oxygen 85% with good pleth on 3L. Oxygen temporarily titrated up to 5L. Unsure of pt. mobility at baseline d/t being unable to talk to a nurse at her facility and information not stated on paperwork. Dr. Burt notified of event.
--- NOTE | 2025-06-03 17:24 | PC.NURSE ---
This RN attempted to call [facility] again to speak to the nurse about pt. baseline. [facility] answered and once transferred, unable to speak to a nurse again.
[2025-06-03 18:35] LABS: Hematocrit 39.5 % (37.0-47.0); Hemoglobin 11.0 g/dL (12.0-15.0); Immature Granulocyte Percent A 0.6 % (0-0.5); Lymphocytes Absolute Auto 1.26 K/mm3 (0.9-3.2); Mean Corpuscular HGB Conc 27.8 g/dl (32-36); Mean Corpuscular Hemoglobin 28.9 pg (26-34); Mean Corpuscular Volume 103.7 fl (80-100); Nucleated Red Blood Cells Absolute Auto 0.000 K/mm3 (0.0-0.012); Nucleated Red Blood Cells Perc 0.0 % (0.0-0.2); Platelet Count Result 156 k/mm3 (150-375); Red Blood Count 3.81 M/mm3 (4.2-5.4); White Blood Count 6.2 K/mm3 (4.5-10.0)
[2025-06-03] MEDS: FUROSEMIDE INJ 40 MG/4 ML VIAL IV PUSH (19:13)
[2025-06-03 20:48] LABS: Anion Gap 3 mmol/L (4-12); Blood Urea Nitrogen 18 mg/dL (7-17); Calcium 8.9 mg/dL (8.4-10.2); Carbon Dioxide 32 mmol/L (22-30); Chloride 106 mmol/L (98-107); Estimated Glomerular Filt Rate 35; Glucose 84 mg/dL (65-110); Potassium 4.9 mmol/L (3.4-5.0); Sodium 141 mmol/L (137-145)
--- NOTE | 2025-06-03 20:52 | PM.IMHP2 ---
H&P: HPI History of Present Illness Date/Time: 06/03/25 20:52 Chief Complaint: Head injury Narrative: 79-year-old female with PMH chronic respiratory failure on 2 L nasal cannula, COPD, diastolic heart failure, CKD, history of UTI, diabetes with current long-term use of insulin, hypertension, hypothyroidism, seizure disorder, insomnia, GERD, intellectual disability, anxiety, presents from local nursing facility after getting tangled up in her wheelchair and hitting her left forehead on the wheelchair, she did not fall out. She presents to [facility] ER on 06/03/2025, she has no complaints on arrival, endorses cough for a few days. No fever. No chest pain. Denies nausea vomiting diarrhea, abdominal pain. Does not know whether her legs are more swollen than usual or not. There is single reported patient was requiring more oxygen than usual. In the ER nurse attempted to of the patient to the bathroom the patient had desaturation and turn purple. She required more oxygen. Patient is being admitted in the setting of acute on chronic heart failure and acute on chronic hypoxic respiratory failure. Chest x-ray showing bilateral pneumonia superimposed on pulmonary edema. WBC 6200, serum creatinine 1.46 which appears to be around her baseline. BNP 3220 which is higher than her last value when she had acute CHF on 05/06/2025. No acute fracture or subluxation on cervical CT spine, right pleural effusion noted. Head CT without acute findings. Patient received Lasix 40 mg IV x1. Review of Systems Review of Systems: All systems reviewed & are unremarkable except as noted in HPI and below (Subjective) [facility] Past Medical History Medical History Hypertension COPD (chronic obstructive pulmonary disease) Diabetes Sleep apnea Insomnia Hyperlipidemia Anxiety Anemia Major depressive disorder Hypothyroid Heart failure GERD (gastroesophageal reflux disease) End stage renal disease Surgical History Surgical History History of carpal tunnel release Social History Social History Smoking packs per day: 0.5 Smoking cigarettes per day: 10.0 Smoking status: Never smoker Alcohol intake: never Substance use: never Substance use type: does not use Lack of Transportation: No Lack of Food: Never True Current Housing: I Have Housing Concerned About Future Housing: No Difficulty Paying Gas/Electric Bills: No Difficulty Paying for Meds: No Currently Unemployed: No Education: Grade School Difficulty w/ Childcare or Family Care: No Spiritual care concerns: No Meds Home Medications and Allergies Home Medications ?Medication ?Instructions ?Recorded ?Confirmed ?Type alprazolam 0.5 mg tablet 0.5 mg PO BID Anxiety 09/25/24 05/07/25 History atorvastatin 40 mg tablet 40 mg PO HS Hyperlipidemia 09/25/24 05/07/25 History buspirone 10 mg tablet 10 mg PO TID 09/25/24 05/07/25 History fluticasone 250 mcg-salmeterol 50 1 inh inhalation DAILY 50 mcg in 09/25/24 05/07/25 History mcg/dose blistr powdr for each nostril one time daily inhalation (Advair Diskus) levothyroxine 175 mcg tablet 175 mcg PO DAILY 09/25/24 05/07/25 History oxybutynin chloride 5 mg 5 mg PO DAILY 09/25/24 05/07/25 History tablet,extended release 24 hr pantoprazole 40 mg tablet,delayed 40 mg PO Q12H 09/25/24 05/07/25 History release trazodone 50 mg tablet 75 mg PO HS Insomnia 09/25/24 05/07/25 History montelukast 10 mg tablet 10 mg PO DAILY 10/28/24 05/07/25 History (Singulair) aspirin 81 mg chewable tablet 81 mg PO DAILY Heart Failure 05/07/25 05/07/25 History calcium carbonate (Antacid Ultra 1,000 mg PO DAILY GERD 05/07/25 05/07/25 History Strength) cholecalciferol (vitamin D3) 25 25 mcg PO DAILY 05/07/25 05/07/25 History mcg (1,000 unit) capsule (Vitamin D3) clobetasol 0.05 % topical cream 1 applic topical HS 05/07/25 05/07/25 History ergocalciferol (vitamin D2) 1,250 50,000 unit PO WEEKLY Take Every 05/07/25 05/07/25 History mcg (50,000 unit) capsule Monday Morning ferrous sulfate 325 mg (65 mg 325 mg PO DAILY Anemia 05/07/25 05/07/25 History iron) tablet (FeroSul) fluoxetine 40 mg capsule 40 mg PO DAILY 05/07/25 05/07/25 History fluticasone propionate 50 1 spray intranasal DAILY 05/07/25 05/07/25 History mcg/actuation nasal spray,suspension furosemide 20 mg tablet 20 mg PO BID 05/07/25 05/07/25 History insulin lispro 100 unit/mL 1 sliding scale dose subcut 05/07/25 05/07/25 History subcutaneous solution (Humalog USEASDIRECTD U-100 Insulin) nifedipine 30 mg tablet,extended 30 mg PO DAILY 05/07/25 05/07/25 History release 24 hr psyllium 1 packet PO DAILY 05/07/25 05/07/25 History risankizumab-rzaa 360 mg/2.4 mL 360 mg subcut .Every 56 Days 05/07/25 05/07/25 History (150 mg/mL) subcut wearable injector (Skyrizi) topiramate 50 mg tablet 50 mg PO DAILY Seizures 05/07/25 05/07/25 History empagliflozin 10 mg tablet 10 mg PO DAILY #30 tabs 05/13/25 Rx (Jardiance) Allergies Allergy/AdvReac Type Severity Reaction Status Date / Time No Known Allergies Allergy Verified 06/03/25 15:34 Vital Signs Vital Signs - 24 hr 06/03/25 15:38 06/03/25 15:46 06/03/25 16:07 Temperature 97.8 F Pulse Rate 57 L 53 L Respiratory Rate 20 14 Blood Pressure 161/91 H Pulse Oximetry 92 93 Oxygen Delivery Nasal Cannula Oxygen Flow Rate 3 06/03/25 16:15 06/03/25 16:17 06/03/25 16:41 Temperature Pulse Rate 50 L 50 L 71 Respiratory Rate 17 12 17 Blood Pressure 177/72 H Pulse Oximetry 93 Oxygen Delivery Oxygen Flow Rate 06/03/25 16:45 06/03/25 17:52 06/03/25 19:36 Temperature Pulse Rate 65 60 76 Respiratory Rate 19 18 30 H Blood Pressure 103/90 185/106 H Pulse Oximetry 91 93 90 Oxygen Delivery Oxygen Flow Rate 06/03/25 20:00 Temperature 98.2 F Pulse Rate 64 Respiratory Rate 24 H Blood Pressure Pulse Oximetry 98 Oxygen Delivery Oxygen Flow Rate Exam Const: General: comfortable and no acute distress Other: A&O x3 HENMT: Mouth: Yes moist mucous membranes Eyes: Pupils: Equal, round and reactive pupils present Neck: Neck: supple Resp: Effort & Inspection: normal respiratory effort Auscultation: crackles Cardio: Rate: regular rate Rhythm: regular rhythm GI: Inspection: non-distended GI Palp: Yes Soft to palpation : General: Yes bladder normal to palpation Neuro: Motor exam (neuro): 5/5 motor strength present throughout Results Labs Labs: Short CBC 06/03/25 Range/Units 18:23 WBC 6.2 (4.5-10.0) K/mm3 Hgb 11.0 L (12.0-15.0) g/dL Hct 39.5 (37.0-47.0) % Plt Count 156 (150-375) k/mm3 BMP 06/03/25 19:22 Sodium 141 Potassium 4.9 Chloride 106 Carbon Dioxide 32 H BUN 18 H Creatinine 1.46 H Glucose 84 Calcium 8.9 Assessment and Plan Assessment and plan (1) Hypertension: Qualifiers: Hypertension type: primary hypertension Qualified Code(s): I10 - Essential (primary) hypertension Code(s): I10 - Essential (primary) hypertension Status: Acute (2) Acute exacerbation of CHF (congestive heart failure): Code(s): I50.9 - Heart failure, unspecified Status: Acute (3) Community acquired pneumonia: Code(s): J18.9 - Pneumonia, unspecified organism Status: Acute Plan 79-year-old female with PMH chronic respiratory failure on 2 L nasal cannula, COPD, diastolic heart failure, CKD, history of UTI, diabetes with current long-term use of insulin, hypertension, hypothyroidism, seizure disorder, insomnia, GERD, intellectual disability, anxiety, presents from local nursing facility after getting tangled up in her wheelchair and hitting her left forehead on the wheelchair, she did not fall out. She presents to [facility] ER on 06/03/2025, she has no complaints on arrival, endorses cough for a few days. No fever. No chest pain. Denies nausea vomiting diarrhea, abdominal pain. Does not know whether her legs are more swollen than usual or not. There is single reported patient was requiring more oxygen than usual. In the ER nurse attempted to of the patient to the bathroom the patient had desaturation and turn purple. She required more oxygen. Patient is being admitted in the setting of acute on chronic heart failure and acute on chronic hypoxic respiratory failure. Chest x-ray showing bilateral pneumonia superimposed on pulmonary edema. WBC 6200, serum creatinine 1.46 which appears to be around her baseline. BNP 3220 which is higher than her last value when she had acute CHF on 05/06/2025. No acute fracture or subluxation on cervical CT spine, right pleural effusion noted. Head CT without acute findings. Patient received Lasix 40 mg IV x1. ----- Acute on chronic respiratory failure with hypoxia -requires 2 L at baseline, now requiring 3-5 L. -likely due to acute CHF/pneumonia. -titrate per protocol, patient otherwise breathing comfortably Community-acquired pneumonia -start ceftriaxone/azithromycin -check quad viral screen, Legionella/strep pneumo/mycoplasma Acute diastolic CHF exacerbation -Lasix 40 mg IV b.i.d. -daily weights, strict I/O, heart healthy diet CKD -continue monitoring Hypertension -intermittent elevation on admission. 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 HS with low-dose insulin sliding scale ---- Patient wishes to be full code Diabetic heart healthy diet Lovenox 30 mg subQ q.day Expected length of stay greater than 2 midnights Prior Studies I have reviewed the following patient records and this information was taken into consideration when formulating the assessment and plan.: previous hospitalizations Time Spent with Patient Time with patient: less than 45 minutes Hospitalist MIPS Advance Care Plan I have confirmed that the patient's Advanced Care Plan is present, code status is documented, or surrogate decision maker is listed in patient medical record.: Yes Medication Reconciliation I have utilized all available resources to obtain, update and review the patients current medications (includes all prescriptions, OTC, herbals, cannabis, and nutritional supplements).: Yes
[2025-06-03 20:56] LABS: NT Pro B Type Natriuretic Pept 3290 pg/mL (19.9-100)
[2025-06-03] MEDS: cefTRIAXone 1 GM in SODIUM CHLORIDE 0.9% IV 50 ML 100 ML IVPB (21:54)
[2025-06-03] MEDS: AZITHROMYCIN IV 500 MG in SODIUM CHLORIDE 0.9% IV 250 ML IVPB (21:54)
--- NOTE | 2025-06-03 22:06 | WPCEDHO ---
ED Hand Off Checklist All vitals saved:Y IV Site documented:Y All med administrations documented:Y Triage Note Triage Note Pt. to ED from [facility] 06/03/25 15:38 EMS from [facility]. Per EMS, pt. was in her WC and hit the L. side of her head on the arm rail of the WC. Pt. never fell out of the WC. Pt. did not lose consciousness and does not take any blood thinners. Pt. has bruise to L. cheek and small superficial abrasion under her L. eyebrow. Pt. has no complaints at this time and denies any pain. Pt. is A&Ox1-2 at baseline, and arrives to Supply A&Ox2. EMS also reported that the facility stated the pt. has been hypoxic today. Unknown low oxygen saturation reading. Pt. wears continuous oxygen via NC. Unknown how much oxygen she wears at baseline. Pt. arrives to Supply in no respiratory distress, denies CP or SOB. Oxygen saturation 92-94% on 3L NC. Unable to get ahold of a staff member from [facility]. Allergies No Known Allergies Allergy (Verified 06/03/25 15:34) Current Diagnoses Essential (primary) hypertension (06/03/25) Heart failure, unspecified (06/03/25) Pneumonia, unspecified organism (06/03/25) Administered/Completed Medications Discontinued Medications Furosemide (Furosemide Inj 40 Mg/4 Ml Vial) 40 mg IV PUSH ONCE STA Stop: 06/03/25 18:46 Last Admin: 06/03/25 19:13 Dose: 40 mg Documented By: KURT Azithromycin 500 mg/ Sodium (Chloride) 250 mls @ 250 mls/hr IVPB ONCE ONE Stop: 06/03/25 22:05 Last Admin: 06/03/25 21:54 Dose: 250 mls/hr Documented By: CROW Ceftriaxone Sodium 1 gm/ (Sodium Chloride) 50 mls @ 100 mls/hr IVPB ONCE ONE Stop: 06/03/25 21:39 Last Admin: 06/03/25 21:54 Dose: 100 mls/hr Documented By: CROW Watson 06/03/25 17:24 Nurse Note by Delaney Briggs This RN attempted to call [facility] again to speak to the nurse about pt. baseline. [place] answered and once transferred, unable to speak to a nurse again. Initialized on 06/03/25 17:24 - END OF NOTE 06/03/25 17:20 (created 06/03/25 17:29) Nurse Note by Delaney Briggs Pt. stood with help x2 to get to bedside commode. Upon returning to bed, nasal canula removed briefly to get pt. into bed. Pt. became hypoxic, oxygen reading 72%. NC returned to nose. Oxygen 85% with good pleth on 3L. Oxygen temporarily titrated up to 5L. Unsure of pt. mobility at baseline d/t being unable to talk to a nurse at her facility and information not stated on paperwork. Dr. Burt notified of event. Initialized on 06/03/25 17:29 - END OF NOTE 06/03/25 15:33 Nurse Note by Delaney Briggs. This RN attempted to call [facility] to speak with pt. nurse with no success. Initialized on 06/03/25 15:33 - END OF NOTE Interventions/Assessments IV / Saline Lock, Insert Start: 06/03/25 14:56 Freq: Status: Active Protocol: Document 06/03/25 15:51 KJT (Rec: 06/03/25 15:51 KJT [id number]) IV Assessment Peripheral Access Left Forearm IV Catheter Access Initiated Before Arrival IV Insertion Date 06/03/25 Catheter Gauge 22 Ultrasound Used for No Placement IV Care and WNL Maintenance PA: Neurological Assessment Start: 06/03/25 15:33 Freq: Status: Active Protocol: Document 06/03/25 15:38 KJT (Rec: 06/03/25 15:49 KJT [id number]) Sims Coma Scale Eyes Open Verbal Disoriented Motor Follows Commands Sims Coma Total 14 Score Neurological Assessment Level of Alert Consciousness Orientation Oriented to Person,Oriented to Place,Disoriented to Time Neurological Confusion Symptoms Hallucination Type None Behavior Cooperative Memory Description Half-Way Impaired,Short Term Impaired Ability to Maintain Unable to Assess Balance Facial Symmetry Symmetrical Speech Pattern Clear Ability to Swallow Normal Tongue Position Midline Last Vital Signs Temperature 98.5 F 06/03/25 22:00 Pulse Rate 62 06/03/25 22:00 Respiratory Rate 18 06/03/25 22:00 Pulse Oximetry 97 06/03/25 22:00 Blood Pressure 175/78 H 06/03/25 22:00 Blood Pressure Mean 110 06/03/25 22:00 Blood Pressure Position Sitting 06/03/25 15:38 Oxygen Delivery Nasal Cannula 06/03/25 15:38 Oxygen Flow Rate 3 06/03/25 15:38 Weight 88.6 kg 06/03/25 15:38 Last Result - Abnormals Only RBC 3.81 M/mm3 (4.2-5.4) L 06/03/25 18:23 Hgb 11.0 g/dL (12.0-15.0) L 06/03/25 18:23 MCV 103.7 fl (80-100) H 06/03/25 18:23 MCHC 27.8 g/dl (32-36) L 06/03/25 18:23 RDW 17.7 % (11.5-14.5) H 06/03/25 18:23 Immature Gran % (Auto) 0.6 % (0-0.5) H 06/03/25 18:23 Eos % (Auto) 7.3 % (0-4.4) H 06/03/25 18:23 Eos # (Auto) 0.5 K/mm3 (0-0.3) H 06/03/25 18:23 Abs Immat Gran (auto) 0.04 K/mm3 (0.00-0.031) H 06/03/25 18:23 Carbon Dioxide 32 mmol/L (22-30) H 06/03/25 19:22 Anion Gap 3 mmol/L (4-12) L 06/03/25 19:22 BUN 18 mg/dL (7-17) H 06/03/25 19:22 Creatinine 1.46 mg/dL (0.7-1.0) H 06/03/25 19:22 Estimated GFR 35 (59-) L 06/03/25 19:22 NT-Pro-B Natriuret Pep 3290 pg/mL (19.9-100) H 06/03/25 19:22
[2025-06-04 00:31] VITALS: BP 168/82; PULSE 65; RESP 20; TEMP 36.8; O2SAT 96
--- NOTE | 2025-06-04 00:31 | ADMGEN ---
This patient, Katt Garg, was admitted to 3 [facility] Room 312-01. Patient/family oriented to hospital policies and general routines including ID bracelet, bed and alarms, visiting hours, pain management, procedures, bathroom and other care routines, personal items, smoking policy, room service/diet, and visiting hours. Information on how to activate the Rapid Response Team has been discussed. Patient/Family are encouraged to report perceived risks to care and to ask questions if they do not understand what they are told or what they should do. denies pain, call light in reach. alarm on.
[2025-06-04 06:00] VITALS: BP 182/75; PULSE 67; RESP 20; TEMP 36.5; O2SAT 90
[2025-06-04 06:19] LABS: Hematocrit 38.4 % (37.0-47.0); Hemoglobin 10.9 g/dL (12.0-15.0); Immature Granulocyte Percent A 0.5 % (0-0.5); Lymphocytes Absolute Auto 1.31 K/mm3 (0.9-3.2); Mean Corpuscular HGB Conc 28.4 g/dl (32-36); Mean Corpuscular Hemoglobin 29.1 pg (26-34); Mean Corpuscular Volume 102.4 fl (80-100); Nucleated Red Blood Cells Absolute Auto 0.000 K/mm3 (0.0-0.012); Nucleated Red Blood Cells Perc 0.0 % (0.0-0.2); Platelet Count Result 167 k/mm3 (150-375); Red Blood Count 3.75 M/mm3 (4.2-5.4); White Blood Count 5.7 K/mm3 (4.5-10.0)
[2025-06-04 06:54] LABS: Anion Gap 1 mmol/L (4-12); Blood Urea Nitrogen 16 mg/dL (7-17); Calcium 8.6 mg/dL (8.4-10.2); Carbon Dioxide 34 mmol/L (22-30); Chloride 104 mmol/L (98-107); Estimated CRCL calculation 31 ml/min; Estimated Glomerular Filt Rate 38; Glucose 65 mg/dL (65-110); Magnesium 2.2 mg/dL (1.6-2.3); Potassium 4.1 mmol/L (3.4-5.0); Sodium 139 mmol/L (137-145)
[2025-06-04 07:05] LABS: Hypochromasia Occasional
[2025-06-04 07:06] LABS: Anisocytosis 1+; Schistocytes None Seen
[2025-06-04] MEDS: FERROUS SULFATE 325 MG TABLET PO (08:23)
[2025-06-04] MEDS: FUROSEMIDE INJ 40 MG/4 ML VIAL IV PUSH (08:24)
[2025-06-04] MEDS: ASPIRIN 81 MG CHEWABLE TABLET PO (08:24)
[2025-06-04 08:30] VITALS: PULSE 86; O2SAT 91
[2025-06-04] MEDS: ENOXAPARIN 30 MG/0.3 ML SYRINGE SUB-Q (10:22)
--- NOTE | 2025-06-04 13:26 | PM.IMPN2 ---
Assessment and Plan Assessment and Plan (1) Acute exacerbation of CHF (congestive heart failure): Code(s): I50.9 - Heart failure, unspecified Status: Acute Assessment and Plan: pt on iv lasix bid probnp elevated over 3000 continue to diuresis in the hospital watch daily weights and BMP creat is 1.3 will cut back to lasix daily wean off oxygen PT/ OT ordered hopeful dc in 1-2 days time back to NH (2) Community acquired pneumonia: Code(s): J18.9 - Pneumonia, unspecified organism Status: Acute Assessment and Plan: Pt is on Rocephin and Zithromax iv Watch wcc, trend BC (3) Hypertension: Qualifiers: Hypertension type: primary hypertension Qualified Code(s): I10 - Essential (primary) hypertension Code(s): I10 - Essential (primary) hypertension Status: Acute Assessment and Plan: Bp is stable at 160/70 Subjective Date/time seen: 06/04/25 13:26 Interval history: 79-year-old female with PMH chronic respiratory failure on 2 L nasal cannula, COPD, diastolic heart failure, CKD, history of UTI, diabetes with current long-term use of insulin, hypertension, hypothyroidism, seizure disorder, insomnia, GERD, intellectual disability, anxiety, presents from local nursing facility after getting tangled up in her wheelchair and hitting her left forehead on the wheelchair, she did not fall out. She presents to [facility] on 06/03/2025, she has no complaints on arrival, endorses cough for a few days. Pt admitted for BL pneumonia and CHf exacerbation Pt is currently on 4 liters of oxygen baseline is 3 liters Pt from [place] Review of Systems Review of Systems: Pt with wet cough no fever today Exam Const: General: comfortable and no acute distress Other: A&O x3 HENMT: Mouth: Yes moist mucous membranes Eyes: Pupils: Equal, round and reactive pupils present Neck: Neck: supple Resp: Effort & Inspection: normal respiratory effort Auscultation: rales, rhonchi and diminished lung sounds Cardio: Rate: regular rate Rhythm: regular rhythm GI: Inspection: non-distended GI Palp: Yes Soft to palpation Neuro: Motor exam (neuro): 5/5 motor strength present throughout Objective Data Vital Signs Vital Signs: Vital Signs - 24 hr 06/03/25 15:38 06/03/25 15:46 06/03/25 16:07 Temperature 36.6 C Pulse Rate 57 L 53 L Respiratory Rate 20 14 Blood Pressure 161/91 H Pulse Oximetry 92 93 Oxygen Delivery Nasal Cannula Oxygen Flow Rate 3 06/03/25 16:15 06/03/25 16:17 06/03/25 16:41 Temperature Pulse Rate 50 L 50 L 71 Respiratory Rate 17 12 17 Blood Pressure 177/72 H Pulse Oximetry 93 Oxygen Delivery Oxygen Flow Rate 06/03/25 16:45 06/03/25 17:52 06/03/25 19:36 Temperature Pulse Rate 65 60 76 Respiratory Rate 19 18 30 H Blood Pressure 103/90 185/106 H Pulse Oximetry 91 93 90 Oxygen Delivery Oxygen Flow Rate 06/03/25 20:00 06/03/25 20:30 06/03/25 21:00 Temperature 36.8 C 36.9 C Pulse Rate 64 61 67 Respiratory Rate 24 H 17 23 H Blood Pressure 186/67 H 186/69 H Pulse Oximetry 98 94 92 Oxygen Delivery Oxygen Flow Rate 06/03/25 21:30 06/03/25 22:00 06/04/25 00:31 Temperature 36.9 C 36.8 C Pulse Rate 68 62 65 Respiratory Rate 18 18 20 Blood Pressure 179/74 H 175/78 H 168/82 H Pulse Oximetry 98 97 96 Oxygen Delivery Oxygen Flow Rate 06/04/25 06:00 06/04/25 08:30 Temperature 36.5 C Pulse Rate 67 86 Respiratory Rate 20 Blood Pressure 182/75 H Pulse Oximetry 90 91 Oxygen Delivery Nasal Cannula Oxygen Flow Rate 4 Intake/Output Intake/Output: Intake & Output 06/01/25 06/02/25 06/03/25 06/04/25 23:59 23:59 23:59 23:59 Intake Total 500 Output Total 1200 Balance -700 Meds/Results Medications: Active Medications Generic Name Dose Route Start Last Admin Trade Name Freq PRN Reason Stop Dose Admin Acetaminophen 650 mg 06/04/25 10:48 Acetaminophen 325 Mg Tablet PO Q8H PRN Pain Albuterol/Ipratropium 3 ml 06/04/25 10:48 Ipratropium 0.5 Mg/Albuterol Sulfate 2.5 Mg (Base) Ampul.Neb 3 Ml INHALATION Q6H PRN Shortness Of Breath Alprazolam 0.5 mg 06/04/25 09:00 Alprazolam (*Crx) 0.5 Mg Tablet PO BID PRN Anxiety Aspirin 81 mg 06/04/25 08:00 06/04/25 08:24 Aspirin 81 Mg Chewable Tablet PO 81 mg DAILY@0800 [facility] Administration Atorvastatin Calcium 40 mg 06/04/25 21:00 Atorvastatin 40 Mg Tablet PO HS [facility] Buspirone HCl 10 mg 06/04/25 06:00 06/04/25 05:38 Buspirone Hcl 10 Mg Tablet PO 10 mg Q8HR [facility] Administration Enoxaparin Sodium 30 mg 06/04/25 09:00 06/04/25 10:22 Enoxaparin 30 Mg/0.3 Ml Syringe SUB-Q 30 mg DAILY [facility] Administration Ferrous Sulfate 325 mg 06/04/25 09:00 06/04/25 08:23 Ferrous Sulfate 325 Mg Tablet PO 325 mg DAILY MARK Administration Fluoxetine HCl 40 mg 06/04/25 09:00 06/04/25 08:24 Fluoxetine Hcl 20 Mg Capsule PO 40 mg DAILY [facility] Administration Fluticasone Propionate 1 spray 06/05/25 09:00 Fluticasone Propionate 0.05% Na Spr 16 Gm Btl (*Bkc) NASAL DAILY [facility] Furosemide 40 mg 06/04/25 09:00 06/04/25 08:24 Furosemide Inj 40 Mg/4 Ml Vial IV PUSH 40 mg BID [facility] Administration Ceftriaxone Sodium 1 gm/ 50 mls @ 100 mls/hr 06/04/25 21:00 Sodium Chloride IVPB Q24H [facility] Azithromycin 250 mg in 250 mls @ 250 mls/hr 06/04/25 22:00 Zithromax IVPB Q24H [facility] Insulin Aspart 1 - 2 units 06/04/25 21:00 Insulin Aspart (*Bkc) 100 Units/Ml SUB-Q HS [facility] Protocol Levothyroxine Sodium 100 mcg 06/05/25 06:30 Levothyroxine Sodium 100 Mcg Tablet PO DAILY@0630 [facility] Levothyroxine Sodium 75 mcg 06/05/25 06:30 Levothyroxine Sodium 75 Mcg Tablet PO DAILY@0630 [facility] Miscellaneous Information 1 each 06/04/25 00:01 No Sliding Scale Entered On Home Sliding Scale Insulin Order. Please Enter Sliding Scale O XX 07/04/25 00:00 CLARIFY [facility] Nifedipine 30 mg 06/04/25 09:00 06/04/25 08:24 Nifedipine 30 Mg Tab.Er.24 PO 30 mg DAILY [facility] Administration Non-Formulary Medication 1 sliding scale dose 06/04/25 11:00 Insulin Lispro [Humalog U-100 Insulin] SUB-Q 07/04/25 10:59 USEASDIRECTD [facility] Oxybutynin Chloride 5 mg 06/05/25 09:00 Oxybutynin Chloride Xl 5 Mg Tab.Er.24 PO DAILY [facility] Pantoprazole Sodium 40 mg 06/04/25 10:50 Pantoprazole 40 Mg Tablet PO Q12HR [facility] Fluticasone/Salmeterol 2 puff 06/04/25 20:00 Fluticasone/Salmeterol 115-21 Mcg Inhaler 1 Puff INHALATION Q12HRT [facility] Sodium Chloride 1 spray 06/04/25 10:50 Saline 0.65% Naif Soln 44 Ml Btl NASAL Q6HR PRN Congestion Trazodone HCl 75 mg 06/04/25 21:00 Trazodone Hcl 25 Mg Tablet PO HS [facility] Radiology Results: ITS Impressions Head CT 06/03/25 16:37 Impression: 1.No acute intracranial abnormality. Chest X-Ray 06/03/25 17:43 Impression: Bilateral pneumonia superimposed on chronic lung disease with probable underlying CHF. These findings appear minimally progressed compared to the previous study Labs Labs: Laboratory Results - last 24 hr 06/03/25 06/03/25 06/04/25 18:23 19:22 06:00 WBC 6.2 5.7 RBC 3.81 L 3.75 L Hgb 11.0 L 10.9 L Hct 39.5 38.4 MCV 103.7 H 102.4 H MCH 28.9 29.1 MCHC 27.8 L 28.4 L RDW 17.7 H 17.2 H Plt Count 156 167 MPV 8.3 8.8 Immature Gran % (Auto) 0.6 H 0.5 Neut % (Auto) 63.0 60.0 Lymph % (Auto) 20.5 22.9 [place] % (Auto) 8.1 9.6 H Eos % (Auto) 7.3 H 6.3 H Baso % (Auto) 0.5 0.7 Lymph # (Auto) 1.26 1.31 [place] # (Auto) 0.5 0.6 Eos # (Auto) 0.5 H 0.4 H Baso # (Auto) 0.0 0.0 Abs Immat Gran (auto) 0.04 H 0.03 Absolute Neuts (auto) 3.9 3.4 Absolute Nucleated RBC 0.000 0.000 Band Neutrophils % Not Reportable Nucleated RBC % 0.0 0.0 Platelet Estimate Slightly decreased Hypochromasia Occasional Anisocytosis 1+ Schistocytes None seen Sodium 141 139 Potassium 4.9 4.1 Chloride 106 104 Carbon Dioxide 32 H 34 H Anion Gap 3 L 1 L BUN 18 H 16 Creatinine 1.46 H 1.35 H Estim Creat Clear Calc Not Reportable 31 Estimated GFR 35 L 38 L Glucose 84 65 POC Capillary Glucose Calcium 8.9 8.6 Magnesium 2.2 NT-Pro-B Natriuret Pep Cancelled 3290 H 06/04/25 06/04/25 09:13 11:29 WBC RBC Hgb Hct MCV MCH MCHC RDW Plt Count MPV Immature Gran % (Auto) Neut % (Auto) Lymph % (Auto) [place] % (Auto) Eos % (Auto) Baso % (Auto) Lymph # (Auto) [place] # (Auto) Eos # (Auto) Baso # (Auto) Abs Immat Gran (auto) Absolute Neuts (auto) Absolute Nucleated RBC Band Neutrophils % Nucleated RBC % Platelet Estimate Hypochromasia Anisocytosis Schistocytes Sodium Potassium Chloride Carbon Dioxide Anion Gap BUN Creatinine Estim Creat Clear Calc Estimated GFR Glucose POC Capillary Glucose 92 89 Calcium Magnesium NT-Pro-B Natriuret Pep
[2025-06-04] MEDS: PANTOPRAZOLE 40 MG TABLET PO ×2 (13:32→20:44)
[2025-06-04 13:54] VITALS: BP 152/61; PULSE 64; RESP 14; TEMP 36.4; O2SAT 95
[2025-06-04 14:31] LABS: Hematocrit 38.3 % (37.0-47.0); Hemoglobin 11.5 g/dL (12.0-15.0); Mean Corpuscular HGB Conc 30.0 g/dl (32-36); Mean Corpuscular Hemoglobin 29.3 pg (26-34); Mean Corpuscular Volume 97.5 fl (80-100); Platelet Count Result 172 k/mm3 (150-375); Red Blood Count 3.93 M/mm3 (4.2-5.4); White Blood Count 6.7 K/mm3 (4.5-10.0)
[2025-06-04 14:46] LABS: Anion Gap 1 mmol/L (4-12); Blood Urea Nitrogen 19 mg/dL (7-17); Calcium 8.6 mg/dL (8.4-10.2); Carbon Dioxide 37 mmol/L (22-30); Chloride 100 mmol/L (98-107); Estimated CRCL calculation 32 ml/min; Estimated Glomerular Filt Rate 38; Glucose 125 mg/dL (65-110); Potassium 3.9 mmol/L (3.4-5.0); Sodium 138 mmol/L (137-145)
[2025-06-04 15:07] LABS: Influenza A QL RT-PCR Negative (Negative); Influenza B QL RT-PCR Negative (Negative); RSV RNA, RT-PCR Negative (Negative); SARS-CoV-2 RNA PCR Negative (Negative)
[2025-06-04] MEDS: FUROSEMIDE INJ 40 MG/4 ML VIAL 20 MG IV PUSH (17:22)
[2025-06-04 19:46] LABS: Hemoglobin A1C 5.0 % (<5.7)
[2025-06-04] MEDS: FLUTICASONE/SALMETEROL 115-21 MCG INHALER 1 PUFF 2 PUFF INHALATION (20:17)
[2025-06-04 20:22] VITALS: O2SAT 90
[2025-06-04 20:43] VITALS: BP 159/57; PULSE 80; RESP 20; TEMP 37.4; O2SAT 91
[2025-06-04] MEDS: ATORVASTATIN 40 MG TABLET PO (20:43)
[2025-06-04] MEDS: cefTRIAXone 1 GM in SODIUM CHLORIDE 0.9% IV 50 ML 100 ML IVPB (20:43)
[2025-06-04] MEDS: AZITHROMYCIN 250 MG/NS 250 ML 250 MG/250 ML BAG IVPB (21:23)
[2025-06-05] VITALS (8 sets, daily range): BP systolic 145–188; BP diastolic 49–76; PULSE 53–67; RESP 16–18; TEMP 36.9; O2SAT 93–98
[2025-06-05] MEDS: LEVOTHYROXINE SODIUM 75 MCG TABLET PO (05:45)
[2025-06-05] MEDS: LEVOTHYROXINE SODIUM 100 MCG TABLET PO (05:45)
[2025-06-05] MEDS: FLUTICASONE/SALMETEROL 115-21 MCG INHALER 1 PUFF 2 PUFF INHALATION ×2 (07:22→21:01)
--- NOTE | 2025-06-05 07:37 | PM.IMPN2 ---
Assessment and Plan Assessment and Plan (1) Acute exacerbation of CHF (congestive heart failure): Code(s): I50.9 - Heart failure, unspecified Status: Acute Assessment and Plan: started on iv lasix bid probnp elevated over 3000 continue to diuresis while in the hospital watch daily weights closely daily BMP creat is 1.3 will cut back to lasix daily wean off oxygen PT/ OT ordered hopeful dc in 1-2 days time back to [place] (2) Community acquired pneumonia: Code(s): J18.9 - Pneumonia, unspecified organism Status: Acute Assessment and Plan: Continue with Rocephin and Zithromax ivpb trend labs trend BC (3) Hypertension: Qualifiers: Hypertension type: primary hypertension Qualified Code(s): I10 - Essential (primary) hypertension Code(s): I10 - Essential (primary) hypertension Status: Acute Assessment and Plan: noted hypertensive - 180's/50-60's. - continued nifedipine, will add norvasc 5 mg po daily to start today Plan code status - full code -Disposition - will plan to send back to [facility] once stable, will continue to monitor Medical Record Review I have reviewed the following patient records and this information was taken into consideration when formulating the assessment and plan.: previous labs and previous hospitalizations Consultations Consultations: I have discussed the care of this pt with the consulting providers. Time Spent With Patient Time with patient: 25 - 35 minutes Subjective Date/time seen: 06/05/25 07:37 Interval history: 79-year-old female with PMH chronic respiratory failure on 2 L nasal cannula, COPD, diastolic heart failure, CKD, history of UTI, diabetes with current long-term use of insulin, hypertension, hypothyroidism, seizure disorder, insomnia, GERD, intellectual disability, anxiety, presents from local nursing facility after getting tangled up in her wheelchair and hitting her left forehead on the wheelchair, she did not fall out of the wheelchair however. She presented to [facility] ER on 06/03/2025, she has no complaints on arrival, endorses cough for a few days. Patient admitted for BL pneumonia and CHf exacerbation, remains on 4 liters of oxygen baseline is 3 liters patient reports she is tired due to not getting much sleep last pm. denies any distress or pain currently. No fever, chills or N/V/D. Congested cough continues. Review of Systems Review of Systems: Pt with wet cough no fever today All systems reviewed & are unremarkable except as noted in HPI and below (Subjective) Exam Const: General: comfortable and no acute distress Other: A&O x3 HENMT: Mouth: Yes moist mucous membranes Eyes: Pupils: Equal, round and reactive pupils present Neck: Neck: supple Resp: Effort & Inspection: normal respiratory effort Auscultation: crackles, rales, rhonchi and diminished lung sounds Cardio: Rate: regular rate Rhythm: regular rhythm GI: Inspection: non-distended : General: Yes bladder normal to palpation Bimanual exam- vagina & uterus: bladder normal to palpation Neuro: Cranial nerves: Yes Equal, round and reactive pupils present Motor exam (neuro): 5/5 motor strength present throughout Objective Data Vital Signs Vital Signs: Vital Signs - 24 hr 06/04/25 08:30 06/04/25 13:54 06/04/25 20:22 Temperature 97.6 F Pulse Rate 86 64 Respiratory Rate 14 Blood Pressure 152/61 H Pulse Oximetry 91 95 90 Oxygen Delivery Nasal Cannula Nasal Cannula Oxygen Flow Rate 4 4 06/04/25 20:43 06/05/25 05:02 06/05/25 07:22 Temperature 99.3 F 98.4 F Pulse Rate 80 62 67 Respiratory Rate 20 16 18 Blood Pressure 159/57 H 188/72 H Pulse Oximetry 91 94 Oxygen Delivery Oxygen Flow Rate 06/05/25 07:22 Temperature Pulse Rate Respiratory Rate Blood Pressure Pulse Oximetry 95 Oxygen Delivery Nasal Cannula Oxygen Flow Rate 4 Intake/Output Intake/Output: Intake & Output 06/02/25 06/03/25 06/04/25 06/05/25 23:59 23:59 23:59 23:59 Intake Total 780 540 Output Total 3650 1500 Balance -3770 -960 Meds/Results Medications: Active Medications Generic Name Dose Route Start Last Admin Trade Name Freq PRN Reason Stop Dose Admin Acetaminophen 650 mg 06/04/25 10:48 Acetaminophen 325 Mg Tablet PO Q8H PRN Pain Albuterol/Ipratropium 3 ml 06/04/25 10:48 Ipratropium 0.5 Mg/Albuterol Sulfate 2.5 Mg (Base) Ampul.Neb 3 Ml INHALATION Q6H PRN Shortness Of Breath Alprazolam 0.5 mg 06/04/25 09:00 Alprazolam (*Crx) 0.5 Mg Tablet PO BID PRN Anxiety Aspirin 81 mg 06/04/25 08:00 06/04/25 08:24 Aspirin 81 Mg Chewable Tablet PO 81 mg DAILY@0800 MARK Administration Atorvastatin Calcium 40 mg 06/04/25 21:00 06/04/25 20:43 Atorvastatin 40 Mg Tablet PO 40 mg HS MARK Administration Buspirone HCl 10 mg 06/04/25 06:00 06/05/25 05:45 Buspirone Hcl 10 Mg Tablet PO 10 mg Q8HR MARK Administration Dextrose 12.5 gm 06/04/25 13:40 Dextrose 50% 25 Gm/50 Ml Syringe IV PUSH PRN PRN Hypoglycemia Protocol Enoxaparin Sodium 30 mg 06/04/25 09:00 06/04/25 10:22 Enoxaparin 30 Mg/0.3 Ml Syringe SUB-Q 30 mg DAILY MARK Administration Ferrous Sulfate 325 mg 06/04/25 09:00 06/04/25 08:23 Ferrous Sulfate 325 Mg Tablet PO 325 mg DAILY MARK Administration Fluoxetine HCl 40 mg 06/04/25 09:00 06/04/25 08:24 Fluoxetine Hcl 20 Mg Capsule PO 40 mg DAILY MARK Administration Fluticasone Propionate 1 spray 06/05/25 09:00 Fluticasone Propionate 0.05% Na Spr 16 Gm Btl (*Bkc) NASAL DAILY MARK Furosemide 20 mg 06/04/25 17:00 06/04/25 17:22 Furosemide Inj 40 Mg/4 Ml Vial IV PUSH 20 mg BID MARK Administration Glucagon 1 mg 06/04/25 13:40 Glucagon For Inj 1 Mg Vial IM PRN PRN Hypoglycemia Protocol Glucose 15 gm 06/04/25 13:40 Glucose Oral Gel 15 Gm Of Glucse In 37.5 Gm Tube PO PRN PRN Hypoglycemia Protocol Ceftriaxone Sodium 1 gm/ 50 mls @ 100 mls/hr 06/04/25 21:00 06/04/25 20:43 Sodium Chloride IVPB 100 mls/hr Q24H MARK Administration Azithromycin 250 mg in 250 mls @ 250 mls/hr 06/04/25 22:00 06/04/25 21:23 Zithromax IVPB 250 mls/hr Q24H MARK Administration Dextrose 1,000 mls @ 100 mls/hr 06/04/25 13:40 Dextrose 5% 1,000 Ml IVPB PRN PRN Hypoglycemia Protocol Insulin Aspart 1 - 2 units 06/04/25 21:00 06/04/25 20:40 Insulin Aspart (*Bkc) 100 Units/Ml SUB-Q Not Given HS MARK Protocol Insulin Aspart 3 - 6 units 06/04/25 17:00 06/04/25 20:45 Insulin Aspart (*Bkc) 100 Units/Ml SUB-Q Not Given TIDWM MARK Protocol Levothyroxine Sodium 100 mcg 06/05/25 06:30 06/05/25 05:45 Levothyroxine Sodium 100 Mcg Tablet PO 100 mcg DAILY@0630 MARK Administration Levothyroxine Sodium 75 mcg 06/05/25 06:30 06/05/25 05:45 Levothyroxine Sodium 75 Mcg Tablet PO 75 mcg DAILY@0630 MARK Administration Nifedipine 30 mg 06/04/25 09:00 06/04/25 08:24 Nifedipine 30 Mg Tab.Er.24 PO 30 mg DAILY MARK Administration Oxybutynin Chloride 5 mg 06/05/25 09:00 Oxybutynin Chloride Xl 5 Mg Tab.Er.24 PO DAILY MARK Pantoprazole Sodium 40 mg 06/04/25 10:50 06/04/25 20:44 Pantoprazole 40 Mg Tablet PO 40 mg Q12HR MARK Administration Fluticasone/Salmeterol 2 puff 06/04/25 20:00 06/04/25 20:17 Fluticasone/Salmeterol 115-21 Mcg Inhaler 1 Puff INHALATION 2 puff Q12HRT MARK Administration Sodium Chloride 1 spray 06/04/25 10:50 Saline 0.65% Naif Soln 44 Ml Btl NASAL Q6HR PRN Congestion Trazodone HCl 75 mg 06/04/25 21:00 06/04/25 20:44 Trazodone Hcl 25 Mg Tablet PO 75 mg HS MARK Administration Radiology Results: ITS Impressions Head CT 06/03/25 16:37 Impression: 1.No acute intracranial abnormality. Chest X-Ray 06/03/25 17:43 Impression: Bilateral pneumonia superimposed on chronic lung disease with probable underlying CHF. These findings appear minimally progressed compared to the previous study Labs Labs: Laboratory Results - last 24 hr 06/04/25 06/04/25 06/04/25 09:13 11:29 14:12 WBC RBC Hgb Hct MCV MCH MCHC RDW Plt Count MPV Sodium Potassium Chloride Carbon Dioxide Anion Gap BUN Creatinine Estim Creat Clear Calc Estimated GFR Glucose POC Capillary Glucose 92 89 Hemoglobin A1c 5.0 Calcium Influenza A (RT-PCR) Influenza B (RT-PCR) RSV (RT-PCR) SARS-CoV-2 RNA (RT-PCR) 06/04/25 06/04/25 06/04/25 14:16 14:21 15:42 WBC 6.7 RBC 3.93 L Hgb 11.5 L Hct 38.3 MCV 97.5 MCH 29.3 MCHC 30.0 L RDW 17.2 H Plt Count 172 MPV 8.2 Sodium 138 Potassium 3.9 Chloride 100 Carbon Dioxide 37 H Anion Gap 1 L BUN 19 H Creatinine 1.33 H Estim Creat Clear Calc 32 Estimated GFR 38 L Glucose 125 H POC Capillary Glucose 119 H Hemoglobin A1c Calcium 8.6 Influenza A (RT-PCR) Negative Influenza B (RT-PCR) Negative RSV (RT-PCR) Negative SARS-CoV-2 RNA (RT-PCR) Negative 06/04/25 19:42 WBC RBC Hgb Hct MCV MCH MCHC RDW Plt Count MPV Sodium Potassium Chloride Carbon Dioxide Anion Gap BUN Creatinine Estim Creat Clear Calc Estimated GFR Glucose POC Capillary Glucose 128 H Hemoglobin A1c Calcium Influenza A (RT-PCR) Influenza B (RT-PCR) RSV (RT-PCR) SARS-CoV-2 RNA (RT-PCR) Quality VTE Prophylaxis VTE prophylaxis: mechanical ordered Hospitalist MIPS Advance Care Plan I have confirmed that the patient's Advanced Care Plan is present, code status is documented, or surrogate decision maker is listed in patient medical record.: Yes Medication Reconciliation I have utilized all available resources to obtain, update and review the patients current medications (includes all prescriptions, OTC, herbals, cannabis, and nutritional supplements).: Yes
[2025-06-05 08:31] LABS: Hematocrit 37.8 % (37.0-47.0); Hemoglobin 11.3 g/dL (12.0-15.0); Immature Granulocyte Percent A 0.2 % (0-0.5); Lymphocytes Absolute Auto 1.61 K/mm3 (0.9-3.2); Mean Corpuscular HGB Conc 29.9 g/dl (32-36); Mean Corpuscular Hemoglobin 29.0 pg (26-34); Mean Corpuscular Volume 96.9 fl (80-100); Nucleated Red Blood Cells Absolute Auto 0.000 K/mm3 (0.0-0.012); Nucleated Red Blood Cells Perc 0.0 % (0.0-0.2); Platelet Count Result 169 k/mm3 (150-375); Red Blood Count 3.90 M/mm3 (4.2-5.4); White Blood Count 6.3 K/mm3 (4.5-10.0)
[2025-06-05 08:47] LABS: Alanine Aminotransferase 11 U/L (6-35); Albumin Level 3.4 g/dL (3.5-5.1); Alkaline Phosphatase 130 U/L (38-126); Anion Gap 1 mmol/L (4-12); Aspartate Amino Transferase 27 U/L (14-36); Bilirubin,Total 0.6 mg/dL (0.2-1.3); Blood Urea Nitrogen 15 mg/dL (7-17); Calcium 8.7 mg/dL (8.4-10.2); Carbon Dioxide 38 mmol/L (22-30); Chloride 101 mmol/L (98-107); Estimated CRCL calculation 33 ml/min; Estimated Glomerular Filt Rate 43; Glucose 81 mg/dL (65-110); Potassium 3.8 mmol/L (3.4-5.0); Sodium 140 mmol/L (137-145); Total Protein 6.7 g/dL (6.3-8.2)
[2025-06-05 08:56] LABS: Hypochromasia 1+
[2025-06-05 08:57] LABS: Anisocytosis 1+; Ovalocytes Occasional; Schistocytes Occasional; Stomatocytes Occasional
[2025-06-05] MEDS: oxyBUTYnin CHLORIDE XL 5 MG TAB.ER.24 PO (09:36)
[2025-06-05] MEDS: ASPIRIN 81 MG CHEWABLE TABLET PO (09:36)
[2025-06-05] MEDS: FUROSEMIDE INJ 40 MG/4 ML VIAL 20 MG IV PUSH ×2 (09:36→17:31)
[2025-06-05] MEDS: FERROUS SULFATE 325 MG TABLET PO (09:36)
[2025-06-05] MEDS: PANTOPRAZOLE 40 MG TABLET PO ×2 (09:36→20:54)
[2025-06-05] MEDS: ENOXAPARIN 40 MG/0.4 ML SYRINGE SUB-Q (09:37)
[2025-06-05] MEDS: FLUTICASONE PROPIONATE 0.05% NA SPR 16 GM BTL (*BKC) 1 SPRAY NASAL (09:38)
[2025-06-05] MEDS: ATORVASTATIN 40 MG TABLET PO (20:54)
[2025-06-05] MEDS: cefTRIAXone 1 GM in SODIUM CHLORIDE 0.9% IV 50 ML 100 ML IVPB (23:10)
[2025-06-05] MEDS: AZITHROMYCIN 250 MG/NS 250 ML 250 MG/250 ML BAG IVPB (23:12)
[2025-06-06] VITALS (7 sets, daily range): BP systolic 134–137; BP diastolic 51–63; PULSE 58–63; RESP 16–20; TEMP 36.2–36.8; O2SAT 93–100
[2025-06-06] MEDS: LEVOTHYROXINE SODIUM 100 MCG TABLET PO (05:33)
[2025-06-06] MEDS: LEVOTHYROXINE SODIUM 75 MCG TABLET PO (05:33)
[2025-06-06 07:04] LABS: Hematocrit 35.5 % (37.0-47.0); Hemoglobin 10.6 g/dL (12.0-15.0); Immature Granulocyte Percent A 0.3 % (0-0.5); Lymphocytes Absolute Auto 1.88 K/mm3 (0.9-3.2); Mean Corpuscular HGB Conc 29.9 g/dl (32-36); Mean Corpuscular Hemoglobin 29.0 pg (26-34); Mean Corpuscular Volume 97.0 fl (80-100); Nucleated Red Blood Cells Absolute Auto 0.000 K/mm3 (0.0-0.012); Nucleated Red Blood Cells Perc 0.0 % (0.0-0.2); Platelet Count Result 185 k/mm3 (150-375); Red Blood Count 3.66 M/mm3 (4.2-5.4); White Blood Count 6.0 K/mm3 (4.5-10.0)
[2025-06-06 07:29] LABS: Anisocytosis 1+; Hypochromasia 1+
[2025-06-06 07:30] LABS: Alanine Aminotransferase 10 U/L (6-35); Albumin Level 3.2 g/dL (3.5-5.1); Alkaline Phosphatase 115 U/L (38-126); Anion Gap 0 mmol/L (4-12); Aspartate Amino Transferase 41 U/L (14-36); Bilirubin,Total 0.4 mg/dL (0.2-1.3); Blood Urea Nitrogen 15 mg/dL (7-17); Calcium 8.6 mg/dL (8.4-10.2); Carbon Dioxide 39 mmol/L (22-30); Chloride 101 mmol/L (98-107); Estimated CRCL calculation 33 ml/min; Estimated Glomerular Filt Rate 42; Glucose 77 mg/dL (65-110); Magnesium 1.9 mg/dL (1.6-2.3); Potassium 3.4 mmol/L (3.4-5.0); Schistocytes None Seen; Sodium 140 mmol/L (137-145); Total Protein 6.4 g/dL (6.3-8.2)
[2025-06-06] MEDS: FLUTICASONE/SALMETEROL 115-21 MCG INHALER 1 PUFF 2 PUFF INHALATION ×2 (08:04→19:39)
--- NOTE | 2025-06-06 08:27 | PM.IMPN2 ---
Assessment and Plan Assessment and Plan (1) Acute exacerbation of CHF (congestive heart failure): Code(s): I50.9 - Heart failure, unspecified Status: Acute Assessment and Plan: started on iv lasix bid probnp elevated over 3000 continue to diuresis while in the hospital watch daily weights closely daily BMP t back to lasix daily PT/ OT ordered hopeful dc in 1-2 days time back to [place] (2) Community acquired pneumonia: Code(s): J18.9 - Pneumonia, unspecified organism Status: Acute Assessment and Plan: Continue with Rocephin and Zithromax ivpb trend labs trend BC wean oxygen as tolerated (3) Hypertension: Qualifiers: Hypertension type: primary hypertension Qualified Code(s): I10 - Essential (primary) hypertension Code(s): I10 - Essential (primary) hypertension Status: Acute Assessment and Plan: noted hypertensive - 180's/50-60's. - continued nifedipine, stop amlodipine add losartan monitor blood pressures and adjust as indicated Plan code status - full code -Disposition - will plan to send back to [facility] once stable, will continue to monitor Medical Record Review I have reviewed the following patient records and this information was taken into consideration when formulating the assessment and plan.: previous labs and previous hospitalizations Subjective Date/time seen: 06/06/25 08:27 Interval history: Patient seen for follow up visit. Patient lying in bed, in no acute distress. Patient continues on IV diuresis and IV antibiotics. Stop amlodipine as patient is already on a CCB, start losartan for elevated blood pressure. Review of Systems Review of Systems: Pt with wet cough no fever today All systems reviewed & are unremarkable except as noted in HPI and below (Subjective) Exam Const: General: comfortable and no acute distress Other: A&O x3 HENMT: Mouth: Yes moist mucous membranes Eyes: Pupils: Equal, round and reactive pupils present Neck: Neck: supple Resp: Effort & Inspection: normal respiratory effort Auscultation: crackles, rales, rhonchi and diminished lung sounds Cardio: Rate: regular rate Rhythm: regular rhythm GI: Inspection: non-distended : General: Yes bladder normal to palpation Bimanual exam- vagina & uterus: bladder normal to palpation Neuro: Cranial nerves: Yes Equal, round and reactive pupils present Motor exam (neuro): 5/5 motor strength present throughout Objective Data Vital Signs Vital Signs: Vital Signs - 24 hr 1204/25 09:40 06/05/25 10:26 06/05/25 10:45 Temperature Pulse Rate Respiratory Rate Blood Pressure 188/76 H Pulse Oximetry 95 Oxygen Delivery Nasal Cannula Nasal Cannula Oxygen Flow Rate 3 4 06/05/25 14:00 06/05/25 20:00 06/05/25 20:58 Temperature 98.4 F Pulse Rate 59 L Respiratory Rate 18 Blood Pressure 148/73 H 145/49 H Pulse Oximetry 93 98 Oxygen Delivery Nasal Cannula Oxygen Flow Rate 2 06/05/25 21:01 06/05/25 21:01 06/06/25 05:31 Temperature 97.9 F Pulse Rate 53 L 53 L 63 Respiratory Rate 16 16 16 Blood Pressure 134/61 Pulse Oximetry 95 99 Oxygen Delivery Nasal Cannula Oxygen Flow Rate 4 06/06/25 08:04 Temperature Pulse Rate Respiratory Rate Blood Pressure Pulse Oximetry 99 Oxygen Delivery Nasal Cannula Oxygen Flow Rate 4 Intake/Output Intake/Output: Intake & Output 06/03/25 06/04/25 06/05/25 06/06/25 23:59 23:59 23:59 23:59 Intake Total 1080 1190 795 Output Total 3650 1500 1250 Balance -2570 -310 -455 Meds/Results Medications: Active Medications Generic Name Dose Route Start Last Admin Trade Name Freq PRN Reason Stop Dose Admin Acetaminophen 650 mg 06/04/25 10:48 Acetaminophen 325 Mg Tablet PO Q8H PRN Pain Albuterol/Ipratropium 3 ml 06/04/25 10:48 Ipratropium 0.5 Mg/Albuterol Sulfate 2.5 Mg (Base) Ampul.Neb 3 Ml INHALATION Q6H PRN Shortness Of Breath Alprazolam 0.5 mg 06/04/25 09:00 Alprazolam (*Crx) 0.5 Mg Tablet PO BID PRN Anxiety Aspirin 81 mg 06/04/25 08:00 06/05/25 09:36 Aspirin 81 Mg Chewable Tablet PO 81 mg DAILY@0800 MARK Administration Atorvastatin Calcium 40 mg 06/04/25 21:00 06/05/25 20:54 Atorvastatin 40 Mg Tablet PO 40 mg HS MARK Administration Buspirone HCl 10 mg 06/04/25 06:00 06/06/25 05:33 Buspirone Hcl 10 Mg Tablet PO 10 mg Q8HR MARK Administration Dextrose 12.5 gm 06/04/25 13:40 Dextrose 50% 25 Gm/50 Ml Syringe IV PUSH PRN PRN Hypoglycemia Protocol Enoxaparin Sodium 40 mg 06/05/25 09:00 06/05/25 09:37 Enoxaparin 40 Mg/0.4 Ml Syringe SUB-Q 40 mg DAILY MARK Administration Ferrous Sulfate 325 mg 06/04/25 09:00 06/05/25 09:36 Ferrous Sulfate 325 Mg Tablet PO 325 mg DAILY MARK Administration Fluoxetine HCl 40 mg 06/04/25 09:00 06/05/25 09:36 Fluoxetine Hcl 20 Mg Capsule PO 40 mg DAILY MARK Administration Fluticasone Propionate 1 spray 06/05/25 09:00 06/05/25 09:38 Fluticasone Propionate 0.05% Na Spr 16 Gm Btl (*Bkc) NASAL 1 spray DAILY MARK Administration Furosemide 20 mg 06/04/25 17:00 06/05/25 17:31 Furosemide Inj 40 Mg/4 Ml Vial IV PUSH 20 mg BID MARK Administration Glucagon 1 mg 06/04/25 13:40 Glucagon For Inj 1 Mg Vial IM PRN PRN Hypoglycemia Protocol Glucose 15 gm 06/04/25 13:40 Glucose Oral Gel 15 Gm Of Glucse In 37.5 Gm Tube PO PRN PRN Hypoglycemia Protocol Ceftriaxone Sodium 1 gm/ 50 mls @ 100 mls/hr 06/04/25 21:00 06/05/25 23:40 Sodium Chloride IVPB Infused Q24H MARK Infusion Azithromycin 250 mg in 250 mls @ 250 mls/hr 06/04/25 22:00 06/06/25 00:12 Zithromax IVPB Infused Q24H MARK Infusion Dextrose 1,000 mls @ 100 mls/hr 06/04/25 13:40 Dextrose 5% 1,000 Ml IVPB PRN PRN Hypoglycemia Protocol Insulin Aspart 1 - 2 units 06/04/25 21:00 06/05/25 20:55 Insulin Aspart (*Bkc) 100 Units/Ml SUB-Q Not Given HS MARK Protocol Insulin Aspart 3 - 6 units 06/04/25 17:00 06/05/25 17:23 Insulin Aspart (*Bkc) 100 Units/Ml SUB-Q Not Given TIDWM MARK Protocol Levothyroxine Sodium 100 mcg 06/05/25 06:30 06/06/25 05:33 Levothyroxine Sodium 100 Mcg Tablet PO 100 mcg DAILY@0630 MARK Administration Levothyroxine Sodium 75 mcg 06/05/25 06:30 06/06/25 05:33 Levothyroxine Sodium 75 Mcg Tablet PO 75 mcg DAILY@0630 MARK Administration Nifedipine 30 mg 06/04/25 09:00 06/05/25 09:36 Nifedipine 30 Mg Tab.Er.24 PO 30 mg DAILY MARK Administration Oxybutynin Chloride 5 mg 06/05/25 09:00 06/05/25 09:36 Oxybutynin Chloride Xl 5 Mg Tab.Er.24 PO 5 mg DAILY MARK Administration Pantoprazole Sodium 40 mg 06/04/25 10:50 06/05/25 20:54 Pantoprazole 40 Mg Tablet PO 40 mg Q12HR MARK Administration Fluticasone/Salmeterol 2 puff 06/04/25 20:00 06/06/25 08:04 Fluticasone/Salmeterol 115-21 Mcg Inhaler 1 Puff INHALATION 2 puff Q12HRT MARK Administration Sodium Chloride 1 spray 06/04/25 10:50 Saline 0.65% Naif Soln 44 Ml Btl NASAL Q6HR PRN Congestion Trazodone HCl 75 mg 06/04/25 21:00 06/05/25 20:54 Trazodone Hcl 25 Mg Tablet PO 75 mg HS MARK Administration Radiology Results: ITS Impressions Head CT 06/03/25 16:37 Impression: 1.No acute intracranial abnormality. Chest X-Ray 06/03/25 17:43 Impression: Bilateral pneumonia superimposed on chronic lung disease with probable underlying CHF. These findings appear minimally progressed compared to the previous study Labs Labs: Laboratory Results - last 24 hr 06/04/25 06/05/25 06/05/25 06:00 08:25 11:32 WBC 6.3 RBC 3.90 L Hgb 11.3 L Hct 37.8 MCV 96.9 MCH 29.0 MCHC 29.9 L RDW 17.1 H Plt Count 169 MPV 7.8 Immature Gran % (Auto) 0.2 Neut % (Auto) 57.0 Lymph % (Auto) 25.6 Winston % (Auto) 10.0 H Eos % (Auto) 6.7 H Baso % (Auto) 0.5 Lymph # (Auto) 1.61 Winston # (Auto) 0.6 Eos # (Auto) 0.4 H Baso # (Auto) 0.0 Abs Immat Gran (auto) 0.01 Absolute Neuts (auto) 3.6 Absolute Nucleated RBC 0.000 Band Neutrophils % Not Reportable Nucleated RBC % 0.0 Platelet Estimate Slightly decreased Hypochromasia 1+ Anisocytosis 1+ Ovalocytes Occasional Stomatocytes Occasional Schistocytes Occasional Sodium 140 Potassium 3.8 Chloride 101 Carbon Dioxide 38 H Anion Gap 1 L BUN 15 Creatinine 1.22 H Estim Creat Clear Calc 33 Estimated GFR 43 L Glucose 81 POC Capillary Glucose 92 Calcium 8.7 Magnesium Total Bilirubin 0.6 AST 27 ALT 11 Alkaline Phosphatase 130 H Total Protein 6.7 Albumin 3.4 L M.pneumoniae IgM Titer <770 06/05/25 06/05/25 06/05/25 15:57 17:18 20:55 WBC RBC Hgb Hct MCV MCH MCHC RDW Plt Count MPV Immature Gran % (Auto) Neut % (Auto) Lymph % (Auto) Winston % (Auto) Eos % (Auto) Baso % (Auto) Lymph # (Auto) Winston # (Auto) Eos # (Auto) Baso # (Auto) Abs Immat Gran (auto) Absolute Neuts (auto) Absolute Nucleated RBC Band Neutrophils % Nucleated RBC % Platelet Estimate Hypochromasia Anisocytosis Ovalocytes Stomatocytes Schistocytes Sodium Potassium Chloride Carbon Dioxide Anion Gap BUN Creatinine Estim Creat Clear Calc Estimated GFR Glucose POC Capillary Glucose 164 H 99 123 H Calcium Magnesium Total Bilirubin AST ALT Alkaline Phosphatase Total Protein Albumin M.pneumoniae IgM Titer 06/06/25 06/06/25 06:38 07:41 WBC 6.0 RBC 3.66 L Hgb 10.6 L Hct 35.5 L MCV 97.0 MCH 29.0 MCHC 29.9 L RDW 17.5 H Plt Count 185 MPV 7.9 Immature Gran % (Auto) 0.3 Neut % (Auto) 48.1 Lymph % (Auto) 31.2 Winston % (Auto) 13.4 H Eos % (Auto) 6.5 H Baso % (Auto) 0.5 Lymph # (Auto) 1.88 Winston # (Auto) 0.8 H Eos # (Auto) 0.4 H Baso # (Auto) 0.0 Abs Immat Gran (auto) 0.02 Absolute Neuts (auto) 2.9 Absolute Nucleated RBC 0.000 Band Neutrophils % Not Reportable Nucleated RBC % 0.0 Platelet Estimate Adequate Hypochromasia 1+ Anisocytosis 1+ Ovalocytes Stomatocytes Schistocytes None seen Sodium 140 Potassium 3.4 Chloride 101 Carbon Dioxide 39 H Anion Gap 0 L BUN 15 Creatinine 1.23 H Estim Creat Clear Calc 33 Estimated GFR 42 L Glucose 77 POC Capillary Glucose 76 Calcium 8.6 Magnesium 1.9 Total Bilirubin 0.4 AST 41 H ALT 10 Alkaline Phosphatase 115 Total Protein 6.4 Albumin 3.2 L M.pneumoniae IgM Titer Quality VTE Prophylaxis VTE prophylaxis: mechanical ordered
[2025-06-06] MEDS: FERROUS SULFATE 325 MG TABLET PO (09:47)
[2025-06-06] MEDS: oxyBUTYnin CHLORIDE XL 5 MG TAB.ER.24 PO (09:47)
[2025-06-06] MEDS: PANTOPRAZOLE 40 MG TABLET PO ×2 (09:47→20:54)
[2025-06-06] MEDS: FUROSEMIDE INJ 40 MG/4 ML VIAL 20 MG IV PUSH ×2 (09:48→18:20)
[2025-06-06] MEDS: ENOXAPARIN 40 MG/0.4 ML SYRINGE SUB-Q (09:48)
[2025-06-06] MEDS: FLUTICASONE PROPIONATE 0.05% NA SPR 16 GM BTL (*BKC) 1 SPRAY NASAL (09:50)
[2025-06-06] MEDS: ASPIRIN 81 MG CHEWABLE TABLET PO (09:52)
[2025-06-06] MEDS: cefTRIAXone 1 GM in SODIUM CHLORIDE 0.9% IV 50 ML 100 ML IVPB (20:54)
[2025-06-06] MEDS: ATORVASTATIN 40 MG TABLET PO (20:54)
[2025-06-06] MEDS: AZITHROMYCIN 250 MG/NS 250 ML 250 MG/250 ML BAG IVPB (21:36)
[2025-06-07 04:29] VITALS: BP 166/78; PULSE 74; RESP 16; TEMP 36.2; O2SAT 97
[2025-06-07] MEDS: LEVOTHYROXINE SODIUM 75 MCG TABLET PO (05:30)
[2025-06-07] MEDS: LEVOTHYROXINE SODIUM 100 MCG TABLET PO (05:30)
[2025-06-07] MEDS: FLUTICASONE/SALMETEROL 115-21 MCG INHALER 1 PUFF 2 PUFF INHALATION (07:53)
[2025-06-07 07:55] VITALS: O2SAT 96
[2025-06-07] MEDS: ENOXAPARIN 40 MG/0.4 ML SYRINGE SUB-Q (08:26)
[2025-06-07] MEDS: ASPIRIN 81 MG CHEWABLE TABLET PO (08:27)
[2025-06-07 08:28] VITALS: RESP 16; O2SAT 96
[2025-06-07] MEDS: FUROSEMIDE INJ 40 MG/4 ML VIAL 20 MG IV PUSH (08:28)
[2025-06-07] MEDS: FERROUS SULFATE 325 MG TABLET PO (08:28)
[2025-06-07] MEDS: LOSARTAN POTASSIUM 25 MG TABLET PO (08:28)
[2025-06-07] MEDS: oxyBUTYnin CHLORIDE XL 5 MG TAB.ER.24 PO (08:28)
[2025-06-07] MEDS: PANTOPRAZOLE 40 MG TABLET PO (08:28)
[2025-06-07 08:29] LABS: Hematocrit 38.3 % (37.0-47.0); Hemoglobin 11.3 g/dL (12.0-15.0); Immature Granulocyte Percent A 0.3 % (0-0.5); Lymphocytes Absolute Auto 2.18 K/mm3 (0.9-3.2); Mean Corpuscular HGB Conc 29.5 g/dl (32-36); Mean Corpuscular Hemoglobin 29.1 pg (26-34); Mean Corpuscular Volume 98.7 fl (80-100); Nucleated Red Blood Cells Absolute Auto 0.000 K/mm3 (0.0-0.012); Nucleated Red Blood Cells Perc 0.0 % (0.0-0.2); Platelet Count Result 187 k/mm3 (150-375); Red Blood Count 3.88 M/mm3 (4.2-5.4); White Blood Count 7.0 K/mm3 (4.5-10.0)
[2025-06-07] MEDS: FLUTICASONE PROPIONATE 0.05% NA SPR 16 GM BTL (*BKC) 1 SPRAY NASAL (08:29)
[2025-06-07 08:50] LABS: Anisocytosis 1+; Ovalocytes 1+; Schistocytes Rare
[2025-06-07 08:51] LABS: Hypochromasia 1+
[2025-06-07 08:54] LABS: Alanine Aminotransferase 10 U/L (6-35); Albumin Level 3.6 g/dL (3.5-5.1); Alkaline Phosphatase 115 U/L (38-126); Anion Gap 3 mmol/L (4-12); Aspartate Amino Transferase 27 U/L (14-36); Bilirubin,Total 0.4 mg/dL (0.2-1.3); Blood Urea Nitrogen 16 mg/dL (7-17); Calcium 8.9 mg/dL (8.4-10.2); Carbon Dioxide 36 mmol/L (22-30); Chloride 101 mmol/L (98-107); Estimated CRCL calculation 31 ml/min; Estimated Glomerular Filt Rate 40; Glucose 78 mg/dL (65-110); Potassium 3.9 mmol/L (3.4-5.0); Sodium 140 mmol/L (137-145); Total Protein 6.9 g/dL (6.3-8.2)
[2025-06-07 08:58] LABS: NT Pro B Type Natriuretic Pept 1620 pg/mL (19.9-100)
--- NOTE | 2025-06-07 11:44 | P.DS_ITS ---
DS: Admitting Diagnosis Discharge Date 06/07/2025 Admitting Diagnosis acute on chronic respiratory failure with hypoxia community acquired pneumonia acute diastolic CHF exacerbation CKD HTN COPD Diabetes current nursing home use of insulin DS: Discharge Diagnosis Discharge Diagnosis (1) Acute exacerbation of CHF (congestive heart failure): Code(s): I50.9 - Heart failure, unspecified Status: Acute (2) Community acquired pneumonia: Code(s): J18.9 - Pneumonia, unspecified organism Status: Acute (3) Hypertension: Qualifiers: Hypertension type: primary hypertension Qualified Code(s): I10 - Essential (primary) hypertension Code(s): I10 - Essential (primary) hypertension Status: Acute DS: Summary Hospital Course Reason for hospitalization: hypoxia Hospital Course: The patient is a 79-year-old female with a complex medical history including chronic respiratory failure on home oxygen, COPD, diastolic heart failure, 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 She was admitted from a nursing facility after sustaining a minor head injury when she became entangled in her wheelchair; she did not lose consciousness or fall to the ground. On arrival, she was noted to be hypoxic, requiring increased oxygen support above her baseline. She also reported a cough but denied fever, chest pain, or gastrointestinal symptoms. Initial evaluation revealed acute on chronic hypoxic respiratory failure, with chest imaging demonstrating bilateral pneumonia superimposed on chronic lung disease and pulmonary edema. Laboratory studies showed stable leukocyte count, mild anemia, and renal function at baseline. BNP was elevated, consistent with acute decompensated heart failure. Head and cervical spine CTs were negative for acute injury. The patient was started on intravenous diuretics (Lasix) for heart failure exacerbation and empiric antibiotics (ceftriaxone and azithromycin) for community-acquired pneumonia. Her antihypertensive regimen was adjusted by discontinuing amlodipine, continuing nifedipine, and adding losartan for improved blood pressure control. She was maintained on a heart-healthy, diabetic, and low-sodium diet with fluid restriction. Oxygen was titrated as needed, and her respiratory status gradually improved. Blood glucose was managed with sliding scale insulin, and her home medications were resumed as appropriate. Throughout her stay, the patient remained hemodynamically stable, with improvement in oxygenation and resolution of acute symptoms. She tolerated oral intake, participated in physical and occupational therapy, and had no further episodes of desaturation or acute distress. Repeat labs and imaging showed stabilization of her cardiac and respiratory status. She was discharged in stable condition back to her nursing facility with instructions for continued monitoring, daily weights, fluid restriction, and follow-up with her primary care provider. Time Spent with Patient Time attestation: Total time spent providing and/or coordinating discharge services: 40 Minutes Exam Const: General: comfortable and no acute distress Other: A&O x3 HENMT: Mouth: Yes moist mucous membranes Eyes: Pupils: Equal, round and reactive pupils present Neck: Neck: supple Resp: Effort & Inspection: normal respiratory effort Auscultation: crackles, rales, rhonchi and diminished lung sounds Cardio: Rate: regular rate Rhythm: regular rhythm GI: Inspection: non-distended : General: Yes bladder normal to palpation Bimanual exam- vagina & uterus: bladder normal to palpation Neuro: Cranial nerves: Yes Equal, round and reactive pupils present Motor exam (neuro): 5/5 motor strength present throughout DS: Data Data Completed and Pending Labs on day of discharge: Labs from last 24 hours 06/07/25 06/07/25 06/07/25 11:13 08:22 07:48 WBC 7.0 RBC 3.88 L Hgb 11.3 L Hct 38.3 MCV 98.7 MCH 29.1 MCHC 29.5 L RDW 17.9 H Plt Count 187 MPV 8.1 Immature Gran % (Auto) 0.3 Neut % (Auto) 50.3 Lymph % (Auto) 31.1 [place] % (Auto) 10.4 H Eos % (Auto) 7.3 H Baso % (Auto) 0.6 Lymph # (Auto) 2.18 [place] # (Auto) 0.7 H Eos # (Auto) 0.5 H Baso # (Auto) 0.0 Abs Immat Gran (auto) 0.02 Absolute Neuts (auto) 3.5 Absolute Nucleated RBC 0.000 Band Neutrophils % Not Reportable Nucleated RBC % 0.0 Platelet Estimate Adequate Hypochromasia 1+ Anisocytosis 1+ Ovalocytes 1+ Schistocytes Rare Sodium 140 Potassium 3.9 Chloride 101 Carbon Dioxide 36 H Anion Gap 3 L BUN 16 Creatinine 1.30 H Estim Creat Clear Calc 31 Estimated GFR 40 L Glucose 78 POC Capillary Glucose 101 86 Calcium 8.9 Total Bilirubin 0.4 AST 27 ALT 10 Alkaline Phosphatase 115 NT-Pro-B Natriuret Pep 1620 H Total Protein 6.9 Albumin 3.6 12/05/25 12/05/25 21:04 16:50 WBC RBC Hgb Hct MCV MCH MCHC RDW Plt Count MPV Immature Gran % (Auto) Neut % (Auto) Lymph % (Auto) [place] % (Auto) Eos % (Auto) Baso % (Auto) Lymph # (Auto) [place] # (Auto) Eos # (Auto) Baso # (Auto) Abs Immat Gran (auto) Absolute Neuts (auto) Absolute Nucleated RBC Band Neutrophils % Nucleated RBC % Platelet Estimate Hypochromasia Anisocytosis Ovalocytes Schistocytes Sodium Potassium Chloride Carbon Dioxide Anion Gap BUN Creatinine Estim Creat Clear Calc Estimated GFR Glucose POC Capillary Glucose 173 H 119 H Calcium Total Bilirubin AST ALT Alkaline Phosphatase NT-Pro-B Natriuret Pep Total Protein Albumin Preliminary micro results at discharge 06/03/25 21:39 Blood Culture - Preliminary Blood 06/03/25 21:39 Blood Culture - Preliminary Blood Imaging Radiologist's impression: Ordering Physician: Makenna Burt MD Date of Service: 06/03/25 Procedure(s): CT brain wo con Accession Number(s): [id number] cc: Makenna Burt MD; UNKNOWN,DOCTOR~ EXAMINATION: CT brain wo con, 06/03/2025 16:20 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 Technique: Axial images obtained of the brain without contrast. One or more of the following dose reduction techniques were used: automated exposure control, adjustment of the mA and/or kV according to patient size, use of iterative reconstruction technique. Findings: No acute infarct or parenchymal hemorrhage. No abnormal mass or mass effect. No midline shift. No extra-axial fluid collections. No hydrocephalus. Mastoid air cells unremarkable. Sinuses and orbits unremarkable. No acute fracture. No significant facial or scalp soft tissue swelling evident. No radiopaque foreign body is seen. Impression: 1.No acute intracranial abnormality. Reviewed, dictated and finalized at location P. NG PATTERN LAYOUT TECHNICIAN Ordering Physician: Makenna Burt MD Date of Service: 06/03/25 Procedure(s): CT cervical spine wo con Accession Number(s): [id number] cc: Makenna Burt MD; UNKNOWN,DOCTOR~ CT cervical spine wo con HISTORY: fall COMPARISON: None TECHNIQUE: Axial images of the cervical spine were obtained. Multiplanar reconstruction in the coronal, sagittal and axial reformats to evaluate for cervical fracture. FINDINGS: The images demonstrate no acute fracture or paravertebral soft tissue swelling. Multilevel degenerative changes with disc bulging, endplate sclerotic changes and facet joint arthropathy most significant at C3-C4, C5-C6 and C6-C7. There is resulting moderate neural foraminal narrowing and central canal narrowing. Right pleural effusion is noted. IMPRESSION: No acute fracture or subluxation. All CT scans at this facility are performed using low dose modulation techniques as appropriate to perform exam including the following: automated exposure control; adjustment of the mA and/or kV according to patient size (this includes techniques or standardized protocols for targeted exams where does is matched to indication/reason for exam; i.e. extremities or head); use of ite rative reconstruction technique). Reviewed, dictated and finalized at location S. NG PATTERN LAYOUT TECHNICIAN Ordering Physician: Makenna Burt MD Date of Service: 06/03/25 Procedure(s): XR chest 1V portable Accession Number(s): [id number] cc: Makenna Burt MD; UNKNOWN,DOCTOR~ EXAMINATION: XR chest 1V portable COMPARISON: No comparisons available. HISTORY: hypoxic FINDINGS: Bilateral infiltrates superimposed on chronic lung disease. Small effusions. Moderate pulmonary venous congestion. No pneumothorax. Mild cardiomegaly. Mediastinal and hilar contours are within normal limits. Bony thorax no acute abnormality. Miscellaneous: None Impression: Bilateral pneumonia superimposed on chronic lung disease with probable underlying CHF. These findings appear minimally progressed compared to the previous study Reviewed, dictated and finalized at location P. NG PATTERN LAYOUT TECHNICIAN Discharge Plan Discharge Attending physician on discharge: Roel Mosqueda Oca Consulting providers: Silvia Saeed; Carmencita Vernon; Renata Hutchins; Ramírez Meyer; Galileo Cooper Discharging Clinician: Marisol Rodríguez Patient Disposition: [place] Long-Term[facility]Asst Living Activity: as tolerated Diet: heart healthy, diabetic and low sodium Discharge Instructions: fluid restriction - please limit patient to 1800 mL of fluids every 24 hours Daily weights please Patient Instructions: Antibiotic Form Patient Language: Faroese Stand Alone Forms: General Discharge Information, Mcfp Discharge Follow-up/Referrals: Mukesh,Silvina Dill [Primary Care Provider] Referral Note: please follow up with your primary care provider within 1 week of discharge. Discharge Medications: New losartan 25 mg Tablet 25 mg PO DAILY Qty: 30 0RF azithromycin 250 mg tablet 250 mg PO DAILY Qty: 1 0RF Rx Instructions: next dose due 06/07/25 at 2100 amoxicillin-pot clavulanate 875-125 mg tablet 1 tablet PO Q12H Qty: 6 0RF Rx Instructions: next dose due 06/07/2025 at 2100 Continued montelukast [Singulair] 10 mg tablet 10 mg PO DAILY alprazolam 0.5 mg tablet 0.5 mg PO BID atorvastatin 40 mg tablet 40 mg PO HS levothyroxine 175 mcg tablet 175 mcg PO DAILY pantoprazole 40 mg tablet,delayed release (DR/EC) 40 mg PO Q12H buspirone 10 mg tablet 10 mg PO TID oxybutynin chloride 5 mg tablet extended release 24hr 5 mg PO DAILY trazodone 50 mg tablet 75 mg PO HS fluticasone propion-salmeterol [Advair Diskus] 250-50 mcg/dose blister with device 1 inh inhalation DAILY dapagliflozin propanediol [Farxiga] 5 mg tablet 5 mg PO DAILY Humalog U-100 Insulin 100 unit/mL cartridge 1 sliding scale dose subcut HS Rx Instructions: 201-300= 1unit 300-400= 2 units ipratropium-albuterol 0.5 mg-3 mg(2.5 mg base)/3 mL solution for nebulization 3 ml INHALATION Q6H PRN (Reason: shortness of breath) nystatin [Klayesta] 100,000 unit/gram powder 1 applic TOPICAL DAILY Rx Instructions: yeast under breasts silver sulfadiazine 1 % cream 1 applic TOPICAL DAILY PRN (Reason: wound healing) Rx Instructions: apply to left lower leg topically as needed for wounds. acetaminophen [8 Hour Pain Reliever] 650 mg tablet extended release 650 mg PO Q8H PRN (Reason: pain) aspirin 81 mg tablet,chewable 81 mg PO DAILY calcium carbonate [Antacid Ultra Strength] 400 mg calcium (1,000 mg) tablet,chewable 1,000 mg PO DAILY ergocalciferol (vitamin D2) 1,250 mcg (50,000 unit) capsule 50,000 unit PO WEEKLY ferrous sulfate [FeroSul] 325 mg (65 mg iron) tablet 325 mg PO DAILY fluoxetine 40 mg capsule 40 mg PO DAILY nifedipine 30 mg tablet extended release 24hr 30 mg PO DAILY Skyrizi 360 mg/2.4 mL (150 mg/mL) wearable injector 360 mg subcut .Every 56 Days topiramate 50 mg tablet 50 mg PO DAILY cholecalciferol (vitamin D3) [Vitamin D3] 25 mcg (1,000 unit) capsule 25 mcg PO DAILY furosemide 20 mg tablet 20 mg PO BID fluticasone propionate 50 mcg/actuation spray,suspension 1 spray INTRANASAL DAILY insulin lispro [Humalog U-100 Insulin] 100 unit/mL solution 1 sliding scale dose subcut USEASDIRECTD Patient Comments: 70-200=0 201-250=2 251-300=3 301-350=4 351-400=5 call MD and recheck in one hour for lispro psyllium Packet 1 packet PO DAILY Rx Instructions: mix into at least 8 oz of water or juice before administering clobetasol 0.05 % cream 1 applic TOPICAL HS Patient Comments: Apply topically to affected area every night for hemorrhoids Date of admission: 06/04/25 15:19 Primary Care Provider: MukeshAniyah Admitting Provider: Deonte Sage Attending physician on admission: Marisol Rodríguez Condition: Stable Quality VTE Prophylaxis VTE prophylaxis: mechanical ordered
[2025-06-07 14:00] VITALS: BP 105/51; PULSE 59; RESP 16; TEMP 36.2; O2SAT 100
== END 2025-06-07 15:20 | DRG 139 ==
LOC: ANHED 18:55 → ANH3MEDSUR 21:57
PROVIDERS: Family Medicine; General Practice; Nurse Practitioner Family; Admitting Provider Internal Medicine; Emergency Provider Emergency Medicine; PCP Internal Medicine; Visit Provider Nurse Practitioner Adult Health
DX: J18.9 Pneumonia, unspecified organism (principal); I13.2 Hypertensive heart and chronic kidney disease with heart failure and with stage 5 chronic kidney disease, or end stage renal disease; I50.33 Acute on chronic diastolic (congestive) heart failure; J44.0 Chronic obstructive pulmonary disease with (acute) lower respiratory infection; J96.21 Acute and chronic respiratory failure with hypoxia; N18.6 End stage renal disease; E11.22 Type 2 diabetes mellitus with diabetic chronic kidney disease; E03.9 Hypothyroidism, unspecified; E78.5 Hyperlipidemia, unspecified; K21.9 Gastro-esophageal reflux disease without esophagitis; G40.909 Epilepsy, unspecified, not intractable, without status epilepticus; G47.30 Sleep apnea, unspecified; F32.9 Major depressive disorder, single episode, unspecified; F41.9 Anxiety disorder, unspecified; Z20.822 Contact with and (suspected) exposure to COVID-19; Z79.4 Long term (current) use of insulin; Z79.82 Long term (current) use of aspirin; Z99.81 Dependence on supplemental oxygen
CPT/HCPCS: 36415; 70450; 71045; 72125; 80048; 80053; 82948; 83036; 83735; 83880; 85025; 85027; 86738; 87040; 87449; 87637; 87899; 94640; 96372; 96374; 96376; 97161; 97165; 99285; A9270; G0378; G0379; J0456; J0696; J1650; J1938; J7050

== ENCOUNTER 2025-06-12 02:27 | Emergency (ER) | payer OTHER, SELFPAY ==
--- NOTE | ~2025-06-12 | CT_ITS ---
CT HEAD NON-CONTRAST CT C-SPINE Clinical History: injury Comparison: 06/03/2025 Technique: Unenhanced axial images skull base to vertex. Coronal, sagittal reformats. Axial images thoracic inlet to skull base. Sagittal and coronal reformats. CT images acquired with automatic exposure control for dose reduction DLP: 681 mGy-cm Findings: Head: White matter microvascular ischemic changes. Sulci, ventricles: Unremarkable. No intracerebral hemorrhage. No evidence acute territorial infarct. No mass effect, midline shift, intra-/extra-axial fluid collection. Bony calvarium intact. Visualized paranasal sinuses: Ethmoid disease. Mastoid air cells: Clear. C-spine: No acute fracture. Grade 1 anterolisthesis C7 on T1. Moderate degenerative changes. Multilevel disc disease. Prevertebral soft tissues within normal limits. Visualized lung apices: Large pleural effusions. Visualized thyroid: Unremarkable. No enlarged cervical nodes. IMPRESSION: HEAD: 1. No acute intracranial findings. C-SPINE: 1. No acute fracture. Reviewed, dictated and finalized at location R. AL INSPECTOR IMPRESSION: HEAD: 1. No acute intracranial findings. C-SPINE: 1. No acute fracture.
--- NOTE | ~2025-06-12 | XR_ITS ---
Examination: XR chest 2V Clinical History: injury Comparison: Chest x-ray 06/03/2025 Technique: PA and Lateral Findings: Cardiac silhouette enlarged. Residual airspace disease and/or chronic interstitial changes or scarring right lung. No acute bony abnormality. IMPRESSION: 1. No acute cardiopulmonary findings. Reviewed, dictated and finalized at location R. ERY MECHANIC
[2025-06-12 02:28] VITALS: BP 131/59; PULSE 60; RESP 12; TEMP 36.9; O2SAT 96
[2025-06-12 02:34] VITALS: BP 131/59; PULSE 60; RESP 15; O2SAT 94
--- NOTE | 2025-06-12 02:52 | ED.FALL ---
HPI - Fall General Chief Complaint: Fall Stated Complaint: FALL Source: patient and EMS Mode of arrival: EMS Limitations: no limitations History of Present Illness HPI Narrative: Patient is a 79-year-old female presents to the emergency department complaining of hitting her head just prior to arrival. Patient states she is getting up off the toilet, fell about while bleed her knees and proceeded to hit her forehead on the wall, did not fall, denies use of blood thinners, denies loss of consciousness. Patient notes that she is wheelchair-bound. Notes that she wears 3 L supplemental oxygen at all times. Denies any chest pain, difficulty breathing, lightheadedness, dizziness, abdominal pain, nausea, vomiting, focal weakness, numbness, urinary discomfort, melena, hematochezia. Related Data Home Medications ?Medication ?Instructions ?Recorded ?Confirmed ?Last Taken ?Type alprazolam 0.5 mg tablet 0.5 mg PO BID Anxiety 09/25/24 06/03/25 06/03/25 History atorvastatin 40 mg tablet 40 mg PO HS Hyperlipidemia 09/25/24 06/03/25 06/02/25 History buspirone 10 mg tablet 10 mg PO TID 09/25/24 06/03/25 06/03/25 History fluticasone 250 mcg-salmeterol 50 1 inh inhalation DAILY 50 mcg in 09/25/24 06/03/25 06/03/25 History mcg/dose blistr powdr for each nostril one time daily inhalation (Advair Diskus) levothyroxine 175 mcg tablet 175 mcg PO DAILY 09/25/24 06/03/25 06/03/25 History oxybutynin chloride 5 mg 5 mg PO DAILY 09/25/24 06/03/25 06/03/25 History tablet,extended release 24 hr pantoprazole 40 mg tablet,delayed 40 mg PO Q12H 09/25/24 06/03/25 06/02/25 History release trazodone 50 mg tablet 75 mg PO HS Insomnia 09/25/24 06/03/25 06/02/25 History montelukast 10 mg tablet 10 mg PO DAILY 10/28/24 06/03/25 06/03/25 History (Singulair) aspirin 81 mg chewable tablet 81 mg PO DAILY Heart Failure 05/07/25 06/03/25 06/03/25 History calcium carbonate (Antacid Ultra 1,000 mg PO DAILY GERD 05/07/25 06/03/25 06/03/25 History Strength) cholecalciferol (vitamin D3) 25 25 mcg PO DAILY 05/07/25 06/03/25 06/03/25 History mcg (1,000 unit) capsule (Vitamin D3) clobetasol 0.05 % topical cream 1 applic topical HS 05/07/25 06/03/25 06/02/25 History ergocalciferol (vitamin D2) 1,250 50,000 unit PO WEEKLY Take Every 05/07/25 06/03/25 05/30/25 History mcg (50,000 unit) capsule Monday Morning ferrous sulfate 325 mg (65 mg 325 mg PO DAILY Anemia 05/07/25 06/03/25 06/03/25 History iron) tablet (FeroSul) fluoxetine 40 mg capsule 40 mg PO DAILY 05/07/25 06/03/25 06/03/25 History fluticasone propionate 50 1 spray intranasal DAILY 05/07/25 06/03/25 06/03/25 History mcg/actuation nasal spray,suspension furosemide 20 mg tablet 20 mg PO BID 05/07/25 06/03/25 06/03/25 History insulin lispro 100 unit/mL 1 sliding scale dose subcut 05/07/25 06/03/25 06/02/25 History subcutaneous solution (Humalog USEASDIRECTD U-100 Insulin) nifedipine 30 mg tablet,extended 30 mg PO DAILY 05/07/25 06/03/25 06/03/25 History release 24 hr psyllium 1 packet PO DAILY 05/07/25 06/03/25 06/03/25 History risankizumab-rzaa 360 mg/2.4 mL 360 mg subcut .Every 56 Days 05/07/25 06/03/25 Unknown History (150 mg/mL) subcut wearable injector (Luisyrelioi) topiramate 50 mg tablet 50 mg PO DAILY Seizures 05/07/25 06/03/25 06/03/25 History dapagliflozin propanediol 5 mg 5 mg PO DAILY 06/03/25 06/03/25 06/03/25 History tablet (Farxiga) insulin lispro 100 unit/mL 1 sliding scale dose subcut HS 06/03/25 06/04/2525 History subcutaneous cartridge (Humalog U-100 Insulin) acetaminophen 650 mg 650 mg PO Q8H PRN pain 06/04/25 06/04/25 Unknown History tablet,extended release (8 Hour Pain Reliever) ipratropium 0.5 mg-albuterol 3 mg 3 ml inhalation Q6H PRN shortness 06/04/25 06/04/25 Unknown History (2.5 mg base)/3 mL nebulization of breath soln nystatin 100,000 unit/gram topical 1 applic topical DAILY 06/04/25 06/04/25 06/03/25 History powder (Klayesta) silver sulfadiazine 1 % topical 1 applic topical DAILY PRN wound 06/04/25 06/04/25 06/04/25 History cream healing Allergies Allergy/AdvReac Type Severity Reaction Status Date / Time No Known Allergies Allergy Verified 06/04/25 00:34 Review of Systems Review of Systems: A 10 system review of systems was completed on the patient and is negative except for what is stated in the HPI. Nursing and ancillary documentation was reviewed. [facility] Past Medical History Medical History Hypertension COPD (chronic obstructive pulmonary disease) Diabetes Sleep apnea Insomnia Hyperlipidemia Anxiety Anemia Major depressive disorder Hypothyroid Heart failure GERD (gastroesophageal reflux disease) End stage renal disease Surgical History Surgical History History of carpal tunnel release Social History Social History Smoking packs per day: 0.5 Smoking cigarettes per day: 10.0 Smoking status: Never smoker Second hand tobacco smoke exposure: No Alcohol intake: never Substance use: never Substance use type: does not use Lack of Transportation: No Lack of Food: Never True Current Housing: I Have Housing Concerned About Future Housing: No Difficulty Paying Gas/Electric Bills: No Difficulty Paying for Meds: No Currently Unemployed: No Education: Don't Know Difficulty w/ Childcare or Family Care: No Spiritual care concerns: No Exam Narrative: CONST: No acute distress. Well nourished. Obese. On nasal cannula 3 L supplemental oxygen which is patient's baseline. HENMT: Head is normocephalic and atraumatic. Moist mucous membranes. No posterior oropharynx erythema. And small area of ecchymosis and swelling to the forehead without any palpable bony deformities. EYES: No scleral icterus. No conjunctival injection or pallor. PERRL. NECK: No meningeal signs. RESP: Able to speak in full sentences. Normal respiratory effort. CTAB. CARDIO: Regular rate. Regular rhythm. 2+ DP and radial pulses bilaterally. GI: Nondistended. No tenderness to palpation. Soft. : No CVA tenderness to palpation. SKIN: No rashes or lesions noted on exposed skin. NEURO: Oriented x3. Moves all extremities. Following all commands. No asymmetry in strength between the bilateral upper extremities in the bilateral lower extremities. EXTREM/MSK/BACK: Trace bilateral pedal edema. No midline vertebral tenderness to palpation or palpable step-offs. PSYCH: Normal affect. Course Vital Signs Vital signs: Vital Signs Temperature 98.4 F 06/12/25 02:28 Pulse Rate 60 06/12/25 02:28 Respiratory Rate 12 06/12/25 02:28 Blood Pressure 131/59 L 06/12/25 02:28 Pulse Oximetry 96 06/12/25 02:28 Oxygen Delivery Nasal Cannula 06/12/25 02:28 Oxygen Flow Rate 3 06/12/25 02:28 Temperature 98.2 F 06/12/25 04:01 Pulse Rate 50 L 06/12/25 04:01 Respiratory Rate 18 06/12/25 04:01 Blood Pressure 120/56 L 06/12/25 04:01 Pulse Oximetry 96 06/12/25 04:01 Oxygen Delivery Nasal Cannula 06/12/25 02:28 Oxygen Flow Rate 3 06/12/25 02:28 [facility] Narrative Medical decision making narrative: Patient presents with the above complaint. Initial vitals are remarkable for no significant abnormalities. Physical examination as noted above. Plan discussed: laboratory analysis, EKG, imaging, continuous cardiac monitoring, continuous pulse oximetry. Patient denies any pain at this time. Patient denies any chest pain or difficulty breathing. CT of the C-spine without contrast preliminary findings radiology impression is no acute fracture or subluxation, no prevertebral soft tissue swelling, moderate right and mild left pleural effusion. CT of the head preliminary report radiology interpretation is no hemorrhage or hydrocephalus or mass effect or herniation, no fractures. Chest x-ray preliminary findings radiology interpretation is cardiomegaly, no acute abnormality seen. Differential Diagnosis Differential Diagnosis: Contusion, fracture, intracranial hemorrhage. Medical Records I have reviewed the following patient records and this information was taken into consideration when formulating the assessment and plan.: previous labs and previous ER visits Lab Data MDM Lab Attestation statement: I personally reviewed the patient's lab results. Lab results narrative: CBC reveals a hemoglobin of 11. Coags are within normal limits. Comprehensive metabolic panel reveals a bicarb of 33, BUN of 33, creatinine 1.63. BNP is 1400. Troponin is 0.015. Urinalysis shows trace glucose. COVID and influenza and RSV testing are negative. Most recent hemoglobin on file from 06/07 is 11.3. Most recent metabolic panel on panel from 06/07/2025 revealed a bicarb of 36 and a creatinine 1.3. BNP from 06/07/2025 was 1620. 06/12/25 03:17 06/12/25 03:16 Labs: Lab Results 06/12/25 06/12/25 06/12/25 Range/Units 03:16 03:17 03:30 WBC 6.9 (4.5-10.0) K/mm3 RBC 3.69 L (4.2-5.4) M/mm3 Hgb 11.0 L (12.0-15.0) g/dL Hct 37.3 (37.0-47.0) % MCV 101.1 H (80-100) fl MCH 29.8 (26-34) pg MCHC 29.5 L (32-36) g/dl RDW 17.7 H (11.5-14.5) % Plt Count 282 D (150-375) k/mm3 MPV 9.9 (7.4-10.4) fl Immature Gran % (Auto) 0.3 (0-0.5) % Neut % (Auto) 56.7 (45.5-73.1) % Lymph % (Auto) 27.0 (18.3-44.2) % Dickson % (Auto) 10.1 H (2.6-8.5) % Eos % (Auto) 5.5 H (0-4.4) % Baso % (Auto) 0.4 (0.2-1.2) % Lymph # (Auto) 1.85 (0.9-3.2) K/mm3 Dickson # (Auto) 0.7 H (0.1-0.6) K/mm3 Eos # (Auto) 0.4 H (0-0.3) K/mm3 Baso # (Auto) 0.0 (0.0-0.1) K/mm3 Abs Immat Gran (auto) 0.02 (0.00-0.031) K/mm3 Absolute Neuts (auto) 3.9 (1.3-6.7) K/mm3 Absolute Nucleated RBC 0.000 (0.0-0.012) K/mm3 Band Neutrophils % Not Reportable Nucleated RBC % 0.0 (0.0-0.2) % Platelet Estimate Adequate (Adequate) Hypochromasia 1+ Schistocytes None seen PT 14.1 (11.1-14.7) Seconds INR 1.1 APTT 33.6 (22.3-36.8) Seconds Sodium 135 L (137-145) mmol/L Potassium 4.2 (3.4-5.0) mmol/L Chloride 100 (98-107) mmol/L Carbon Dioxide 33 H (22-30) mmol/L Anion Gap 2 L (4-12) mmol/L BUN 33 H D (7-17) mg/dL Creatinine 1.63 H (0.7-1.0) mg/dL Estim Creat Clear Calc 26 ml/min Estimated GFR 30 L (59 - ) Glucose 106 (65-110) mg/dL Calcium 8.4 (8.4-10.2) mg/dL Magnesium 2.2 (1.6-2.3) mg/dL Total Bilirubin 0.4 (0.2-1.3) mg/dL AST 32 (14-36) U/L ALT 12 (6-35) U/L Alkaline Phosphatase 89 (38-126) U/L Troponin I 0.015 (0.000-0.034) ng/mL NT-Pro-B Natriuret Pep 1400 H (19.9-100) pg/mL Total Protein 6.6 (6.3-8.2) g/dL Albumin 3.4 L (3.5-5.1) g/dL Urine Color Yellow (Yellow) Urine Appearance Clear (Clear) Urine pH 6.0 (5.0-9.0) Ur Specific [place] 1.009 (1.001-1.035) Urine Protein Trace (Negative) mg/dL Urine Glucose (UA) Trace H (Negative) mg/dL Urine Ketones Negative (Negative) mg/dL Ur Blood (Man) Negative (Negative) Urine Nitrate Negative (Negative) Urine Bilirubin Negative (Negative) Urine Urobilinogen 0.2 (<2.0) mg/dL Leukocyte Esterase Rfl Negative (Negative) MARION/UL Urine RBC 0-2 (0-2) /hpf Urine WBC 0-5 (0-3) /hpf Ur Squamous Epith Cells None seen (Few) /hpf Urine Bacteria None seen /hpf Urine Casts 0-2 Influenza A (RT-PCR) Negative (Negative) Influenza B (RT-PCR) Negative (Negative) RSV (RT-PCR) Negative (Negative) SARS-CoV-2 RNA (RT-PCR) Negative (Negative) ECG Data EKG #1: Attestation: I personally reviewed and interpreted this ECG as follows: ECG completion date: 06/12/25 ECG completion time: 03:13 Interpretation: Rate of 56, rhythm is sinus bradycardia, possible left atrial enlargement, left axis deviation, right bundle branch block, no ST elevation. Discharge Plan Discharge Clinical Impression: Contusion of forehead Qualifiers: Encounter type: initial encounter Qualified Code(s): S00.83XA - Contusion of other part of head, initial encounter Patient Disposition: [place] Residential/Asst Living Condition: Stable Instructions: Antibiotic Form, Contusion in Adults (ED) Additional Instructions: Follow-up with your primary care physician the next few days for reassessment, continue taking your home medications as prescribed, return immediately to the emergency department for any new or concerning symptoms especially any emergent concerns for life, limb, eyesight. Patient Language: Colombian Prescriptions: No Action montelukast [Singulair] 10 mg tablet 10 mg PO DAILY alprazolam 0.5 mg tablet 0.5 mg PO BID atorvastatin 40 mg tablet 40 mg PO HS levothyroxine 175 mcg tablet 175 mcg PO DAILY pantoprazole 40 mg tablet,delayed release (DR/EC) 40 mg PO Q12H buspirone 10 mg tablet 10 mg PO TID oxybutynin chloride 5 mg tablet extended release 24hr 5 mg PO DAILY trazodone 50 mg tablet 75 mg PO HS fluticasone propion-salmeterol [Advair Diskus] 250-50 mcg/dose blister with device 1 inh inhalation DAILY dapagliflozin propanediol [Farxiga] 5 mg tablet 5 mg PO DAILY Humalog U-100 Insulin 100 unit/mL cartridge 1 sliding scale dose subcut HS Rx Instructions: 201-300= 1unit 300-400= 2 units ipratropium-albuterol 0.5 mg-3 mg(2.5 mg base)/3 mL solution for nebulization 3 ml INHALATION Q6H PRN (Reason: shortness of breath) nystatin [Klayesta] 100,000 unit/gram powder 1 applic TOPICAL DAILY Rx Instructions: yeast under breasts silver sulfadiazine 1 % cream 1 applic TOPICAL DAILY PRN (Reason: wound healing) Rx Instructions: apply to left lower leg topically as needed for wounds. acetaminophen [8 Hour Pain Reliever] 650 mg tablet extended release 650 mg PO Q8H PRN (Reason: pain) losartan 25 mg Tablet 25 mg PO DAILY Qty: 30 0RF azithromycin 250 mg tablet 250 mg PO DAILY Qty: 1 0RF Rx Instructions: next dose due 06/07/25 at 2100 amoxicillin-pot clavulanate 875-125 mg tablet 1 tablet PO Q12H Qty: 6 0RF Rx Instructions: next dose due 06/07/2025 at 2100 aspirin 81 mg tablet,chewable 81 mg PO DAILY calcium carbonate [Antacid Ultra Strength] 400 mg calcium (1,000 mg) tablet,chewable 1,000 mg PO DAILY ergocalciferol (vitamin D2) 1,250 mcg (50,000 unit) capsule 50,000 unit PO WEEKLY ferrous sulfate [FeroSul] 325 mg (65 mg iron) tablet 325 mg PO DAILY fluoxetine 40 mg capsule 40 mg PO DAILY nifedipine 30 mg tablet extended release 24hr 30 mg PO DAILY Skyrizi 360 mg/2.4 mL (150 mg/mL) wearable injector 360 mg subcut .Every 56 Days topiramate 50 mg tablet 50 mg PO DAILY cholecalciferol (vitamin D3) [Vitamin D3] 25 mcg (1,000 unit) capsule 25 mcg PO DAILY furosemide 20 mg tablet 20 mg PO BID fluticasone propionate 50 mcg/actuation spray,suspension 1 spray INTRANASAL DAILY insulin lispro [Humalog U-100 Insulin] 100 unit/mL solution 1 sliding scale dose subcut USEASDIRECTD Patient Comments: 70-200=0 201-250=2 251-300=3 301-350=4 351-400=5 call MD and recheck in one hour for lispro psyllium Packet 1 packet PO DAILY Rx Instructions: mix into at least 8 oz of water or juice before administering clobetasol 0.05 % cream 1 applic TOPICAL HS Patient Comments: Apply topically to affected area every night for hemorrhoids Follow-up/Referrals: Mukesh,Silvina Dill [Primary Care Provider] - 3 Days Stand Alone Forms: Longterm Discharge Time of Disposition: 05:08
[2025-06-12 03:00] VITALS: BP 112/57; PULSE 55; RESP 13; TEMP 36.8; O2SAT 95
--- NOTE | 2025-06-12 03:02 | ECG_ITS ---
Test Date: 2025-06-12 03:13:13 Measurements Intervals [place] Rate: 56 P: 48 [place]: 192 QRS: -21 QRSD: 170 T: -2 QT: 522 QTc: 506 Interpretive Statements SINUS BRADYCARDIA POSSIBLE LEFT ATRIAL ENLARGEMENT RIGHT BUNDLE BRANCH BLOCK BORDERLINE ST-T WAVE ABNORMALITY- ANTEROLATERAL LEADS ABNORMAL ECG Compared to ECG 05/06/2025 12:57:55 NO SIGNIFICANT CHANGE Electronically Signed On 06-12-2025 06:16:47 [employer] by aJs Boyd D.O.
[2025-06-12 03:24] LABS: Hematocrit 37.3 % (37.0-47.0); Hemoglobin 11.0 g/dL (12.0-15.0); Immature Granulocyte Percent A 0.3 % (0-0.5); Lymphocytes Absolute Auto 1.85 K/mm3 (0.9-3.2); Mean Corpuscular HGB Conc 29.5 g/dl (32-36); Mean Corpuscular Hemoglobin 29.8 pg (26-34); Mean Corpuscular Volume 101.1 fl (80-100); Nucleated Red Blood Cells Absolute Auto 0.000 K/mm3 (0.0-0.012); Nucleated Red Blood Cells Perc 0.0 % (0.0-0.2); Platelet Count Result 282 k/mm3 (150-375); Red Blood Count 3.69 M/mm3 (4.2-5.4); White Blood Count 6.9 K/mm3 (4.5-10.0)
[2025-06-12 03:31] VITALS: BP 129/56; PULSE 55; RESP 23; TEMP 36.7
[2025-06-12 03:35] LABS: INR 1.1; Prothrombin Time 14.1 Seconds (11.1-14.7)
[2025-06-12 03:36] LABS: Partial Thromboplastin Time 33.6 Seconds (22.3-36.8)
[2025-06-12 03:41] LABS: Add Urine Microscopic? YES; Appearance Urine Clear (Clear); Glucose Urine UA Trace mg/dL (Negative); Leukocyte Esterase Ur Negative LEU/UL (Negative); Nitrate Urine Negative (Negative); Non Pathogenic Casts 0-2; Specific Grav Ur 1.009 (1.001-1.035)
[2025-06-12 03:48] LABS: Hypochromasia 1+; Schistocytes None Seen
[2025-06-12 03:53] LABS: Troponin I 0.015 ng/mL (0.000-0.034)
[2025-06-12 03:58] LABS: Influenza A QL RT-PCR Negative (Negative); Influenza B QL RT-PCR Negative (Negative); RSV RNA, RT-PCR Negative (Negative); SARS-CoV-2 RNA PCR Negative (Negative)
[2025-06-12 04:01] VITALS: BP 120/56; PULSE 50; RESP 18; TEMP 36.8; O2SAT 96
[2025-06-12 04:17] LABS: Alanine Aminotransferase 12 U/L (6-35); Albumin Level 3.4 g/dL (3.5-5.1); Alkaline Phosphatase 89 U/L (38-126); Anion Gap 2 mmol/L (4-12); Aspartate Amino Transferase 32 U/L (14-36); Bilirubin,Total 0.4 mg/dL (0.2-1.3); Blood Urea Nitrogen 33 mg/dL (7-17); Calcium 8.4 mg/dL (8.4-10.2); Carbon Dioxide 33 mmol/L (22-30); Chloride 100 mmol/L (98-107); Estimated CRCL calculation 26 ml/min; Estimated Glomerular Filt Rate 30; Glucose 106 mg/dL (65-110); Magnesium 2.2 mg/dL (1.6-2.3); Potassium 4.2 mmol/L (3.4-5.0); Sodium 135 mmol/L (137-145); Total Protein 6.6 g/dL (6.3-8.2)
[2025-06-12 04:26] LABS: NT Pro B Type Natriuretic Pept 1400 pg/mL (19.9-100)
[2025-06-12 05:09] VITALS: BP 100/55; PULSE 58; RESP 16; TEMP 36.8; O2SAT 99
== END 2025-06-12 06:39 ==
PROVIDERS: Emergency Provider Student in an Organized Health Care Education/Training Program; PCP Internal Medicine
DX: S00.83XA Contusion of other part of head, initial encounter (principal); Z11.52 Encounter for screening for COVID-19; I13.11 Hypertensive heart and chronic kidney disease without heart failure, with stage 5 chronic kidney disease, or end stage renal disease; E11.22 Type 2 diabetes mellitus with diabetic chronic kidney disease; N18.6 End stage renal disease; J44.9 Chronic obstructive pulmonary disease, unspecified; E03.9 Hypothyroidism, unspecified; E78.5 Hyperlipidemia, unspecified; G47.30 Sleep apnea, unspecified; F41.9 Anxiety disorder, unspecified; F32.9 Major depressive disorder, single episode, unspecified; F17.210 Nicotine dependence, cigarettes, uncomplicated; Z99.81 Dependence on supplemental oxygen; Z99.3 Dependence on wheelchair; Z79.899 Other long term (current) drug therapy; Z79.4 Long term (current) use of insulin; Z79.82 Long term (current) use of aspirin; Z79.620 Long term (current) use of immunosuppressive biologic; R94.31 Abnormal electrocardiogram [ECG] [EKG]; I45.10 Unspecified right bundle-branch block; R00.1 Bradycardia, unspecified; W22.09XA Striking against other stationary object, initial encounter
CPT/HCPCS: 36415; 70450; 71046; 72125; 80053; 81001; 83735; 83880; 84484; 85025; 85610; 85730; 87637; 93005; 99284